=== PATIENT | male | born 1970 | race Caucasian/White ===

== ENCOUNTER 2023-04-19 09:57 | Inpatient (IN) ==
--- NOTE | 2023-04-19 10:06 | Emergency Department Note ---
Impression & Plan Septic shock, UTI (urinary tract infection), Acute respiratory failure with hypoxia and hypercapnia, Chronic indwelling Dial catheter, NSTEMI (non-ST elevated myocardial infarction), Aspiration pneumonia ED Provider Note NAME: YUNG CRESPO AGE: 52 SEX: M : 1970 ARRIVES VIA: Ambulance INFORMANT: Patient, ED PROVIDER(S): Devonte Do MD CHIEF COMPLAINT: Altered mental status MEDICAL DECISION MAKING: Patient presents with limited history last known well was at 3 AM. The patient was unresponsive with agonal breathing. Patient had been in a hallway and EMS did not make anybody aware of the severity of the patient's illness. I had gone to the room the patient was to go to but was found in the hallway w/ EMS. There is concern for possible overdose given pinpoint pupils and the patient does have a history of buprenorphine overdose but given the patient's significant respiratory distress the decision was made to emergently intubate the patient. This was after discussion with paramedics who stated that the patient is DNR but that they had spoken with the daughter who asked that they do everything initially. IV was established blood work was obtained patient did receive IV ketamine and rocuronium. The patient was intubated without any complication postintubation chest x-ray performed. Patient was ordered empiric antibiotics. I did obtain some additional history from the daughter who lives in [place]. They report that his DNR order is . They would like things done but states the patient is DNR. After further discussion the daughter Myranda states that she does not want any CPR if his heart were to stop but would currently like him to be maintained on a ventilator. I had stated that if the patient was extubated currently he would likely succumb to his current illness. Patient was started on low-dose Levophed given the patient's hypotension. Ppatient's blood work shows a white count of 30 follower. Vancomycin was ordered. Normal hemoglobin mild thrombocytopenia at 123. Patient did have a VBG completed patient has also received bicarb on his initial ABG showed hypercarbia and associated pH of 7. Creatinine 1.71. The patient did have CT angiography of the chest and CT abdomen pelvis. Initial lactate is not elevated. Troponin of 12,000. Pro-Harley 54. Urinalysis does show possibility of infection given positive nitrates leuks and whites. Bedside [id number] ultrasound performed. Insufficient cardiac views but IVC appear to be flat nature likely could tolerate fluids. No significant B-lines noted in the bilateral chest. Given the patient's elevated troponin and EKG changes I did speak with Dr. Tan was stated that given the patient's comorbidities would not acutely take the patient to the Bail [facility] at this time. Patient without evidence of obvious STEMI. I did update patient's family who are a couple of nieces at bedside. CT of the head shows old small left frontal infarct no acute hemorrhage. CT angiography of the chest shows no evidence for PE. There is concern for likely aspiration pneumonitis and lymphadenopathy. CT abdomen pelvis shows mucous plugging bronchial wall thickening bilateral lower lobes favors pneumonia or aspiration pneumonitis. No evidence of bowel obstruction. Patient may have a nonspecific colitis with an associated 1.5 cm polyp versus stool within the rectosigmoid junction. Patient was ordered heparin given there is no acute bleed noted. The patient's daughter was actively driving from [place] per the admitting service. I did speak with the admitting service Dr. Lamb and the patient was admitted to the intensive care unit. I also did discuss patient's care and case with Dr. Luong the cone runner. Of note the patient did receive residual 3 and half liters IV fluid. The patient's Levophed was trialed off briefly but given the persistent hypotension was continued. Critical Care: I have personally spent 125 minutes of critical care time in direct management of this patient. This includes bedside care, interpretation of diagnostic studies, and testing, discussion with consultants, patient, and family members, and other require inpatient management activities. This 125 minutes is in excess of all separately billable procedures. Procedures: Endotracheal Intubation performed by Dr. Do Indication unresponsiveness, respiratory distress, airway protection. The patient was on 100% oxygen via NRB prior to the procedure. Suction, airway equipment, RSI drugs, respiratory equipment, and appropriate personnel were prepared prior to the initiation of the procedure. A time out was taken. Induction was performed with 100 mg of ketamine and paralytic of 100 mg of rocuronium. After observing the clinical benefit of the medications, the airway was easily visualized utilizing a low pro S4 video laryngoscopy. A 7.5 size ETT tube was placed atraumatically to 25 cm using standard technique. The cuff inflated without signs of malfunction. There were bilateral breath sounds, positive colormetric change, no gastric sounds, a good capnography waveform, and post procedure pulse oximetry was 100%. Post intubation sedation fentanyl and Versed drips. There were no complications. Discussion w/ other healthcare providers: Dr. Lamb inpatient medicine service Dr. Millan cone runner Prior /Outside records reviewed: I reviewed the patient's medication list which does include soma and Suboxone Differential diagnosis: Dehydration, UTI, pneumonia, metabolic derangment, electrolyte abnormalities, hypovolemia, anemia, cellulitis among others were considered. Diagnostics, as interpreted by me: ECG: Sinus tachycardia, rate of 109, normal intervals, right axis deviation no ST elevations, ST depressions in the lateral and inferior leads. Cardiac monitoring: An order was placed for continuous cardiac monitoring. The monitor shows a rate of 125 with tachycardic and regular rhythm. Patient was placed on pulse oximetry Medical decision rules: None Imaging studies: I informally interpreted the patient's chest x-ray which does not show obvious pneumothorax with formal report to follow. I informally interpreted the patient's CT head which does not show obvious ICH with formal report to follow HPI: Patient presents with limited history other than the patient was found to be altered this morning with a saturation in the 60s per EMS. Patient did have a normal blood pressure initially but had dropped to become more soft. No reported preceding symptoms other than the patient does have a caregiver who noted him to be last known well at 3 AM. Per review of the patient's binder which she is accompanied with the patient is a paraplegic who does have an indwelling urinary catheter. From exam the patient has had prior tracheostomy and left shoulder surgeries. They do not appear to be recent. History is limited as the patient is unresponsive. Per review of the medical records the patient is on Suboxone and Soma. The patient is also on other chronic medications. PAST MEDICAL HISTORY: See Below PAST SURGICAL HISTORY: See Below SOCIAL HISTORY: See Below HOME MEDICATIONS: See Below ALLERGIES: See Below VITALS: See Below PHYSICAL EXAMINATION: GENERAL: Severe distress, unresponsive, nonrebreather in place EYE EXAM: Normal conjunctiva. Pinpoint pupils, unreactive, no anisocoria. OROPHARYNX: Dry mucus membranes, grossly normal dentition. NECK: Trachea midline, no stridor. Supple, no nuchal rigidity, no adenopathy, non-tender. No signs of meningismus. FROM of the neck with good chin to chest and neck extension. LUNGS: Coarse sounds most prominent in the left chest compared to right, normal chest wall mechanics. HEART: Tachycardic and regular, no MRG. ABDOMEN: Abdomen soft, non-tender, no masses, no rebound or guarding. BACK: No CVA TTP. SKIN: No rashes and no bruising. : Indwelling Dial catheter in place UPPER EXTREMITIES: Upper extremities are grossly normal. LOWER EXTREMITIES: Grossly normal, no erythema. NEURO EXAM: GCS of 3 to verbal and tactile stimuli. Past Med/Surg History Medical History Acute kidney failure History of stroke Chronic indwelling Dial catheter Chronic anticoagulation Pacemaker Chronic incomplete quadriplegia Paraplegia Family History Other Family history non-contributory Social History Smoking Status: Current every day smoker Tobacco Type: Cigarettes Hx Alcohol Use: No Hx Substance Use: Yes Last Used Substance: Unknown Preferred Language: [place]ese Communication Ability: Effective Communication Ability Comment: currently intubated Lab Technician Required: No Beliefs That Will Affect Care: None Current Living Situation: Alone Current Living Situation Comment: patient lives in trailer [facility] Other Information That Helps Us Care for You: No Feels Safe at Home: Yes Assistive Devices: Wheelchair Allergies Allergies Allergy/AdvReac Type Severity Reaction Status Date / Time No Known Allergies Allergy Unverified 12/08/18 22:03 Home Meds Home Medications Medication Instructions Recorded Confirmed buprenorphine 8 mg-naloxone 2 mg 1 film sublingual BID 12/08/18 12/08/18 sublingual film (Suboxone) carisoprodol 350 mg tablet (Soma) 350 mg PO TID 12/08/18 12/08/18 clonazepam 0.5 mg tablet 0.5 mg PO BID 12/08/18 12/08/18 docusate sodium 50 mg capsule 50 mg PO DAILY PRN Constipation 12/08/18 12/08/18 (Stool Softener) linaclotide 290 mcg capsule 290 mcg PO DAILY 12/08/18 12/08/18 (Linzess) methylphenidate HCl 10 mg tablet 10 mg PO BID 12/08/18 12/08/18 nitrofurantoin macrocrystal 50 mg 50 mg PO DAILY 12/08/18 12/08/18 capsule polyethylene glycol 3350 17 17 g PO DAILY PRN Constipation 12/08/18 12/08/18 gram/dose oral powder (Miralax) apixaban 5 mg tablet (Eliquis) 5 mg PO BID 04/19/23 04/19/23 baclofen 20 mg tablet 20 mg PO TID 04/19/23 04/19/23 gabapentin 800 mg tablet 800 mg PO TID 04/19/23 04/19/23 Results & Data (ED) Vital Signs Vital Signs - 24 hr 04/19/23 10:23 04/19/23 10:23 04/19/23 11:02 Pulse Rate 113 H 153 H Pulse Rate from SpO2 Sensor Respiratory Rate 21 24 Respiratory Depth Shallow Blood Pressure 88/44 L Blood Pressure Mean 58 Pulse Oximetry 93 93 100 Oxygen Delivery Method Aerosol Mask Aerosol Mask Oxygen Flow Rate 12 Fraction of Inspired Oxygen 75 Sepsis New/Unexplained Change in Mental Status Yes Sepsis Action Taken by Nursing Physician Notified End-Tidal CO2 40 04/19/23 11:10 04/19/23 11:10 04/19/23 11:15 Pulse Rate 142 H Pulse Rate from SpO2 Sensor 142 H Respiratory Rate Respiratory Depth Blood Pressure 110/53 L 117/61 Blood Pressure Mean 74 85 Pulse Oximetry 100 Oxygen Delivery Method Mechanical Vent Oxygen Flow Rate Fraction of Inspired Oxygen Sepsis New/Unexplained Change in Mental Status Sepsis Action Taken by Nursing End-Tidal CO2 04/19/23 11:15 04/19/23 11:20 04/19/23 11:21 Pulse Rate 138 H 130 H 131 H Pulse Rate from SpO2 Sensor 138 H 131 H 131 H Respiratory Rate Respiratory Depth Blood Pressure Blood Pressure Mean Pulse Oximetry 100 100 100 Oxygen Delivery Method Mechanical Vent Mechanical Vent Oxygen Flow Rate Fraction of Inspired Oxygen Sepsis New/Unexplained Change in Mental Status Sepsis Action Taken by Nursing End-Tidal CO2 04/19/23 11:21 04/19/23 11:21 04/19/23 11:23 Pulse Rate 132 H Pulse Rate from SpO2 Sensor 133 H Respiratory Rate Respiratory Depth Blood Pressure 76/32 L 76/32 L Blood Pressure Mean 41 41 Pulse Oximetry 100 Oxygen Delivery Method Mechanical Vent Oxygen Flow Rate Fraction of Inspired Oxygen Sepsis New/Unexplained Change in Mental Status Sepsis Action Taken by Nursing End-Tidal CO2 04/19/23 11:23 04/19/23 11:25 04/19/23 11:25 Pulse Rate 130 H Pulse Rate from SpO2 Sensor 130 H Respiratory Rate Respiratory Depth Blood Pressure 103/58 L 106/59 L Blood Pressure Mean 66 73 Pulse Oximetry 100 Oxygen Delivery Method Mechanical Vent Oxygen Flow Rate Fraction of Inspired Oxygen Sepsis New/Unexplained Change in Mental Status Sepsis Action Taken by Nursing End-Tidal CO2 04/19/23 11:30 04/19/23 11:30 04/19/23 11:35 Pulse Rate 128 H 132 H Pulse Rate from SpO2 Sensor 128 H 132 H Respiratory Rate Respiratory Depth Blood Pressure 125/64 Blood Pressure Mean 78 Pulse Oximetry 100 100 Oxygen Delivery Method Mechanical Vent Mechanical Vent Oxygen Flow Rate Fraction of Inspired Oxygen Sepsis New/Unexplained Change in Mental Status Sepsis Action Taken by Nursing End-Tidal CO2 04/19/23 11:35 04/19/23 11:59 04/19/23 12:00 Pulse Rate Pulse Rate from SpO2 Sensor 111 H Respiratory Rate 24 Respiratory Depth Blood Pressure 125/68 91/50 L Blood Pressure Mean 84 60 Pulse Oximetry 100 Oxygen Delivery Method Mechanical Vent Oxygen Flow Rate Fraction of Inspired Oxygen Sepsis New/Unexplained Change in Mental Status Sepsis Action Taken by Nursing End-Tidal CO2 49 04/19/23 12:00 04/19/23 12:05 04/19/23 12:05 Pulse Rate 108 H 108 H Pulse Rate from SpO2 Sensor 109 H 108 H Respiratory Rate 24 24 Respiratory Depth Blood Pressure 91/53 L Blood Pressure Mean 62 Pulse Oximetry 100 100 Oxygen Delivery Method Mechanical Vent Mechanical Vent Oxygen Flow Rate Fraction of Inspired Oxygen Sepsis New/Unexplained Change in Mental Status Sepsis Action Taken by Nursing End-Tidal CO2 38 43 04/19/23 12:07 04/19/23 12:10 04/19/23 12:10 Pulse Rate 105 H 105 H Pulse Rate from SpO2 Sensor 106 H Respiratory Rate 24 Respiratory Depth Blood Pressure 86/54 L Blood Pressure Mean 66 Pulse Oximetry 100 Oxygen Delivery Method Mechanical Vent Oxygen Flow Rate Fraction of Inspired Oxygen Sepsis New/Unexplained Change in Mental Status Sepsis Action Taken by Nursing End-Tidal CO2 41 04/19/23 12:15 04/19/23 12:15 04/19/23 12:20 Pulse Rate 103 H Pulse Rate from SpO2 Sensor 103 H Respiratory Rate 24 Respiratory Depth Blood Pressure 88/51 L 114/63 Blood Pressure Mean 61 72 Pulse Oximetry 100 Oxygen Delivery Method Mechanical Vent Oxygen Flow Rate Fraction of Inspired Oxygen Sepsis New/Unexplained Change in Mental Status Sepsis Action Taken by Nursing End-Tidal CO2 39 04/19/23 12:20 04/19/23 12:25 04/19/23 12:25 Pulse Rate 106 H 118 H Pulse Rate from SpO2 Sensor 106 H 117 H Respiratory Rate 24 24 Respiratory Depth Blood Pressure 126/73 Blood Pressure Mean 87 Pulse Oximetry 100 100 Oxygen Delivery Method Mechanical Vent Mechanical Vent Oxygen Flow Rate Fraction of Inspired Oxygen Sepsis New/Unexplained Change in Mental Status Sepsis Action Taken by Nursing End-Tidal CO2 44 42 04/19/23 12:30 04/19/23 12:30 04/19/23 12:35 Pulse Rate 116 H Pulse Rate from SpO2 Sensor 117 H Respiratory Rate 24 Respiratory Depth Blood Pressure 128/73 147/81 H Blood Pressure Mean 94 97 Pulse Oximetry 100 Oxygen Delivery Method Mechanical Vent Oxygen Flow Rate Fraction of Inspired Oxygen Sepsis New/Unexplained Change in Mental Status Sepsis Action Taken by Nursing End-Tidal CO2 43 04/19/23 12:35 04/19/23 12:40 04/19/23 12:40 Pulse Rate 116 H 114 H Pulse Rate from SpO2 Sensor 116 H 114 H Respiratory Rate 24 24 Respiratory Depth Blood Pressure 122/71 Blood Pressure Mean 88 Pulse Oximetry 100 100 Oxygen Delivery Method Mechanical Vent Mechanical Vent Oxygen Flow Rate Fraction of Inspired Oxygen Sepsis New/Unexplained Change in Mental Status Sepsis Action Taken by Nursing End-Tidal CO2 45 38 Home Medications Current Medication List: was personally reviewed by me Laboratory Data Attestation: I reviewed the patient's lab results. 04/19/23 10:43 04/19/23 10:43 Lab Results 04/19/23 04/19/23 04/19/23 Range/Units 10:43 10:44 10:57 WBC 34.39 H* (4.8-10.8) K/ul RBC 5.47 (4.70-6.10) M/uL Hgb 15.3 (14.0-18.0) g/dl POC Hgb 16.3 (14.0-18.0) g/dl Hct 48.8 (42.0-52.0) % POC Hct 48 (42-52) % MCV 89.2 (80.0-100.0) fL MCH 28.0 (25.0-34.0) pg MCHC 31.4 L (32.0-36.0) g/dL RDW Std Deviation 45.1 (36.4-46.3) fL RDW Coeff of Jason 13.9 (11.5-14.5) % Plt Count 123 L (130-400) K/uL MPV 9.6 (9.4-12.4) fL Absolute Nucleated RBC 0.05 (0.00-0.12) K/uL Nucleated RBC % (auto) 0.1 % PT 15.1 H (9.0-12.0) Seconds INR 1.4 H (0.9-1.1) APTT 33 H (21-31) Seconds PTT Ratio 1.2 POC pH 7.07 L* (7.35-7.45) POC pCO2 66 H (35-46) mmHg POC pO2 295 H (80-95) mmHg POC HCO3 19 (19-24) vickie/L POC Total CO2 21 L (24-31) mmol/L POC Base Excess -11.0 L (-9-1.8) vickie/L POC ABG O2 Sat 100.0 H (90-95) % VBG pH (7.36-7.41) VBG pCO2 (38-50) mmHg VBG pO2 mmHg VBG HCO3 mmol/L VBG O2 Saturation % VBG Base Excess mEq/L POC Sodium 141 (135-144) mmol/L Sodium 135 L (136-145) mmol/L POC Potassium 4.4 (3.3-5.0) mmol/L Potassium 4.6 (3.5-5.1) mmol/L Chloride 111 H (98-107) mmol/L Carbon Dioxide 15 L (21-32) mmol/L Anion Gap 9 (3-11) BUN 30 H (6-23) mg/dl Creatinine 1.71 H (0.6-1.4) mg/dl Est Cr Clr Drug Dosing 62.9 ml/min Est GFR ( Amer) 52.2 ml/min Est GFR (Non-Af Amer) 45.0 ml/min BUN/Creatinine Ratio 17.5 (10-20) Glucose 197 H (70-99(Fasting)) mg/dl Lactate 1.9 (0.4-2.0) mmol/L Calcium 7.8 L (8.6-10.3) mg/dl Magnesium 1.8 (1.7-2.4) mg/dl Total Bilirubin 0.3 (0.2-1.0) mg/dl Direct Bilirubin 0.1 (0-0.2) mg/dl AST 48 H (13-39) U/L ALT 35 (7-52) U/L Alkaline Phosphatase 77 (34-104) U/L Troponin I High Sens 26505.2 H* (0-20) pg/ml Total Protein 6.9 (6.0-8.3) gm/dl Albumin 3.5 (3.4-5.0) gm/dl Procalcitonin 54.04 H (0-0.5) ng/ml Urine Color Urine Appearance (Clear) Urine pH (4.5-7.5) Ur Specific Polk (1.000-1.030) Urine Protein (Negative) Urine Glucose (UA) (Negative) Urine Ketones (Negative) Urine Blood (Negative) Urine Nitrite (Negative) Urine Bilirubin (Negative) Urine Urobilinogen (Negative) Ur Leukocyte Esterase (Negative) Urine WBC (Auto) (0-5) /hpf Urine RBC (Auto) (0-4) /hpf U Hyaline Cast (Auto) (0-5) /lpf U Epithel Cells (Auto) (0-5) /lpf Urine Bacteria (Auto) (Negative) Nasal Screen MRSA (PCR) (Negative) Stl C. cayetanensis PCR (NotDetected) Stool Rotavirus A PCR (NotDetected) Stl Adenov F 40/41 PCR (NotDetected) Stool Astrovirus (PCR) (NotDetected) Stool Campylobacter PCR (NotDetected) Stl C. diff Tox B Gene (Neg) Stool Cryptosporidium PCR (NotDetected) Stl E.coli Shiga Tox PCR (NotDetected) Stl Enterotoxigenic E PCR (NotDetected) Stool EPEC (PCR) (NotDetected) Stool EAEC (PCR) (NotDetected) Stl E. histolytica PCR (NotDetected) Stool Giardia Lamblia PCR (NotDetected) Stool Salmonella PCR (NotDetected) Stool Sapovirus (PCR) (NotDetected) Stl P. shigelloides PCR (NotDetected) Stl Shigella/EIEC PCR (NotDetected) St Y.enterocolitica PCR (NotDetected) Stool Vibrio (PCR) (NotDetected) Stl Vibrio cholerae PCR (NotDetected) Stl Norovirus GI/GII PCR (NotDetected) Urine Opiates Screen (Neg) Ur Methadone, Qual (Neg) Urine Barbiturates (Neg) Ur Phencyclidine (PCP) (Neg) U Amphetamin/Meth Scrn (Neg) MDMA (Ecstasy) Screen (Neg) U Benzodiazepines Scrn (Neg) Ur Cocaine Metabolite (Neg) U Marijuana (THC) Screen (Neg) Adenovirus (PCR) Not Detected (NotDetected) B. pertussis DNA (PCR) Not Detected (NotDetected) B.parapertussis DNA PCR Not Detected (NotDetected) C. pneumoniae DNA (PCR) Not Detected (NotDetected) Coronavirus OC43 (PCR) Not Detected (NotDetected) Coronavirus HKU1 (PCR) Not Detected (NotDetected) Coronavirus 229E (PCR) Not Detected (NotDetected) SARS-CoV-2 (PCR) Not Detected (NotDetected) Coronavirus NL63 (PCR) Not Detected (NotDetected) Human Metapneumovir PCR Not Detected (NotDetected) Influenza Type A (PCR) Not Detected (NotDetected) Influenza Type B (PCR) Not Detected (NotDetected) M. pneumoniae (PCR) Not Detected (NotDetected) Parainfluenza 1 (PCR) Not Detected (NotDetected) Parainfluenza 2 (PCR) Not Detected (NotDetected) Parainfluenza 3 (PCR) Not Detected (NotDetected) Parainfluenza 4 (PCR) Not Detected (NotDetected) RSV (PCR) Not Detected (NotDetected) Entero/Rhino (PCR) Not Detected (NotDetected) 04/19/23 04/19/23 04/19/23 Range/Units 12:18 12:20 12:23 WBC (4.8-10.8) K/ul RBC (4.70-6.10) M/uL Hgb (14.0-18.0) g/dl POC Hgb (14.0-18.0) g/dl Hct (42.0-52.0) % POC Hct (42-52) % MCV (80.0-100.0) fL MCH (25.0-34.0) pg MCHC (32.0-36.0) g/dL RDW Std Deviation (36.4-46.3) fL RDW Coeff of Jason (11.5-14.5) % Plt Count (130-400) K/uL MPV (9.4-12.4) fL Absolute Nucleated RBC (0.00-0.12) K/uL Nucleated RBC % (auto) % PT (9.0-12.0) Seconds INR (0.9-1.1) APTT (21-31) Seconds PTT Ratio POC pH (7.35-7.45) POC pCO2 (35-46) mmHg POC pO2 (80-95) mmHg POC HCO3 (19-24) vickie/L POC Total CO2 (24-31) mmol/L POC Base Excess (-9-1.8) vickie/L POC ABG O2 Sat (90-95) % VBG pH 7.16 L (7.36-7.41) VBG pCO2 53 H (38-50) mmHg VBG pO2 164 mmHg VBG HCO3 19 mmol/L VBG O2 Saturation 99.2 % VBG Base Excess -10.1 mEq/L POC Sodium (135-144) mmol/L Sodium (136-145) mmol/L POC Potassium (3.3-5.0) mmol/L Potassium (3.5-5.1) mmol/L Chloride (98-107) mmol/L Carbon Dioxide (21-32) mmol/L Anion Gap (3-11) BUN (6-23) mg/dl Creatinine (0.6-1.4) mg/dl Est Cr Clr Drug Dosing ml/min Est GFR ( Amer) ml/min Est GFR (Non-Af Amer) ml/min BUN/Creatinine Ratio (10-20) Glucose (70-99(Fasting)) mg/dl Lactate (0.4-2.0) mmol/L Calcium (8.6-10.3) mg/dl Magnesium (1.7-2.4) mg/dl Total Bilirubin (0.2-1.0) mg/dl Direct Bilirubin (0-0.2) mg/dl AST (13-39) U/L ALT (7-52) U/L Alkaline Phosphatase (34-104) U/L Troponin I High Sens (0-20) pg/ml Total Protein (6.0-8.3) gm/dl Albumin (3.4-5.0) gm/dl Procalcitonin (0-0.5) ng/ml Urine Color Kemi Urine Appearance Cloudy A (Clear) Urine pH 5.5 (4.5-7.5) Ur Specific Polk 1.024 (1.000-1.030) Urine Protein 2+ H (Negative) Urine Glucose (UA) Negative (Negative) Urine Ketones Negative (Negative) Urine Blood 3+ H (Negative) Urine Nitrite Positive A (Negative) Urine Bilirubin Negative (Negative) Urine Urobilinogen Negative (Negative) Ur Leukocyte Esterase 1+ H (Negative) Urine WBC (Auto) >30 H (0-5) /hpf Urine RBC (Auto) >30 H (0-4) /hpf U Hyaline Cast (Auto) 1-5 (0-5) /lpf U Epithel Cells (Auto) 10-20 H (0-5) /lpf Urine Bacteria (Auto) Negative (Negative) Nasal Screen MRSA (PCR) Negative (Negative) Stl C. cayetanensis PCR (NotDetected) Stool Rotavirus A PCR (NotDetected) Stl Adenov F 40/41 PCR (NotDetected) Stool Astrovirus (PCR) (NotDetected) Stool Campylobacter PCR (NotDetected) Stl C. diff Tox B Gene (Neg) Stool Cryptosporidium PCR (NotDetected) Stl E.coli Shiga Tox PCR (NotDetected) Stl Enterotoxigenic E PCR (NotDetected) Stool EPEC (PCR) (NotDetected) Stool EAEC (PCR) (NotDetected) Stl E. histolytica PCR (NotDetected) Stool Giardia Lamblia PCR (NotDetected) Stool Salmonella PCR (NotDetected) Stool Sapovirus (PCR) (NotDetected) Stl P. shigelloides PCR (NotDetected) Stl Shigella/EIEC PCR (NotDetected) St Y.enterocolitica PCR (NotDetected) Stool Vibrio (PCR) (NotDetected) Stl Vibrio cholerae PCR (NotDetected) Stl Norovirus GI/GII PCR (NotDetected) Urine Opiates Screen Neg (Neg) Ur Methadone, Qual Neg (Neg) Urine Barbiturates Neg (Neg) Ur Phencyclidine (PCP) Neg (Neg) U Amphetamin/Meth Scrn Pos H (Neg) MDMA (Ecstasy) Screen Pos H (Neg) U Benzodiazepines Scrn Neg (Neg) Ur Cocaine Metabolite Neg (Neg) U Marijuana (THC) Screen Pos H (Neg) Adenovirus (PCR) (NotDetected) B. pertussis DNA (PCR) (NotDetected) B.parapertussis DNA PCR (NotDetected) C. pneumoniae DNA (PCR) (NotDetected) Coronavirus OC43 (PCR) (NotDetected) Coronavirus HKU1 (PCR) (NotDetected) Coronavirus 229E (PCR) (NotDetected) SARS-CoV-2 (PCR) (NotDetected) Coronavirus NL63 (PCR) (NotDetected) Human Metapneumovir PCR (NotDetected) Influenza Type A (PCR) (NotDetected) Influenza Type B (PCR) (NotDetected) M. pneumoniae (PCR) (NotDetected) Parainfluenza 1 (PCR) (NotDetected) Parainfluenza 2 (PCR) (NotDetected) Parainfluenza 3 (PCR) (NotDetected) Parainfluenza 4 (PCR) (NotDetected) RSV (PCR) (NotDetected) Entero/Rhino (PCR) (NotDetected) 04/19/23 Range/Units 12:38 WBC (4.8-10.8) K/ul RBC (4.70-6.10) M/uL Hgb (14.0-18.0) g/dl POC Hgb (14.0-18.0) g/dl Hct (42.0-52.0) % POC Hct (42-52) % MCV (80.0-100.0) fL MCH (25.0-34.0) pg MCHC (32.0-36.0) g/dL RDW Std Deviation (36.4-46.3) fL RDW Coeff of Jason (11.5-14.5) % Plt Count (130-400) K/uL MPV (9.4-12.4) fL Absolute Nucleated RBC (0.00-0.12) K/uL Nucleated RBC % (auto) % PT (9.0-12.0) Seconds INR (0.9-1.1) APTT (21-31) Seconds PTT Ratio POC pH (7.35-7.45) POC pCO2 (35-46) mmHg POC pO2 (80-95) mmHg POC HCO3 (19-24) vickie/L POC Total CO2 (24-31) mmol/L POC Base Excess (-9-1.8) vickie/L POC ABG O2 Sat (90-95) % VBG pH (7.36-7.41) VBG pCO2 (38-50) mmHg VBG pO2 mmHg VBG HCO3 mmol/L VBG O2 Saturation % VBG Base Excess mEq/L POC Sodium (135-144) mmol/L Sodium (136-145) mmol/L POC Potassium (3.3-5.0) mmol/L Potassium (3.5-5.1) mmol/L Chloride (98-107) mmol/L Carbon Dioxide (21-32) mmol/L Anion Gap (3-11) BUN (6-23) mg/dl Creatinine (0.6-1.4) mg/dl Est Cr Clr Drug Dosing ml/min Est GFR ( Amer) ml/min Est GFR (Non-Af Amer) ml/min BUN/Creatinine Ratio (10-20) Glucose (70-99(Fasting)) mg/dl Lactate (0.4-2.0) mmol/L Calcium (8.6-10.3) mg/dl Magnesium (1.7-2.4) mg/dl Total Bilirubin (0.2-1.0) mg/dl Direct Bilirubin (0-0.2) mg/dl AST (13-39) U/L ALT (7-52) U/L Alkaline Phosphatase (34-104) U/L Troponin I High Sens (0-20) pg/ml Total Protein (6.0-8.3) gm/dl Albumin (3.4-5.0) gm/dl Procalcitonin (0-0.5) ng/ml Urine Color Urine Appearance (Clear) Urine pH (4.5-7.5) Ur Specific Polk (1.000-1.030) Urine Protein (Negative) Urine Glucose (UA) (Negative) Urine Ketones (Negative) Urine Blood (Negative) Urine Nitrite (Negative) Urine Bilirubin (Negative) Urine Urobilinogen (Negative) Ur Leukocyte Esterase (Negative) Urine WBC (Auto) (0-5) /hpf Urine RBC (Auto) (0-4) /hpf U Hyaline Cast (Auto) (0-5) /lpf U Epithel Cells (Auto) (0-5) /lpf Urine Bacteria (Auto) (Negative) Nasal Screen MRSA (PCR) (Negative) Stl C. cayetanensis PCR Not Detected (NotDetected) Stool Rotavirus A PCR Not Detected (NotDetected) Stl Adenov F 40/41 PCR Not Detected (NotDetected) Stool Astrovirus (PCR) Not Detected (NotDetected) Stool Campylobacter PCR Not Detected (NotDetected) Stl C. diff Tox B Gene Negative Cdiff Gene (Neg) Stool Cryptosporidium PCR Not Detected (NotDetected) Stl E.coli Shiga Tox PCR Not Detected (NotDetected) Stl Enterotoxigenic E PCR Not Detected (NotDetected) Stool EPEC (PCR) Not Detected (NotDetected) Stool EAEC (PCR) Not Detected (NotDetected) Stl E. histolytica PCR Not Detected (NotDetected) Stool Giardia Lamblia PCR Not Detected (NotDetected) Stool Salmonella PCR Not Detected (NotDetected) Stool Sapovirus (PCR) Not Detected (NotDetected) Stl P. shigelloides PCR Not Detected (NotDetected) Stl Shigella/EIEC PCR Not Detected (NotDetected) St Y.enterocolitica PCR Not Detected (NotDetected) Stool Vibrio (PCR) Not Detected (NotDetected) Stl Vibrio cholerae PCR Not Detected (NotDetected) Stl Norovirus GI/GII PCR Not Detected (NotDetected) Urine Opiates Screen (Neg) Ur Methadone, Qual (Neg) Urine Barbiturates (Neg) Ur Phencyclidine (PCP) (Neg) U Amphetamin/Meth Scrn (Neg) MDMA (Ecstasy) Screen (Neg) U Benzodiazepines Scrn (Neg) Ur Cocaine Metabolite (Neg) U Marijuana (THC) Screen (Neg) Adenovirus (PCR) (NotDetected) B. pertussis DNA (PCR) (NotDetected) B.parapertussis DNA PCR (NotDetected) C. pneumoniae DNA (PCR) (NotDetected) Coronavirus OC43 (PCR) (NotDetected) Coronavirus HKU1 (PCR) (NotDetected) Coronavirus 229E (PCR) (NotDetected) SARS-CoV-2 (PCR) (NotDetected) Coronavirus NL63 (PCR) (NotDetected) Human Metapneumovir PCR (NotDetected) Influenza Type A (PCR) (NotDetected) Influenza Type B (PCR) (NotDetected) M. pneumoniae (PCR) (NotDetected) Parainfluenza 1 (PCR) (NotDetected) Parainfluenza 2 (PCR) (NotDetected) Parainfluenza 3 (PCR) (NotDetected) Parainfluenza 4 (PCR) (NotDetected) RSV (PCR) (NotDetected) Entero/Rhino (PCR) (NotDetected) Administered Medications Fentanyl Citrate (Fentanyl Bolus From Bag) 50 mcg IV Q60M PRN PRN Reason: Pain or Agitation Stop: 05/03/23 11:14 Last Admin: 04/19/23 13:36 Dose: 50 mcg Documented By: VICKIE Co-signed By: JOY Norepinephrine Bitartrate (Levophed/D5w) 4 mg in 250 mls @ 26.25 mls/hr IV .Q9H32M [facility]; Protocol Stop: 05/19/23 10:44 Last Titration: 04/19/23 14:42 Dose: 0.07 mcg/kg/min, 26.3 mls/hr Documented By: Admin: 04/19/23 10:41 Dose: 0.05 mcg/kg/min, 18.8 mls/hr Documented By: SARITHA Co-signed By: JARAD Fentanyl Citrate (Fentanyl Citrate) 2,500 mcg in 250 mls @ 5 mls/hr IV .Q50H [facility]; Protocol Stop: 05/03/23 11:14 Last Titration: 04/19/23 14:43 Dose: 50 mcg/hr, 5 mls/hr Documented By: MERNA Co-signed By: VARUN Titration: 04/19/23 13:38 Dose: 50 mcg/hr, 5 mls/hr Documented By: VICKIE Co-signed By: JOY Admin: 04/19/23 11:34 Dose: 25 mcg/hr, 2.5 mls/hr Documented By: VICKIE Co-signed By: HERIBERTO Heparin Sodium/Dextrose (Heparin Sodium/Dextrose) 25,000 units in 500 mls @ 0 mls/hr IV .Q0M [facility]; Protocol Stop: 05/19/23 13:14 Last Titration: 04/19/23 14:42 Dose: 0 units/hr, 0 mls/hr Documented By: MERNA Co-signed By: VARUN Admin: 04/19/23 13:22 Dose: 1,000 units/hr, 20 mls/hr Documented By: VICKIE Co-signed By: JOY Discontinued Medications Albuterol (Albuterol 0.083% Nebu Soln 3 Ml Vial) 10 mg NEB NOW STA; Protocol Stop: 04/19/23 10:46 Last Admin: 04/19/23 10:51 Dose: 10 mg Documented By: SARITHA Calcium Gluconate (Calcium Gluconate 1000 Mg/60 Ml Nss) Confirm Administered Dose 2,000 mg IV .STK-MED ONE Stop: 04/19/23 10:50 Last Admin: 04/19/23 11:00 Dose: 2,000 mg Documented By: VICKIE Dextrose (Dextrose 50% 50 Ml Syringe) 50 ml IV NOW ONE Stop: 04/19/23 10:46 Last Admin: 04/19/23 13:02 Dose: Not Given Documented By: VICKIE Heparin Sodium/Dextrose (Heparin Iv Adult Wt-Based Low-Dose *No* Initial Bolus Protocol) 1 each IV ONE STA; Protocol Stop: 04/19/23 12:47 Last Admin: 04/19/23 13:22 Dose: Not Given Documented By: VICKIE Piperacillin Sod/Tazobactam Sod (Zosyn) 4.5 gm in 100 mls @ 200 mls/hr IV NOW ONE Stop: 04/19/23 11:02 Last Infusion: 04/19/23 12:21 Dose: Infused Documented By: Admin: 04/19/23 10:50 Dose: 200 mls/hr Documented By: SARITHA Sodium Chloride (Nss) 1,000 mls @ 999 mls/hr IV .Q1H1M [facility] Stop: 04/19/23 12:45 Last Infusion: 04/19/23 12:57 Dose: Infused Documented By: Admin: 04/19/23 12:31 Dose: 999 mls/hr Documented By: Infusion: 04/19/23 12:31 Dose: Infused Documented By: Admin: 04/19/23 10:41 Dose: 999 mls/hr Documented By: SARITHA Sodium Chloride (Nss) 1,000 mls @ 999 mls/hr IV .Q1H1M ONE Stop: 04/19/23 11:45 Last Infusion: 04/19/23 12:21 Dose: Infused Documented By: Admin: 04/19/23 11:04 Dose: 999 mls/hr Documented By: SARITHA Vancomycin HCl 2,000 mg/ (Sodium Chloride) 540 mls @ 200 mls/hr IV NOW ONE Stop: 04/19/23 14:41 Last Infusion: 04/19/23 15:27 Dose: Infused Documented By: Admin: 04/19/23 12:32 Dose: 200 mls/hr Documented By: VICKIE Sodium Chloride (Nss) 500 mls @ 999 mls/hr IV .Q31M ONE Stop: 04/19/23 12:28 Last Infusion: 04/19/23 13:40 Dose: Infused Documented By: Admin: 04/19/23 12:33 Dose: 999 mls/hr Documented By: VICKIE Calcium Gluconate () 1,000 mg in 60 mls @ 240 mls/hr IV NOW STA Stop: 04/19/23 14:48 Last Admin: 04/19/23 14:45 Dose: Not Given Documented By: MERNA Calcium Gluconate () 1,000 mg in 60 mls @ 240 mls/hr IV NOW STA Stop: 04/19/23 14:48 Last Admin: 04/19/23 14:45 Dose: Not Given Documented By: MERNA Lactated Ringer's (Lr) 500 mls @ 999 mls/hr IV .Q31M ONE Stop: 04/19/23 15:16 Last Infusion: 04/19/23 15:26 Dose: Infused Documented By: Admin: 04/19/23 14:49 Dose: 999 mls/hr Documented By: MERNA Acetaminophen (Ofirmev) 1,000 mg in 100 mls @ 400 mls/hr IV NOW STA Stop: 04/19/23 15:00 Last Infusion: 04/19/23 15:10 Dose: Infused Documented By: Admin: 04/19/23 14:50 Dose: 400 mls/hr Documented By: MERNA Insulin Human Regular (Novolin-R Insulin Per Unit Charge) 10 units IV NOW STA Stop: 04/19/23 10:46 Last Admin: 04/19/23 13:02 Dose: Not Given Documented By: VICKIE Ioversol (Optiray 320 125ml) 112 ml IV ONCE ONE Stop: 04/19/23 11:50 Last Admin: 04/19/23 11:50 Dose: 112 ml Documented By: GABRIELA Dugananeous (Rapid Sequence Induction Bag) Confirm Administered Dose 1 each N/A .STK-MED ONE Stop: 04/19/23 10:17 Last Admin: 04/19/23 10:28 Dose: 1 each Documented By: SARITHA Louis (Stat Iv Infusion Titration Per Protocol) 1 each N/A NOW STA Stop: 04/19/23 10:40 Last Admin: 04/19/23 10:42 Dose: Not Given Documented By: SARITHA Louis (Stat Iv Infusion Titration Per Protocol) 1 each N/A NOW STA Stop: 04/19/23 11:16 Last Admin: 04/19/23 12:58 Dose: Not Given Documented By: VICKIE Norepinephrine Bitartrate (Norepinephrine/D5w 4 Mg/250 Ml) Confirm Administered Dose 4 mg IV .STK-MED ONE Stop: 04/19/23 10:29 Last Admin: 04/19/23 10:43 Dose: Not Given Documented By: SARITHA Sodium Bicarbonate (Sodium Bicarb 8.4% Inj 50 Meq/50 Ml Syr) Confirm Administered Dose 100 meq IV .STK-MED ONE Stop: 04/19/23 10:50 Last Admin: 04/19/23 12:59 Dose: Not Given Documented By: VICKIE Sodium Bicarbonate (Sodium Bicarb 8.4% Inj 50 Meq/50 Ml Syr) 100 meq IV NOW ONE Stop: 04/19/23 11:01 Last Admin: 04/19/23 10:51 Dose: 100 meq Documented By: VICKIE Sodium Bicarbonate (Sodium Bicarb 8.4% Inj 50 Meq/50 Ml Syr) 50 meq IV NOW STA Stop: 04/19/23 10:59 Last Admin: 04/19/23 12:59 Dose: Not Given Documented By: KJ Imaging Data Radiologist's Impression: Chest X-Ray 04/19/23 10:23 XR chest 1V portable HISTORY: 52 years-old Male Sepsis COMPARISON: None TECHNIQUE: AP view of the chest FINDINGS: Endotracheal tube overlies the midline, 3.5 cm superior to the singh. Left subclavian dual-lead pacer. Vascular graft of the descending thoracic aorta. No pneumothorax. Probable trace right pleural effusion with mild bibasilar densities. Pulmonary vascular congestion with interstitial coarsening. Cervical spinal and left humeral fusion hardware. IMPRESSION: 1. Cardiac mainly with pulmonary vascular congestion. 2. Satisfactory positioning of the endotracheal tube. 3. Trace right pleural effusion with mild bibasilar densities suggestive of atelectasis versus pneumonitis. ACT 112: Negative or not required by law. The above report was generated using voice recognition software. It may contain grammatical, syntax or spelling errors. Electronically signed by: Enzo Peoples M.D. 04/19/2023 11:[address] 04/19/23 10:[address] DOSE: 547.75 mGy.cm HISTORY: Altered mental status. TECHNIQUE: Multiaxial CT images of the head were performed without the use of intravenous contrast. Automated exposure control was utilized for this study. A dose lowering technique was utilized adhering to the principles of ALARA. Comparison: None. Findings: Mild mucosal thickening within the ethmoid air cells and a small fluid level within the right sphenoid sinus. The mastoid air cells are clear. The calvarium and skull base are intact. The ventricles and sulci are within normal limits. There is no mass, hematoma, midline shift, or acute infarct. Small focus of encephalomalacia within the left frontal lobe consistent with an old infarct. Impression: 1. No acute infarct or intracranial hemorrhage. 2. 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 3. Mild sinus disease as described above. ACT 112: Negative or not required by law. Electronically signed by: Martinez Diggs M.D. 04/19/2023 12:20 PM Abdomen/Pelvis CT 04/19/23 11:45 CT OF THE ABDOMEN AND PELVIS WITH CONTRAST CLINICAL HISTORY: Altered mental status. COMPARISON STUDY: None. TECHNIQUE: Following IV administration of 112 mL of Optiray, axial images of the abdomen and pelvis were obtained from the lung bases to the proximal femurs. Images were reviewed in the axial, sagittal, and coronal planes. IV contrast was administered without complication. Automated exposure control was utilized for the study. A dose lowering technique was utilized adhering to the principles of ALARA. FINDINGS: Please note that the chest CT will be reported separately. Bilateral lower lobe airspace opacities are greater within the right lower lobe. There is mucus plugging and bronchial wall thickening. No pneumatosis, free air or portal venous gas. Pacer leads are partially imaged. There is hepatic steatosis. No hepatic lesions. No biliary or pancreatic ductal dilatation. Spleen, adrenal glands and kidneys are unremarkable. There is no hydronephrosis. IVC filter is in place. Dial balloon is within the prostatic portion of the urethra. There is trace gas within the bladder. There is mild bladder wall thickening. There is no evidence for a bowel obstruction. The colon is mildly fluid-filled. Possible 1.5 cm polyp along the left lateral wall of the rectosigmoid junction on image 307 of 417 is present. This could also represent adherent stool. There is mild wall thickening of portions of the colon, likely due to underdistention. There is no lymphadenopathy. No ascites. Major vasculature is patent. Postoperative findings within the pelvis including symphyseal and bilateral SI joint fusions are present. There are no acute fractures. Layering hyperdense material within the gallbladder favor small gallstones. No evidence for acute cholecystitis. IMPRESSION: 1. Dial balloon within the prostatic urethra. A Dial catheter could be advanced. 2. No bowel obstruction. Fluid-filled colon. Wall thickening of portions of the colon likely due to underdistention. A mild nonspecific colitis could appear similar. 1.5 cm polyp versus adherent stool at the rectosigmoid junction. Nonemergent GI consultation for consideration for colonoscopy is recommended. 3. Bilateral lower lobe airspace opacities with mucus plugging and bronchial wall thickening. This favors pneumonia or aspiration pneumonitis. ACT 112: Negative or not required by law. Electronically signed by: Sin Ying M.D. 04/19/2023 12:16 PM Chest CTA 04/19/23 11:45 CHEST CTA for PULMONARY ARTERIES CT DOSE: 2554.42 mGy.cm HISTORY: Hypoxia. PE TECHNIQUE: Multiaxial CT images of the chest were performed following the intravenous administration of contrast to evaluate the pulmonary arteries. 3D/Maximal intensity projection images were also obtained. Sagittal and coronal reformations were also reviewed. A dose lowering technique was utilized adhering to the principles of ALARA. COMPARISON STUDY: None. FINDINGS: Normal caliber thoracic aorta with no evidence for a dissection. There is a stent within the distal aortic arch and descending thoracic aorta. The heart is top normal in size. No pleural or pericardial effusions. The left-sided pacemaker noted. The main pulmonary measures up to 3.2 cm in diameter consistent with mild pulmonary arterial hypertension. Respiratory motion artifact results in suboptimal evaluation of the segmental/subsegmental pulmonary arteries. However, there are no definite filling defects within the pulmonary arteries to suggest a pulmonary embolus. Mild coronary artery calcifications are noted. The thyroid gland enhances normally. This mildly enlarged subcarinal and right hilar lymph nodes. No significant left hilar lymphadenopathy. The abdominal structures will be reported on the same day abdomen and pelvis CT. There is mild circumferential thickening of the mid to distal esophagus. Spinal fusion hardware at the cervicothoracic junction is partially visualized. Old posttraumatic and postoperative changes within the left shoulder. There are multiple old mild compression deformities within the thoracic spine. Endotracheal tube terminates 3.6 cm from the singh. Small amount of mucoid material within the distal trachea. There is partial opacification of the bilateral lower lobe bronchi most pronounced on the right. Consolidation within the base of the bilateral lower lobes favors a pneumonia and is likely secondary to aspiration. This is most pronounced on the right. No pneumothorax. IMPRESSION: 1. No evidence for a pulmonary embolus. 2. Endotracheal tube terminates 3.6 cm from the isngh. 3. Partial mucoid opacification the bilateral lower lobe bronchi most pronounced on the right with bilateral lower lobe basilar consolidation. This favors an aspiration pneumonitis. Follow-up bronchoscopy should be considered for possible clearing of the mucoid opacification of the right lower lobe bronchi. 4. Mild subcarinal and right hilar lymphadenopathy. This may be reactive to the suspected pneumonitis. Follow-up recommended to ensure resolution. 5. Mild pulmonary arterial hypertension. 6. Additional findings as described above. ACT 112: Negative or not required by law. Electronically signed by: Martinez Diggs M.D. 04/19/2023 12:42 PM KUB X-Ray 04/19/23 12:23 KUB CLINICAL HISTORY: s/p OG placement COMPARISON STUDY: CT of the chest, abdomen and pelvis April 19, 2023. FINDINGS: Tip of orogastric tube is within the body of the stomach. Endovascular stent graft and left subclavian pacer are incidentally noted. Bibasilar opacities, right greater than left, are similar to prior CT IMPRESSION: Appropriately positioned orogastric tube. ACT 112: Negative or not required by law. Electronically signed by: Sin Ying M.D. 04/19/2023 12:59 PM Discharge Plan Visit Data Chief Complaint: Altered Mental Status Stated Complaint: altered mental status ED Provider: Devonte Do Discharge Problem: Septic shock, UTI (urinary tract infection), Acute respiratory failure with hypoxia and hypercapnia, Chronic indwelling Dial catheter, NSTEMI (non-ST elevated myocardial infarction), Aspiration pneumonia Patient Disposition: Admitted As Inpatient Discharge Instructions Interventions: ED Discharge Assessment Last Done: 04/19/23 13:57 Discharge Problem: UTI (urinary tract infection) Qualifiers: Urinary tract infection type: site unspecified Aspiration pneumonia Qualifiers: Aspiration pneumonia type: unspecified Laterality: bilateral Lung location: l ower lobe of lung Qualified Code(s): J69.0 - Pneumonitis due to inhalation of food and vomit
[2023-04-19] MEDS: RAPID SEQUENCE INDUCTION BAG ONE (10:28)
[2023-04-19] MEDS: NOREPINEPHRINE/D5W 4 MG/250 ML PLCT IV SCH (10:41)
[2023-04-19] MEDS: SODIUM CHLORIDE 0.9% 1,000 ML IV SCH (10:41)
[2023-04-19] MEDS: STAT IV Infusion **Titration per Protocol STA ×2 (10:42→12:58)
[2023-04-19] MEDS: NOREPINEPHRINE/D5W 4 MG/250 ML IV ONE (10:43)
[2023-04-19] MEDS: PIPERACILLIN/TAZOBACTAM 4.5 GM/100 ML BAG IV ONE (10:50)
[2023-04-19] MEDS: SODIUM BICARB 8.4% INJ 50 MEQ/50 ML SYR IV ONE ×2 (10:51→12:59)
[2023-04-19] MEDS: ALBUTEROL 0.083% NEBU SOLN 3 ML VIAL NEB STA (10:51)
[2023-04-19] MEDS: CALCIUM GLUCONATE 1000 MG/60 ML NSS IV ONE (11:00)
[2023-04-19] MEDS: SODIUM CHLORIDE 0.9% 1,000 ML IV ONE (11:04)
[2023-04-19] MEDS ORDERED: MIDAZOLAM HCL 1 MG/ML 2ML VIAL IV PRN (11:15)
[2023-04-19 11:22] LABS: Hematocrit (blood only) 48.8 % (42.0-52.0); Hemoglobin 15.3 g/dl (14.0-18.0); Mean Corpuscular Hgb Conc 31.4 g/dL (32.0-36.0); Mean Corpuscular Volume 89.2 fL (80.0-100.0); Mean Platelet Volume 9.6 fL (9.4-12.4); Nucleated RBC # (auto) 0.05 K/uL (0.00-0.12); Nucleated RBC % (auto) 0.1 %; Platelet Count 123 K/uL (130-400); RDW Coefficient of Variation 13.9 % (11.5-14.5); RDW Standard Deviation 45.1 fL (36.4-46.3); Red Blood Count 5.47 M/uL (4.70-6.10); White Blood Count 34.39 K/ul (4.8-10.8)
[2023-04-19 11:30] LABS: Albumin Level 3.5 gm/dl (3.4-5.0); Bilirubin,Total 0.3 mg/dl (0.2-1.0); Calcium 7.8 mg/dl (8.6-10.3); INR 1.4 (0.9-1.1); Magnesium 1.8 mg/dl (1.7-2.4); Partial Thromboplastin Ratio 1.2; Partial Thromboplastin Time 33 Seconds (21-31); Potassium 4.6 mmol/L (3.5-5.1); Prothrombin Time 15.1 Seconds (9.0-12.0)
[2023-04-19 11:31] LABS: Bilirubin Direct 0.1 mg/dl (0-0.2)
[2023-04-19 11:34] LABS: BUN Creatinine Ratio 17.5 (10-20); Creatinine Clr Calc Pharmacy 62.9 ml/min; Est GFR (African American) 52.2 ml/min; Total Protein 6.9 gm/dl (6.0-8.3)
[2023-04-19] MEDS: fentaNYL citrate 2,500 MCG/250 ML BAG IV SCH (11:34)
[2023-04-19 11:37] LABS: Troponin I High Sensitivity 12768.2 pg/ml (0-20)
--- NOTE | 2023-04-19 11:37 | Electrocardiogram Report ---
Test Reason : Blood Pressure : / mmHG Vent. Rate : 109 BPM Atrial Rate : 109 BPM P-R Int : 144 ms QRS Dur : 076 ms QT Int : 326 ms P-R-T Axes : 072 111 074 degrees QTc Int : 439 ms Sinus tachycardia Biatrial enlargement Right axis deviation Pulmonary disease pattern ST depression in Anterolateral leads , consider ischemia ST depression in Inferior leads , consider ischemia Abnormal ECG No previous ECGs available Confirmed by Gregorio Pearl ([id number]) on 04/19/2023 11:37:12 AM Referred By: Confirmed By:Gregorio Pearl
--- NOTE | 2023-04-19 11:38 | XRay Report ---
XR chest 1V portable HISTORY: 52 years-old Male Sepsis COMPARISON: None TECHNIQUE: AP view of the chest FINDINGS: Endotracheal tube overlies the midline, 3.5 cm superior to the singh. Left subclavian dual-lead pace r. Vascular graft of the descending thoracic aorta. No pneumothorax. Probable trace right pleural eff usion with mild bibasilar densities. Pulmonary vascular congestion with interstitial coarsening. Cerv ical spinal and left humeral fusion hardware. IMPRESSION: 1. Cardiac mainly with pulmonary vascular congestion. 2. Satisfactory positioning of the endotracheal tube. 3. Trace right pleural effusion with mild bibasilar densities suggestive of atelectasis versus pneumo nitis. ACT 112: Negative or not required by law. The above report was generated using voice recognition software. It may contain grammatical, syntax o r spelling errors. Electronically signed by: Enzo Peoples M.D. 04/19/2023 11:37 AM
[2023-04-19] MEDS: OPTIRAY 320 125ml IV ONE (11:50)
--- NOTE | 2023-04-19 12:18 | CT Scan Report ---
CT OF THE ABDOMEN AND PELVIS WITH CONTRAST CLINICAL HISTORY: Altered mental status. COMPARISON STUDY: None. TECHNIQUE: Following IV administration of 112 mL of Optiray, axial images of the abdomen and pelvis w ere obtained from the lung bases to the proximal femurs. Images were reviewed in the axial, sagittal, and coronal planes. IV contrast was administered without complication. Automated exposure control w as utilized for the study. A dose lowering technique was utilized adhering to the principles of MIGUEL A [place]. FINDINGS: Please note that the chest CT will be reported separately. Bilateral lower lobe airspace op acities are greater within the right lower lobe. There is mucus plugging and bronchial wall thickenin g. No pneumatosis, free air or portal venous gas. Pacer leads are partially imaged. There is hepatic steatosis. No hepatic lesions. No biliary or pancreatic ductal dilatation. Spleen, adrenal glands and kidneys are unremarkable. There is no hydronephrosis. IVC filter is in place. Dial balloon is withi n the prostatic portion of the urethra. There is trace gas within the bladder. There is mild bladder wall thickening. There is no evidence for a bowel obstruction. The colon is mildly fluid-filled. Poss ible 1.5 cm polyp along the left lateral wall of the rectosigmoid junction on image 307 of 417 is pre sent. This could also represent adherent stool. There is mild wall thickening of portions of the colo n, likely due to underdistention. There is no lymphadenopathy. No ascites. Major vasculature is paten t. Postoperative findings within the pelvis including symphyseal and bilateral SI joint fusions are p resent. There are no acute fractures. Layering hyperdense material within the gallbladder favor small gallstones. No evidence for acute cholecystitis. IMPRESSION: 1. Dial balloon within the prostatic urethra. A Dial catheter could be advanced. 2. No bowel obstruction. Fluid-filled colon. Wall thickening of portions of the colon likely due to u nderdistention. A mild nonspecific colitis could appear similar. 1.5 cm polyp versus adherent stool a t the rectosigmoid junction. Nonemergent GI consultation for consideration for colonoscopy is recomme nded. 3. Bilateral lower lobe airspace opacities with mucus plugging and bronchial wall thickening. This fa vors pneumonia or aspiration pneumonitis. ACT 112: Negative or not required by law. Electronically signed by: Sin Ying M.D. 04/19/2023 12:16 PM
--- NOTE | 2023-04-19 12:22 | CT Scan Report ---
HEAD CT NONCONTRAST CT DOSE: 547.75 mGy.cm HISTORY: Altered mental status. TECHNIQUE: Multiaxial CT images of the head were performed without the use of intravenous contrast. A utomated exposure control was utilized for this study. A dose lowering technique was utilized adheri ng to the principles of ALARA. Comparison: None. Findings: Mild mucosal thickening within the ethmoid air cells and a small fluid level within the rig ht sphenoid sinus. The mastoid air cells are clear. The calvarium and skull base are intact. The vent ricles and sulci are within normal limits. There is no mass, hematoma, midline shift, or acute infarc t. Small focus of encephalomalacia within the left frontal lobe consistent with an old infarct. Impression: 1. No acute infarct or intracranial hemorrhage. 2. 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 3. Mild sinus disease as described above. ACT 112: Negative or not required by law. Electronically signed by: Martinez Diggs M.D. 04/19/2023 12:20 PM
[2023-04-19 12:29] LABS: Base Excess VBG -10.1 mEq/L; HCO3 VBG 19 mmol/L; Oxygen Saturation VBG 99.2 %; PCO2 VBG 53 mmHg (38-50); PO2 VBG 164 mmHg; pH VBG 7.16 (7.36-7.41)
[2023-04-19] MEDS: VANCOMYCIN HCL 2,000 MG in SODIUM CHLORIDE 0.9% 500 ML IV ONE (12:32)
[2023-04-19] MEDS: SODIUM CHLORIDE 0.9% 500 ML IV ONE (12:33)
[2023-04-19 12:37] LABS: Adenovirus PCR Not Detected (NotDetected); Bordetella parapertussis PCR Not Detected (NotDetected); Bordetella pertussis PCR Not Detected (NotDetected); Chlamydia pneumoniae PCR Not Detected (NotDetected); Coronavirus 229E PCR Not Detected (NotDetected); Coronavirus CoV-2 (COVID19)PCR Not Detected (NotDetected); Coronavirus HKU1 PCR Not Detected (NotDetected); Coronavirus NL63 PCR Not Detected (NotDetected); Coronavirus OC43PCR Not Detected (NotDetected); Human Metapneumovirus PCR Not Detected (NotDetected); Influenza A PCR Not Detected (NotDetected); Influenza B PCR Not Detected (NotDetected); Mycoplasma pneumoniae PCR Not Detected (NotDetected); Parainfluenza Virus 1 PCR Not Detected (NotDetected); Parainfluenza Virus 2 PCR Not Detected (NotDetected); Parainfluenza Virus 3 PCR Not Detected (NotDetected); Parainfluenza Virus 4 PCR Not Detected (NotDetected); Respiratory Syncytial VirusPCR Not Detected (NotDetected); Rhinovirus/Enterovirus PCR Not Detected (NotDetected)
--- NOTE | 2023-04-19 12:43 | History & Physical Report ---
Date of Service April 19, 2023 Assessment & Plan (1) Septic shock: Plan: Multiple possible sources on admission but most likely UTI give chronic indwelling will catheter Other possibilities - aspiration pneumonia vs. colitis Empiric antibiotics with Zosyn and IV vancomycin. MRSA nasal swab sent but will continue IV vancomycin even if negative given most likely urinary source Stool sample already sent and will add c. diff coverage if positive Lactate 1.9 NSS 3.5L given in ER Levophed started in ER - defer ongoing vasopressor support to ICU team with radial line to be placed (2) Acute respiratory failure with hypoxia and hypercapnia: Plan: Secondary to presumed aspiration Currently intubated and sedated Ventilation management per ICU team Defer bronchoscopy to ICU team (3) NSTEMI (non-ST elevated myocardial infarction): Plan: Unclear if type 1 vs. type 2. Suspect the latter given septic shock present on admission TTE - currently being performed Treat empirically with aspirin, IV heparin Trend troponin Consult cardiology (4) UTI (urinary tract infection): Plan: Suspected potential source of sepsis (5) Aspiration pneumonia: Plan: IV Zosyn (6) Colitis: Plan: Stool and c. diff PCR pending - deferred treatment pending results of this (7) Acidosis, metabolic, with respiratory acidosis: Plan: Normal anion gap Sodium bicarb given in ER. Repeat ABG POC ordered (8) Chronic incomplete quadriplegia: (9) Acute kidney failure: Plan: Unknown baseline - no known CKD ?obstructive uropathy with will placement noted on CT in prostate continue to monitor urine output (10) Pacemaker: Plan: Unclear reason for this. Trying to get results from [place] [facility] +/- PCP (11) Chronic anticoagulation: Plan: On Eliquis for blood clots but unknown where (12) Chronic indwelling Will catheter: Plan: Noted in prostate on ER CT, replaced ?obstructive uropathy (13) History of stroke: Plan: Noted on CT and confirmed by family/caregivers at bedside (14) Chronic prescription opiate use: Plan: On Suboxone as outpatient. Continue Fentanyl. Plan VTE prophylaxis - IV heparin Diet - NPO Disposition - admit to ICU Admission and Anticipated Discharge Date Admission Date: Apr 19, 2023 History of Present Illness Primary Care Provider: NO PCP Keyon Cevallos is a 52-year-old male with incomplete quadriplegia who presents to the ER due to decreased responsiveness. Unable to get any history from the patient due to intubated and sedated at this time. History obtained from family (mother and nieces) and caregiver at bedside. He is usually able to make his own decisions and has no known dementia. He lives at home with 24/7 caregivers. At baseline he is able to move his arms and her neck. He does not have a great range of motion but is able to feed himself. On discussion with his integration project manager (Cristi Kim) he appeared his normal self up until he went to sleep last night around 3:30 AM. This morning he was found unresponsive with labored breathing and his eyes squinted. He had uncontrollable bowel movements after this. He last took his medications at 11 PM last night and was unable to take his morning medications this morning. EMS were called and he was taken to the emergency room. While in the ER he was noted to have very poor respiratory effort and was noted to be septic. He was intubated and sedated in the emergency room. He was given normal saline 3.5 L. He has an indwelling Will catheter that was replaced in the emergency room following the CT scan showing Will catheter within the prostatic urethra. Reportedly found by EMS with O2 sats 65% on room air. He usually goes to [facility] or [facility] but because of previous bad experiences he was brought here. Unfortunately he has no up to date medication list or problem list from family or caregivers at bedside. Discussed with his daughter Myranda ([phone]) and updated contact list. She reports he would not want CPR in the event of a cardiac arrest. He has a previous POLST form but his PCP retired and he has not updated this. She reports he would not have wanted all of this but now he is intubated she wishes to see how he responds rather than (suspected) terminal extubation at this time. Allergies Allergy/AdvReac Type Severity Reaction Status Date / Time No Known Allergies Allergy Unverified 12/08/18 22:03 Home Medications Medication Instructions Recorded Confirmed Type buprenorphine 8 mg-naloxone 2 mg 1 film sublingual BID 12/08/18 12/08/18 History sublingual film (Suboxone) carisoprodol 350 mg tablet (Soma) 350 mg PO TID 12/08/18 12/08/18 History clonazepam 0.5 mg tablet 0.5 mg PO BID 12/08/18 12/08/18 History docusate sodium 50 mg capsule 50 mg PO DAILY PRN Constipation 12/08/18 12/08/18 History (Stool Softener) linaclotide 290 mcg capsule 290 mcg PO DAILY 12/08/18 12/08/18 History (Linzess) methylphenidate HCl 10 mg tablet 10 mg PO BID 12/08/18 12/08/18 History nitrofurantoin macrocrystal 50 mg 50 mg PO DAILY 12/08/18 12/08/18 History capsule polyethylene glycol 3350 17 17 g PO DAILY PRN Constipation 12/08/18 12/08/18 History gram/dose oral powder (Miralax) apixaban 5 mg tablet (Eliquis) 5 mg PO BID 04/19/23 04/19/23 History baclofen 20 mg tablet 20 mg PO TID 04/19/23 04/19/23 History gabapentin 800 mg tablet 800 mg PO TID 04/19/23 04/19/23 History Past Med/Surg History Medical History Acute kidney failure History of stroke Chronic indwelling Will catheter Chronic anticoagulation Pacemaker Chronic incomplete quadriplegia Paraplegia Family History Other Family history non-contributory Social History Smoking Status: Current every day smoker Tobacco Type: Cigarettes Hx Alcohol Use: No Hx Substance Use: Yes Last Used Substance: Unknown Preferred Language: Barbadian Communication Ability: Effective Communication Ability Comment: currently intubated Collar Runner Required: No Beliefs That Will Affect Care: None Current Living Situation: Alone Current Living Situation Comment: [place] [facility] [place] Feels Safe at Home: Yes Assistive Devices: Wheelchair Review of Systems Review of Systems: Unobtainable due to endotracheal tube Physical Exam Constitutional: well developed; + not well nourished and no acute distress Eyes: PERRL Respiratory: normal respiratory effort; no respiratory distress Auscultation: + rhonchi (b/l bibasal); breath sounds present and no diminished lung sounds Cardiovascular: Rate/Rhythm: regular rhythm and + tachycardic Heart Sounds: no murmur Extremities: + pedal edema Gastrointestinal (Abdomen): Inspection/Auscultation: abdomen not distended Percussion/Palpation: abdomen soft; abdomen not rigid Skin: no rashes, warm and dry (no areas of cellulitis noted) Neurologic: + does not move all extremities and + no t awake Psychiatric: Orientation: + not alert (intubated and sedated) Results & Data Results & Data Vital Signs (Past 12 Hours) Vital Signs Pulse Resp BP Pulse Ox O2 Del Method O2 Flow Rate FiO2 04/19/23 12:07 105 H 04/19/23 11:02 153 H 24 100 75 04/19/23 10:23 93 Aerosol Mask 12 04/19/23 10:23 113 H 21 88/44 L 93 Aerosol Mask Laboratory Results Abnormal lab results 04/19/23 04/19/23 Range/Units 10:43 12:18 WBC 34.39 H* (4.8-10.8) K/ul MCHC 31.4 L (32.0-36.0) g/dL Plt Count 123 L (130-400) K/uL PT 15.1 H (9.0-12.0) Seconds INR 1.4 H (0.9-1.1) APTT 33 H (21-31) Seconds VBG pH 7.16 L (7.36-7.41) VBG pCO2 53 H (38-50) mmHg Sodium 135 L (136-145) mmol/L Chloride 111 H (98-107) mmol/L Carbon Dioxide 15 L (21-32) mmol/L BUN 30 H (6-23) mg/dl Creatinine 1.71 H (0.6-1.4) mg/dl Glucose 197 H (70-99(Fasting)) mg/dl Calcium 7.8 L (8.6-10.3) mg/dl AST 48 H (13-39) U/L Troponin I High Sens 32357.2 H* (0-20) pg/ml Procalcitonin 54.04 H (0-0.5) ng/ml Diagnostic Findings HEAD CT NONCONTRAST CT DOSE: 547.75 mGy.cm HISTORY: Altered mental status. TECHNIQUE: Multiaxial CT images of the head were performed without the use of intravenous contrast. Automated exposure control was utilized for this study. A dose lowering technique was utilized adhering to the principles of ALARA. Comparison: None. Findings: Mild mucosal thickening within the ethmoid air cells and a small fluid level within the right sphenoid sinus. The mastoid air cells are clear. The calvarium and skull base are intact. The ventricles and sulci are within normal limits. There is no mass, hematoma, midline shift, or acute infarct. Small focus of encephalomalacia within the left frontal lobe consistent with an old infarct. Impression: 1. No acute infarct or intracranial hemorrhage. 2. 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 3. Mild sinus disease as described above. XR chest 1V portable HISTORY: 52 years-old Male Sepsis COMPARISON: None TECHNIQUE: AP view of the chest FINDINGS: Endotracheal tube overlies the midline, 3.5 cm superior to the singh. Left subclavian dual-lead pacer. Vascular graft of the descending thoracic aorta. No pneumothorax. Probable trace right pleural effusion with mild bibasilar densities. Pulmonary vascular congestion with interstitial coarsening. Cervical spinal and left humeral fusion hardware. IMPRESSION: 1. Cardiac mainly with pulmonary vascular congestion. 2. Satisfactory positioning of the endotracheal tube. 3. Trace right pleural effusion with mild bibasilar densities suggestive of atelectasis versus pneumonitis. CHEST CTA for PULMONARY ARTERIES CT DOSE: 2554.42 mGy.cm HISTORY: Hypoxia. PE TECHNIQUE: Multiaxial CT images of the chest were performed following the intravenous administration of contrast to evaluate the pulmonary arteries. 3D/Maximal intensity projection images were also obtained. Sagittal and coronal reformations were also reviewed. A dose lowering technique was utilized adhering to the principles of ALARA. COMPARISON STUDY: None. FINDINGS: Normal caliber thoracic aorta with no evidence for a dissection. There is a stent within the distal aortic arch and descending thoracic aorta. The heart is top normal in size. No pleural or pericardial effusions. The left-sided pacemaker noted. The main pulmonary measures up to 3.2 cm in diameter consistent with mild pulmonary arterial hypertension. Respiratory motion artifact results in suboptimal evaluation of the segmental/subsegmental pulmonary arteries. However, there are no definite filling defects within the pulmonary arteries to suggest a pulmonary embolus. Mild coronary artery calcifications are noted. The thyroid gland enhances normally. This mildly enlarged subcarinal and right hilar lymph nodes. No significant left hilar lymphadenopathy. The abdominal structures will be reported on the same day abdomen and pelvis CT. There is mild circumferential thickening of the mid to distal esophagus. Spinal fusion hardware at the cervicothoracic junction is partially visualized. Old posttraumatic and postoperative changes within the left shoulder. There are multiple old mild compression deformities within the thoracic spine. Endotracheal tube terminates 3.6 cm from the singh. Small amount of mucoid material within the distal trachea. There is partial opacification of the bilateral lower lobe bronchi most pronounced on the right. Consolidation within the base of the bilateral lower lobes favors a pneumonia and is likely secondary to aspiration. This is most pronounced on the right. No pneumothorax. IMPRESSION: 1. No evidence for a pulmonary embolus. 2. Endotracheal tube terminates 3.6 cm from the singh. 3. Partial mucoid opacification the bilateral lower lobe bronchi most pronounced on the right with bilateral lower lobe basilar consolidation. This favors an aspiration pneumonitis. Follow-up bronchoscopy should be considered for possible clearing of the mucoid opacification of the right lower lobe bronchi. 4. Mild subcarinal and right hilar lymphadenopathy. This may be reactive to the suspected pneumonitis. Follow-up recommended to ensure resolution. 5. Mild pulmonary arterial hypertension. 6. Additional findings as described above. CT OF THE ABDOMEN AND PELVIS WITH CONTRAST CLINICAL HISTORY: Altered mental status. COMPARISON STUDY: None. TECHNIQUE: Following IV administration of 112 mL of Optiray, axial images of the abdomen and pelvis were obtained from the lung bases to the proximal femurs. Images were reviewed in the axial, sagittal, and coronal planes. IV contrast was administered without complication. Automated exposure control was utilized for the study. A dose lowering technique was utilized adhering to the principles of ALARA. FINDINGS: Please note that the chest CT will be reported separately. Bilateral lower lobe airspace opacities are greater within the right lower lobe. There is mucus plugging and bronchial wall thickening. No pneumatosis, free air or portal venous gas. Pacer leads are partially imaged. There is hepatic steatosis. No hepatic lesions. No biliary or pancreatic ductal dilatation. Spleen, adrenal glands and kidneys are unremarkable. There is no hydronephrosis. IVC filter is in place. Will balloon is within the prostatic portion of the urethra. There is trace gas within the bladder. There is mild bladder wall thickening. There is no evidence for a bowel obstruction. The colon is mildly fluid-filled. Possible 1.5 cm polyp along the left lateral wall of the rectosigmoid junction on image 307 of 417 is present. This could also represent adherent stool. There is mild wall thickening of portions of the colon, likely due to underdistention. There is no lymphadenopathy. No ascites. Major vasculature is patent. Postoperative findings within the pelvis including symphyseal and bilateral SI joint fusions are present. There are no acute fractures. Layering hyperdense material within the gallbladder favor small gallstones. No evidence for acute cholecystitis. IMPRESSION: 1. Will balloon within the prostatic urethra. A Will catheter could be advanced. 2. No bowel obstruction. Fluid-filled colon. Wall thickening of portions of the colon likely due to underdistention. A mild nonspecific colitis could appear similar. 1.5 cm polyp versus adherent stool at the rectosigmoid junction. Nonemergent GI consultation for consideration for colonoscopy is recommended. 3. Bilateral lower lobe airspace opacities with mucus plugging and bronchial wall thickening. This favors pneumonia or aspiration pneumonitis. Medications Administered ER Medications Given: Zosyn 4.5g IV NSS 2L bolus NSS 1L bolus Albuterol 10mg NEB Insulin 10 units IV, Dextrose 50% 50ml Sodium bicarb 100 meq IV Vancomycin 2000mg IV NSS 50ml bolus Calcium gluconate 2000mg IV ECG Rate (beats per minute): 109 Rhythm: sinus tachycardia Findings: + other (right axis deviation) and + ST depression (Anterolateral, inferior) Comparison ECG Date: no prior available Code Status & VTE Plan Code Status DNR, continue intubation VTE Prophylaxis Plan VTE Prophylaxis will be ordered: Yes Critical Care Time Critical Care Time: Yes Total Critical Care Time: 40 PG Care Time/CCT Total # of Minutes Spent Total Time Spent with Patient: Total time spent is greater than 50% in coordination of care (as documented) at patient's floor/unit and/or counseling patient: Critical Care Time: Yes Total Critical Care Time: 40 Coding Level of Care Code 68622 INT INP/OBS CARE 3/75MIN Diagnoses Septic shock A41.9; R65.21 Acute respiratory failure with hypoxia and hypercapnia J96.01; J96.02 NSTEMI (non-ST elevated myocardial infarction) I21.4 UTI (urinary tract infection) N39.0 Aspiration pneumonia J69.0 Colitis K52.9 Acidosis, metabolic, with respiratory acidosis E87.4 Chronic incomplete quadriplegia G82.50 Acute kidney failure N17.9 Pacemaker Z95.0 Chronic anticoagulation Z79.01 Chronic indwelling Will catheter Z97.8 History of stroke Z86.73 Chronic prescription opiate use Z79.891 Additional Codes Critical Care Time - Critical Care Time: Yes ([id number])
--- NOTE | 2023-04-19 12:44 | CT Scan Report ---
CHEST CTA for PULMONARY ARTERIES CT DOSE: 2554.42 mGy.cm HISTORY: Hypoxia. PE TECHNIQUE: Multiaxial CT images of the chest were performed following the intravenous administration of contrast to evaluate the pulmonary arteries. 3D/Maximal intensity projection images were also obta ined. Sagittal and coronal reformations were also reviewed. A dose lowering technique was utilized a dhering to the principles of ALARA. COMPARISON STUDY: None. FINDINGS: Normal caliber thoracic aorta with no evidence for a dissection. There is a stent within th e distal aortic arch and descending thoracic aorta. The heart is top normal in size. No pleural or pe ricardial effusions. The left-sided pacemaker noted. The main pulmonary measures up to 3.2 cm in diam eter consistent with mild pulmonary arterial hypertension. Respiratory motion artifact results in sub optimal evaluation of the segmental/subsegmental pulmonary arteries. However, there are no definite f illing defects within the pulmonary arteries to suggest a pulmonary embolus. Mild coronary artery rakel cifications are noted. The thyroid gland enhances normally. This mildly enlarged subcarinal and right hilar lymph nodes. No significant left hilar lymphadenopathy. The abdominal structures will be repor concetta on the same day abdomen and pelvis CT. There is mild circumferential thickening of the mid to dis ciara esophagus. Spinal fusion hardware at the cervicothoracic junction is partially visualized. Old po sttraumatic and postoperative changes within the left shoulder. There are multiple old mild compressi on deformities within the thoracic spine. Endotracheal tube terminates 3.6 cm from the singh. Small amount of mucoid material within the distal trachea. There is partial opacification of the bilateral lower lobe bronchi most pronounced on the right. Consolidation within the base of the bilateral lower lobes favors a pneumonia and is likely secondary to aspiration. This is most pronounced on the right . No pneumothorax. IMPRESSION: 1. No evidence for a pulmonary embolus. 2. Endotracheal tube terminates 3.6 cm from the singh. 3. Partial mucoid opacification the bilateral lower lobe bronchi most pronounced on the right with bi lateral lower lobe basilar consolidation. This favors an aspiration pneumonitis. Follow-up bronchosco py should be considered for possible clearing of the mucoid opacification of the right lower lobe bro nchi. 4. Mild subcarinal and right hilar lymphadenopathy. This may be reactive to the suspected pneumonitis . Follow-up recommended to ensure resolution. 5. Mild pulmonary arterial hypertension. 6. Additional findings as described above. ACT 112: Negative or not required by law. Electronically signed by: Martinez Diggs M.D. 04/19/2023 12:42 PM
[2023-04-19] MEDS: SODIUM BICARB 8.4% INJ 50 MEQ/50 ML SYR IV STA (12:59)
--- NOTE | 2023-04-19 13:01 | XRay Report ---
KUB CLINICAL HISTORY: s/p OG placement COMPARISON STUDY: CT of the chest, abdomen and pelvis April 19, 2023. FINDINGS: Tip of orogastric tube is within the body of the stomach. Endovascular stent graft and left subclavian pacer are incidentally noted. Bibasilar opacities, right greater than left, are similar t o prior CT IMPRESSION: Appropriately positioned orogastric tube. ACT 112: Negative or not required by law. Electronically signed by: Sin Ying M.D. 04/19/2023 12:59 PM
[2023-04-19] MEDS: DEXTROSE 50% 50 ML SYRINGE IV ONE (13:02)
[2023-04-19] MEDS: NovoLIN-R INSULIN PER UNIT CHARGE IV STA (13:02)
[2023-04-19 13:15] LABS: Appearance Urine Cloudy (Clear); Bacteria Urine Automated Negative (Negative); Bilirubin Urine Negative (Negative); Blood Urine 3+ (Negative); Glucose Urine UA Negative (Negative); Ketones Urine Negative (Negative); Leukocyte Esterase Urine 1+ (Negative); Nitrite Urine Positive (Negative); Protein Urine 2+ (Negative); RBC Urine Automated >30 /hpf (0-4); Specific Gravity Urine 1.024 (1.000-1.030); Urobilinogen Urine Negative (Negative); WBC Urine Automated >30 /hpf (0-5); pH Urine 5.5 (4.5-7.5)
[2023-04-19] MEDS: HEPARIN SODIUM/DEXTROSE 25,000 UNITS/500 ML BAG IV SCH (13:22)
[2023-04-19] MEDS: Heparin IV Adult Wt-Based Low-Dose *NO* INITIAL Bolus Protocol IV STA (13:22)
[2023-04-19 13:23] LABS: Color Urine Amber
[2023-04-19] MEDS: fentaNYL BOLUS from BAG IV PRN (13:36)
[2023-04-19 13:40] LABS: Amphetamines+Metham, Urine Pos (Neg); Barbiturates, Urine Neg (Neg); Benzodiazepine, Urine Neg (Neg); Cocaine, Urine Neg (Neg); MDMA (Ecstacy), Urine Pos (Neg); Marijuana, Urine Pos (Neg); Methadone, Urine Neg (Neg); Opiate, Urine Neg (Neg); Phencyclidine, Urine Neg (Neg)
[2023-04-19 14:35] LABS: Adenovirus F 40/41 PCR Not Detected (NotDetected); Astrovirus PCR Not Detected (NotDetected); Campylobacter PCR Not Detected (NotDetected); Cryptosporidium PCR Not Detected (NotDetected); Cyclospora cayetanensis PCR Not Detected (NotDetected); Entamoeba histolytica PCR Not Detected (NotDetected); Enteroaggregative E.coli(EAEC) Not Detected (NotDetected); Enteropathogenic E.coli (EPEC) Not Detected (NotDetected); Enterotoxigenic E.coli (ETEC) Not Detected (NotDetected); Giardia lamblia PCR Not Detected (NotDetected); Norovirus GI/GII PCR Not Detected (NotDetected); Plesiomonas shigelloides PCR Not Detected (NotDetected); Rotavirus A PCR Not Detected (NotDetected); Salmonella PCR Not Detected (NotDetected); Sapovirus PCR Not Detected (NotDetected); Shiga-like Toxin E.coli (STEC) Not Detected (NotDetected); Shigella/Enteroinvasive E.coli Not Detected (NotDetected); Vibrio cholerae PCR Not Detected (NotDetected); Vibrio species PCR Not Detected (NotDetected); Yersinia enterocolitica PCR Not Detected (NotDetected)
[2023-04-19] MEDS ORDERED: PIPERACILLIN/TAZOBACTAM 4.5 GM in DEXTROSE 5% MINI-B 100 ML IV SCH (14:39)
[2023-04-19] MEDS: CALCIUM GLUCONATE 1,000 MG/60 ML BAG IV STA ×2 (14:45)
[2023-04-19] MEDS: LACTATED RINGER'S 500 ML IV ONE (14:49)
[2023-04-19] MEDS: ACETAMINOPHEN 1,000 MG/100 ML VIAL IV STA (14:50)
--- NOTE | 2023-04-19 15:03 | Electrocardiogram Report ---
Test Reason : Blood Pressure : / mmHG Vent. Rate : 143 BPM Atrial Rate : 143 BPM P-R Int : 148 ms QRS Dur : 072 ms QT Int : 254 ms P-R-T Axes : 073 112 -73 degrees QTc Int : 392 ms Sinus tachycardia Right axis deviation ST depression in Anterior leads , consider ischemia ST depression in Inferior leads , consider ischemia Abnormal ECG When compared with ECG of 19-APR-2023 10:22, HR has increased by 34 bpm Confirmed by Gregorio Pearl ([id number]) on 04/19/2023 3:03:17 PM Referred By: REFERRED SELF Confirmed By:Gregorio Pearl
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
--- NOTE | 2023-04-19 15:22 | XCELERA ---
[id number] [id number]
[2023-04-19 15:24] LABS: iSTAT Arterial Blood Gas HCO3 19 meg/L (19-24); iSTAT Arterial Blood Gas pCO2 66 mmHg (35-46); iSTAT Arterial Blood Gas pH 7.07 (7.35-7.45); iSTAT Arterial Blood Gas pO2 295 mmHg (80-95); iSTAT Carbon Dioxide 21 mmol/L (24-31); iSTAT Hematocrit 48 % (42-52); iSTAT Hemoglobin 16.3 g/dl (14.0-18.0); iSTAT Potassium 4.4 mmol/L (3.3-5.0); iSTAT Sodium 141 mmol/L (135-144)
[2023-04-19] MEDS ORDERED: KETAMINE HCL INJ 50 MG/ML 10 ML VIAL IV ONE (15:49)
[2023-04-19] MEDS ORDERED: ROCURONIUM BROMIDE 10 MG/ML 5 ML VIAL IV ONE (15:49)
[2023-04-19] MEDS ORDERED: Nursing to Pharmacy Communication SCH (16:30)
[2023-04-19] MEDS ORDERED: ICU Protocol for HYPERglycemia SCH (16:30)
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
[2023-04-19 17:19] LABS: Base Excess VBG -10.5 mEq/L; HCO3 VBG 17 mmol/L; Oxygen Saturation VBG 99.7 %; PCO2 VBG 44 mmHg (38-50); PO2 VBG 387 mmHg
--- NOTE | 2023-04-19 17:20 | Procedure Note ---
Procedure Note Date of Service April 19, 2023 Note PREOPERATIVE DIAGNOSIS: Bilateral aspiration pneumonia POSTOPERATIVE DIAGNOSIS: Bilateral aspiration pneumonia PROCEDURE PERFORMED: Flexible fiberoptic bronchoscopy with bronchial washings of the right lung COMPLICATIONS: None. INDICATION: Aspiration pneumonia PROCEDURE: Informed consent was obtained from the patient's daughter as the patient is currently obtunded and intubated. Timeout performed prior to the procedure. Patient was ventilated with 100% oxygen prior to the procedure. Endotracheal tube adapter was placed. Bronchoscope was inserted via the endotracheal tube. Danna appeared sharp. There were very thick white secretions emanating from the bilateral mainstem bronchi. Washings were performed of the right lung with approximately 20 mL of saline. Approximately 50 mL of purulent material was aspirated back and sent for cultures. I then cleared out the secretions from the bilateral bronchial tree. No significant endobronchial lesions were seen. The airways appeared hyperemic. No bleeding was encountered. The scope was then withdrawn. The patient tolerated procedure well. Recommendations: Follow-up [facility] cultures. Patient with diffuse purulent secretions from the bilateral tracheobronchial tree. Coding CPT Codes Pulmonary/Thoracic - Pulmonary and Thoracic: 80652 Dx bronchoscopy/wash ([id number][place] [facility] [place] Codes (Charges) Pulmonary/Thoracic Procedure 1: Pulmonary and Thoracic: 05810 Dx bronchoscopy/wash
--- NOTE | 2023-04-19 17:25 | Procedure Note ---
Procedure Note Date of Service April 19, 2023 Note INTERNAL JUGULAR CENTRAL LINE PROCEDURE NOTE: Procedure: Internal Jugular Central Line Placement Indication: Central Drug Administration, Poor Venous Access, Multiple Lab Draws Necessary, etc. Anesthesia: Fentanyl was infusing at the time of the procedure. 5 mL 1% lidocaine instilled. Consent was signed and placed on the chart prior to procedure. Indication, risks, and benefits were explained at length. A time-out was completed verifying correct patient, procedure, site, positioning, and implants(s) or special equipment if applicable. Patients right neck was cleansed and draped in the typical sterile fashion using Chloraprep. The Internal Jugular Vein and Carotid Artery were identified using ultrasound. The superficial tissue was anesthetized using 5 mL of 1% lidocaine without epinephrine under direct visualization with the ultrasound. After adequate anesthetization was achieved, the Internal Jugular vein was cannulated under direct ultrasound guidance using an introducer needle on a syringe. Good venous blood return was maintained prior to removal of syringe from introducer needle. Using Seldinger Technique, a guide wire was advanced through the introducer needle without resistance. The introducer needle was removed and ultrasound images were obtained of the guide wire within the Internal Jugular Vein and saved to the patients medical record. A small incision was made in penetrating fashion at the guide wire insertion site utilizing an 11 blade scalpel. The dilator was advanced to the vessel without resistance. The dilator was exchanged for the triple lumen catheter which was advanced into the vessel without resistance. The guide wire was removed intact from the catheter without issue. Claves were placed on each catheter tip with confirmation of good blood flow from each lumen. Each port was easily flushed with sterile saline. The catheter was placed at 16 cm and sutured in place. BioPatch was applied to the catheter and a sterile Tegaderm dressing was applied over the catheter with careful attention to sterility. Patient tolerated procedure well. No immediate complications were met. Postprocedure chest x-ray is pending. Coding CPT Codes Tubes, Drains, and Vasc Access - Tubes, Drains, and Vasc Access: [id number] Place catheter in vein superior or inferior vena cava ([id number]) Tubes, Drains, and Vasc Access - Tubes, Drains, and Vasc Access: [id number] Ultrasonic Guide For Needle Placement ([id number]) [facility] [place] (Charges) Tubes, Drains, and Vasc Access Procedure 1: Tubes, Drains, and Vasc Access: [id number] Place catheter in vein superior or inferior vena cava Procedure 2: Tubes, Drains, and Vasc Access: [id number] Ultrasonic Guide For Needle Placement
[2023-04-19] MEDS: ASPIRIN 81 MG CHEW OG STA (17:27)
--- NOTE | 2023-04-19 17:31 | Procedure Note ---
Procedure Note Date of Service April 19, 2023 Note Right axillary arterial line Informed consent was obtained from the patient's daughter as the patient is currently obtunded and intubated. Timeout performed directly prior to the procedure. The right axillary area was prepped with sterile technique utilizing ChloraPrep. The area was draped in usual fashion. Sterile gloves were donned and ultrasound probe cover was placed over the ultrasound. Vascular ultrasound was utilized to locate the right axillary artery. An 18-gauge needle was used to penetrate to the right axillary artery. Adequate blood flow was obtained. A wire was placed through the needle using Seldinger technique. The needle was then withdrawn. A small gauge arterial catheter was placed over the wire utilizing Seldinger technique and the wire was removed and found to be intact. The catheter was attached to a transducer and an adequate arterial waveform was identified. The catheter was sutured in place. Biopatch was placed over the catheter insertion site. Tegaderm dressing was placed over the catheter. Coding CPT Codes Tubes, Drains, and Vasc Access - Tubes, Drains, and Vasc Access: [id number] Ultrasound Guidance For Vascular ([id number]) Tubes, Drains, and Vasc Access - Tubes, Drains, and Vasc Access: [id number] Arterial Cath/Cannulation Sampling/Monitoring/Transfusion ([id number]) [facility] [place] Codes (Charges) Tubes, Drains, and Vasc Access Procedure 1: Tubes, Drains, and Vasc Access: [id number] Ultrasound Guidance For Vascular Procedure 2: Tubes, Drains, and Vasc Access: [id number] Arterial Cath/Cannulation Sampling/Monitoring/Transfusion
[2023-04-19] MEDS ORDERED: STAT IV/IM STA (17:32)
[2023-04-19] MEDS: ICU Protocol for HYPERglycemia SCH (17:35)
[2023-04-19 17:45] LABS: Albumin Globulin Ratio 1.1 (0.9-2); Albumin Level 3.3 gm/dl (3.4-5.0); BUN Creatinine Ratio 25.4 (10-20); Bilirubin,Total 0.8 mg/dl (0.2-1.0); Calcium 7.6 mg/dl (8.6-10.3); Creatinine Clr Calc Pharmacy 85.3 ml/min; Est GFR (African American) 75.5 ml/min; Est GFR (Non-African American) 65.1 ml/min; Total Protein 6.3 gm/dl (6.0-8.3)
--- NOTE | 2023-04-19 17:49 | XRay Report ---
XR chest 1V portable HISTORY: 52 years-old Male right IJ CVL status post placement of a right IJ central venous catheter COMPARISON: CTA chest of same day TECHNIQUE: AP view of the chest FINDINGS: Endotracheal tube overlies the midline, 3.5 cm superior to the singh. Left subclavian dual-lead pace r. Vascular graft of the descending thoracic aorta. Status post placement of a right IJ central venou s catheter distal tip in expected location of the mid SVC. An enteric tube has been placed with dista l tip projected over the expected location of the gastric body. No pneumothorax. Pulmonary vascular congestion with interstitial coarsening. Mild bibasilar consolida tion again noted, right greater than left. Cervical spinal and left humeral fusion hardware. IMPRESSION: 1. Lines and tubes as above. 2. No pneumothorax. 3. Bibasilar pneumonia versus aspiration. ACT 112: Negative or not required by law. The above report was generated using voice recognition software. It may contain grammatical, syntax o r spelling errors. Electronically signed by: Enzo Peoples M.D. 04/19/2023 5:47 PM
[2023-04-19 17:58] LABS: Thyroid Stimulating Hormone 3.365 uIu/ml (0.300-4.500)
[2023-04-19] MEDS: PIPERACILLIN/TAZOBACTAM 4.5 GM in DEXTROSE 5% MINI-B 100 ML IV SCH (18:06)
[2023-04-19] MEDS: SODIUM BICARBONATE 8.4% 150 MEQ in DEXTROSE 5% 1,000 ML IV SCH (18:06)
[2023-04-19] MEDS: POTASSIUM CHLORIDE 20 MEQ/15 ML UDC PO STA (18:33)
[2023-04-19] MEDS: POTASSIUM CHLORIDE / WTR 20 MEQ/100 ML PLCT IV SCH (18:33)
[2023-04-19] MEDS ORDERED: STAT IV Infusion **Titration per Protocol STA (20:22)
[2023-04-19 20:40] LABS: iSTAT Art Bld Gas pCO2 Correct 50 mmHg (35-46); iSTAT Arterial Blood Gas HCO3 17 meg/L (19-24); iSTAT Arterial Blood Gas pCO2 44 mmHg (35-46); iSTAT Arterial Blood Gas pH 7.18 (7.35-7.45); iSTAT Arterial Blood Gas pO2 360 mmHg (80-95); iSTAT Arterial Blood Gas pO2 C 377; iSTAT Carbon Dioxide 18 mmol/L (24-31); iSTAT FiO2 75 %; iSTAT Hematocrit 48 % (42-52); iSTAT Hemoglobin 16.3 g/dl (14.0-18.0); iSTAT Potassium 2.9 mmol/L (3.3-5.0); iSTAT Site Art Line; iSTAT Sodium 141 mmol/L (135-144)
[2023-04-19 20:40] LABS: iSTAT Art Bld Gas pCO2 Correct 39 mmHg (35-46); iSTAT Art Bld Gas pH Corrected 7.208 (7.35-7.45); iSTAT Arterial Blood Gas HCO3 15 meg/L (19-24); iSTAT Arterial Blood Gas pCO2 34 mmHg (35-46); iSTAT Arterial Blood Gas pH 7.25 (7.35-7.45); iSTAT Arterial Blood Gas pO2 159 mmHg (80-95); iSTAT Arterial Blood Gas pO2 C 177; iSTAT Carbon Dioxide 16 mmol/L (24-31); iSTAT FiO2 50 %; iSTAT Hematocrit 49 % (42-52); iSTAT Hemoglobin 16.7 g/dl (14.0-18.0); iSTAT Potassium 4.1 mmol/L (3.3-5.0); iSTAT Site Art Line; iSTAT Sodium 141 mmol/L (135-144)
[2023-04-19] MEDS: dexMEDEtomidine 200 MCG/50 ML BAG IV SCH (20:41)
[2023-04-20] MEDS: ACETAMINOPHEN 1,000 MG/100 ML VIAL IV PRN (01:03)
[2023-04-20 04:59] LABS: iSTAT Art Bld Gas pCO2 Correct 34 mmHg (35-46); iSTAT Art Bld Gas pH Corrected 7.338 (7.35-7.45); iSTAT Arterial Blood Gas HCO3 18 meg/L (19-24); iSTAT Arterial Blood Gas pCO2 32 mmHg (35-46); iSTAT Arterial Blood Gas pH 7.35 (7.35-7.45); iSTAT Arterial Blood Gas pO2 142 mmHg (80-95); iSTAT Arterial Blood Gas pO2 C 147; iSTAT Carbon Dioxide 19 mmol/L (24-31); iSTAT FiO2 40 %; iSTAT Hematocrit 46 % (42-52); iSTAT Hemoglobin 15.6 g/dl (14.0-18.0); iSTAT Potassium 3.1 mmol/L (3.3-5.0); iSTAT Site Art Line; iSTAT Sodium 140 mmol/L (135-144)
[2023-04-20 05:43] LABS: Albumin Level 3.1 gm/dl (3.4-5.0); BUN Creatinine Ratio 24.5 (10-20); Bilirubin,Total 0.8 mg/dl (0.2-1.0); Calcium 7.5 mg/dl (8.6-10.3); Creatinine Clr Calc Pharmacy 105.4 ml/min; Est GFR (African American) 97.5 ml/min; Est GFR (Non-African American) 84.1 ml/min; Magnesium 1.4 mg/dl (1.7-2.4); Phosphorus 1.5 mg/dl (2.5-4.9); Potassium 3.2 mmol/L (3.5-5.1); Total Protein 6.1 gm/dl (6.0-8.3); Troponin I High Sensitivity 16646.4 pg/ml (0-20)
[2023-04-20] MEDS ORDERED: POTASSIUM PHOS 3 MMOL/1 ML INFUSION IV STA ×2 (05:44→16:07)
[2023-04-20 05:47] LABS: INR 1.9 (0.9-1.1); Prothrombin Time 19.7 Seconds (9.0-12.0)
[2023-04-20] MEDS: POTASSIUM PHOSPHATE 15 MMOL in SODIUM CHLORIDE 0.9% 250 ML IV ONE (06:21)
[2023-04-20 06:47] LABS: Basophils # (auto) 0.06 K/uL (0.00-0.20); Basophils % (auto) 0.4 %; Echinocytes 1+; Eosinophils # (auto) 0.22 K/uL (0.00-0.50); Eosinophils % (auto) 1.3 %; Hematocrit (blood only) 48.2 % (42.0-52.0); Hemoglobin 15.6 g/dl (14.0-18.0); Immature Granulocytes # (auto) 0.24 K/uL (0.01-0.20); Immature Granulocytes % (auto) 1.4 %; Lymphocytes # (auto) 1.35 K/uL (1.20-3.40); Lymphocytes % (auto) 7.9 %; Mean Corpuscular Hgb Conc 32.4 g/dL (32.0-36.0); Mean Corpuscular Volume 83.5 fL (80.0-100.0); Monocytes # (auto) 2.27 K/uL (0.11-0.59); Monocytes % (auto) 13.2 %; Neutrophils % (auto) 75.8 %; Nucleated RBC # (auto) 0.24 K/uL (0.00-0.12); Nucleated RBC % (auto) 1.4 %; Platelet Estimate Signific. Decreased (Normal); Polychromasia 1+; RDW Coefficient of Variation 14.7 % (11.5-14.5); RDW Standard Deviation 44.9 fL (36.4-46.3); Red Blood Count 5.77 M/uL (4.70-6.10); White Blood Count 17.14 K/ul (4.8-10.8)
[2023-04-20 06:48] LABS: Mean Platelet Volume 12.6 fL (9.4-12.4); Platelet Count 21 K/uL (130-400)
[2023-04-20] MEDS ORDERED: GLUCAGON FOR INJ 1 MG VIAL SQ PRN (06:53)
[2023-04-20] MEDS ORDERED: GLUCOSE 10 TAB/TUBE PO PRN (06:53)
[2023-04-20] MEDS ORDERED: DEXTROSE 50% 50 ML SYRINGE IV PRN (06:53)
[2023-04-20] MEDS ORDERED: CARBOHYDRATES FOR HYPOGLYCEMIA PO PRN (06:53)
[2023-04-20 07:02] LABS: A calco-baum cmplx NotReported Not Detected (NotDetected); Bact fragilis Not Reported Not Detected (NotDetected); Blood Culture Id Panel See PCR Comment (NotDetected); C auris Not Reported Not Detected (NotDetected); Calbicans Not Reported Not Detected (NotDetected); Candida glabrata Not Reported Not Detected (NotDetected); Candida krusei Not Reported Not Detected (NotDetected); Cneoformans/gatti Not Reported Not Detected (NotDetected); Cparapsilosis Not Reported Not Detected (NotDetected); E cloacae compx Not Reported Not Detected (NotDetected); Efaecalis Not Reported Not Detected (NotDetected); Efaecium Not Reported Not Detected (NotDetected); Enterobacterales Not Reported Not Detected (NotDetected); Escherichia coli Not Reported Not Detected (NotDetected); H influenzae Not Reported Not Detected (NotDetected); K aerogenes Not Reported Not Detected (NotDetected); Koxytoca Not Reported Not Detected (NotDetected); Kpneumoniae grp Not Reported Not Detected (NotDetected); Lmonocyt Not Reported Not Detected (NotDetected); N meningitidis Not Reported Not Detected (NotDetected); P aeruginosa Not Reported Not Detected (NotDetected); Proteus spp Not Reported Not Detected (NotDetected); Salmonella spp Not Reported Not Detected (NotDetected); Smarcescens Not Reported Not Detected (NotDetected); Staph lugdunensis Not Reported DETECTED (NotDetected); Staph spp. Not Reported DETECTED (NotDetected); Staphaureus Not Reported Not Detected (NotDetected); Staphepi Not Reported DETECTED (NotDetected); Stenmaltophilia Not Reported Not Detected (NotDetected); Strep agal(GrpB) Not Reported Not Detected (NotDetected); Strep pneum Not Reported Not Detected (NotDetected); Strep pyog (GrpA) Not Reported Not Detected (NotDetected); Strep spp Not Reported Not Detected (NotDetected); mecAC Resistant Gene Not Detected (NotDetected)
[2023-04-20] MEDS: INSULIN ASPART PER UNIT CHARGE SC SCH ×2 (07:05→16:51)
[2023-04-20] MEDS ORDERED: GLUCOSE 40% GEL 15 GM TUBE PO PRN (07:15)
[2023-04-20 07:29] LABS: Staphylococcus spp. DETECTED (NotDetected)
[2023-04-20 07:30] LABS: Staphylococcus epidermidis DETECTED (NotDetected); Staphylococcus lugdunensis DETECTED (NotDetected)
[2023-04-20] MEDS: MAGNESIUM SULFATE / D5W 1 GM/100 ML BAG IV SCH (07:39)
--- NOTE | 2023-04-20 08:40 | XRay Report ---
SINGLE VIEW CHEST CLINICAL HISTORY: Respiratory failure. FINDINGS: 2 AP, portable, semierect chest radiographs are compared to study chest x-ray and chest CT dated 04/19/2023. The examination is degraded by portable technique and patient rotation. An endotrache al tube, an enteric tube, and a right internal jugular central venous catheter are unchanged in posit ion. A 2-lead cardiac pacemaker is unchanged in position and partially obscures left upper chest. A s tent is noted in the thoracic aorta. The heart is enlarged. The pulmonary vasculature is noncongested . Bibasilar airspace opacities are unchanged. No large pleural effusion or pneumothorax is seen. The skeletal structures are osteopenic. Fusion hardware is seen at the cervicothoracic junction. There is chronic deformity and postsurgical change in the left proximal humerus. IMPRESSION: 1. Stable lines and tubes. 2. Cardiomegaly and cardiac pacemaker without radiographic evidence of congestive failure. 3. Bibasilar airspace opacities persist. ACT 112: Negative or not required by law. Electronically signed by: Thanh Patel M.D. 04/20/2023 8:39 AM
--- NOTE | 2023-04-20 10:17 | Critical Care Progress Note ---
Date of Service April 20, 2023 Assessment & Plan (1) Septic shock: (2) Acute respiratory failure with hypoxia and hypercapnia: (3) Aspiration pneumonia: (4) Chronic incomplete quadriplegia: (5) Acute kidney failure: (6) Thrombocytopenia: Plan 52-year-old male with a history of quadriplegia of the lower extremities, prior tracheostomy and pacemaker presenting to the ICU due to septic shock from aspiration pneumonia. Neurologic: CT head negative. Encephalopathy likely due to hypercapnia and septic shock. Patient on numerous sedating agents including benzodiazepines, baclofen, gabapentin, Soma and Suboxone chronically. Will restart benzodiazepine and baclofen to help minimize withdrawal symptoms. He remains encephalopathic today. Pulmonary: Patient with bibasilar infiltrates, right greater than left. Bronchoscopy 04/19/2023 with severe bilateral mucopurulent secretions aspirated. Cultures pending. Continue lung protective ventilation strategy. Cardiovascular: Patient with evidence of septic shock. Maintain maps above 65 mmHg. Wean norepinephrine as able. Echo without evidence of cardiomyopathy. Hyperdynamic EF. Troponin elevated likely due to NSTEMI. Heparin on hold due to thrombocytopenia. Gastrointestinal: Mild transaminitis noted with elevated INR. Possible colitis noted on CT abdomen. C. difficile testing was negative. Continue OG tube to low intermittent wall suction. Renal: Patient with ALEXYS which appears to be resolving. Possible obstructive uropathy versus prerenal etiology given sepsis. Replacing electrolytes as appropriate. Bicarbonate drip discontinued. Infectious disease: Blood cultures growing GPC. MRSA negative. Continue Zosyn. Bronchoscopic cultures pending. Urine cultures pending as well. Hematologic: Patient with severe thrombocytopenia. Will transfuse platelets. Fibrinogen level normal at this time. INR elevated to 1.9. Will give FFP 4 units. 5 mg IV vitamin K will be given. High suspicion for DIC. Endocrine: Patient hyperglycemic today likely due to bicarb drip. Bicarb discontinued. TSH normal. Lines and tubes: ET tube placed 04/19/2023. Dial placed 04/19/2023. Bilateral antecubital fossa 18-gauge IVs. VTE prophylaxis: Heparin for CODE STATUS: Okay with intubation, but DNR in the event of a cardiac arrest. Patient's daughter indicated that the patient's wishes are to remain a DNR in the event of cardiopulmonary arrest. Family at bedside: Daughter updated extensively over the phone. Disposition: ICU. Patient discussed on multidisciplinary rounds I have personally spent 63 minutes of critical care time in the direct management of this patient. This is a life/limb threatening event. This includes time spent evaluating patient, direct bedside care, chart review, placing orders, interpretation of diagnostic studies, discussion with consultants, patient, and family members, as well as other required patient management activities. This time is exclusive of all separately billable procedures, and teaching time and separate from and in addition to any other critical care service time. Thank you for allowing us to participate in the care of this patient. Admission and Anticipated Discharge Date Admission Date: April 19, 2023 Subjective Patient seen and examined. Apparently became agitated overnight and required a Precedex and fentanyl infusion. These are currently on hold. The patient is not responsive to commands. He does seem to be somewhat awake. He has had oozing from his arterial axillary line. He has remained febrile. He remains on low-dose of Levophed. Review of Systems Review of Systems: Unobtainable due to endotracheal tube Physical Exam Physical Exam: Constitutional: Patient appears to be of their stated age. Patient is currently intubated and sedated. Eyes: Pupils are equal round and reactive to light. Bilateral subconjunctival hemorrhages noted. Ears nose, mouth and throat: Mallampati class 2. Normal posterior oropharynx. Uvula is midline. Neck: Trachea is midline. Visual inspection is normal. Respiratory: Rhonchi in the lower lobes bilaterally. Coarse breath sounds otherwise. Cardiovascular: Regular rate and rhythm. No murmurs. No edema. Gastrointestinal: Normal bowel sounds, soft, nontender and nondistended. No hepatosplenomegaly noted. Musculoskeletal: No cyanosis. Patient is able to move all extremities. Streng th is 5 out of 5 in the upper and lower extremities. Skin: No rashes, warm dry and intact. Right internal jugular line in place. Right axillary arterial line with some dried blood noted around the site. Neurologic: Difficult to assess as the patient is currently intubated and sedated. Psychiatric: Unable to assess. Results & Data Results & Data Vital Signs (Past 12 Hours) Vital Signs Temp Pulse Resp BP Pulse Ox O2 Del Method FiO2 04/20/23 08:00 37.9 C H 83 24 95 04/20/23 08:00 115/86 04/20/23 08:00 Mechanical Vent 30 04/20/23 08:00 30 04/20/23 07:40 83 25 H 96 30 04/20/23 07:30 98/77 L 04/20/23 07:30 37.9 C H 85 24 96 04/20/23 07:00 37.9 C H 81 24 95 04/20/23 06:00 109/82 04/20/23 06:00 37.8 C H 80 24 04/20/23 05:45 37.7 C H 84 24 95 04/20/23 05:30 133/95 04/20/23 05:30 37.6 C H 90 24 94 04/20/23 05:28 37.6 C H 92 H 24 97 04/20/23 05:28 105/88 04/20/23 05:15 37.6 C H 89 24 95 04/20/23 05:00 37.7 C H 99 H 25 H 96 04/20/23 04:49 24 30 04/20/23 04:45 37.8 C H 102 H 29 H 97 04/20/23 04:36 37.8 C H 104 H 30 H 97 04/20/23 04:36 165/114 H 04/20/23 04:30 37.8 C H 28 H 97 04/20/23 04:15 37.8 C H 30 H 04/20/23 04:00 38.0 C H 77 28 H 04/20/23 04:00 151/108 H 04/20/23 04:00 30 04/20/23 03:45 38.1 C H 74 28 H 96 04/20/23 03:30 38.0 C H 76 28 H 04/20/23 03:15 38.1 C H 78 28 H 97 04/20/23 03:00 148/109 H 04/20/23 03:00 38.2 C H 79 28 H 96 04/20/23 02:45 38.2 C H 78 28 H 96 04/20/23 02:39 79 28 H 96 40 04/20/23 02:30 38.1 C H 80 27 H 96 04/20/23 02:30 143/108 H 04/20/23 02:15 38.3 C H 79 28 H 96 04/20/23 02:00 135/103 H 04/20/23 02:00 38.3 C H 81 28 H 04/20/23 01:45 38.4 C H 81 28 H 96 04/20/23 01:30 38.5 C H 81 28 H 04/20/23 01:30 125/94 04/20/23 01:15 38.6 C H 75 28 H 95 04/20/23 01:01 148/105 H 04/20/23 01:01 38.6 C H 100 H 24 94 04/20/23 01:00 38.5 C H 102 H 29 H 93 04/20/23 00:45 38.7 C H 91 H 28 H 95 04/20/23 00:30 38.7 C H 92 H 28 H 95 04/20/23 00:15 38.8 C H 91 H 28 H 95 04/20/23 00:00 93 H 04/20/23 00:00 30 04/20/23 00:00 38.9 C H 91 H 28 H 04/19/23 23:45 39.0 C H 90 28 H 95 04/19/23 23:30 38.9 C H 93 H 28 H 04/19/23 23:15 39.0 C H 95 H 28 H 95 04/19/23 23:00 123/87 04/19/23 23:00 39.0 C H 96 H 28 H 04/19/23 22:45 39.2 C H 107 H 29 H 94 04/19/23 22:30 122/80 04/19/23 22:30 39.2 C H 98 H 28 H 04/19/23 22:30 98 H 29 H 94 40 Coding Level of Care Code 51369 CRITICAL CARE 1ST 30-74M Diagnoses Septic shock A41.9; R65.21 Acute respiratory failure with hypoxia and hypercapnia J96.01; J96.02 Aspiration pneumonia J69.0 Chronic incomplete quadriplegia G82.50 Acute kidney failure N17.9 Thrombocytopenia D69.6
[2023-04-20 10:19] LABS: Hematocrit (blood only) 45.2 % (42.0-52.0); Hemoglobin 14.8 g/dl (14.0-18.0); Mean Corpuscular Hemoglobin 27.2 pg (25.0-34.0); Mean Corpuscular Hgb Conc 32.7 g/dL (32.0-36.0); Mean Corpuscular Volume 83.1 fL (80.0-100.0); Mean Platelet Volume 12.4 fL (9.4-12.4); Nucleated RBC # (auto) 0.22 K/uL (0.00-0.12); Nucleated RBC % (auto) 1.4 %; Platelet Count 17 K/uL (130-400); RDW Coefficient of Variation 14.6 % (11.5-14.5); RDW Standard Deviation 43.7 fL (36.4-46.3); Red Blood Count 5.44 M/uL (4.70-6.10); White Blood Count 15.42 K/ul (4.8-10.8)
[2023-04-20] MEDS: clonazePAM 0.5 MG TAB PO ONE (10:21)
[2023-04-20] MEDS: POTASSIUM CHLORIDE 20 MEQ/15 ML UDC PO STA (10:21)
[2023-04-20 10:24] LABS: Fibrinogen 327 mg/dl (184-400)
[2023-04-20] MEDS: PANTOprazole 40 MG in SYRINGE 0 ML IV ONE (10:27)
[2023-04-20] MEDS: PHYTONADIONE 5 MG in DEXTROSE 5% 50 ML IV ONE (10:27)
[2023-04-20] MEDS ORDERED: SODIUM CHLORIDE 0.9% 250 ML IV PRN (10:28)
[2023-04-20 10:36] LABS: Basophils # (auto) 0.04 K/uL (0.00-0.20); Basophils % (auto) 0.3 %; Immature Granulocytes # (auto) 0.12 K/uL (0.01-0.20); Immature Granulocytes % (auto) 0.8 %; Lymphocytes # (auto) 1.49 K/uL (1.20-3.40); Lymphocytes % (auto) 9.7 %; Monocytes # (auto) 1.89 K/uL (0.11-0.59); Monocytes % (auto) 12.3 %; Neutrophils # (auto) 11.88 K/uL (1.40-6.50); Neutrophils % (auto) 76.9 %
[2023-04-20 10:39] LABS: iSTAT Creatinine 1.9 mg/dl (0.6-1.3); iSTAT Hemoglobin 18.7 g/dl (14.0-18.0); iSTAT Ionized Calcium 1.2 mmol/l (1.12-1.32); iSTAT Potassium 6.1 mmol/L (3.3-5.0)
--- NOTE | 2023-04-20 12:52 | Oncology Consultation ---
Date of Consultation April 20, 2023 Assessment & Plan (1) Thrombocytopenia: At this time will recommend checking a DIC panel regularly. The patient may have underlying DIC because of sepsis which is consumed the platelets. I do not have a D-dimer level to confidently say that. The peripheral smear was absent for any schistocytes so it is unlikely that the patient has TTP. The patient has not been exposed to heparin like products, unlikely we are dealing with heparin-induced thrombocytopenia. Transfuse for a platelet count less than 10,000/mcL. Plan Thank you for this interesting hematological consult. A total of 60 minutes was spent in counseling, coordination of care and review of prior records. History of Present Illness Attending Physician: Umair Lamb MD History of Present Illness The patient is a very pleasant 52-year-old male with history of quadriplegia who came to the [facility] ER with unresponsiveness. He is currently dealing with septic shock is intubated and sedated in the ICU. He was noted to have progressive thrombocytopenia during his admission. the last 24 hours his platelet count has declined from 123,000/mcL to 19,000/mcL. He is still intubated. Hematology has been consulted to assist in management of this patient with thrombocytopenia. His PT and INR are also elevated. INR is 1.9, PT is 19.7. Fibrinogen level was 327. At this time we do not have a D-dimer level. The patient is currently intubated and sedated. Peripheral smear was done, revealed no evidence of rouleaux formation. No circulating immature myeloid precursors or blasts. Monocytes were all morphologically mature. Platelets were decreased. Allergies Allergy/AdvReac Type Severity Reaction Status Date / Time No Known Allergies Allergy Unverified 12/08/18 22:03 Home Medications Medication Instructions Recorded Confirmed Type buprenorphine 8 mg-naloxone 2 mg 1 film sublingual BID 12/08/18 12/08/18 History sublingual film (Suboxone) carisoprodol 350 mg tablet (Soma) 350 mg PO TID 12/08/18 12/08/18 History clonazepam 0.5 mg tablet 0.5 mg PO BID 12/08/18 12/08/18 History docusate sodium 50 mg capsule 50 mg PO DAILY PRN Constipation 12/08/18 12/08/18 History (Stool Softener) linaclotide 290 mcg capsule 290 mcg PO DAILY 12/08/18 12/08/18 History (Linzess) methylphenidate HCl 10 mg tablet 10 mg PO BID 12/08/18 12/08/18 History nitrofurantoin macrocrystal 50 mg 50 mg PO DAILY 12/08/18 12/08/18 History capsule polyethylene glycol 3350 17 17 g PO DAILY PRN Constipation 12/08/18 12/08/18 History gram/dose oral powder (Miralax) apixaban 5 mg tablet (Eliquis) 5 mg PO BID 04/19/23 04/19/23 History baclofen 20 mg tablet 20 mg PO TID 04/19/23 04/19/23 History gabapentin 800 mg tablet 800 mg PO TID 04/19/23 04/19/23 History Patient History Medical History (Updated 04/20/23 @ 10:19 by Brijesh Millan MD) Thrombocytopenia Acute kidney failure History of stroke Chronic indwelling Dial catheter Chronic anticoagulation Pacemaker Chronic incomplete quadriplegia Paraplegia Family History Other Family history non-contributory Social History Smoking Status: Current every day smoker Tobacco Type: Cigarettes Hx Alcohol Use: No Hx Substance Use: Yes Last Used Substance: Unknown Preferred Language: Somali Communication Ability: Impaired Communication Ability Comment: currently intubated Primary Care Provider Required: No Beliefs That Will Affect Care: None Current Living Situation: Alone Current Living Situation Comment: patient lives in [facility] Feels Safe at Home: Yes Assistive Devices: Mechanical Lift and Wheelchair Results & Data Vital Signs (Past 12 Hours) Vital Signs Temp Pulse Resp BP Pulse Ox O2 Del Method FiO2 04/20/23 12:44 37.4 C 80 24 145/104 H 97 04/20/23 12:42 37.5 C 75 24 97 04/20/23 12:42 37.5 C 75 24 145/104 H 95 04/20/23 12:41 37.4 C 75 24 97 04/20/23 12:41 145/103 H 04/20/23 12:34 37.4 C 70 24 95 04/20/23 12:34 72/48 L 04/20/23 12:31 37.3 C 63 24 87 L 04/20/23 12:18 123/87 04/20/23 12:18 37.3 C 78 24 95 04/20/23 12:00 37.3 C 77 24 96 04/20/23 12:00 121/84 04/20/23 12:00 30 04/20/23 11:21 87 24 95 30 04/20/23 11:05 37.6 C H 85 24 95 04/20/23 11:05 119/89 04/20/23 11:00 37.6 C H 87 24 95 04/20/23 10:30 116/76 04/20/23 10:30 37.7 C H 87 24 93 04/20/23 10:00 37.7 C H 91 H 24 93 04/20/23 09:30 114/84 04/20/23 09:30 37.9 C H 89 24 91 04/20/23 09:00 126/83 04/20/23 09:00 37.9 C H 86 24 94 04/20/23 08:30 111/84 04/20/23 08:30 37.9 C H 82 24 94 04/20/23 08:00 37.9 C H 83 24 95 04/20/23 08:00 115/86 04/20/23 08:00 Mechanical Vent 30 04/20/23 08:00 30 04/20/23 07:40 83 25 H 96 30 04/20/23 07:30 98/77 L 04/20/23 07:30 37.9 C H 85 24 96 04/20/23 07:00 37.9 C H 81 24 95 04/20/23 06:00 109/82 04/20/23 06:00 37.8 C H 80 24 04/20/23 05:45 37.7 C H 84 24 95 04/20/23 05:30 133/95 04/20/23 05:30 37.6 C H 90 24 94 04/20/23 05:28 37.6 C H 92 H 24 97 04/20/23 05:28 105/88 04/20/23 05:15 37.6 C H 89 24 95 04/20/23 05:00 37.7 C H 99 H 25 H 96 04/20/23 04:49 24 30 04/20/23 04:45 37.8 C H 102 H 29 H 97 04/20/23 04:36 37.8 C H 104 H 30 H 97 04/20/23 04:36 165/114 H 04/20/23 04:30 37.8 C H 28 H 97 04/20/23 04:15 37.8 C H 30 H 04/20/23 04:00 38.0 C H 77 28 H 04/20/23 04:00 151/108 H 04/20/23 04:00 30 04/20/23 03:45 38.1 C H 74 28 H 96 04/20/23 03:30 38.0 C H 76 28 H 04/20/23 03:15 38.1 C H 78 28 H 97 04/20/23 03:00 148/109 H 04/20/23 03:00 38.2 C H 79 28 H 96 04/20/23 02:45 38.2 C H 78 28 H 96 04/20/23 02:39 79 28 H 96 40 04/20/23 02:30 38.1 C H 80 27 H 96 04/20/23 02:30 143/108 H 04/20/23 02:15 38.3 C H 79 28 H 96 04/20/23 02:00 135/103 H 04/20/23 02:00 38.3 C H 81 28 H 04/20/23 01:45 38.4 C H 81 28 H 96 04/20/23 01:30 38.5 C H 81 28 H 04/20/23 01:30 125/94 04/20/23 01:15 38.6 C H 75 28 H 95 04/20/23 01:01 148/105 H 04/20/23 01:01 38.6 C H 100 H 24 94 04/20/23 01:00 38.5 C H 102 H 29 H 93
--- NOTE | 2023-04-20 13:14 | Cardiology Progress Note ---
Date of Service April 20, 2023 Assessment & Plan (1) Demand ischemia: (2) Acute respiratory failure with hypoxia and hypercapnia: (3) Septic shock: (4) Pacemaker: Plan As noted, troponin elevation appears secondary to demand ischemia rather than acute coronary syndrome. Hemodynamics markedly improved. Rhythm has been sinus, has not demonstrated any need for cardiac pacemaker function at this point. Hopefully, we'll obtain records as to type of pacemaker and at some point could interrogate to ensure pacemaker is functional in anticipation of any future needs. Echocardiogram showed hyperdynamic LV function with no wall motion abnormalities, suggesting troponin elevation reflects only limited/microvascular damage. Will check creatinine kinase to further quantify myocardial involvement No ongoing cardiac issues, will follow along and when able check pacemaker function. Admission and Anticipated Discharge Date Admission Date: April 19, 2023 Subjective Weaned off pressors. BP normotensive. Remains intubated/sedated. Troponin trending downward. Telemetry shows resolution of sinus tachycardia, current rhythm sinus at 80 bpm. Physical Exam Physical Exam: Intubated/sedated. Afebrile currently. BP mildly hypertensive. Pulse 80 bpm and regular. Skin: no ecchymoses or generalized lesions. HEENT: unremarkable. Neck: JVP difficult to assess but not obviously elevated. No carotid bruits. Lungs: Coarse rhonchi and inspiratory wheezing throughout both lung briceno, fair airflow. No accessory muscle use. Cardiac: Heart sounds obscured by lung sounds, no obvious murmur. Abdomen: benign. Extremities: no edema, extremities cool without readily palpable peripheral pulses. Neurologic: Sedated. Results & Data Laboratory Results Troponin peak 25,000, currently 16,000. Normal sodium, potassium 3.2, BUN 25, creatinine 1.02. PG Care Time/CCT Total # of Minutes Spent Total Time Spent with Patient: Total time spent is greater than 50% in coordination of care (as documented) at patient's floor/unit and/or counseling patient: Coding Level of Care Code 00042 SUB INP/OBS CARE 2/35MIN Diagnoses Demand ischemia I24.89 Acute respiratory failure with hypoxia and hypercapnia J96.01; J96.02 Septic shock A41.9; R65.21 Pacemaker Z95.0
[2023-04-20] MEDS: BACLOFEN 10 MG TAB PO SCH (14:26)
[2023-04-20 15:59] LABS: BUN Creatinine Ratio 24.1 (10-20); Calcium 7.9 mg/dl (8.6-10.3); Creatinine Clr Calc Pharmacy 129.5 ml/min; Est GFR (African American) 117.3 ml/min; Est GFR (Non-African American) 101.2 ml/min; Magnesium 2.2 mg/dl (1.7-2.4); Phosphorus 2.1 mg/dl (2.5-4.9); Potassium 3.2 mmol/L (3.5-5.1)
[2023-04-20] MEDS: POTASSIUM PHOSPHATE 30 MMOL in SODIUM CHLORIDE 0.9% 500 ML IV ONE (16:57)
[2023-04-20 18:29] LABS: Basophils # (auto) 0.03 K/uL (0.00-0.20); Basophils % (auto) 0.2 %; Hematocrit (blood only) 38.9 % (42.0-52.0); Hemoglobin 12.9 g/dl (14.0-18.0); Immature Granulocytes # (auto) 0.11 K/uL (0.01-0.20); Immature Granulocytes % (auto) 0.7 %; Lymphocytes # (auto) 1.43 K/uL (1.20-3.40); Lymphocytes % (auto) 9.6 %; Mean Corpuscular Hemoglobin 27.4 pg (25.0-34.0); Mean Corpuscular Hgb Conc 33.2 g/dL (32.0-36.0); Mean Corpuscular Volume 82.6 fL (80.0-100.0); Mean Platelet Volume 11.8 fL (9.4-12.4); Monocytes # (auto) 1.64 K/uL (0.11-0.59); Monocytes % (auto) 11.1 %; Neutrophils # (auto) 11.61 K/uL (1.40-6.50); Neutrophils % (auto) 78.4 %; Nucleated RBC # (auto) 0.09 K/uL (0.00-0.12); Nucleated RBC % (auto) 0.6 %; Platelet Count 25 K/uL (130-400); RDW Coefficient of Variation 14.3 % (11.5-14.5); RDW Standard Deviation 43.1 fL (36.4-46.3); Red Blood Count 4.71 M/uL (4.70-6.10); White Blood Count 14.82 K/ul (4.8-10.8)
[2023-04-20 19:40] LABS: Fibrinogen 303 mg/dl (184-400); INR 1.5 (0.9-1.1)
[2023-04-20 19:57] LABS: D Dimer 3100 ug/L FEU (0-500)
[2023-04-20] MEDS: clonazePAM 0.5 MG TAB PO SCH (20:26)
--- NOTE | 2023-04-20 21:54 | Hospitalist Progress Note ---
Date of Service April 20, 2023 Assessment & Plan (1) Septic shock: Plan: Multiple possible sources on admission but most likely UTI give chronic indwelling will catheter Other possibilities - aspiration pneumonia vs. colitis Empiric antibiotics with Zosyn and IV vancomycin. MRSA nasal swab sent but will continue IV vancomycin even if negative given most likely urinary source Stool sample already sent and will add c. diff coverage if positive Lactate 1.9 NSS 3.5L given in ER Levophed Patient remains intubated. (2) Acute respiratory failure with hypoxia and hypercapnia: Plan: Secondary to presumed aspiration Currently intubated and sedated Ventilation management per ICU team Defer bronchoscopy to ICU team (3) NSTEMI (non-ST elevated myocardial infarction): Plan: Unclear if type 1 vs. type 2. Suspect the latter given septic shock present on admission TTE - currently being performed Treat empirically with aspirin, IV heparin Trending troponin Consult cardiology heparin now on hold (4) UTI (urinary tract infection): Plan: Suspected potential source of sepsis (5) Aspiration pneumonia: Plan: IV Zosyn (6) Colitis: Plan: Stool and c. diff PCR pending - deferred treatment pending results of this (7) Acidosis, metabolic, with respiratory acidosis: Plan: Normal anion gap Sodium bicarb given in ER. Repeat ABG POC ordered (8) Chronic incomplete quadriplegia: (9) Acute kidney failure: Plan: Unknown baseline - no known CKD ?obstructive uropathy with will placement noted on CT in prostate continue to monitor urine output (10) Pacemaker: Plan: Unclear reason for this. Trying to get results from [facility] ER +/- PCP (11) Chronic anticoagulation: Plan: On Eliquis for blood clots but unknown where (12) Chronic indwelling Will catheter: Plan: Noted in prostate on ER CT, replaced ?obstructive uropathy (13) History of stroke: Plan: Noted on CT and confirmed by family/caregivers at bedside (14) Chronic prescription opiate use: Plan: On Suboxone as outpatient. Continue Fentanyl. Plan VTE prophylaxis - IV heparin Diet - NPO Disposition - admit to ICU Admission and Anticipated Discharge Date Admission Date: April 19, 2023 Subjective 52 yo male is intubated and sedated. Review of Systems Review of Systems: All systems reviewed & are unremarkable except as noted in HPI & below Physical Exam Physical Exam: Patient is intubated and sedated. Results & Data Results & Data Vital Signs (Past 12 Hours) Vital Signs Temp Pulse Resp BP Pulse Ox O2 Del Method FiO2 04/20/23 20:07 78 24 94 30 04/20/23 20:00 Mechanical Vent 30 04/20/23 20:00 30 04/20/23 18:04 36.4 C L 74 24 96 04/20/23 18:04 121/92 04/20/23 18:00 36.4 C L 71 24 93 04/20/23 18:00 67/51 L 04/20/23 17:29 36.1 C L 75 24 95 04/20/23 17:29 186/107 H 04/20/23 17:00 71/52 L 04/20/23 17:00 36.3 C L 69 24 88 L 04/20/23 16:30 166/111 H 04/20/23 16:30 36.2 C L 74 24 97 04/20/23 16:05 78 24 97 30 04/20/23 16:00 167/104 H 04/20/23 16:00 36.2 C L 78 24 96 04/20/23 16:00 30 04/20/23 15:45 155/107 H 04/20/23 15:45 36.2 C L 78 24 96 04/20/23 15:30 153/112 H 04/20/23 15:30 36.3 C L 79 24 95 04/20/23 15:15 36.3 C L 79 24 96 04/20/23 15:15 148/102 H 04/20/23 15:00 137/97 04/20/23 15:00 36.4 C L 84 24 94 04/20/23 14:45 131/91 04/20/23 14:45 36.5 C 69 24 97 04/20/23 14:31 36.5 C 70 24 131/91 97 04/20/23 14:30 36.6 C 72 24 97 04/20/23 14:30 129/89 04/20/23 14:30 36.6 C 74 24 129/86 96 04/20/23 14:22 36.8 C 72 24 138/99 97 04/20/23 14:21 36.8 C 70 24 138/99 97 04/20/23 14:21 37.1 C 79 24 153/101 H 94 04/20/23 14:15 138/99 04/20/23 14:15 36.7 C 80 24 94 04/20/23 14:00 36.8 C 79 24 96 04/20/23 14:00 145/101 H 04/20/23 13:58 37.1 C 79 24 153/101 H 94 04/20/23 13:45 37.1 C 79 24 94 04/20/23 13:45 153/101 H 04/20/23 13:40 37.1 C 78 24 97 04/20/23 13:35 37.2 C 78 24 97 04/20/23 13:30 37.3 C 77 24 96 04/20/23 13:30 137/102 H 04/20/23 13:28 37.3 C 78 24 132/94 92 04/20/23 13:25 37.4 C 78 24 97 04/20/23 13:20 37.4 C 78 24 97 04/20/23 13:16 37.3 C 79 24 97 04/20/23 13:16 132/94 04/20/23 13:15 37.3 C 79 24 95 04/20/23 13:13 37.3 C 78 24 132/94 92 04/20/23 13:10 37.3 C 75 24 96 04/20/23 13:07 77/44 L 04/20/23 13:07 37.3 C 72 24 99 04/20/23 13:05 37.2 C 63 24 97 04/20/23 13:00 37.1 C 78 24 103/77 97 04/20/23 13:00 37.1 C 71 24 89 L 04/20/23 12:58 37.1 C 69 24 103/77 97 04/20/23 12:55 37.3 C 70 24 93 04/20/23 12:50 37.3 C 71 24 95 04/20/23 12:45 103/77 04/20/23 12:45 37.4 C 77 24 04/20/23 12:44 37.4 C 80 24 145/104 H 97 04/20/23 12:42 37.5 C 75 24 97 04/20/23 12:42 37.5 C 75 24 145/104 H 95 04/20/23 12:41 37.4 C 75 24 97 04/20/23 12:41 145/103 H 04/20/23 12:34 37.4 C 70 24 95 04/20/23 12:34 72/48 L 04/20/23 12:31 37.3 C 63 24 87 L 04/20/23 12:18 123/87 04/20/23 12:18 37.3 C 78 24 95 04/20/23 12:00 37.3 C 77 24 96 04/20/23 12:00 121/84 04/20/23 12:00 30 04/20/23 11:21 87 24 95 30 04/20/23 11:05 37.6 C H 85 24 95 04/20/23 11:05 119/89 04/20/23 11:00 37.6 C H 87 24 95 04/20/23 10:30 116/76 04/20/23 10:30 37.7 C H 87 24 93 04/20/23 10:00 37.7 C H 91 H 24 93 PG Care Time/CCT Total # of Minutes Spent Total Time Spent with Patient: Total time spent is greater than 50% in coordination of care (as documented) at patient's floor/unit and/or counseling patient: Coding Level of Care Code 57220 SUB INP/OBS CARE 2/35MIN Diagnoses Septic shock A41.9; R65.21 Acute respiratory failure with hypoxia and hypercapnia J96.01; J96.02 NSTEMI (non-ST elevated myocardial infarction) I21.4 UTI (urinary tract infection) N39.0 Aspiration pneumonia J69.0 Colitis K52.9 Acidosis, metabolic, with respiratory acidosis E87.4 Chronic incomplete quadriplegia G82.50 Acute kidney failure N17.9 Pacemaker Z95.0 Chronic anticoagulation Z79.01 Chronic indwelling Will catheter Z97.8 History of stroke Z86.73 Chronic prescription opiate use Z79.891
[2023-04-21 05:10] LABS: iSTAT Allen Test Pass; iSTAT Art Bld Gas pCO2 Correct 36 mmHg (35-46); iSTAT Art Bld Gas pH Corrected 7.417 (7.35-7.45); iSTAT Arterial Blood Gas HCO3 23 meg/L (19-24); iSTAT Arterial Blood Gas pCO2 35 mmHg (35-46); iSTAT Arterial Blood Gas pH 7.43 (7.35-7.45); iSTAT Arterial Blood Gas pO2 80 mmHg (80-95); iSTAT Arterial Blood Gas pO2 C 84; iSTAT Carbon Dioxide 24 mmol/L (24-31); iSTAT FiO2 30 %; iSTAT Hematocrit 38 % (42-52); iSTAT Hemoglobin 12.9 g/dl (14.0-18.0); iSTAT Potassium 3.4 mmol/L (3.3-5.0); iSTAT Site R Radial; iSTAT Sodium 140 mmol/L (135-144)
[2023-04-21 05:14] LABS: Basophils # (auto) 0.06 K/uL (0.00-0.20); Basophils % (auto) 0.3 %; Hematocrit (blood only) 40.2 % (42.0-52.0); Hemoglobin 13.5 g/dl (14.0-18.0); Immature Granulocytes # (auto) 0.15 K/uL (0.01-0.20); Immature Granulocytes % (auto) 0.8 %; Lymphocytes # (auto) 1.56 K/uL (1.20-3.40); Lymphocytes % (auto) 8.3 %; Mean Corpuscular Hemoglobin 27.6 pg (25.0-34.0); Mean Corpuscular Hgb Conc 33.6 g/dL (32.0-36.0); Mean Corpuscular Volume 82.2 fL (80.0-100.0); Mean Platelet Volume 12.3 fL (9.4-12.4); Monocytes # (auto) 1.86 K/uL (0.11-0.59); Monocytes % (auto) 9.9 %; Neutrophils # (auto) 15.22 K/uL (1.40-6.50); Neutrophils % (auto) 80.7 %; Nucleated RBC # (auto) 0.06 K/uL (0.00-0.12); Nucleated RBC % (auto) 0.3 %; Platelet Count 30 K/uL (130-400); RDW Coefficient of Variation 14.4 % (11.5-14.5); RDW Standard Deviation 42.8 fL (36.4-46.3); Red Blood Count 4.89 M/uL (4.70-6.10); White Blood Count 18.85 K/ul (4.8-10.8)
[2023-04-21 05:16] LABS: INR 1.4 (0.9-1.1); Partial Thromboplastin Ratio 1.1; Partial Thromboplastin Time 30 Seconds (21-31); Prothrombin Time 14.7 Seconds (9.0-12.0)
[2023-04-21 05:29] LABS: BUN Creatinine Ratio 22.1 (10-20); Calcium 7.9 mg/dl (8.6-10.3); Creatinine Clr Calc Pharmacy 139.6 ml/min; Est GFR (African American) 120.9 ml/min; Est GFR (Non-African American) 104.3 ml/min; Phosphorus 2.7 mg/dl (2.5-4.9); Potassium 3.3 mmol/L (3.5-5.1)
--- NOTE | 2023-04-21 08:37 | XRay Report ---
XR chest 1V portable CLINICAL HISTORY: while intubated- eval lines/tubes/lung briceno COMPARISON STUDY: Chest CT from 05/18/2023. Chest radiograph April 20, 2023 FINDINGS: Tip of endotracheal tube is 8 cm above the singh. Right internal jugular central line andrew ins in place. Tip of nasogastric tube is within the body of the stomach. A dual-lead left pacer, post operative findings within the cervical spine and left humerus and a endovascular thoracic aortic sten t graft are present. Cardiomediastinal silhouette is stable. Right basilar opacity persists. There is minimal left basilar opacity. There is pulmonary vascular congestion without overt pulmonary edema. IMPRESSION: 1. Tip of endotracheal tube 8 cm above the singh. 2. Persistent bibasilar opacities. 3. Stable cardiomegaly. Pulmonary vascular congestion without overt pulmonary edema. ACT 112: Negative or not required by law. Electronically signed by: Sin Ying M.D. 04/21/2023 8:36 AM
[2023-04-21 09:21] LABS: Fibrinogen 378 mg/dl (184-400)
[2023-04-21 09:42] LABS: D Dimer 2070 ug/L FEU (0-500)
--- NOTE | 2023-04-21 09:47 | Billing Data ---
Date of Service April 21, 2023 Coding Level of Care Code 92292 CRITICAL CARE 1ST 30-74M Time Spent (min) 36
[2023-04-21] MEDS: POTASSIUM CHLORIDE / WTR 20 MEQ/100 ML PLCT IV ONE (10:27)
[2023-04-21] MEDS: POTASSIUM CHLORIDE 20 MEQ/15 ML UDC PO STA (10:31)
[2023-04-21] MEDS: PANTOprazole 40 MG in SYRINGE DAILY IV SCH (10:31)
--- NOTE | 2023-04-21 10:54 | Critical Care Progress Note ---
Date of Service April 21, 2023 Assessment & Plan (1) Septic shock: (2) Acute respiratory failure with hypoxia and hypercapnia: (3) Aspiration pneumonia: (4) Chronic incomplete quadriplegia: (5) Acute kidney failure: (6) Thrombocytopenia: Plan Reason for ICU admission: Mr. Cevallos is a 52 y/o male with PMHx of quadriplegia, prior tracheostomy, and pacemaker who was admitted to ICU due to septic shock secondary to aspiration pneumonia. Last 24 hours: Patient VS have been improving with no repeat fever and blood pressures that have been well with low-dose levophed. MAPs have remained above 65 mmHg. NEURO: - persistent AMS possibly related to encephalopathy from septic shock - Sedated state can also be due to chronic use of sedating medications such as BZD, Baclofen, Suboxone, and Gabapentin. * BZD and Baclofen was restarted at home dose to prevent withdrawal - Will continue to monitor neurologic status progression CARDIOVASCULAR: - BPs have been stable on low-dose levophed. * Wean as able with the goal to maintain MAPs > 65 mmHg. - Telemetry has remained in NSR and patient hemodynamically stable. - Cardiology evaluated: * troponin elevation likely related to demand ischemia rather than ACS * pacemaker functional * TTE showing hyperdynamic LV function with no wall motion abnormalities, suggesting troponin elevation reflects limited microvascular damage. - Continue monitoring PULMONARY: - Patient with mechanical ventilation - Bronchial washings growing normal mayte - Continue lung protective strategies. Wean off ventilator as able. GI: - Transaminitis noted in yesterday's labs. INR improving today. - OG tube in place and functional. Continue. - GI ppx: Protonix 40mg HEMATOLOGY: - HH stable - Persistent but improving thrombocytopenia (25K --> 30K) s/p platelet transfusion and vitamin K transfusion - Fibrinogen normal - VTE ppx: SCDs ID: - CXR findings suggestive of aspiration pneumonia, which may have been the precipitating cause for his septic shock. - Blood cultures pending - Urine cultures growing 3 types of skin mayte - abx: Zosyn RENAL/ELECTROLYTES: - Renal markers improving (Cr today 0.77). Urine output adequate at 0.50 m L/kg/hr - electrolytes significant for hypokalemia, (3.3), hypocalcemia (7.9). Phosphorus and magnesium adequate at 2.7 and 2.0, respectively. * Will replace potassium ENDO: - ICU hyperglycemia protocol - Last TSH normal (3.365 on 04/16/23) LINES/DRAINS/ACCESS: PIV, Will, ETT CODE STATUS: CONDITIONAL CODE (Okay with intubation, but DNR in the event of a cardiac arrest. Patient's daughter indicated that the patient's wishes are to remain a DNR in the event of cardiopulmonary arrest) Admission and Anticipated Discharge Date Admission Date: April 19, 2023 Supervising Physician Co-Signing Physician Notes Patient seen and examined with resident physician. Agree with the assessment and plan aside for any additions/exceptions noted: Patient remains persistently encephalopathic and febrile. He is requiring low- dose Levophed support. He is off sedation. We have restarted gabapentin in addition to baclofen and Klonopin to help prevent withdrawal. Encephalopathy is likely multifactorial related to metabolic derangements, possibly protracted hypoxemia prior to hospitalization and febrile illness. MRI is not able to be performed due to the patient's pacemaker. CT head was negative on admission or acute findings. Will obtain EEG. Continue Zosyn for aspiration pneumonia. Blood culture from 04/19/2023 growing gram-positive cocci in clusters. (Possible contaminant given staph epi and staph lugdunensis species) bronchial washings and repeat blood cultures negative to date. Patient remains intubated and on mechanical ventilation support for airway protection at this time. Platelet count is improving. Fibrinogen levels are improving as well along with D-dimer. Suspect DIC is improving with resolving sepsis. CRITICAL CARE TIME - I have personally spent 36 minutes of critical care time in the direct management of this patient. This is a life/limb threatening event. This includes time spent evaluating patient, direct bedside care, chart review, placing orders, interpretation of diagnostic studies, discussion with consultants, patient, and family members, as well as other required patient management activities. This time is exclusive of all separately billable procedures, and teaching time and separate from and in addition to any other critical care service time. Subjective Patient seen at bedside and found to be still slightly sedated but seemed to be possibly more awake as he lifted his arm when his name was called. ROS was limited due to ETT and sedated state. Review of Systems Review of Systems: All systems reviewed & are unremarkable except as noted in HPI & below Physical Exam Physical Exam: GENERAL: patient sedated and mechanically ventilated. No acute distress HEAD: AT, NC EYES: slightly open with eyes looking upwards, bilateral conjunctiva appear injected THROAT: normal to visual exam CARDIO: RRR, no r/m/g RESPIRATORY: Course crackles in lower lobes, no respiratory distress GI: non-distended, non-tender : positive will draining dark urine EXTREMITIES: minimal swelling in bilteral LE SKIN: no rashes Results & Data Results & Data Vital Signs (Past 12 Hours) Vital Signs Temp Pulse Resp BP Pulse Ox O2 Del Method FiO2 04/21/23 10:00 86 24 94 04/21/23 10:00 104/64 04/21/23 09:00 86 24 94 04/21/23 09:00 93/59 L 04/21/23 08:46 37.8 C H 04/21/23 08:28 92 H 24 94 04/21/23 08:00 30 04/21/23 08:00 118/74 04/21/23 08:00 88 24 94 04/21/23 07:48 104 H 24 94 30 04/21/23 07:00 125/75 04/21/23 07:00 86 24 94 Mechanical Vent 30 04/21/23 04:00 30 04/21/23 04:00 37.6 C H 87 24 95 30 04/21/23 04:00 130/84 04/21/23 03:16 92 H 24 95 30 04/21/23 03:00 37.4 C 83 24 95 30 04/21/23 03:00 128/87 04/21/23 02:00 134/92 04/21/23 02:00 37.2 C 90 24 94 30 04/21/23 01:01 37.0 C 91 H 24 94 04/21/23 01:01 134/80 04/21/23 01:00 37.1 C 91 H 24 93 30 04/21/23 00:16 36.8 C 88 24 96 04/21/23 00:16 156/107 H 04/21/23 00:00 36.8 C 85 24 94 30 04/21/23 00:00 30 04/21/23 00:00 86 04/20/23 23:00 36.6 C 70 24 95 30 04/20/23 23:00 130/87
[2023-04-21] MEDS: PEPTAMEN INTENSE VHP 1.0 CAL 1,000 ML BAG OG SCH (12:32)
[2023-04-21] MEDS: TUBE FEEDING WATER FLUSH OG SCH (12:32)
[2023-04-21] MEDS ORDERED: GABAPENTIN 800 MG TAB PO SCH (14:00)
[2023-04-21] MEDS: GABAPENTIN 250 MG/5 ML 470 ML BTL PO SCH (14:12)
[2023-04-21] MEDS: BACLOFEN 10 MG TAB PO SCH (15:19)
--- NOTE | 2023-04-21 16:51 | Electroencephalogram ---
EEG Procedure Note Date of Service April 21, 2023 Start / End Times Start Time: 2:28 PM End Time: 2:48 PM Referring Physician Joshua History Encephalopathy Home Medication List Medication Instructions Recorded Confirmed Type buprenorphine 8 mg-naloxone 2 mg 1 film sublingual BID 12/08/18 12/08/18 History sublingual film (Suboxone) carisoprodol 350 mg tablet (Soma) 350 mg PO TID 12/08/18 12/08/18 History clonazepam 0.5 mg tablet 0.5 mg PO BID 12/08/18 12/08/18 History docusate sodium 50 mg capsule 50 mg PO DAILY PRN Constipation 12/08/18 12/08/18 History (Stool Softener) linaclotide 290 mcg capsule 290 mcg PO DAILY 12/08/18 12/08/18 History (Linzess) methylphenidate HCl 10 mg tablet 10 mg PO BID 12/08/18 12/08/18 History nitrofurantoin macrocrystal 50 mg 50 mg PO DAILY 12/08/18 12/08/18 History capsule polyethylene glycol 3350 17 17 g PO DAILY PRN Constipation 12/08/18 12/08/18 History gram/dose oral powder (Miralax) apixaban 5 mg tablet (Eliquis) 5 mg PO BID 04/19/23 04/19/23 History baclofen 20 mg tablet 20 mg PO TID 04/19/23 04/19/23 History gabapentin 800 mg tablet 800 mg PO TID 04/19/23 04/19/23 History Inpatient Medication List Baclofen (Baclofen 10 Mg Tab) 20 mg PO Q8 [facility] Stop: 05/20/23 13:59 Last Admin: 04/21/23 15:19 Dose: 20 mg Documented By: DAYANNA Clonazepam (Clonazepam 0.5 Mg Tab) 0.5 mg PO BID [facility] Stop: 05/20/23 20:59 Last Admin: 04/21/23 08:33 Dose: 0.5 mg Documented By: Admin: 04/20/23 20:26 Dose: 0.5 mg Documented By: LUIS ANGEL Fentanyl Citrate (Fentanyl Bolus From Bag) 50 mcg IV Q60M PRN PRN Reason: Pain or Agitation Stop: 05/03/23 11:14 Last Admin: 04/20/23 01:03 Dose: 50 mcg Documented By: SHARON Co-signed By: TERESA Admin: 04/19/23 20:25 Dose: 50 mcg Documented By: CF Co-signed By: CP Admin: 04/19/23 13:36 Dose: 50 mcg Documented By: DAYANNA(2) Co-signed By: JOY Gabapentin (Gabapentin 250 Mg/5 Ml 470 Ml Btl) 800 mg PO TID [facility] Stop: 05/21/23 13:59 Last Admin: 04/21/23 14:12 Dose: 800 mg Documented By: DAYANNA Norepinephrine Bitartrate (Levophed/D5w) 4 mg in 250 mls @ 11.25 mls/hr IV .[id number] [facility]; Protocol Stop: 05/19/23 10:44 Last Titration: 04/21/23 08:16 Dose: 0.03 mcg/kg/min, 11.3 mls/hr Documented By: Admin: 04/21/23 01:02 Dose: 0.05 mcg/kg/min, 18.8 mls/hr Documented By: CLC Co-signed By: TP Titration: 04/21/23 00:39 Dose: Infused Documented By: CLC Co-signed By: TP Titration: 04/20/23 17:01 Dose: 0.05 mcg/kg/min, 18.8 mls/hr Documented By: Titration: 04/20/23 16:33 Dose: 0 mcg/kg/min, 0 mls/hr Documented By: Admin: 04/20/23 14:24 Dose: Not Given Documented By: Admin: 04/20/23 14:24 Dose: Not Given Documented By: Titration: 04/20/23 14:23 Dose: 0.05 mcg/kg/min, 18.8 mls/hr Documented By: Titration: 04/20/23 12:19 Dose: 0 mcg/kg/min, 0 mls/hr Documented By: Admin: 04/20/23 08:49 Dose: 0.05 mcg/kg/min, 18.8 mls/hr Documented By: MERNA Co-signed By: GUY Admin: 04/20/23 07:40 Dose: Not Given Documented By: Titration: 04/20/23 07:02 Dose: Infused Documented By: MERNA Co-signed By: CF Titration: 04/20/23 05:29 Dose: 0.05 mcg/kg/min, 18.8 mls/hr Documented By: Admin: 04/19/23 21:25 Dose: 0.08 mcg/kg/min, 30 mls/hr Documented By: CF Co-signed By: TMG Titration: 04/19/23 21:04 Dose: Infused Documented By: CF Co-signed By: TMG Titration: 04/19/23 19:09 Dose: 0.08 mcg/kg/min, 30 mls/hr Documented By: MERNA Co-signed By: CF Titration: 04/19/23 14:42 Dose: 0.07 mcg/kg/min, 26.3 mls/hr Documented By: Admin: 04/19/23 10:41 Dose: 0.05 mcg/kg/min, 18.8 mls/hr Documented By: AM Co-signed By: JARAD Fentanyl Citrate (Fentanyl Citrate) 2,500 mcg in 250 mls @ 0 mls/hr IV .Q0M [facility]; Protocol Stop: 05/03/23 11:14 Last Titration: 04/20/23 09:25 Dose: 0 mcg/hr, 0 mls/hr Documented By: MERNA Co-signed By: AMB Titration: 04/20/23 07:02 Dose: 150 mcg/hr, 15 mls/hr Documented By: MERNA Co-signed By: CF Admin: 04/20/23 05:28 Dose: 150 mcg/hr, 15 mls/hr Documented By: CF Co-signed By: CP Titration: 04/20/23 05:28 Dose: Infused Documented By: CF Co-signed By: CP Titration: 04/20/23 01:03 Dose: 150 mcg/hr, 15 mls/hr Documented By: CF Co-signed By: CP Titration: 04/19/23 20:25 Dose: 125 mcg/hr, 12.5 mls/hr Documented By: CF Co-signed By: CP Titration: 04/19/23 19:09 Dose: 100 mcg/hr, 10 mls/hr Documented By: MERNA Co-signed By: CF Titration: 04/19/23 14:43 Dose: 50 mcg/hr, 5 mls/hr Documented By: MERNA Co-signed By: JB Titration: 04/19/23 13:38 Dose: 50 mcg/hr, 5 mls/hr Documented By: DAYANNA(2) Co-signed By: JOY Admin: 04/19/23 11:34 Dose: 25 mcg/hr, 2.5 mls/hr Documented By: DAYANNA(2) Co-signed By: HERIBERTO Piperacillin Sod/Tazobactam (Sod 4.5 gm/ Dextrose) 100 mls @ 25 mls/hr IV Q8H [facility]; Protocol Stop: 04/26/23 16:59 Last Admin: 04/21/23 16:20 Dose: 25 mls/hr Documented By: Infusion: 04/21/23 12:32 Dose: Infused Documented By: Admin: 04/21/23 08:32 Dose: 25 mls/hr Documented By: Infusion: 04/21/23 04:42 Dose: Infused Documented By: Admin: 04/21/23 00:16 Dose: 25 mls/hr Documented By: Infusion: 04/20/23 20:39 Dose: Infused Documented By: Admin: 04/20/23 16:30 Dose: 25 mls/hr Documented By: Infusion: 04/20/23 11:32 Dose: Infused Documented By: Admin: 04/20/23 07:39 Dose: 25 mls/hr Documented By: Infusion: 04/20/23 05:02 Dose: Infused Documented By: Admin: 04/20/23 01:02 Dose: 25 mls/hr Documented By: Infusion: 04/19/23 22:39 Dose: Infused Documented By: Admin: 04/19/23 18:06 Dose: 25 mls/hr Documented By: MERNA Acetaminophen (Ofirmev) 1,000 mg in 100 mls @ 400 mls/hr IV Q8H PRN PRN Reason: Fever Stop: 04/22/23 15:15 Last Infusion: 04/21/23 12:47 Dose: Infused Documented By: Admin: 04/21/23 12:32 Dose: 400 mls/hr Documented By: Infusion: 04/21/23 06:31 Dose: Infused Documented By: Admin: 04/21/23 05:29 Dose: 400 mls/hr Documented By: Infusion: 04/20/23 01:18 Dose: Infused Documented By: Admin: 04/20/23 01:03 Dose: 400 mls/hr Documented By: SHARON Dexmedetomidine/Sodium Chloride (Precedex) 200 mcg in 50 mls @ 0 mls/hr IV .Q0M [facility]; Protocol Stop: 04/23/23 20:29 Last Admin: 04/20/23 14:24 Dose: Not Given Documented By: Admin: 04/20/23 14:24 Dose: Not Given Documented By: Titration: 04/20/23 09:24 Dose: 0 mcg/kg/hr, 0 mls/hr Documented By: Titration: 04/20/23 07:02 Dose: 0.7 mcg/kg/hr, 17.5 mls/hr Documented By: MERNA Co-signed By: SHARON Admin: 04/20/23 06:52 Dose: 0.7 mcg/kg/hr, 17.5 mls/hr Documented By: SHARON Co-signed By: MERNA Titration: 04/20/23 06:52 Dose: Infused Documented By: CF Co-signed By: MERNA Admin: 04/20/23 04:45 Dose: 0.7 mcg/kg/hr, 17.5 mls/hr Documented By: CF Co-signed By: ADRIANA Titration: 04/20/23 04:45 Dose: Infused Documented By: CF Co-signed By: AMW Admin: 04/20/23 02:37 Dose: 0.7 mcg/kg/hr, 17.5 mls/hr Documented By: SHARON Co-signed By: MARÍA Titration: 04/20/23 01:51 Dose: Infused Documented By: CF Co-signed By: GG Titration: 04/20/23 01:03 Dose: 0.7 mcg/kg/hr, 17.5 mls/hr Documented By: Admin: 04/19/23 22:39 Dose: 0.6 mcg/kg/hr, 15 mls/hr Documented By: CF Co-signed By: CP Titration: 04/19/23 22:39 Dose: Infused Documented By: CF Co-signed By: CP Titration: 04/19/23 21:25 Dose: 0.5 mcg/kg/hr, 12.5 mls/hr Documented By: Admin: 04/19/23 20:41 Dose: 0.4 mcg/kg/hr, 10 mls/hr Documented By: CF Co-signed By: AEV Pantoprazole Sodium 40 mg/ (Syringe) 10 mls @ 5 mls/min IV DAILY@1100 [facility] Stop: 05/21/23 10:59 Last Admin: 04/21/23 10:31 Dose: 5 mls/min Documented By: DAYANNA Insulin Aspart (Insulin Aspart Per Unit Charge) 0 units SC Q4 [facility] Stop: 05/20/23 15:59 Last Admin: 04/21/23 16:31 Dose: Not Given Documented By: Admin: 04/21/23 12:05 Dose: Not Given Documented By: Admin: 04/21/23 08:12 Dose: Not Given Documented By: Admin: 04/21/23 04:00 Dose: 1 units Documented By: CLC Co-signed By: TP Admin: 04/20/23 23:52 Dose: 3 units Documented By: CLC Co-signed By: TP Admin: 04/20/23 20:26 Dose: 5 units Documented By: CLC Co-signed By: TP Admin: 04/20/23 16:51 Dose: 5 units Documented By: MERNA Co-signed By: OTILIA Nutritional Formula (Peptamen Intense Vhp 1.0 Harley 1,000 Ml Bag) 1,000 ml OG .See Protocol [facility]; Protocol Stop: 05/21/23 12:29 Last Admin: 04/21/23 12:32 Dose: 1,000 ml Documented By: DAYANNA Sterile Water (Tube Feeding Water Flush) 175 ml OG Q4H [facility] Stop: 05/21/23 12:29 Last Admin: 04/21/23 16:30 Dose: 175 ml Documented By: Admin: 04/21/23 12:32 Dose: 175 ml Documented By: DAYANNA Discontinued Medications Albuterol (Albuterol 0.083% Nebu Soln 3 Ml Vial) 10 mg NEB NOW STA; Protocol Stop: 04/19/23 10:46 Last Admin: 04/19/23 10:51 Dose: 10 mg Documented By: AM Aspirin (Aspirin 81 Mg Chew) 324 mg OG NOW STA Stop: 04/19/23 13:41 Last Admin: 04/19/23 17:27 Dose: Not Given Documented By: MERNA Baclofen (Baclofen 10 Mg Tab) 10 mg PO Q8 [facility] Stop: 05/20/23 13:59 Last Admin: 04/21/23 05:08 Dose: 10 mg Documented By: LUIS ANGEL Admin: 04/20/23 21:54 Dose: 10 mg Documented By: LUIS ANGEL Admin: 04/20/23 14:26 Dose: 10 mg Documented By: MERNA Calcium Gluconate (Calcium Gluconate 1000 Mg/60 Ml Nss) Confirm Administered Dose 2,000 mg IV .STK-MED ONE Stop: 04/19/23 10:50 Last Admin: 04/19/23 11:00 Dose: 2,000 mg Documented By: DAYANNA(2) Clonazepam (Clonazepam 0.5 Mg Tab) 0.5 mg PO .EXTRA DOSE ONE Stop: 04/20/23 10:01 Last Admin: 04/20/23 10:21 Dose: 0.5 mg Documented By: MERNA Dextrose (Dextrose 50% 50 Ml Syringe) 50 ml IV NOW ONE Stop: 04/19/23 10:46 Last Admin: 04/19/23 13:02 Dose: Not Given Documented By: DAYANNA(2) Heparin Sodium/Dextrose (Heparin Iv Adult Wt-Based Low-Dose *No* Initial Bolus Protocol) 1 each IV ONE STA; Protocol Stop: 04/19/23 12:47 Last Admin: 04/19/23 13:22 Dose: Not Given Documented By: DAYANNA(2) Piperacillin Sod/Tazobactam Sod (Zosyn) 4.5 gm in 100 mls @ 200 mls/hr IV NOW ONE Stop: 04/19/23 11:02 Last Infusion: 04/19/23 12:21 Dose: Infused Documented By: DAYANNA(2) Admin: 04/19/23 10:50 Dose: 200 mls/hr Documented By: AM Sodium Chloride (Nss) 1,000 mls @ 999 mls/hr IV .Q1H1M [facility] Stop: 04/19/23 12:45 Last Infusion: 04/19/23 12:57 Dose: Infused Documented By: DAYANNA(2) Admin: 04/19/23 12:31 Dose: 999 mls/hr Documented By: DAYANNA(2) Infusion: 04/19/23 12:31 Dose: Infused Documented By: DAYANNA(2) Admin: 04/19/23 10:41 Dose: 999 mls/hr Documented By: AM Sodium Chloride (Nss) 1,000 mls @ 999 mls/hr IV .Q1H1M ONE Stop: 04/19/23 11:45 Last Infusion: 04/19/23 12:21 Dose: Infused Documented By: DAYANNA(2) Admin: 04/19/23 11:04 Dose: 999 mls/hr Documented By: SARITHA Vancomycin HCl 2,000 mg/ (Sodium Chloride) 540 mls @ 200 mls/hr IV NOW ONE Stop: 04/19/23 14:41 Last Infusion: 04/19/23 15:27 Dose: Infused Documented By: Admin: 04/19/23 12:32 Dose: 200 mls/hr Documented By: DAYANNA(2) Sodium Chloride (Nss) 500 mls @ 999 mls/hr IV .Q31M ONE Stop: 04/19/23 12:28 Last Infusion: 04/19/23 13:40 Dose: Infused Documented By: DAYANNA(2) Admin: 04/19/23 12:33 Dose: 999 mls/hr Documented By: DAYANNA(2) Heparin Sodium/Dextrose (Heparin Sodium/Dextrose) 25,000 units in 500 mls @ 0 mls/hr IV .Q0M [facility]; Protocol Stop: 05/19/23 13:14 Last Titration: 04/20/23 10:14 Dose: Infused Documented By: MERNA Co-signed By: JAZZ Titration: 04/19/23 19:09 Dose: 0 units/hr, 0 mls/hr Documented By: MERNA Co-signed By: CF Titration: 04/19/23 14:42 Dose: 0 units/hr, 0 mls/hr Documented By: MERNA Co-signed By: MARTA Admin: 04/19/23 13:22 Dose: 1,000 units/hr, 20 mls/hr Documented By: DAYANNA(2) Co-signed By: JOY Calcium Gluconate () 1,000 mg in 60 mls @ 240 mls/hr IV NOW STA Stop: 04/19/23 14:48 Last Admin: 04/19/23 14:45 Dose: Not Given Documented By: MERNA Calcium Gluconate () 1,000 mg in 60 mls @ 240 mls/hr IV NOW STA Stop: 04/19/23 14:48 Last Admin: 04/19/23 14:45 Dose: Not Given Documented By: MERNA Lactated Ringer's (Lr) 500 mls @ 999 mls/hr IV .Q31M ONE Stop: 04/19/23 15:16 Last Infusion: 04/19/23 15:26 Dose: Infused Documented By: Admin: 04/19/23 14:49 Dose: 999 mls/hr Documented By: MERNA Acetaminophen (irmev) 1,000 mg in 100 mls @ 400 mls/hr IV NOW STA Stop: 04/19/23 15:00 Last Infusion: 04/19/23 15:10 Dose: Infused Documented By: Admin: 04/19/23 14:50 Dose: 400 mls/hr Documented By: MERNA Sodium Bicarbonate 150 meq/ (Dextrose) 1,150 mls @ 125 mls/hr IV .Q9H12M [facility] Stop: 05/19/23 17:44 Last Infusion: 04/20/23 10:14 Dose: Infused Documented By: Admin: 04/20/23 04:43 Dose: 125 mls/hr Documented By: Infusion: 04/20/23 03:18 Dose: Infused Documented By: Admin: 04/19/23 18:06 Dose: 125 mls/hr Documented By: MERNA Potassium Chloride (K James / Wtr) 20 meq in 100 mls @ 50 mls/hr IV Q2H [facility] Stop: 04/19/23 22:14 Last Infusion: 04/19/23 22:25 Dose: Infused Documented By: Admin: 04/19/23 20:24 Dose: 50 mls/hr Documented By: Infusion: 04/19/23 20:24 Dose: Infused Documented By: Admin: 04/19/23 18:33 Dose: 50 mls/hr Documented By: MERNA Potassium Phosphate 15 mmol/ (Sodium Chloride) 255 mls @ 88 mls/hr IV ONE ONE Stop: 04/20/23 08:53 Last Infusion: 04/20/23 09:26 Dose: Infused Documented By: Admin: 04/20/23 06:21 Dose: 88 mls/hr Documented By: SHARON Magnesium Sulfate/Dextrose (Magnesium Sulfate / D5w) 1 gm in 100 mls @ 50 mls/hr IV Q2H [facility] Stop: 04/20/23 13:29 Last Infusion: 04/20/23 13:38 Dose: Infused Documented By: Admin: 04/20/23 11:12 Dose: 50 mls/hr Documented By: Infusion: 04/20/23 11:12 Dose: Infused Documented By: Admin: 04/20/23 09:24 Dose: 50 mls/hr Documented By: Infusion: 04/20/23 09:24 Dose: Infused Documented By: Admin: 04/20/23 07:39 Dose: 50 mls/hr Documented By: MERNA Phytonadione 5 mg/ Dextrose 50.5 mls @ 101 mls/hr IV ONE ONE Stop: 04/20/23 10:14 Last Infusion: 04/20/23 11:32 Dose: Infused Documented By: Admin: 04/20/23 10:27 Dose: 101 mls/hr Documented By: MERNA Pantoprazole Sodium 40 mg/ (Syringe) 10 mls @ 5 mls/min IV NOW ONE Stop: 04/20/23 09:34 Last Admin: 04/20/23 10:27 Dose: 5 mls/min Documented By: MERNA Potassium Phosphate 30 mmol/ (Sodium Chloride) 510 mls @ 88 mls/hr IV ONE ONE Stop: 04/20/23 22:02 Last Infusion: 04/20/23 23:09 Dose: Infused Documented By: LUIS ANGEL Admin: 04/20/23 16:57 Dose: 88 mls/hr Documented By: MERNA Potassium Chloride (K James / Wtr) 20 meq in 100 mls @ 50 mls/hr IV ONE ONE Stop: 04/21/23 11:59 Last Infusion: 04/21/23 12:27 Dose: Infused Documented By: Admin: 04/21/23 10:27 Dose: 50 mls/hr Documented By: DAYANNA Insulin Aspart (Insulin Aspart Per Unit Charge) 0 units SC Q6 [facility] Stop: 05/20/23 07:04 Last Admin: 04/20/23 12:23 Dose: 7 units Documented By: MERNA Co-signed By: JAZZ Admin: 04/20/23 07:05 Dose: 7 units Documented By: SHARON Co-signed By: MERNA Insulin Human Regular (Novolin-R Insulin Per Unit Charge) 10 units IV NOW STA Stop: 04/19/23 10:46 Last Admin: 04/19/23 13:02 Dose: Not Given Documented By: DAYANNA(2) Ioversol (Optiray 320 125ml) 112 ml IV ONCE ONE Stop: 04/19/23 11:50 Last Admin: 04/19/23 11:50 Dose: 112 ml Documented By: GABRIELA Louis (Rapid Sequence Induction Bag) Confirm Administered Dose 1 each N/A .STK-MED ONE Stop: 04/19/23 10:17 Last Admin: 04/19/23 10:28 Dose: 1 each Documented By: SARITHA Louis (Stat Iv Infusion Titration Per Protocol) 1 each N/A NOW STA Stop: 04/19/23 10:40 Last Admin: 04/19/23 10:42 Dose: Not Given Documented By: SARITHA Louis (Stat Iv Infusion Titration Per Protocol) 1 each N/A NOW STA Stop: 04/19/23 11:16 Last Admin: 04/19/23 12:58 Dose: Not Given Documented By: DAYANNA(2) Heriberto (Icu Protocol For Hyperglycemia) 1 each N/A Q6 [facility] Stop: 04/21/23 16:29 Last Admin: 04/20/23 06:49 Dose: Not Given Documented By: Admin: 04/20/23 01:01 Dose: Not Given Documented By: Admin: 04/19/23 17:35 Dose: 1 each Documented By: MERNA Norepinephrine Bitartrate (Norepinephrine/D5w 4 Mg/250 Ml) Confirm Administered Dose 4 mg IV .STK-MED ONE Stop: 04/19/23 10:29 Last Admin: 04/19/23 10:43 Dose: Not Given Documented By: SARITHA Potassium Chloride (Potassium Chloride 20 Meq/15 Ml Udc) 60 meq PO NOW STA Stop: 04/19/23 18:04 Last Admin: 04/19/23 18:33 Dose: 60 meq Documented By: MERNA Potassium Chloride (Potassium Chloride 20 Meq/15 Ml Udc) 40 meq PO NOW STA Stop: 04/20/23 09:38 Last Admin: 04/20/23 10:21 Dose: 40 meq Documented By: MERNA Potassium Chloride (Potassium Chloride 20 Meq/15 Ml Udc) 40 meq PO NOW STA Stop: 04/21/23 09:43 Last Admin: 04/21/23 10:31 Dose: 40 meq Documented By: DAYANNA Sodium Bicarbonate (Sodium Bicarb 8.4% Inj 50 Meq/50 Ml Syr) Confirm Administered Dose 100 meq IV .STK-MED ONE Stop: 04/19/23 10:50 Last Admin: 04/19/23 12:59 Dose: Not Given Documented By: DAYANNA(2) Sodium Bicarbonate (Sodium Bicarb 8.4% Inj 50 Meq/50 Ml Syr) 100 meq IV NOW ONE Stop: 04/19/23 11:01 Last Admin: 04/19/23 10:51 Dose: 100 meq Documented By: DAYANNA(2) Sodium Bicarbonate (Sodium Bicarb 8.4% Inj 50 Meq/50 Ml Syr) 50 meq IV NOW STA Stop: 04/19/23 10:59 Last Admin: 04/19/23 12:59 Dose: Not Given Documented By: DAYANNA(2) Description This is a 21 electrode EEG with a single channel dedicated to limited EKG. The electrodes were placed in accordance with the International 10-20 system. This EEG was obtained with the patient in an unresponsive state, on the mechanical ventilator in the ICU. The predominant rhythm consists of low to moderate amplitude 6 Hz slowing as well as a moderate degree of admixed intermittent frontal delta activity. Photic stimulation is unremarkable. There is intermittent suppression of the background rhythm. There are no abnormal bursts or other paroxysmal events. Photic stimulation is unremarkable. Interpretation Abnormal awake/drowsy EEG revealing evidence of a moderate to severe nonspecific encephalopathy. No epileptiform discharges observed. [facility] EEG Procedure Codes Indication for Procedure (1) Encephalopathy: Neurology Neurology: 72395 EEG include record awake & drowsy
[2023-04-21 18:15] LABS: Basophils # (auto) 0.03 K/uL (0.00-0.20); Basophils % (auto) 0.2 %; Eosinophils # (auto) 0.01 K/uL (0.00-0.50); Eosinophils % (auto) 0.1 %; Hematocrit (blood only) 35.6 % (42.0-52.0); Hemoglobin 12.2 g/dl (14.0-18.0); Immature Granulocytes # (auto) 0.11 K/uL (0.01-0.20); Immature Granulocytes % (auto) 0.6 %; Lymphocytes # (auto) 1.74 K/uL (1.20-3.40); Lymphocytes % (auto) 9.2 %; Mean Corpuscular Hemoglobin 27.8 pg (25.0-34.0); Mean Corpuscular Hgb Conc 34.3 g/dL (32.0-36.0); Mean Corpuscular Volume 81.1 fL (80.0-100.0); Mean Platelet Volume 12.7 fL (9.4-12.4); Monocytes # (auto) 1.59 K/uL (0.11-0.59); Monocytes % (auto) 8.4 %; Neutrophils # (auto) 15.38 K/uL (1.40-6.50); Neutrophils % (auto) 81.5 %; Nucleated RBC # (auto) 0.04 K/uL (0.00-0.12); Nucleated RBC % (auto) 0.2 %; Platelet Count 36 K/uL (130-400); RDW Coefficient of Variation 14.5 % (11.5-14.5); RDW Standard Deviation 42.7 fL (36.4-46.3); Red Blood Count 4.39 M/uL (4.70-6.10); White Blood Count 18.86 K/ul (4.8-10.8)
[2023-04-21 18:40] LABS: BUN Creatinine Ratio 18.3 (10-20); Calcium 7.9 mg/dl (8.6-10.3); Creatinine Clr Calc Pharmacy 132.1 ml/min; Est GFR (African American) 117.8 ml/min; Est GFR (Non-African American) 101.7 ml/min; Potassium 4.1 mmol/L (3.5-5.1)
--- NOTE | 2023-04-21 20:07 | Hematology/Oncology Prog Note ---
Date of Service April 21, 2023 Assessment & Plan (1) Thrombocytopenia: Plan: D-dimer elevated, thrombocytopenia, PT PTT INR elevated. Fibrinogen level normal. Most likely sepsis induced DIC. Transfuse if patient actively bleeding or platelet count less than 10,000. Unlikely to be TTP/HUS or HIT. Supportive care. Platelet count improving Plan Hematology will continue to follow and make recommendations Admission and Anticipated Discharge Date Admission Date: April 19, 2023 Subjective Still intubated and sedated. Still encephalopathic, febrile. Needing low-dose Levophed. Results & Data Vital Signs (Past 12 Hours) Vital Signs Temp Pulse Resp BP Pulse Ox FiO2 04/21/23 18:00 123/80 04/21/23 18:00 75 24 95 04/21/23 17:00 37.1 C 04/21/23 17:00 77 24 96 04/21/23 17:00 129/78 04/21/23 16:09 112/71 04/21/23 16:09 81 24 94 04/21/23 16:00 87 24 90 04/21/23 16:00 73/43 L 04/21/23 16:00 30 04/21/23 16:00 75 04/21/23 15:26 94 H 24 96 30 04/21/23 15:00 37.8 C H 04/21/23 15:00 82 24 96 04/21/23 15:00 126/76 04/21/23 14:00 95/63 L 04/21/23 14:00 98 H 24 94 04/21/23 13:00 84 24 95 04/21/23 13:00 122/77 04/21/23 12:46 124/75 04/21/23 12:46 84 24 93 04/21/23 12:45 39.0 C H 04/21/23 12:00 92 H 24 93 04/21/23 12:00 80/49 L 04/21/23 12:00 30 04/21/23 11:00 87 24 95 04/21/23 11:00 102/64 04/21/23 10:53 96 H 24 93 30 04/21/23 10:00 86 24 94 04/21/23 10:00 104/64 04/21/23 09:00 86 24 94 04/21/23 09:00 93/59 L 04/21/23 08:46 37.8 C H 02/09/24 08:28 92 H 24 94
--- NOTE | 2023-04-21 20:57 | Hospitalist Progress Note ---
Date of Service April 21, 2023 Assessment & Plan (1) Septic shock: Plan: Multiple possible sources on admission but most likely UTI give chronic indwelling will catheter Other possibilities - aspiration pneumonia vs. colitis Empiric antibiotics with Zosyn and IV vancomycin. MRSA nasal swab sent but will continue IV vancomycin even if negative given most likely urinary source Stool sample already sent and will add c. diff coverage if positive Lactate 1.9 NSS 3.5L given in ER Levophed is being tapered off. Patient remains intubated. (2) Acute respiratory failure with hypoxia and hypercapnia: Plan: Secondary to presumed aspiration Currently intubated and sedated Ventilation management per ICU team Defer bronchoscopy to ICU team (3) NSTEMI (non-ST elevated myocardial infarction): Plan: Unclear if type 1 vs. type 2. Suspect the latter given septic shock present on admission TTE - currently being performed Treat empirically with aspirin, IV heparin Trending troponin Consult cardiology heparin now on hold (4) UTI (urinary tract infection): Plan: Suspected potential source of sepsis (5) Aspiration pneumonia: Plan: IV Zosyn (6) Colitis: Plan: Stool and c. diff PCR pending - deferred treatment pending results of this (7) Acidosis, metabolic, with respiratory acidosis: Plan: Normal anion gap Sodium bicarb given in ER. Repeat ABG POC ordered (8) Chronic incomplete quadriplegia: (9) Acute kidney failure: Plan: Unknown baseline - no known CKD ?obstructive uropathy with will placement noted on CT in prostate continue to monitor urine output (10) Pacemaker: Plan: Unclear reason for this. Trying to get results from [facility] +/- PCP (11) Chronic anticoagulation: Plan: On Eliquis for blood clots but unknown where (12) Chronic indwelling Will catheter: Plan: Noted in prostate on ER CT, replaced ?obstructive uropathy (13) History of stroke: Plan: Noted on CT and confirmed by family/caregivers at bedside (14) Chronic prescription opiate use: Plan: On Suboxone as outpatient. Continue Fentanyl. Plan VTE prophylaxis - IV heparin Diet - NPO Disposition - admit to ICU Admission and Anticipated Discharge Date Admission Date: April 19, 2023 Subjective Patient off sedation. He is not following commands. Review of Systems Review of Systems: All systems reviewed & are unremarkable except as noted in HPI & below Physical Exam Physical Exam: Patient is intubated and sedated. Results & Data Results & Data Vital Signs (Past 12 Hours) Vital Signs Temp Pulse Resp BP Pulse Ox FiO2 04/21/23 20:46 38.2 C H 04/21/23 20:32 72 24 95 30 04/21/23 20:09 38.1 C H 04/21/23 20:00 72 24 95 30 04/21/23 20:00 131/84 04/21/23 20:00 30 04/21/23 19:00 128/79 04/21/23 19:00 75 24 94 30 04/21/23 18:00 123/80 04/21/23 18:00 75 24 95 04/21/23 17:00 37.1 C 04/21/23 17:00 77 24 96 04/21/23 17:00 129/78 04/21/23 16:09 112/71 04/21/23 16:09 81 24 94 04/21/23 16:00 87 24 90 04/21/23 16:00 73/43 L 04/21/23 16:00 30 04/21/23 16:00 75 04/21/23 15:26 94 H 24 96 30 04/21/23 15:00 37.8 C H 04/21/23 15:00 82 24 96 04/21/23 15:00 126/76 04/21/23 14:00 95/63 L 04/21/23 14:00 98 H 24 94 04/21/23 13:00 84 24 95 04/21/23 13:00 122/77 04/21/23 12:46 124/75 04/21/23 12:46 84 24 93 04/21/23 12:45 39.0 C H 04/21/23 12:00 92 H 24 93 04/21/23 12:00 80/49 L 04/21/23 12:00 30 04/21/23 11:00 87 24 95 04/21/23 11:00 102/64 04/21/23 10:53 96 H 24 93 30 04/21/23 10:00 86 24 94 04/21/23 10:00 104/64 04/21/23 09:00 86 24 94 04/21/23 09:00 93/59 L PG Care Time/CCT Total # of Minutes Spent Total Time Spent with Patient: Total time spent is greater than 50% in coordination of care (as documented) at patient's floor/unit and/or counseling patient: Coding Level of Care Code 99301 SUB INP/OBS CARE 2/35MIN Diagnoses Septic shock A41.9; R65.21 Acute respiratory failure with hypoxia and hypercapnia J96.01; J96.02 NSTEMI (non-ST elevated myocardial infarction) I21.4 UTI (urinary tract infection) N39.0 Aspiration pneumonia J69.0 Colitis K52.9 Acidosis, metabolic, with respiratory acidosis E87.4 Chronic incomplete quadriplegia G82.50 Acute kidney failure N17.9 Pacemaker Z95.0 Chronic anticoagulation Z79.01 Chronic indwelling Will catheter Z97.8 History of stroke Z86.73 Chronic prescription opiate use Z79.891
[2023-04-22 04:25] LABS: Hematocrit (blood only) 35.9 % (42.0-52.0); Hemoglobin 12.1 g/dl (14.0-18.0); Mean Corpuscular Hemoglobin 27.8 pg (25.0-34.0); Mean Corpuscular Hgb Conc 33.7 g/dL (32.0-36.0); Mean Corpuscular Volume 82.3 fL (80.0-100.0); Mean Platelet Volume 12.8 fL (9.4-12.4); Nucleated RBC # (auto) 0.02 K/uL (0.00-0.12); Nucleated RBC % (auto) 0.1 %; Platelet Count 48 K/uL (130-400); RDW Coefficient of Variation 14.4 % (11.5-14.5); RDW Standard Deviation 43.3 fL (36.4-46.3); Red Blood Count 4.36 M/uL (4.70-6.10)
[2023-04-22 04:32] LABS: BUN Creatinine Ratio 22.4 (10-20); Calcium 8.2 mg/dl (8.6-10.3); Creatinine Clr Calc Pharmacy 161.7 ml/min; Est GFR (Non-African American) 110.5 ml/min; Magnesium 1.9 mg/dl (1.7-2.4); Potassium 3.9 mmol/L (3.5-5.1)
[2023-04-22 04:41] LABS: INR 1.2 (0.9-1.1); Partial Thromboplastin Time 28 Seconds (21-31); Prothrombin Time 13.2 Seconds (9.0-12.0)
[2023-04-22 05:43] LABS: Basophils # (auto) 0.05 K/uL (0.00-0.20); Basophils % (auto) 0.2 %; Eosinophils # (auto) 0.01 K/uL (0.00-0.50); Immature Granulocytes # (auto) 0.16 K/uL (0.01-0.20); Immature Granulocytes % (auto) 0.7 %; Lymphocytes # (auto) 1.58 K/uL (1.20-3.40); Lymphocytes % (auto) 6.6 %; Monocytes % (auto) 5.9 %; Neutrophils % (auto) 86.6 %
[2023-04-22 05:48] LABS: iSTAT Allen Test Pass; iSTAT Art Bld Gas pCO2 Correct 30 mmHg (35-46); iSTAT Art Bld Gas pH Corrected 7.452 (7.35-7.45); iSTAT Arterial Blood Gas HCO3 21 meg/L (19-24); iSTAT Arterial Blood Gas pCO2 30 mmHg (35-46); iSTAT Arterial Blood Gas pH 7.46 (7.35-7.45); iSTAT Arterial Blood Gas pO2 79 mmHg (80-95); iSTAT Arterial Blood Gas pO2 C 81; iSTAT Carbon Dioxide 22 mmol/L (24-31); iSTAT FiO2 30 %; iSTAT Hematocrit 34 % (42-52); iSTAT Hemoglobin 11.6 g/dl (14.0-18.0); iSTAT Site R Radial; iSTAT Sodium 140 mmol/L (135-144)
[2023-04-22] MEDS ORDERED: POTASSIUM PHOS 3 MMOL/1 ML INFUSION IV STA (06:24)
[2023-04-22] MEDS: MAGNESIUM SULFATE / D5W 1 GM/100 ML BAG IV ONE (06:34)
--- NOTE | 2023-04-22 07:34 | XRay Report ---
SINGLE VIEW CHEST CLINICAL HISTORY: Respiratory failure. FINDINGS: 2 AP, portable, upright chest radiographs are compared to study dictated 04/21/2023 and corre lated with chest CT dated 04/19/2023. The examination is degraded by portable technique and apical lord otic positioning. An endotracheal tube, an enteric tube, and a right internal jugular central venous catheter are unchanged in position. A 2-lead cardiac pacemaker is again noted. A stent is again seen in the thoracic aorta. The heart is enlarged. The pulmonary vasculature is noncongested. Minimal biba silar airspace opacities persistent. No large pleural effusion or pneumothorax is seen. The skeletal structures are osteopenic. Fusion hardware is seen at the cervicothoracic junction. Postoperative erika nges partially visualized in the left proximal humerus. IMPRESSION: 1. Stable lines and tubes. 2. Cardiomegaly and cardiac pacemaker without radiographic evidence of congestive failure. 3. Minimal bibasilar airspace opacities persist. ACT 112: Negative or not required by law. Electronically signed by: Thanh Patel M.D. 04/22/2023 7:33 AM
[2023-04-22] MEDS: POTASSIUM PHOSPHATE 9 MMOL in SODIUM CHLORIDE 0.9% 250 ML IV ONE (08:17)
[2023-04-22] MEDS: MULTI VIT W/MINERALS LIQUID 15 ML UDC NG SCH (08:20)
[2023-04-22] MEDS: BUPRENORPHINE/NALOXONE 8/2 MG TAB SL SCH (10:32)
--- NOTE | 2023-04-22 10:43 | Critical Care Progress Note ---
Date of Service April 22, 2023 Assessment & Plan (1) Septic shock: (2) Acute respiratory failure with hypoxia and hypercapnia: (3) Aspiration pneumonia: (4) Chronic incomplete quadriplegia: (5) Acute kidney failure: (6) Thrombocytopenia: Plan Reason for ICU admission: Mr. Cevallos is a 52 y/o male with PMHx of quadriplegia, prior tracheostomy, and pacemaker who was admitted to ICU due to septic shock secondary to aspiration pneumonia. NEURO: - persistent AMS possibly related to encephalopathy from septic shock -Continue baclofen, gabapentin and Klonopin. Suboxone also added back to help prevent withdrawals. MRI brain unable to be obtained given pacemaker currently. CARDIOVASCULAR: - BPs have been stable on low-dose levophed. * Wean as able with the goal to maintain MAPs > 65 mmHg. - Telemetry has remained in NSR and patient hemodynamically stable. - Cardiology evaluated: * troponin elevation likely related to demand ischemia rather than ACS * pacemaker functional * TTE showing hyperdynamic LV function with no wall motion abnormalities, suggesting troponin elevation reflects limited microvascular damage. - Continue monitoring PULMONARY: - Patient with mechanical ventilation - Bronchial washings growing normal mayte - Continue lung protective strategies. Wean off ventilator as able. GI: - Transaminitis noted in yesterday's labs. INR improving today. Trend LFTs. - OG tube in place and functional. Start tube feeds - GI ppx: Protonix 40mg HEMATOLOGY: - HH stable - Persistent but improving thrombocytopenia - Fibrinogen normal - VTE ppx: SCDs ID: - CXR findings suggestive of aspiration pneumonia, which may have been the precipitating cause for his septic shock. -Blood cultures from 04/19 growing coag negative staph likely contaminant. Repeat blood cultures negative to date. - Urine cultures growing 3 types of skin mayte - abx: Zosyn -Pro-Harley continues to trend down to 13.5 despite elevated white blood cell count. RENAL/ELECTROLYTES: -Renal function is stable. -Replace electrolytes per protocol ENDO: - ICU hyperglycemia protocol - Last TSH normal (3.365 on 04/16/23) LINES/DRAINS/ACCESS: PIV, Dial, ETT CODE STATUS: CONDITIONAL CODE (Okay with intubation, but DNR in the event of a cardiac arrest. Patient's daughter indicated that the patient's wishes are to remain a DNR in the event of cardiopulmonary arrest) CRITICAL CARE TIME - I have personally spent 41 minutes of critical care time in the direct management of this patient. This is a life/limb threatening event. This includes time spent evaluating patient, direct bedside care, chart review, placing orders, interpretation of diagnostic studies, discussion with consultants, patient, and family members, as well as other required patient management activities. This time is exclusive of all separately billable procedures, and teaching time and separate from and in addition to any other critical care service time. Admission and Anticipated Discharge Date Admission Date: April 19, 2023 Subjective Patient remains off sedation. He is not following commands. He does open his eyes spontaneously and move his upper extremities spontaneously. He remains on low-dose Levophed. Review of Systems Review of Systems: Unobtainable due to cognitive status and Unobtainable due to endotracheal tube Physical Exam Physical Exam: Constitutional: Patient appears to be of their stated age. Patient is currently intubated and sedated. Eyes: Pupils are equal round and reactive to light. Bilateral subconjunctival hemorrhages noted. Ears nose, mouth and throat: Mallampati class 2. Normal posterior oropharynx. Uvula is midline. Neck: Trachea is midline. Visual inspection is normal. Respiratory: Rhonchi in the lower lobes bilaterally. Coarse breath sounds otherwise. Cardiovascular: Regular rate and rhythm. No murmurs. No edema. Gastrointestinal: Normal bowel sounds, soft, nontender and nondistended. No hepatosplenomegaly noted. Musculoskeletal: No cyanosis. Patient is able to move all extremities. Strength is 5 out of 5 in the upper and lower extremities. Skin: No rashes, warm dry and intact. Right internal jugular line in place. Right axillary arterial line with some dried blood noted around the site. Neurologic: Difficult to assess as the patient is currently intubated and sedated. Psychiatric: Unable to assess. Results & Data Results & Data Vital Signs (Past 12 Hours) Vital Signs Temp Pulse Resp BP Pulse Ox O2 Del Method FiO2 04/22/23 08:00 30 04/22/23 08:00 Mechanical Vent 04/22/23 08:00 30 04/22/23 08:00 74 04/22/23 07:35 74 23 94 30 04/22/23 07:00 30 04/22/23 06:09 37.4 C 85 26 H 92 04/22/23 06:09 103/71 04/22/23 06:00 37.4 C 101 H 32 H 89 L 30 04/22/23 05:00 37.5 C 76 24 95 30 04/22/23 05:00 123/86 04/22/23 04:00 37.3 C 74 24 95 30 04/22/23 04:00 118/78 04/22/23 04:00 30 04/22/23 03:00 37.6 C H 76 24 93 30 04/22/23 03:00 102/72 04/22/23 02:48 76 24 96 30 04/22/23 02:00 116/79 04/22/23 02:00 37.6 C H 75 24 94 30 04/22/23 01:00 37.7 C H 75 24 95 30 04/22/23 01:00 121/82 04/22/23 00:53 90/64 L 04/22/23 00:53 37.8 C H 75 24 95 04/22/23 00:00 37.9 C H 75 22 92 30 04/22/23 00:00 113/77 04/21/23 23:51 30 04/21/23 23:51 79 04/21/23 23:00 38.0 C H 78 21 92 30 04/21/23 23:00 107/73 Coding Level of Care Code 73550 CRITICAL CARE 1ST 30-74M Diagnoses Septic shock A41.9; R65.21 Acute respiratory failure with hypoxia and hypercapnia J96.01; J96.02 Aspiration pneumonia J69.0 Chronic incomplete quadriplegia G82.50 Acute kidney failure N17.9 Thrombocytopenia D69.6
[2023-04-22 11:22] LABS: Albumin Level 3.3 gm/dl (3.4-5.0); Bilirubin Direct 0.6 mg/dl (0-0.2); Total Protein 6.1 gm/dl (6.0-8.3)
--- NOTE | 2023-04-22 20:46 | Hospitalist Progress Note ---
Date of Service April 22, 2023 Assessment & Plan (1) Septic shock: Plan: Multiple possible sources on admission but most likely UTI give chronic indwelling will catheter Other possibilities - aspiration pneumonia vs. colitis Patient remains encephalopathic Empiric antibiotics with Zosyn and IV vancomycin. MRSA nasal swab sent but will continue IV vancomycin even if negative given most likely urinary source Stool sample already sent and will add c. diff coverage if positive Lactate 1.9 Levophed reamindson board an being tapered off. Patient remains intubated. (2) Acute respiratory failure with hypoxia and hypercapnia: Plan: Secondary to presumed aspiration Currently intubated and sedated Ventilation management per ICU team Defer bronchoscopy to ICU team (3) NSTEMI (non-ST elevated myocardial infarction): Plan: Unclear if type 1 vs. type 2. Suspect the latter given septic shock present on admission TTE - currently being performed Treat empirically with aspirin, IV heparin Trending troponin Consult cardiology heparin now on hold (4) UTI (urinary tract infection): Plan: Suspected potential source of sepsis (5) Aspiration pneumonia: Plan: IV Zosyn (6) Colitis: Plan: Stool and c. diff PCR pending - deferred treatment pending results of this (7) Acidosis, metabolic, with respiratory acidosis: Plan: Normal anion gap Sodium bicarb given in ER. Repeat ABG POC ordered (8) Chronic incomplete quadriplegia: (9) Acute kidney failure: Plan: Unknown baseline - no known CKD ?obstructive uropathy with will placement noted on CT in prostate continue to monitor urine output (10) Pacemaker: Plan: Unclear reason for this. Trying to get results from [facility] +/- PCP (11) Chronic anticoagulation: Plan: On Eliquis for blood clots but unknown where (12) Chronic indwelling Will catheter: Plan: Noted in prostate on ER CT, replaced ?obstructive uropathy (13) History of stroke: Plan: Noted on CT and confirmed by family/caregivers at bedside (14) Chronic prescription opiate use: Plan: On Suboxone as outpatient. Continue Fentanyl. Plan VTE prophylaxis - IV heparin Diet - NPO Disposition - admit to ICU Admission and Anticipated Discharge Date Admission Date: April 19, 2023 Subjective Patient remains intubated. Review of Systems Review of Systems: All systems reviewed & are unremarkable except as noted in HPI & below Physical Exam Physical Exam: Patient is intubated and sedated. Results & Data Results & Data Vital Signs (Past 12 Hours) Vital Signs Temp Pulse Resp BP Pulse Ox FiO2 04/22/23 18:00 37.7 C H 75 20 94 04/22/23 18:00 129/86 04/22/23 17:30 37.6 C H 73 21 94 04/22/23 17:30 116/85 04/22/23 17:00 100/64 04/22/23 17:00 37.5 C 72 26 H 94 04/22/23 16:30 109/71 04/22/23 16:30 37.4 C 77 29 H 94 04/22/23 16:00 105/74 04/22/23 16:00 37.3 C 77 20 93 04/22/23 16:00 30 04/22/23 16:00 74 04/22/23 15:43 74 21 93 30 04/22/23 15:30 112/71 04/22/23 15:30 37.1 C 74 20 93 04/22/23 15:00 37.1 C 77 19 94 04/22/23 15:00 117/80 04/22/23 14:30 37.0 C 78 19 95 04/22/23 14:30 123/80 04/22/23 14:00 117/75 04/22/23 14:00 36.9 C 72 18 95 04/22/23 13:30 36.4 C L 72 20 94 04/22/23 13:30 114/76 04/22/23 13:00 114/79 04/22/23 13:00 35.5 C L 72 20 94 04/22/23 12:30 113/73 04/22/23 12:30 36.6 C 72 21 94 04/22/23 12:05 70 21 93 30 04/22/23 12:00 111/75 04/22/23 12:00 36.6 C 72 22 93 04/22/23 12:00 30 04/22/23 11:30 105/74 04/22/23 11:30 36.8 C 80 22 93 04/22/23 11:01 108/71 04/22/23 11:01 36.9 C 75 23 92 04/22/23 11:00 36.9 C 75 24 93 04/22/23 10:45 107/70 04/22/23 10:45 37.0 C 75 23 93 04/22/23 10:30 99/83 L 04/22/23 10:30 37.0 C 75 24 93 04/22/23 10:15 110/70 04/22/23 10:15 36.9 C 78 25 H 94 04/22/23 10:00 108/70 04/22/23 10:00 36.9 C 75 27 H 94 04/22/23 09:45 94/71 L 04/22/23 09:45 36.9 C 75 26 H 93 04/22/23 09:30 107/81 04/22/23 09:30 36.7 C 76 24 94 04/22/23 09:15 106/77 04/22/23 09:15 36.9 C 78 25 H 94 04/22/23 09:01 115/67 04/22/23 09:01 37.0 C 79 27 H 90 04/22/23 09:00 37.1 C 74 26 H 96 04/22/23 08:47 107/86 04/22/23 08:47 37.1 C 80 30 H PG Care Time/CCT Total # of Minutes Spent Total Time Spent with Patient: Total time spent is greater than 50% in coordination of care (as documented) at patient's floor/unit and/or counseling patient: Coding Level of Care Code 05957 SUB INP/OBS CARE 2/35MIN Diagnoses Septic shock A41.9; R65.21 Acute respiratory failure with hypoxia and hypercapnia J96.01; J96.02 NSTEMI (non-ST elevated myocardial infarction) I21.4 UTI (urinary tract infection) N39.0 Aspiration pneumonia J69.0 Colitis K52.9 Acidosis, metabolic, with respiratory acidosis E87.4 Chronic incomplete quadriplegia G82.50 Acute kidney failure N17.9 Pacemaker Z95.0 Chronic anticoagulation Z79.01 Chronic indwelling Will catheter Z97.8 History of stroke Z86.73 Chronic prescription opiate use Z79.891
[2023-04-23] MEDS ORDERED: ACETAMINOPHEN SUSP 500 MG/15.6 ML UDP PO PRN (03:26)
[2023-04-23] MEDS: ACETAMINOPHEN SUSP 325 MG/10.15 ML UDC PO PRN (03:50)
[2023-04-23 05:43] LABS: iSTAT Allen Test Pass; iSTAT Art Bld Gas pCO2 Correct 33 mmHg (35-46); iSTAT Arterial Blood Gas HCO3 21 meg/L (19-24); iSTAT Arterial Blood Gas pCO2 31 mmHg (35-46); iSTAT Arterial Blood Gas pH 7.44 (7.35-7.45); iSTAT Arterial Blood Gas pO2 65 mmHg (80-95); iSTAT Arterial Blood Gas pO2 C 70; iSTAT Carbon Dioxide 22 mmol/L (24-31); iSTAT FiO2 30 %; iSTAT Hematocrit 32 % (42-52); iSTAT Hemoglobin 10.9 g/dl (14.0-18.0); iSTAT Site R Radial; iSTAT Sodium 139 mmol/L (135-144)
[2023-04-23 06:08] LABS: Basophils # (auto) 0.06 K/uL (0.00-0.20); Basophils % (auto) 0.4 %; Eosinophils # (auto) 0.12 K/uL (0.00-0.50); Eosinophils % (auto) 0.7 %; Hematocrit (blood only) 34.1 % (42.0-52.0); Hemoglobin 11.2 g/dl (14.0-18.0); Immature Granulocytes % (auto) 1.2 %; Lymphocytes # (auto) 1.33 K/uL (1.20-3.40); Lymphocytes % (auto) 8.1 %; Mean Corpuscular Hemoglobin 27.5 pg (25.0-34.0); Mean Corpuscular Hgb Conc 32.8 g/dL (32.0-36.0); Mean Corpuscular Volume 83.6 fL (80.0-100.0); Mean Platelet Volume 11.7 fL (9.4-12.4); Monocytes # (auto) 1.24 K/uL (0.11-0.59); Monocytes % (auto) 7.6 %; Neutrophils # (auto) 13.45 K/uL (1.40-6.50); Platelet Count 84 K/uL (130-400); RDW Coefficient of Variation 14.6 % (11.5-14.5); RDW Standard Deviation 43.8 fL (36.4-46.3); Red Blood Count 4.08 M/uL (4.70-6.10)
[2023-04-23 06:26] LABS: Calcium 8.6 mg/dl (8.6-10.3); Creatinine Clr Calc Pharmacy 197.4 ml/min; Est GFR (African American) 138.9 ml/min; Est GFR (Non-African American) 119.8 ml/min; Magnesium 1.9 mg/dl (1.7-2.4); Phosphorus 2.3 mg/dl (2.5-4.9); Potassium 4.1 mmol/L (3.5-5.1)
[2023-04-23 06:35] LABS: INR 1.1 (0.9-1.1); Partial Thromboplastin Ratio 0.9; Partial Thromboplastin Time 26 Seconds (21-31); Prothrombin Time 12.4 Seconds (9.0-12.0)
[2023-04-23] MEDS: MAGNESIUM SULFATE / D5W 1 GM/100 ML BAG IV ONE (08:20)
--- NOTE | 2023-04-23 08:35 | XRay Report ---
XR chest 1V portable CLINICAL HISTORY: Respiratory failure. COMPARISON STUDY: Chest CT April 19, 2023. Chest radiograph April 22, 2023. FINDINGS: The tip of the endotracheal tube is 5 cm above the singh. Tip of nasogastric tube is withi n the stomach. Left subclavian pacer is in place. Right internal jugular central line is unchanged in position. There are postoperative findings within the spine and the left shoulder. Enlargement of th e cardiac silhouette is again noted. There is no radiographic evidence for pulmonary edema. Bibasilar opacities persist. IMPRESSION: 1. Satisfactory positioning of lines and tubes. 2. Persistent bibasilar opacities which could reflect pneumonia or aspiration pneumonitis. 3. Cardiomegaly without overt pulmonary edema. ACT 112: Negative or not required by law. Electronically signed by: Sin Ying M.D. 04/23/2023 8:34 AM
[2023-04-23] MEDS ORDERED: VANCOMYCIN CONSULT ACTIVE PRN (10:04)
--- NOTE | 2023-04-23 10:20 | Critical Care Progress Note ---
Date of Service April 23, 2023 Assessment & Plan (1) Septic shock: (2) Acute respiratory failure with hypoxia and hypercapnia: (3) Aspiration pneumonia: (4) Chronic incomplete quadriplegia: (5) Acute kidney failure: (6) Thrombocytopenia: (7) Febrile: (8) Encephalopathy: Plan Reason for ICU admission: Mr. Cevallos is a 52 y/o male with PMHx of quadriplegia, prior tracheostomy, and pacemaker who was admitted to ICU due to septic shock secondary to aspiration pneumonia. NEURO: - persistent AMS possibly related to encephalopathy from septic shock. Possibly meningitis or encephalitis. Meningitis doses of vancomycin, and Rocephin, ampicillin and acyclovir started. Patient will need LP once platelets improved. Check ammonia level given transaminitis. -Continue baclofen, gabapentin and Klonopin. Suboxone also added back to help prevent withdrawals. MRI brain unable to be obtained given pacemaker currently. EEG from 04/21/2023 with diffuse slowing. CARDIOVASCULAR: - BPs have been stable on low-dose levophed. * Wean as able with the goal to maintain MAPs > 65 mmHg. - Telemetry has remained in NSR and patient hemodynamically stable. - Cardiology evaluated: * troponin elevation likely related to demand ischemia rather than ACS * pacemaker functional * TTE showing hyperdynamic LV function with no wall motion abnormalities, suggesting troponin elevation reflects limited microvascular damage. - Continue monitoring PULMONARY: - Patient with mechanical ventilation - Bronchial washings growing normal mayte -Patient tolerating SBT but mental status precludes extubation at this point. GI: -Patient with transaminitis of unclear origin. Possibly secondary to ischemic hepatitis. Will repeat LFTs and ammonia level. Will obtain hepatitis panel. CT abdomen and pelvis on admission with evidence of nonspecific colitis and a 1.5 cm polyp versus adherent stool to the rectal joint sigmoid colon. No ascites was seen. Hepatic steatosis was noted. -Continue tube feeds. - GI ppx: Protonix 40mg HEMATOLOGY: - HH stable - Persistent but improving thrombocytopenia. PF4 antibody negative. - Fibrinogen normal - VTE ppx: SCDs ID: - CXR findings suggestive of aspiration pneumonia, which may have been the precipitating cause for his septic shock. -Blood cultures from 04/19 growing coag negative staph likely contaminant. Repeat blood cultures negative to date. - Urine cultures growing 3 types of skin amyte - abx: Meningitis doses of vancomycin, ampicillin, ceftriaxone and acyclovir started 04/23/2023 due to persistent fevers and concern for meningitis/encephalitis. -Pro-Harley continues to trend down to 13.5 despite elevated white blood cell count. RENAL/ELECTROLYTES: -Renal function is stable. -Replace electrolytes per protocol ENDO: - ICU hyperglycemia protocol - Last TSH normal (3.365 on 04/16/23) LINES/DRAINS/ACCESS: PIV, Dial, ETT CODE STATUS: CONDITIONAL CODE (Okay with intubation, but DNR in the event of a cardiac arrest. Patient's daughter indicated that the patient's wishes are to remain a DNR in the event of cardiopulmonary arrest). Palliative care consult placed. CRITICAL CARE TIME - I have personally spent 47 minutes of critical care time in the direct management of this patient. This is a life/limb threatening event. This includes time spent evaluating patient, direct bedside care, chart review, placing orders, interpretation of diagnostic studies, discussion with consultants, patient, and family members, as well as other required patient management activities. This time is exclusive of all separately billable procedures, and teaching time and separate from and in addition to any other critical care service time. Admission and Anticipated Discharge Date Admission Date: April 19, 2023 Subjective Patient remains persistently febrile. Not following commands. Off all sedation. Opens eyes spontaneously and moves hands spontaneously. Tolerating SBT well. Review of Systems Review of Systems: All systems reviewed & are unremarkable except as noted in HPI & below Physical Exam Physical Exam: Constitutional: Patient appears to be of their stated age. Patient is currently intubated and sedated. Eyes: Pupils are equal round and reactive to light. Bilateral subconjunctival hemorrhages noted. Ears nose, mouth and throat: Mallampati class 2. Normal posterior oropharynx. Uvula is midline. Neck: Trachea is midline. Visual inspection is normal. Respiratory: Rhonchi in the lower lobes bilaterally. Coarse breath sounds otherwise. Cardiovascular: Regular rate and rhythm. No murmurs. No edema. Gastrointestinal: Normal bowel sounds, soft, nontender and nondistended. No hepatosplenomegaly noted. Musculoskeletal: No cyanosis. Patient is able to move all extremities. Strength is 5 out of 5 in the upper and lower extremities. Skin: No rashes, warm dry and intact. Right internal jugular line in place. Right axillary arterial line with some dried blood noted around the site. Neurologic: Difficult to assess as the patient is currently intubated. Not fol lowing commands. Psychiatric: Unable to assess. Results & Data Results & Data Vital Signs (Past 12 Hours) Vital Signs Temp Pulse Resp BP Pulse Ox FiO2 04/23/23 07:24 71 22 93 30 04/23/23 05:57 72 24 92 30 04/23/23 04:00 106/66 04/23/23 04:00 38.2 C H 72 20 94 30 04/23/23 04:00 30 04/23/23 03:30 38.2 C H 71 21 94 04/23/23 03:30 105/68 04/23/23 03:00 38.1 C H 72 21 94 30 04/23/23 03:00 108/72 04/23/23 02:30 102/67 04/23/23 02:30 38.1 C H 71 20 93 04/23/23 02:00 106/68 04/23/23 02:00 38.0 C H 72 21 94 30 04/23/23 01:30 105/64 04/23/23 01:30 38.1 C H 72 20 93 04/23/23 01:00 107/66 04/23/23 01:00 38.1 C H 73 20 93 30 04/23/23 00:30 107/67 04/23/23 00:30 38.1 C H 71 20 94 04/23/23 00:00 107/66 04/23/23 00:00 38.0 C H 71 20 94 30 04/23/23 00:00 30 04/23/23 00:00 72 04/22/23 23:40 68 20 99 30 04/22/23 23:30 107/70 04/22/23 23:30 38.0 C H 71 20 95 04/22/23 23:00 109/71 04/22/23 23:00 38.0 C H 72 20 94 30 04/22/23 22:30 37.9 C H 74 23 94 04/22/23 22:30 103/63 Coding Level of Care Code 41700 CRITICAL CARE 1ST 30-74M Diagnoses Septic shock A41.9; R65.21 Acute respiratory failure with hypoxia and hypercapnia J96.01; J96.02 Aspiration pneumonia J69.0 Chronic incomplete quadriplegia G82.50 Acute kidney failure N17.9 Thrombocytopenia D69.6 Febrile R50.9 Encephalopathy G93.40
[2023-04-23] MEDS: AMPICILLIN 2,000 MG in SODIUM CHLOR 0.9% MINI-B 100 ML IV SCH (10:30)
[2023-04-23] MEDS: DOCUSATE SODIUM/SENNA 50/8.6MG TAB PO SCH (10:30)
[2023-04-23] MEDS: VANCOMYCIN HCL 2,000 MG in SODIUM CHLORIDE 0.9% 500 ML IV ONE (10:34)
[2023-04-23] MEDS: ACYCLOVIR SOD 900 MG in DEXTROSE 5% 250 ML IV SCH (11:09)
[2023-04-23 11:30] LABS: Albumin Level 3.3 gm/dl (3.4-5.0); Bilirubin Direct 0.4 mg/dl (0-0.2); Bilirubin,Total 1.3 mg/dl (0.2-1.0); Total Protein 6.4 gm/dl (6.0-8.3)
--- NOTE | 2023-04-23 11:45 | Pharmacy Report ---
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 / BCx (+) Staph epidermidis and Staph lugdunensis, urine and bronch cultures (-). Repeat blood cultures NGTD. Hx quadriplegia (SCr likely not a true indicator of renal function). UOP decreased today. Day #1 of antimicrobial therapy. Plan Vancomycin * Loading dose: 2000 mg IV x 1 * Maintenance dose: 1750 mg IV every 12 hours * Regimen is predicted to achieve target AUC/BECCA of 400-600 mg/L.hr * Early random level tomorrow AM to assess clearance in setting of decreased UOP/unreliable SCr. Pharmacy will continue to follow and will adjust dose/frequency as necessary. Thank you. Pharmacy has transitioned to AUC monitoring for vancomycin. AUC/BECCA is the preferred PK/PD target and is associated with decreased risk of nephrotoxicity compared to traditional trough targets.
[2023-04-23] MEDS: cefTRIAXone SODIUM 2,000 MG in DEXTROSE 5 % MINI-B 50 ML IV SCH (15:51)
[2023-04-23] MEDS: VANCOMYCIN HCL 1,750 MG in SODIUM CHLORIDE 0.9% 500 ML IV SCH (17:41)
--- NOTE | 2023-04-23 22:38 | Hospitalist Progress Note ---
Date of Service April 23, 2023 Assessment & Plan (1) Septic shock: Plan: Multiple possible sources on admission but most likely UTI give chronic indwelling will catheter Other possibilities - aspiration pneumonia vs. colitis Patient remains encephalopathic Empiric antibiotics with Zosyn and IV vancomycin. MRSA nasal swab sent but will continue IV vancomycin even if negative given most likely urinary source Stool sample already sent and will add c. diff coverage if positive Lactate 1.9 Levophed reamindson board an being tapered off. Patient remains intubated. (2) Acute respiratory failure with hypoxia and hypercapnia: Plan: Secondary to presumed aspiration Currently intubated and sedated Ventilation management per ICU team Defer bronchoscopy to ICU team (3) NSTEMI (non-ST elevated myocardial infarction): Plan: Unclear if type 1 vs. type 2. Suspect the latter given septic shock present on admission TTE - currently being performed Treat empirically with aspirin, IV heparin Trending troponin Consult cardiology heparin now on hold (4) UTI (urinary tract infection): Plan: Suspected potential source of sepsis (5) Aspiration pneumonia: Plan: IV Zosyn (6) Colitis: Plan: Stool and c. diff PCR pending - deferred treatment pending results of this (7) Acidosis, metabolic, with respiratory acidosis: Plan: Normal anion gap Sodium bicarb given in ER. Repeat ABG POC ordered (8) Chronic incomplete quadriplegia: (9) Acute kidney failure: Plan: Unknown baseline - no known CKD ?obstructive uropathy with will placement noted on CT in prostate continue to monitor urine output (10) Pacemaker: Plan: Unclear reason for this. Trying to get results from [facility] +/- PCP (11) Chronic anticoagulation: Plan: On Eliquis for blood clots but unknown where (12) Chronic indwelling Will catheter: Plan: Noted in prostate on ER CT, replaced ?obstructive uropathy (13) History of stroke: Plan: Noted on CT and confirmed by family/caregivers at bedside (14) Chronic prescription opiate use: Plan: On Suboxone as outpatient. Continue Fentanyl. Plan VTE prophylaxis - IV heparin Diet - NPO Disposition - admit to ICU Admission and Anticipated Discharge Date Admission Date: April 19, 2023 Subjective Not following commands Review of Systems Review of Systems: All systems reviewed & are unremarkable except as noted in HPI & below Physical Exam Physical Exam: Patient is intubated and sedated. Results & Data Results & Data Vital Signs (Past 12 Hours) Vital Signs Temp Pulse Resp BP Pulse Ox FiO2 04/23/23 22:05 74 24 93 30 04/23/23 20:00 30 04/23/23 19:32 76 23 91 30 04/23/23 18:00 102/58 L 04/23/23 18:00 37.9 C H 72 20 93 04/23/23 17:45 37.8 C H 71 21 94 04/23/23 17:30 96/58 L 04/23/23 17:30 37.7 C H 71 21 93 04/23/23 17:15 37.6 C H 71 20 94 04/23/23 17:00 37.5 C 71 21 93 04/23/23 17:00 104/58 L 04/23/23 16:45 37.4 C 73 21 93 04/23/23 16:30 100/65 04/23/23 16:30 37.4 C 73 21 93 04/23/23 16:15 37.3 C 73 19 94 04/23/23 16:00 102/61 04/23/23 16:00 37.3 C 72 21 93 04/23/23 16:00 30 04/23/23 16:00 72 04/23/23 15:45 37.3 C 72 22 94 04/23/23 15:30 94/57 L 04/23/23 15:30 37.4 C 74 25 H 93 04/23/23 15:15 37.3 C 72 23 94 04/23/23 15:00 37.3 C 72 24 93 04/23/23 15:00 93/55 L 04/23/23 14:45 37.3 C 72 23 94 04/23/23 14:30 95/54 L 04/23/23 14:30 37.3 C 72 21 93 04/23/23 14:15 37.3 C 73 24 94 04/23/23 14:00 98/56 L 04/23/23 14:00 37.3 C 72 23 92 04/23/23 13:45 37.3 C 72 23 94 04/23/23 13:30 37.3 C 73 24 93 04/23/23 13:30 99/59 L 04/23/23 13:15 37.3 C 72 22 93 04/23/23 13:00 37.4 C 73 22 92 04/23/23 13:00 101/58 L 04/23/23 12:45 37.4 C 74 24 92 04/23/23 12:30 94/56 L 04/23/23 12:30 37.5 C 74 24 91 04/23/23 12:15 37.5 C 73 22 91 04/23/23 12:00 95/55 L 04/23/23 12:00 37.6 C H 76 24 91 04/23/23 11:45 37.6 C H 76 23 92 04/23/23 11:30 99/59 L 04/23/23 11:30 37.7 C H 77 22 92 04/23/23 11:15 37.8 C H 78 25 H 94 04/23/23 11:04 78 27 H 93 30 04/23/23 11:00 30 04/23/23 11:00 96/56 L 04/23/23 11:00 37.9 C H 78 26 H 92 04/23/23 10:45 37.9 C H 79 25 H 94 PG Care Time/CCT Total # of Minutes Spent Total Time Spent with Patient: Total time spent is greater than 50% in coordination of care (as documented) at patient's floor/unit and/or counseling patient: Coding Level of Care Code 91646 SUB INP/OBS CARE 2/35MIN Diagnoses Septic shock A41.9; R65.21 Acute respiratory failure with hypoxia and hypercapnia J96.01; J96.02 NSTEMI (non-ST elevated myocardial infarction) I21.4 UTI (urinary tract infection) N39.0 Aspiration pneumonia J69.0 Colitis K52.9 Acidosis, metabolic, with respiratory acidosis E87.4 Chronic incomplete quadriplegia G82.50 Acute kidney failure N17.9 Pacemaker Z95.0 Chronic anticoagulation Z79.01 Chronic indwelling Will catheter Z97.8 History of stroke Z86.73 Chronic prescription opiate use Z79.891
[2023-04-24 04:38] LABS: iSTAT Allen Test Pass; iSTAT Art Bld Gas pCO2 Correct 36 mmHg (35-46); iSTAT Art Bld Gas pH Corrected 7.406 (7.35-7.45); iSTAT Arterial Blood Gas HCO3 22 meg/L (19-24); iSTAT Arterial Blood Gas pCO2 34 mmHg (35-46); iSTAT Arterial Blood Gas pH 7.42 (7.35-7.45); iSTAT Arterial Blood Gas pO2 57 mmHg (80-95); iSTAT Arterial Blood Gas pO2 C 61; iSTAT Carbon Dioxide 23 mmol/L (24-31); iSTAT FiO2 30 %; iSTAT Hematocrit 29 % (42-52); iSTAT Hemoglobin 9.9 g/dl (14.0-18.0); iSTAT Potassium 4.3 mmol/L (3.3-5.0); iSTAT Site R Radial; iSTAT Sodium 140 mmol/L (135-144)
[2023-04-24 04:54] LABS: Basophils # (auto) 0.11 K/uL (0.00-0.20); Basophils % (auto) 0.7 %; Eosinophils # (auto) 0.31 K/uL (0.00-0.50); Eosinophils % (auto) 2.1 %; Hematocrit (blood only) 32.4 % (42.0-52.0); Hemoglobin 10.3 g/dl (14.0-18.0); Immature Granulocytes # (auto) 0.32 K/uL (0.01-0.20); Immature Granulocytes % (auto) 2.2 %; Lymphocytes # (auto) 1.03 K/uL (1.20-3.40); Lymphocytes % (auto) 6.9 %; Mean Corpuscular Hemoglobin 27.4 pg (25.0-34.0); Mean Corpuscular Hgb Conc 31.8 g/dL (32.0-36.0); Mean Corpuscular Volume 86.2 fL (80.0-100.0); Mean Platelet Volume 11.7 fL (9.4-12.4); Monocytes # (auto) 1.08 K/uL (0.11-0.59); Monocytes % (auto) 7.3 %; Neutrophils # (auto) 12.02 K/uL (1.40-6.50); Neutrophils % (auto) 80.8 %; Platelet Count 137 K/uL (130-400); RDW Coefficient of Variation 14.6 % (11.5-14.5); RDW Standard Deviation 46.5 fL (36.4-46.3); Red Blood Count 3.76 M/uL (4.70-6.10); White Blood Count 14.87 K/ul (4.8-10.8)
[2023-04-24 05:06] LABS: Anion Gap 5 (3-11); BUN Creatinine Ratio 27.5 (10-20); Blood Urea Nitrogen 11 mg/dl (6-23); Calcium 8.5 mg/dl (8.6-10.3); Carbon Dioxide 24 mmol/L (21-32); Chloride 108 mmol/L (98-107); Creatinine Clr Calc Pharmacy 271.4 ml/min; Est GFR (African American) > 150.0 ml/min; Est GFR (Non-African American) 136.6 ml/min; Glucose 137 mg/dl (70-99(Fasting)); Magnesium 1.8 mg/dl (1.7-2.4); Phosphorus 2.9 mg/dl (2.5-4.9); Potassium 4.2 mmol/L (3.5-5.1); Sodium 137 mmol/L (136-145)
[2023-04-24] MEDS: VANCOMYCIN LEVEL ONE (05:46)
[2023-04-24] MEDS: MAGNESIUM SULFATE / D5W 1 GM/100 ML BAG IV SCH (06:42)
--- NOTE | 2023-04-24 07:04 | XRay Report ---
XR chest 1V portable HISTORY: Resp failure COMPARISON: Chest 04/23/2023. FINDINGS: No pneumothorax. No pleural effusions. The heart is mildly enlarged. Lines and tubes are es sentially unchanged in position with the nasogastric tube terminates in the proximal stomach. The fen estrated line of the nasogastric tube is at the gastroesophageal junction. There is a left-sided pace maker. Postoperative changes within the left shoulder. There are cervical spinal fusion hardware. Mil d central pulmonary vascular congestion without overt edema. Patchy bibasilar densities persist. This remains unchanged. Redemonstration of the aortic stent. IMPRESSION: 1. Lines and tubes remain unchanged in position. Consider advancement of the nasogastric tube by appr oximately 5 cm. 2. Patchy bibasilar densities persist. This may represent atelectasis or pneumonia. ACT 112: Negative or not required by law. Electronically signed by: Martinez Diggs M.D. 04/24/2023 7:02 AM
--- NOTE | 2023-04-24 07:48 | Pharmacy Report ---
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 04/19 BCx (+) Staph epidermidis and Staph lugdunensis, urine and bronch cultures (-). Repeat blood cultures NGTD. Hx quadriplegia (SCr likely not a true indicator of renal function). UOP 1.67 ml/kg/hr yesterday. Day #2 of antimicrobial therapy. Plan Vancomycin * Current regimen: 1750 mg IV every 12 hours * Random level obtained 04/24/23 resulted as 13.4 mcg/mL. This is predicted to achieve target AUC/BECCA of 400-600 mg/L.hr * Predicted AUC at steady state: 525 mg/L.hr * Continue 1750 mg IV every 12 hours * Repeat random level ordered for: 04/26/23 with Am labs Pharmacy will continue to follow and will adjust dose/frequency as necessary. Thank you. Pharmacy has transitioned to AUC monitoring for vancomycin. AUC/BECCA is the preferred PK/PD target and is associated with decreased risk of nephrotoxicity compared to traditional trough targets.
--- NOTE | 2023-04-24 08:27 | Critical Care Progress Note ---
Date of Service April 24, 2023 Assessment & Plan (1) Septic shock: (2) Acute respiratory failure with hypoxia and hypercapnia: (3) Aspiration pneumonia: (4) Chronic incomplete quadriplegia: (5) Acute kidney failure: (6) Thrombocytopenia: (7) Febrile: (8) Encephalopathy: Plan Reason for ICU admission: Mr. Cevallos is a 52 y/o male with PMHx of quadriplegia, prior tracheostomy, and pacemaker who was admitted to ICU due to septic shock secondary to aspiration pneumonia. NEURO: --Metabolic encephalopathy Sepsis possibly, questionable meningitis/encephalitis On broad-spectrum antibiotics MRI brain unable to be obtained given pacemaker currently. EEG from 04/21/2023 with diffuse slowing. -Continue baclofen, gabapentin and Klonopin. Suboxone also added back to help prevent withdrawals. CARDIOVASCULAR: --Septic shock On Levophed * Wean as able with the goal to maintain MAPs > 65 mmHg. - Cardiology evaluated: * troponin elevation likely related to demand ischemia rather than ACS * pacemaker functional * TTE showing hyperdynamic LV function with no wall motion abnormalities, suggesting troponin elevation reflects limited microvascular damage. - Continue monitoring PULMONARY: -- VDRF Likely secondary to metabolic encephalopathy with ventilatory failure Continue with ventilatory support Keep RASS -1 Daily sedation holidays and SBT's GI: --Transaminitis --> Trending down Ammonia within normal limits 04/23/2023 Etiology could be ischemic Hepatitis panel pending CT abdomen and pelvis on admission with evidence of nonspecific colitis and a 1.5 cm polyp versus adherent stool to the rectal joint sigmoid colon. Hepatic steatosis was noted. HEMATOLOGY: --Monitor H&H --S/p thrombocytopenia Likely from sepsis -Improving. PF4 antibody negative. - Fibrinogen normal ID: --Aspiration pneumonia of the right lower lobe Continue with antibiotics -Blood cultures from 04/19 growing coag negative staph likely contaminant. Repeat blood cultures negative to date. - Abx: Meningitis doses of vancomycin, ampicillin, ceftriaxone and acyclovir started 04/23/2023 due to persistent fevers and concern for meningitis/encephalitis. Procalcitonin 54--> 13.5, trending down RENAL/ELECTROLYTES: -- Monitor BUNs/creatinine Avoid nephrotoxic medication ENDO: --ICU hyperglycemia protocol - Last TSH normal (3.365 on 04/16/23) CODE STATUS: CONDITIONAL CODE (Patient's daughter indicated that the patient's wishes are to remain a DNR in the event of cardiopulmonary arrest) --Prophylaxis VTE: IPC GI: Pantoprazole Lines: Peripheral Diet: N.p.o. Plan: In/out: +2.2 L, urine output 4340, +9.3 L since coming to the hospital AB.42/34/57 on PEEP of 5, 30% FiO2 Magnesium being replaced Currently on broad-spectrum antibiotics for possible meningitis. Will change Rocephin to every 12 Given that the platelets are 137,000 today. Will give a trial of LP Palliative care has also been consulted Myranda Cevallos [phone] was called and voicemail was left I have personally spent 45 minutes of critical care time in the direct management of this patient. This is a life/limb threatening event. This includes time spent evaluating patient, direct bedside care, chart review, placing orders, interpretation of diagnostic studies, discussion with consultants, patient, and family members, as well as other required patient management activities. This time is exclusive of all separately billable procedures, and teaching time and separate from and in addition to any other critical care service time. Admission and Anticipated Discharge Date Admission Date: April 19, 2023 Subjective Patient seen and examined at bedside. No acute distress, no adverse events overnight He was not on any sedation He was blinking his eyes to yes and no. Complains of abdominal discomfort. Still spiking low-grade fever Was on 0.015 of Levophed at the time of examination Review of Systems 2 Review of Systems: All systems reviewed & are unremarkable except as noted in Subjective Physical Exam 2 Physical Exam: Constitutional: No acute distress HEENT: EOMI, PERRLA Respiratory system: Good air entry bilaterally, no wheeze, no rhonchi, mild crackles bilateral lower lobes CVS: S1-S2 positive, no murmurs or gallops Abdomen: Soft, nontender, nondistended, positive bowel sounds x4 Extremities: +1 pulses bilaterally radialis/ dorsalis pedis, no cyanosis, minimal pitting edema bilateral lower extremity, spastic fingers of the upper extremities bilaterally R>L Neuro: Awake, alert, communicating with eyes Psych: Unable to assess G/U: Positive Dial Skin: no rashes, warm and dry Lymphatic: no cervical or axillary lymphadenopathy Results & Data Results & Data Vital Signs (Past 12 Hours) Vital Signs Temp Pulse Resp BP Pulse Ox FiO2 04/24/23 08:00 40 04/24/23 07:50 37.7 C H 74 24 94 04/24/23 07:47 37.8 C H 75 24 94 04/24/23 07:47 111/57 L 04/24/23 07:45 37.7 C H 78 24 95 04/24/23 07:43 78/54 L 04/24/23 07:43 37.7 C H 75 24 93 04/24/23 07:40 37.7 C H 92 H 24 96 04/24/23 07:35 37.7 C H 91 H 23 94 04/24/23 07:34 89 28 H 95 40 04/24/23 07:30 135/80 04/24/23 07:30 37.7 C H 105 H 22 92 04/24/23 07:25 37.7 C H 96 H 24 95 04/24/23 07:20 37.7 C H 79 24 93 04/24/23 07:15 37.6 C H 78 21 94 04/24/23 07:10 37.6 C H 76 22 94 04/24/23 07:05 37.7 C H 80 24 94 04/24/23 07:00 37.7 C H 74 25 H 92 04/24/23 06:55 37.7 C H 79 25 H 94 04/24/23 06:50 37.7 C H 82 27 H 94 04/24/23 06:45 37.8 C H 84 24 94 04/24/23 06:40 37.7 C H 89 24 93 04/24/23 06:35 37.8 C H 83 22 93 04/24/23 06:31 37.8 C H 77 25 H 92 04/24/23 06:31 91/46 L 04/24/23 06:30 37.8 C H 78 30 H 04/24/23 06:25 37.8 C H 86 25 H 93 04/24/23 06:20 37.9 C H 103 H 33 H 94 04/24/23 06:15 38.1 C H 26 H 93 04/24/23 06:10 38.0 C H 33 H 93 04/24/23 06:05 38.1 C H 96 H 24 93 04/24/23 06:00 38.1 C H 83 24 93 30 04/24/23 06:00 99/46 L 04/24/23 05:00 38.0 C H 76 20 91 30 04/24/23 05:00 102/76 04/24/23 04:28 20 40 04/24/23 04:00 38.1 C H 78 23 91 30 04/24/23 04:00 89/65 L 04/24/23 04:00 30 04/24/23 03:00 38.1 C H 74 23 93 30 04/24/23 02:48 71 20 93 30 04/24/23 02:00 38.1 C H 75 22 30 04/24/23 02:00 100/71 04/24/23 01:00 37.9 C H 73 20 92 30 04/24/23 00:00 37.8 C H 73 20 92 30 04/24/23 00:00 101/69 04/24/23 00:00 30 04/24/23 00:00 72 04/23/23 23:00 93 04/23/23 23:00 101/58 L 04/23/23 23:00 37.8 C H 72 20 30 04/23/23 22:05 74 24 93 30 04/23/23 22:00 93 04/23/23 22:00 101/59 L 04/23/23 22:00 37.8 C H 76 20 30 04/23/23 21:30 97/57 L 04/23/23 21:30 37.7 C H 72 20 04/23/23 21:00 110/64 04/23/23 21:00 37.6 C H 77 20 30 04/23/23 21:00 92 04/23/23 20:30 101/59 L 04/23/23 20:30 37.6 C H 71 20 93 Laboratory Results 04/24/23 04:21 04/24/23 04:21 Coding Level of Care Code 55060 CRITICAL CARE 1ST 30-74M Diagnoses Septic shock A41.9; R65.21 Acute respiratory failure with hypoxia and hypercapnia J96.01; J96.02 Aspiration pneumonia J69.0 Chronic incomplete quadriplegia G82.50 Acute kidney failure N17.9 Thrombocytopenia D69.6 Febrile R50.9 Encephalopathy G93.40
[2023-04-24] MEDS: cefTRIAXone SODIUM 2,000 MG in DEXTROSE 5 % MINI-B 50 ML IV SCH (12:09)
[2023-04-24 14:23] LABS: Amphetamine Urine, Confirm 2570 ng/mL (<250); MDA negative; MDEA negative; MDMA (Ecstasy) Urine, Confirm negative; Marijuana Quant, GCMS Urine 126 ng/mL (<5); Methamphetamine, Ur Confirm 10300 ng/mL (<250)
--- NOTE | 2023-04-24 16:26 | Palliative Care Consultation ---
Date of Consultation April 24, 2023 Assessment & Plan (1) Weakness generalized: (2) Dyspnea and respiratory abnormalities: (3) Palliative care by specialist: (4) Discussion about advance care planning held with family member: (5) Septic shock: (6) Aspiration pneumonia: (7) NSTEMI (non-ST elevated myocardial infarction): (8) Acute respiratory failure with hypoxia and hypercapnia: (9) Chronic prescription opiate use: Plan * Patient is unable to participate in any discussions with regards to the goals of care advance care planning due to his intubation and sedation. In discussion with care management and chart review, it is noted that his daughter Keely is the primary decision maker and next of kin. Will attempt to reach her for further discussion. Thank you for allowing us to participate in the ongoing care of this patient. Please don't hesitate to call or page with any additional concerns. Dr. Bonnie Guerra [facility] Director, Palliative Care History of Present Illness Reason for Consultation: [facility] [place] Attending Physician: Osmani Nunez History of Present Illness Mr. Cevallos is a 52-year-old male admitted to the hospital to 724 with septic shock suspected to be multiple possible sources but most likely a UTI given his chronic indwelling Dial catheter. Additional etiologies include aspiration pneumonia versus a colitis. He is being empirically treated with Zosyn and IV vancomycin. His lactate was elevated at 1.9. He is thrombocytopenic. Fibrinogen normal, PF4 antibody negative. Chest x-ray demonstrates an aspiration pneumonia of the right lower lobe. There is concern for possible meningitis. He is receiving meningitis dosing for vancomycin, ampicillin, ceftr iaxone and acyclovir which were all initiated to 1124 due to persistent fevers and the concern for meningitis/encephalitis. His procalcitonin was elevated at 54 and is now trended down to 13.5. He was given 3.5 L of normal saline in the emergency department and Levophed was started. Due to his presumed aspiration and respiratory failure with hypoxia and hypercapnia, he was intubated, and remains sedated. He was found to have an NSTEMI. Echocardiogram showed a hyperdynamic LV, no wall motion abnormalities, and troponin elevation is felt to be reflective of the limited microvascular damage, troponin elevation likely related to a demand ischemia rather than ACS. His pacemaker is noted to be functional. He has metabolic encephalopathy. An EEG done 04/21/2023 shows diffuse slowing. An MRI of the brain cannot be done given his pacemaker. He remains on Suboxone to prevent withdrawal. Additionally he remains on baclofen, gabapentin and Klonopin for his spasticity Chronic medical issues include a chronic incomplete quadriplegia, acute kidney failure with an unknown prior baseline, questionable obstructive uropathy, pacemaker (reasons unknown, attempting to obtain records from [facility] emergency department and his PCP), prior tracheostomy, chronically anticoagulated on Eliquis for blood clots, chronic indwelling Dial catheter, history of stroke, c hronic prescription opioid use on Suboxone as an outpatient. Patient's daughter is his next of kin and power of managing manager decision maker, Keely who resides in [place]. At the time of my evaluation, patient remains intubated, sedated and unable to participate in this evaluation. There is no family present at the time of my visit. Allergies Allergy/AdvReac Type Severity Reaction Status Date / Time No Known Allergies Allergy Unverified 12/08/18 22:03 Home Medications Medication Instructions Recorded Confirmed Type buprenorphine 8 mg-naloxone 2 mg 1 film sublingual BID 12/08/18 12/08/18 History sublingual film (Suboxone) carisoprodol 350 mg tablet (Soma) 350 mg PO TID 12/08/18 12/08/18 History clonazepam 0.5 mg tablet 0.5 mg PO BID 12/08/18 12/08/18 History docusate sodium 50 mg capsule 50 mg PO DAILY PRN Constipation 12/08/18 12/08/18 History (Stool Softener) linaclotide 290 mcg capsule 290 mcg PO DAILY 12/08/18 12/08/18 History (Linzess) methylphenidate HCl 10 mg tablet 10 mg PO BID 12/08/18 12/08/18 History nitrofurantoin macrocrystal 50 mg 50 mg PO DAILY 12/08/18 12/08/18 History capsule polyethylene glycol 3350 17 17 g PO DAILY PRN Constipation 12/08/18 12/08/18 History gram/dose oral powder (Miralax) apixaban 5 mg tablet (Eliquis) 5 mg PO BID 04/19/23 04/19/23 History baclofen 20 mg tablet 20 mg PO TID 04/19/23 04/19/23 History gabapentin 800 mg tablet 800 mg PO TID 04/19/23 04/19/23 History Patient History Medical History (Updated 04/24/23 @ 16:24 by Bonnie Guerra DNP) Discussion about advance care planning held with family member Palliative care by specialist Dyspnea and respiratory abnormalities Weakness generalized Febrile Thrombocytopenia Acute kidney failure History of stroke Chronic indwelling Dial catheter Chronic anticoagulation Pacemaker Chronic incomplete quadriplegia Paraplegia Family History Other Family history non-contributory Social History Smoking Status: Current every day smoker Tobacco Type: Cigarettes Hx Alcohol Use: No Hx Substance Use: Yes Last Used Substance: Unknown Preferred Language: Urdu Communication Ability: Impaired Communication Ability Comment: currently intubated Chiropractic Assistant Required: No Beliefs That Will Affect Care: None Current Living Situation: Alone Current Living Situation Comment: patient lives in [facility] Feels Safe at Home: Yes Assistive Devices: Mechanical Lift and Wheelchair Review of Systems Review of Systems: Unobtainable due to endotracheal tube and Unobtainable due to reduced consciousness Physical Exam Physical Exam: Chronically critically ill-appearing male, intubated and sedated. Quadriplegic. Bilateral wrist restraints. Eyes weakly open to vocal but he is unable to focus or follow commands. Bitemporal wasting is noted. Pupils are sluggishly responsive. Anterior lung sounds with coarse rhonchi. He is tachycardic. Abdomen is soft, nontender, bowel sounds are present. + Quadriplegic. Skin pale, cool to touch, mild duskiness in the nailbeds noted. Venous insufficiency changes to the lower extremities. Results & Data Vital Signs (Past 12 Hours) Vital Signs Temp Pulse Resp BP Pulse Ox O2 Del Method O2 Flow Rate 04/24/23 14:29 73 23 95 04/24/23 12:00 04/24/23 11:25 38.0 C H 69 22 96 04/24/23 11:20 38.0 C H 70 21 95 04/24/23 11:16 87/49 L 04/24/23 11:16 38.0 C H 69 22 95 04/24/23 11:15 38.0 C H 69 22 04/24/23 11:10 38.1 C H 69 21 95 24 11:05 38.0 C H 71 22 04/24/23 11:00 38.1 C H 77 24 04/24/23 10:55 38.0 C H 79 20 04/24/23 10:50 37.9 C H 79 21 04/24/23 10:45 93/55 L 04/24/23 10:45 38.0 C H 75 20 04/24/23 10:40 38.0 C H 76 21 04/24/23 10:36 78 23 04/24/23 10:35 37.9 C H 77 21 04/24/23 10:30 38.1 C H 76 21 04/24/23 10:25 38.0 C H 78 21 04/24/23 10:20 37.9 C H 78 21 04/24/23 10:15 37.9 C H 78 21 04/24/23 10:10 37.9 C H 78 22 04/24/23 10:05 37.9 C H 78 21 04/24/23 10:00 38.0 C H 79 22 04/24/23 09:55 37.8 C H 79 22 04/24/23 09:50 37.8 C H 78 20 04/24/23 09:45 37.8 C H 80 22 04/24/23 09:45 91/56 L 04/24/23 09:40 37.8 C H 79 22 04/24/23 09:35 37.9 C H 80 21 04/24/23 09:30 37.8 C H 79 22 04/24/23 09:25 37.9 C H 78 23 04/24/23 09:20 37.9 C H 77 20 04/24/23 09:15 37.9 C H 76 22 04/24/23 09:15 90/57 L 04/24/23 09:10 37.9 C H 76 24 04/24/23 09:05 37.8 C H 77 22 04/24/23 09:00 37.8 C H 76 20 04/24/23 08:55 37.8 C H 76 20 04/24/23 08:50 37.9 C H 76 21 04/24/23 08:45 37.8 C H 76 21 04/24/23 08:40 37.8 C H 76 22 95 04/24/23 08:35 37.8 C H 75 22 95 04/24/23 08:30 92/61 L 04/24/23 08:30 37.8 C H 76 22 93 04/24/23 08:25 37.8 C H 78 21 95 04/24/23 08:20 37.8 C H 78 22 94 04/24/23 08:18 76 04/24/23 08:15 37.8 C H 74 22 04/24/23 08:10 37.8 C H 74 23 94 04/24/23 08:05 37.8 C H 74 21 95 04/24/23 08:00 108/66 04/24/23 08:00 37.8 C H 75 21 04/24/23 08:00 04/24/23 07:55 37.7 C H 74 22 95 04/24/23 07:50 Mechanical Vent 40 04/24/23 07:50 37.7 C H 74 24 94 04/24/23 07:47 37.8 C H 75 24 94 04/24/23 07:47 111/57 L 04/24/23 07:45 37.7 C H 78 24 95 04/24/23 07:43 78/54 L 04/24/23 07:43 37.7 C H 75 24 93 04/24/23 07:40 37.7 C H 92 H 24 96 04/24/23 07:35 37.7 C H 91 H 23 94 04/24/23 07:34 89 28 H 95 04/24/23 07:30 135/80 04/24/23 07:30 37.7 C H 105 H 22 92 04/24/23 07:25 37.7 C H 96 H 24 95 04/24/23 07:20 37.7 C H 79 24 93 04/24/23 07:15 37.6 C H 78 21 94 04/24/23 07:10 37.6 C H 76 22 94 04/24/23 07:05 37.7 C H 80 24 94 04/24/23 07:00 37.7 C H 74 25 H 92 04/24/23 06:55 37.7 C H 79 25 H 94 04/24/23 06:50 37.7 C H 82 27 H 94 04/24/23 06:45 37.8 C H 84 24 94 04/24/23 06:40 37.7 C H 89 24 93 04/24/23 06:35 37.8 C H 83 22 93 04/24/23 06:31 37.8 C H 77 25 H 92 04/24/23 06:31 91/46 L 04/24/23 06:30 37.8 C H 78 30 H 04/24/23 06:25 37.8 C H 86 25 H 93 04/24/23 06:20 37.9 C H 103 H 33 H 94 04/24/23 06:15 38.1 C H 26 H 93 04/24/23 06:10 38.0 C H 33 H 93 04/24/23 06:05 38.1 C H 96 H 24 93 04/24/23 06:00 38.1 C H 83 24 93 04/24/23 06:00 99/46 L 04/24/23 05:00 38.0 C H 76 20 91 04/24/23 05:00 102/76 04/24/23 04:28 20 FiO2 04/24/23 14:29 40 04/24/23 12:00 40 04/24/23 11:25 04/24/23 11:20 04/24/23 11:16 04/24/23 11:16 04/24/23 11:15 04/24/23 11:10 04/24/23 11:05 04/24/23 11:00 04/24/23 10:55 04/24/23 10:50 04/24/23 10:45 04/24/23 10:45 04/24/23 10:40 04/24/23 10:36 40 04/24/23 10:35 04/24/23 10:30 04/24/23 10:25 04/24/23 10:20 04/24/23 10:15 04/24/23 10:10 04/24/23 10:05 04/24/23 10:00 04/24/23 09:55 04/24/23 09:50 04/24/23 09:45 04/24/23 09:45 04/24/23 09:40 04/24/23 09:35 04/24/23 09:30 04/24/23 09:25 04/24/23 09:20 04/24/23 09:15 04/24/23 09:15 04/24/23 09:10 04/24/23 09:05 04/24/23 09:00 04/24/23 08:55 04/24/23 08:50 04/24/23 08:45 04/24/23 08:40 04/24/23 08:35 04/24/23 08:30 04/24/23 08:30 04/24/23 08:25 04/24/23 08:20 04/24/23 08:18 04/24/23 08:15 04/24/23 08:10 04/24/23 08:05 04/24/23 08:00 04/24/23 08:00 04/24/23 08:00 40 04/24/23 07:55 04/24/23 07:50 04/24/23 07:50 04/24/23 07:47 04/24/23 07:47 04/24/23 07:45 04/24/23 07:43 04/24/23 07:43 04/24/23 07:40 04/24/23 07:35 04/24/23 07:34 40 04/24/23 07:30 04/24/23 07:30 04/24/23 07:25 04/24/23 07:20 04/24/23 07:15 04/24/23 07:10 04/24/23 07:05 04/24/23 07:00 04/24/23 06:55 04/24/23 06:50 04/24/23 06:45 04/24/23 06:40 04/24/23 06:35 04/24/23 06:31 04/24/23 06:31 04/24/23 06:30 04/24/23 06:25 04/24/23 06:20 04/24/23 06:15 04/24/23 06:10 04/24/23 06:05 04/24/23 06:00 30 04/24/23 06:00 04/24/23 05:00 30 04/24/23 05:00 04/24/23 04:28 40 Laboratory Results Data and imaging reviewed see HPI PG Care Time/CCT Total # of Minutes Spent Total Time Spent with Patient: Total time spent is greater than 50% in coordination of care (as documented) at patient's floor/unit and/or counseling patient: I spent 75 minutes overall addressing this case: 20 min in medical data review/discussion with referring provider(s) and/or preparation for the visit 25 min in direct interaction with the patient/exam 00 min in Advance Care Planning/Goals of Care discussions as detailed above in note (must be >16min) 15 min in subsequent review and synthesis of assessment and plan 15 min communicating with other providers regarding the pasha nt's case: [place] [address] IN/OBS CONSULT LVL 4,60M Patient Type New History Comprehensive Exam Comprehensive Medical Decision Making High Complexity Diagnoses Weakness generalized R53.1 Dyspnea and respiratory abnormalities R06.00; R06.89 Palliative care by specialist Z51.5 Discussion about advance care planning held with family member Z71.0 Septic shock A41.9; R65.21 Aspiration pneumonia J69.0 NSTEMI (non-ST elevated myocardial infarction) I21.4 Acute respiratory failure with hypoxia and hypercapnia J96.01; J96.02 Chronic prescription opiate use Z79.891
--- NOTE | 2023-04-24 16:31 | Procedure Note ---
Procedure Note Date of Service April 24, 2023 Note INDICATION: Metabolic encephalopathy PERFORMING PHYSICIAN: Fabrizio Wright MD CONSENT: Consent was obtained from patient's daughter prior to the procedure. Indications, risks, and benefits were explained at length. PROCEDURE SUMMARY: A time-out was performed. My hands were washed immediately prior to the procedure. Aseptic precautions were taken including mask with protective eyewear, sterile gown and sterile gloves throughout the procedure. The patient was placed in the [] position with help from the nursing staff. The area was cleansed and draped in usual sterile fashion using betadine scrub. Anesthesia was achieved with 1% lidocaine. A 20-gauge 3.5-inch spinal needle was placed in the T4 lumbar interspace. Total 4 attempts were made but unfortunately no success. A sterile band-aid was placed over the puncture site. The patient had no immediate complications and tolerated the procedure well. Complication: None Estimated blood loss: Less than 1 cc Coding CPT Codes Lumbar Puncture - Lumbar Puncture, Diagnostic: 03818 Lumbar Puncture, Diagnostic ([id number]) [facility] [place] Procedure Codes (Charges) Lumbar Puncture Lumbar Puncture, Diagnostic: 40748 Lumbar Puncture, Diagnostic
--- NOTE | 2023-04-24 22:20 | Hospitalist Progress Note ---
Date of Service April 24, 2023 Assessment & Plan (1) Septic shock: Plan: Multiple possible sources on admission but most likely UTI give chronic indwelling will catheter Other possibilities - aspiration pneumonia vs. colitis Patient remains encephalopathic Empiric antibiotics with Zosyn and IV vancomycin. MRSA nasal swab sent but will continue IV vancomycin even if negative given most likely urinary source Stool sample already sent and will add c. diff coverage if positive Lactate 1.9 Levophed reamindson board an being tapered off. Patient remains intubated with a fever. (2) Acute respiratory failure with hypoxia and hypercapnia: Plan: Secondary to presumed aspiration Currently intubated and sedated Ventilation management per ICU team (3) NSTEMI (non-ST elevated myocardial infarction): Plan: Unclear if type 1 vs. type 2. Suspect the latter given septic shock present on admission TTE - currently being performed Treat empirically with aspirin, IV heparin Trending troponin Consult cardiology (4) UTI (urinary tract infection): Plan: Suspected potential source of sepsis (5) Aspiration pneumonia: Plan: IV Zosyn (6) Colitis: Plan: Stool and c. diff PCR pending - deferred treatment pending results of this (7) Acidosis, metabolic, with respiratory acidosis: Plan: Normal anion gap Sodium bicarb given in ER. Repeat ABG POC ordered (8) Chronic incomplete quadriplegia: (9) Acute kidney failure: Plan: Unknown baseline - no known CKD ?obstructive uropathy with will placement noted on CT in prostate continue to monitor urine output (10) Pacemaker: Plan: Unclear reason for this. Trying to get results from [facility] +/- PCP (11) Chronic anticoagulation: Plan: On Eliquis for blood clots but unknown where (12) Chronic indwelling Will catheter: Plan: Noted in prostate on ER CT, replaced ?obstructive uropathy (13) History of stroke: Plan: Noted on CT and confirmed by family/caregivers at bedside (14) Chronic prescription opiate use: Plan: On Suboxone as outpatient. Continue Fentanyl. Plan VTE prophylaxis - IV heparin Diet - NPO Disposition - admit to ICU Admission and Anticipated Discharge Date Admission Date: April 19, 2023 Subjective Patient remains intubated Review of Systems Review of Systems: Unobtainable due to endotracheal tube Physical Exam Physical Exam: Patient is intubated and sedated. Results & Data Results & Data Vital Signs (Past 12 Hours) Vital Signs Temp Pulse Resp BP Pulse Ox O2 Del Method FiO2 04/24/23 20:15 73 21 97 40 04/24/23 20:00 40 04/24/23 18:15 38.2 C H 72 20 97 04/24/23 18:00 38.2 C H 71 20 96 04/24/23 18:00 101/54 L 04/24/23 17:45 104/56 L 04/24/23 17:45 38.1 C H 73 20 96 04/24/23 17:30 105/56 L 04/24/23 17:30 38.2 C H 77 21 95 04/24/23 17:15 38.1 C H 79 25 H 95 04/24/23 17:15 109/62 04/24/23 17:00 38.2 C H 76 21 94 04/24/23 17:00 101/55 L 04/24/23 16:45 102/57 L 04/24/23 16:45 38.3 C H 71 20 95 Mechanical Vent 0.4 04/24/23 16:30 38.3 C H 72 21 94 04/24/23 16:30 101/64 04/24/23 16:15 38.3 C H 74 21 94 04/24/23 16:15 101/56 L 04/24/23 16:00 38.2 C H 75 23 04/24/23 16:00 91/47 L 04/24/23 16:00 40 04/24/23 15:45 38.1 C H 93 H 20 94 04/24/23 15:45 113/68 04/24/23 15:30 38.2 C H 81 22 96 04/24/23 15:15 38.0 C H 79 23 93 04/24/23 15:15 102/55 L 04/24/23 15:00 38.1 C H 79 22 93 04/24/23 15:00 100/56 L 04/24/23 14:45 38.1 C H 80 23 93 04/24/23 14:45 103/57 L 04/24/23 14:30 38.0 C H 77 24 93 04/24/23 14:30 99/68 L 04/24/23 14:29 73 23 95 40 04/24/23 14:15 38.0 C H 74 23 93 04/24/23 14:15 97/52 L 04/24/23 14:00 38.0 C H 76 24 92 04/24/23 14:00 94/51 L 04/24/23 13:45 96/53 L 04/24/23 13:45 37.9 C H 78 23 91 04/24/23 13:30 38.1 C H 79 47 H 91 04/24/23 13:15 38.1 C H 79 46 H 91 04/24/23 13:15 97/51 L 04/24/23 13:00 37.9 C H 78 23 04/24/23 13:00 96/47 L 04/24/23 12:45 38.0 C H 76 41 H 04/24/23 12:30 38.2 C H 74 22 94 04/24/23 12:30 145/80 H 04/24/23 12:15 87/46 L 04/24/23 12:15 38.2 C H 72 23 04/24/23 12:07 87/48 L 04/24/23 12:07 38.3 C H 70 21 95 04/24/23 12:00 38.1 C H 69 21 04/24/23 12:00 40 04/24/23 11:45 87/48 L 04/24/23 11:45 38.0 C H 69 20 94 04/24/23 11:32 38.0 C H 70 20 96 04/24/23 11:32 88/51 L 04/24/23 11:25 38.0 C H 69 22 96 04/24/23 11:20 38.0 C H 70 21 95 04/24/23 11:16 87/49 L 04/24/23 11:16 38.0 C H 69 22 95 04/24/23 11:15 38.0 C H 69 22 04/24/23 11:10 38.1 C H 69 21 95 04/24/23 11:05 38.0 C H 71 22 95 04/24/23 11:00 38.1 C H 77 24 93 04/24/23 10:55 38.0 C H 79 20 95 04/24/23 10:50 37.9 C H 79 21 95 04/24/23 10:45 93/55 L 04/24/23 10:45 38.0 C H 75 20 93 04/24/23 10:40 38.0 C H 76 21 95 04/24/23 10:36 78 23 95 40 04/24/23 10:35 37.9 C H 77 21 95 04/24/23 10:30 38.1 C H 76 21 93 04/24/23 10:25 38.0 C H 78 21 95 04/24/23 10:20 37.9 C H 78 21 95 PG Care Time/CCT Total # of Minutes Spent Total Time Spent with Patient: Total time spent is greater than 50% in coordination of care (as documented) at patient's floor/unit and/or counseling patient: Coding Level of Care Code 69095 SUB INP/OBS CARE 235MIN Diagnoses Septic shock A41.9; R65.21 Acute respiratory failure with hypoxia and hypercapnia J96.01; J96.02 NSTEMI (non-ST elevated myocardial infarction) I21.4 UTI (urinary tract infection) N39.0 Aspiration pneumonia J69.0 Colitis K52.9 Acidosis, metabolic, with respiratory acidosis E87.4 Chronic incomplete quadriplegia G82.50 Acute kidney failure N17.9 Pacemaker Z95.0 Chronic anticoagulation Z79.01 Chronic indwelling Will catheter Z97.8 History of stroke Z86.73 Chronic prescription opiate use Z79.891
[2023-04-25 03:45] LABS: Basophils # (auto) 0.08 K/uL (0.00-0.20); Basophils % (auto) 0.5 %; Eosinophils # (auto) 0.29 K/uL (0.00-0.50); Eosinophils % (auto) 1.9 %; Hematocrit (blood only) 31.8 % (42.0-52.0); Hemoglobin 10.4 g/dl (14.0-18.0); Immature Granulocytes # (auto) 0.39 K/uL (0.01-0.20); Immature Granulocytes % (auto) 2.6 %; Lymphocytes # (auto) 0.94 K/uL (1.20-3.40); Lymphocytes % (auto) 6.2 %; Mean Corpuscular Hemoglobin 28.1 pg (25.0-34.0); Mean Corpuscular Hgb Conc 32.7 g/dL (32.0-36.0); Mean Corpuscular Volume 85.9 fL (80.0-100.0); Monocytes # (auto) 1.22 K/uL (0.11-0.59); Neutrophils # (auto) 12.32 K/uL (1.40-6.50); Neutrophils % (auto) 80.8 %; Platelet Count 214 K/uL (130-400); RDW Coefficient of Variation 14.9 % (11.5-14.5); RDW Standard Deviation 46.1 fL (36.4-46.3); White Blood Count 15.24 K/ul (4.8-10.8)
[2023-04-25 04:08] LABS: Phosphorus 3.9 mg/dl (2.5-4.9)
[2023-04-25 04:28] LABS: iSTAT Allen Test Pass; iSTAT Art Bld Gas pCO2 Correct 40 mmHg (35-46); iSTAT Arterial Blood Gas HCO3 24 meg/L (19-24); iSTAT Arterial Blood Gas pCO2 38 mmHg (35-46); iSTAT Arterial Blood Gas pH 7.41 (7.35-7.45); iSTAT Arterial Blood Gas pO2 101 mmHg (80-95); iSTAT Arterial Blood Gas pO2 C 108; iSTAT Carbon Dioxide 25 mmol/L (24-31); iSTAT FiO2 40 %; iSTAT Hematocrit 30 % (42-52); iSTAT Hemoglobin 10.2 g/dl (14.0-18.0); iSTAT Potassium 4.6 mmol/L (3.3-5.0); iSTAT Site R Radial; iSTAT Sodium 139 mmol/L (135-144)
[2023-04-25 05:17] LABS: Anion Gap 6 (3-11); BUN Creatinine Ratio 31.7 (10-20); Blood Urea Nitrogen 13 mg/dl (6-23); Calcium 8.7 mg/dl (8.6-10.3); Carbon Dioxide 24 mmol/L (21-32); Chloride 107 mmol/L (98-107); Creatinine Clr Calc Pharmacy 266.3 ml/min; Est GFR (African American) > 150.0 ml/min; Est GFR (Non-African American) 135.2 ml/min; Glucose 125 mg/dl (70-99(Fasting)); Potassium 4.5 mmol/L (3.5-5.1); Sodium 137 mmol/L (136-145)
--- NOTE | 2023-04-25 07:08 | XRay Report ---
XR chest 1V portable HISTORY: Respiratory failure. COMPARISON: Chest 04/24/2023. FINDINGS: The lines and tubes remain unchanged in position with the endotracheal tube terminating 5.6 cm from the singh. No pneumothorax. No pleural effusions. The heart remains mildly enlarged. Aortic stent is again noted. Cervical spinal fusion hardware and postoperative changes within the left shou lder again noted. There is left-sided pacemaker. A nasogastric tube terminates in the stomach. Small patchy bibasilar densities persist. IMPRESSION: 1. Satisfactory support line placement. 2. Small patchy bibasilar densities persist. ACT 112: Negative or not required by law. Electronically signed by: Martinez Diggs M.D. 04/25/2023 7:07 AM
--- NOTE | 2023-04-25 07:37 | Critical Care Progress Note ---
Date of Service April 25, 2023 Assessment & Plan (1) Septic shock: (2) Acute respiratory failure with hypoxia and hypercapnia: (3) Aspiration pneumonia: (4) Chronic incomplete quadriplegia: (5) Acute kidney failure: (6) Thrombocytopenia: (7) Febrile: (8) Encephalopathy: Plan Reason for ICU admission: Mr. Cevallos is a 52 y/o male with PMHx of quadriplegia, prior tracheostomy, and pacemaker who was admitted to ICU due to septic shock secondary to aspiration pneumonia. NEURO: --Metabolic encephalopathy Sepsis possibly, questionable meningitis/encephalitis On broad-spectrum antibiotics MRI brain unable to be obtained given pacemaker currently. EEG from 04/21/2023 with diffuse slowing. Lumbar puncture trial 04/24/2023 was unsuccessful -Continue baclofen, gabapentin and Klonopin. Suboxone also added back to help prevent withdrawals. CARDIOVASCULAR: --Septic shock On Levophed * Wean as able with the goal to maintain MAPs > 65 mmHg. - Cardiology evaluated: * troponin elevation likely related to demand ischemia rather than ACS * pacemaker functional * TTE showing hyperdynamic LV function with no wall motion abnormalities, suggesting troponin elevation reflects limited microvascular damage. - Continue monitoring PULMONARY: -- VDRF Likely secondary to metabolic encephalopathy with ventilatory failure Continue with ventilatory support Keep RASS -1 Daily sedation holidays and SBT's GI: --Transaminitis --> Trending down Ammonia within normal limits 04/23/2023 Etiology could be ischemic Hepatitis panel pending CT abdomen and pelvis on admission with evidence of nonspecific colitis and a 1.5 cm polyp versus adherent stool to the rectal joint sigmoid colon. Hepatic steatosis was noted. HEMATOLOGY: --Monitor H&H --S/p thrombocytopenia Likely from sepsis -Improving. PF4 antibody negative. - Fibrinogen normal ID: --Aspiration pneumonia of the right lower lobe Continue with antibiotics -Blood cultures from 04/19 growing coag negative staph likely contaminant. Repeat blood cultures negative to date. - Abx: Meningitis doses of vancomycin, ampicillin, ceftriaxone and acyclovir started 04/23/2023 due to persistent fevers and concern for meningitis/encephalitis. Procalcitonin 54--> 13.5, trending down RENAL/ELECTROLYTES: -- Monitor BUNs/creatinine Avoid nephrotoxic medication ENDO: --ICU hyperglycemia protocol - Last TSH normal (3.365 on 04/16/23) CODE STATUS: CONDITIONAL CODE (Patient's daughter indicated that the patient's wishes are to remain a DNR in the event of cardiopulmonary arrest) --Prophylaxis VTE: IPC GI: Pantoprazole Lines: Peripheral Diet: N.p.o. Plan: In/out: + 346, urine output 3755, +9.3 L since coming to the hospital AB.41/38/101 on PEEP of 5, 40% FiO2 Trial of extubation. No reintubation in future as per patient's daughter which will be in concordance with patient's wishes. Continue with broad-spectrum antibiotics for the time being. I will get infectious disease involved to figure out duration of antibiotics. I will order random cortisol and if it is low I will add hydrocortisone, if it is normal then I will add midodrine to the regimen Palliative care has also been consulted Myranda Cevallos [phone] I have personally spent 38 minutes of critical care time in the direct management of this patient. This is a life/limb threatening event. This includes time spent evaluating patient, direct bedside care, chart review, placing orders, interpretation of diagnostic studies, discussion with consultants, patient, and family members, as well as other required patient management activities. This time is exclusive of all separately billable procedures, and teaching time and separate from and in addition to any other critical care service time. Admission and Anticipated Discharge Date Admission Date: April 19, 2023 Subjective Patient seen and examined at bedside. No acute distress, notable symptoms overnight. He was able to blink his eyes and answer few questions through this. Denied any headache, no chest pain. He was breathing over the vent. On Levophed 0.02 at the time of examination Still spiking low-grade fever Review of Systems 2 Review of Systems: All systems reviewed & are unremarkable except as noted in Subjective Physical Exam 2 Physical Exam: Constitutional: No acute distress HEENT: EOMI, PERRLA Respiratory system: Good air entry bilaterally, no wheeze, no rhonchi, mild crackles bilateral lower lobes CVS: S1-S2 positive, no murmurs or gallops Abdomen: Soft, nontender, nondistended, positive bowel sounds x4 Extremities: +1 pulses bilaterally radialis/ dorsalis pedis, no cyanosis, minimal pitting edema bilateral lower extremity, spastic fingers of the upper extremities bilaterally R>L Neuro: Awake, alert, communicating with eyes Psych: Unable to assess G/U: Positive Dial Skin: no rashes, warm and dry Lymphatic: no cervical or axillary lymphadenopathy Results & Data Results & Data Vital Signs (Past 12 Hours) Vital Signs Temp Pulse Resp BP Pulse Ox O2 Del Method FiO2 04/25/23 05:00 90/61 L 04/25/23 05:00 37.9 C H 79 23 90 30 04/25/23 04:30 37.9 C H 75 20 91 04/25/23 04:30 102/56 L 04/25/23 04:00 38.1 C H 75 21 92 30 04/25/23 04:00 90/60 L 04/25/23 04:00 30 04/25/23 03:49 73 20 98 30 04/25/23 03:30 38.2 C H 73 20 96 04/25/23 03:30 105/61 04/25/23 03:00 101/54 L 04/25/23 03:00 38.1 C H 73 20 95 30 04/25/23 02:30 105/55 L 04/25/23 02:30 38.1 C H 74 20 95 04/25/23 02:00 104/58 L 04/25/23 02:00 38.0 C H 72 20 95 30 04/25/23 01:30 38.1 C H 72 21 95 04/25/23 01:30 107/56 L 04/25/23 01:00 38.0 C H 72 21 95 30 04/25/23 01:00 106/57 L 04/25/23 00:30 104/55 L 04/25/23 00:30 37.9 C H 71 21 94 04/25/23 00:00 37.9 C H 75 19 94 30 04/25/23 00:00 131/65 04/25/23 00:00 40 04/25/23 00:00 75 04/24/23 23:30 106/59 L 04/24/23 23:30 38.1 C H 74 25 H 96 04/24/23 23:20 75 21 94 40 04/24/23 23:00 38.0 C H 76 20 96 30 04/24/23 23:00 112/56 L 04/24/23 22:30 37.8 C H 73 20 94 04/24/23 22:30 104/55 L 04/24/23 22:00 37.8 C H 76 21 93 40 04/24/23 22:00 100/55 L 04/24/23 21:30 100/52 L 04/24/23 21:30 37.9 C H 75 21 93 04/24/23 21:00 37.9 C H 74 21 94 40 04/24/23 21:00 97/55 L 04/24/23 20:30 37.9 C H 73 22 95 04/24/23 20:30 95/50 L 04/24/23 20:15 73 21 97 40 04/24/23 20:00 102/53 L 04/24/23 20:00 38.0 C H 73 20 96 40 04/24/23 20:00 Mechanical Vent 40 04/24/23 20:00 40 Laboratory Results 04/25/23 03:23 04/25/23 03:23 Coding Level of Care Code 10625 CRITICAL CARE 1ST 30-74M Diagnoses Septic shock A41.9; R65.21 Acute respiratory failure with hypoxia and hypercapnia J96.01; J96.02 Aspiration pneumonia J69.0 Chronic incomplete quadriplegia G82.50 Acute kidney failure N17.9 Thrombocytopenia D69.6 Febrile R50.9 Encephalopathy G93.40
[2023-04-25 09:12] LABS: HBSAG NON-REACTIVE (NON-REACTIVE); Hepatitis A Antibody IgM NON-REACTIVE (NON-REACTIVE); Hepatitis B Core Antibody IgM NON-REACTIVE (NON-REACTIVE)
[2023-04-25] MEDS: DOXYCYCLINE HYCLATE 100 MG CAP PO STA (14:55)
--- NOTE | 2023-04-25 15:19 | Infectious Disease Consult ---
Date of Consultation April 25, 2023 Assessment & Plan (1) Acute respiratory failure with hypoxia and hypercapnia: (2) Aspiration pneumonia: (3) Thrombocytopenia: (4) Encephalopathy: (5) Febrile: (6) Coagulase negative Staphylococcus bacteremia: (7) Chronic incomplete quadriplegia: (8) Chronic indwelling Dial catheter: (9) Pacemaker: Plan Keyon Cevallos is a 52-year-old man with incomplete quadriplegia, prior tracheostomy, PPM in place, chronic Dial catheter, who presents to the [facility] ED on 04/19/23 with altered mental status, and has been intubated in the ICU. Hospitalization c/b thrombocytopenia (plt aziza at 17) and persistent fevers and AMS, thus far unable to obtain LP and treating empirically for possible meningitis/encephalitis. ID is consulted to evaluate for AMS/encephalopathy and possible meningitis/encephalitis. Overall unclear etiology for pts presentation/AMS. Persistent AMS c/f meningitis/encephalitis, vs. sepsis of other etiology (UTI, pna, bacteremia). Imaging with mild colitis and Dial in place (with pyuria but UCx 3 types of low-count mayte). Initial CT 04/19 with c/f aspiration pna, and bronch on 04/19 yielding bilateral purulent material, with bronch cx growing only moderate mayte. Already treated with a course pip-tazo and remains on broad-spectrum abx. Could consider repeat CT scan if remains febrile. With ongoing fevers and AMS c/f meningitis/encephalitis. Thus far unable to perform LP (initially due to thrombocytopenia, attempted again on 04/24 without success. If stable, per anthropology department chair likely to send for IR LP. please see below for requested infectious studies. If LP unable to be obtained but pt improving, may be reasonable to finish an empiric course of therapy. Also send Strep pneumo UrAg. Also with lab abnormalities including significant thrombocytopenia (aziza of 17, now recovered) which is c/f tickborne and viral infection. Also with mildly elevated bili and transaminitis, negative acute hep panel. Conjunctival injection on exam may be c/f viral infection such as adenovirus though is not specific, also considered leptospirosis (bilateral conjunctival suffusion). Unclear whether pt has epidemiologic risk factors (travel, outdoor exposure) with his partial quadriplegia though occasionally such illnesses can be transmitted through fleas, rodents in the home, etc. Will send for tickborne disease, lepto, HIV, HSV PCR. Pt also with 04/19 CoNS bacteremia including CoNS non-lugdunensis and Staph lugdunensis. While the multiple CoNS morphologies may be indicative of contamination, Staph lugdunensis can cause invasive endovascular infection including IE/PPM infection. Reassuringly with BCx that have cleared quickly (repeat on 04/20 BCx NGTD, and repeat on 04/23 BCx3 NGTD). TTE was very poor quality but without vegetations. Low threshold to reevaluate pts PPM and consider KARUNA. However, unclear that the Staph lugdunensis explains the pts clinical presentation. Continue broad-spectrum antimicrobials for possible meningitis: IV vancomycin (dosing per Rx), ceftriaxone, ampicillin, and acyclovir. Out of abundance of caution, will start doxycycline for possible tickborne disease, and/or leptospirosis. ID Problem List: 1.Altered mental status / encephalopathy, concern for meningitis 2.Possible aspiration pna 3.Staph lugdunensis and CoNS (non-lugdunensis) bacteremia on 04/19 4.Thrombocytopenia, elevated bilirubin 5.Bilateral L > R conjunctivitis 6.Acute hypoxemic respiratory failure 7.Quadriplegia 8.PPM in place Recommendations: - Continue broad-spectrum antimicrobials for possible meningitis: IV vancomycin (dosing per Rx), ceftriaxone, ampicillin, and acyclovir - Start doxycycline 100 mg PO BID - Per anthropology department chair, will repeat LP with IR if remains stable. Would obtain opening pressure, cell count, protein, glucose, biofire CSF panel (including HSV/VZV), bacterial/fungal/AFB Cx - MRI cannot be obtained due to non-compatible PPM - Send Rickettsial panel, Lyme, RMSF, Anaplasma PCR, Ehrlichia PCR, leptospirosis PCR/Ab, Strep pneumo UrAg, HIV - Consider repeat CT if remains febrile ID will continue to follow. Jana Lorenzo MD, [facility] Infectious Diseases [facility] Connect direct line: [phone] Consultation Information Consultation was provided via telemedicine using two-way real-time interactive telecommunication between the patient and the telemedicine provider. For the duration of the visit, the provider was performing the assessment from a different facility than the patient. This includesuse of bluetooth stethoscope forauscultationperformed by the telepresenter that the telemedicine provider can hear if described in the physical exam. Chip Machine Operator contact information: Please call [facility] Call Center . (Phone Number For Physician Use Only) After establishing a telemedicine visit, patient was: Gave permission to continue telehealth session Time Spent with Patient: Initial => 75 min History of Present Illness Reason for Consultation: AMS/encephalopathy and possible meningitis/encephalitis. Attending Physician: Osmani Nunez History of Present Illness Keyon Cevallos is a 52-year-old man with incomplete quadriplegia, prior tracheostomy, PPM in place, chronic Dial catheter, who presents to the [facility] ED on 04/19/23 with altered mental status, and has been intubated in the ICU. Hospitalization c/b thrombocytopenia (plt aziza at 17) and persistent fevers and AMS, thus far unable to obtain LP and treating empirically for possible meningitis/encephalitis. ID is consulted to evaluate for AMS/encephalopathy and possible meningitis/encephalitis. Per H&P on 04/19, pt initially appeared his normal self until and last seen when he went to sleep around 3:30 am. However, he awoke with labored breathing, diarrhea, and slowed mentation. EMS was called and reportedly pt was satting 65% on room air. He was taken to [facility] ED where he was noted to have poor respiratory effort. WBC 35. Initial plts 123 (later dropped to 17 on 04/20).CT showed c/f aspiration pneumonia of the RLL. Also showing pts chronic Dial was in the prostatic urethra and thus his Dial was replaced. He was intubated on 04/19 and he underwent bronch on the same day yielding bilateral tracheobronchial purulent secretions. He was placed on vanc and pip- tazo and continued on pip-tazo. BCx from 04/19 growing CoNS felt likely contaminant. Repeat BCx NGTD. 04/19 UA with >30 WBCs, >30 RBCs, 10-20 epithelial. Pt with continued AMS and fevers, and on 04/23 was started on vancomycin, ampicillin, ceftriaxone and acyclovir started 04/23/2023 for possible meningitis/encephalitis. He was also noted to have conjunctival injection on exam. Per anthropology department chair, pt having some apparent clinical improvement on this regimen. LP was initially deferred due to thrombocytopenia and reattempted without success on 04/24 without success. MRI unable to be done b/c PPM incompatible. Remains persistently febrile. With thrombocytopenia this admission down to aziza of 17, heme following. Also with EEG on 04/21 showing diffuse slowing. At time of evaluation, pt had just been extubated to BiPAP. No reported diarrhea. Pt without family/caregivers at bedside. Allergies Allergy/AdvReac Type Severity Reaction Status Date / Time No Known Allergies Allergy Unverified 12/08/18 22:03 Home Medications Medication Instructions Recorded Confirmed Type buprenorphine 8 mg-naloxone 2 mg 1 film sublingual BID 12/08/18 12/08/18 History sublingual film (Suboxone) carisoprodol 350 mg tablet (Soma) 350 mg PO TID 12/08/18 12/08/18 History clonazepam 0.5 mg tablet 0.5 mg PO BID 12/08/18 12/08/18 History docusate sodium 50 mg capsule 50 mg PO DAILY PRN Constipation 12/08/18 12/08/18 History (Stool Softener) linaclotide 290 mcg capsule 290 mcg PO DAILY 12/08/18 12/08/18 History (Linzess) methylphenidate HCl 10 mg tablet 10 mg PO BID 12/08/18 12/08/18 History nitrofurantoin macrocrystal 50 mg 50 mg PO DAILY 12/08/18 12/08/18 History capsule polyethylene glycol 3350 17 17 g PO DAILY PRN Constipation 12/08/18 12/08/18 History gram/dose oral powder (Miralax) apixaban 5 mg tablet (Eliquis) 5 mg PO BID 04/19/23 04/19/23 History baclofen 20 mg tablet 20 mg PO TID 04/19/23 04/19/23 History gabapentin 800 mg tablet 800 mg PO TID 04/19/23 04/19/23 History Patient History Medical History (Updated 04/25/23 @ 15:16 by Jaan Lorenzo MD) Discussion about advance care planning held with family member Palliative care by specialist Dyspnea and respiratory abnormalities Weakness generalized Febrile Thrombocytopenia Acute kidney failure History of stroke Chronic indwelling Dial catheter Chronic anticoagulation Pacemaker Chronic incomplete quadriplegia Paraplegia Family History Other Family history non-contributory Social History Smoking Status: Current every day smoker Tobacco Type: Cigarettes Hx Alcohol Use: No Hx Substance Use: Yes Last Used Substance: Unknown Preferred Language: [place] Citizen Communication Ability: Impaired Communication Ability Comment: currently intubated Airplane Engineer Required: No Beliefs That Will Affect Care: None Current Living Situation: Alone Current Living Situation Comment: patient lives in [facility] Feels Safe at Home: Yes Assistive Devices: Mechanical Lift and Wheelchair Physical Exam Physical Exam: Exam obtained with aid of in-person telepresenter. General: No acute distress. Just extubated recently, wearing BiPAP. HEENT: Conjunctivae injected bilaterally L > R, sclerae anicteric, MMM, OP clear. Neck: + L-sided cervical LAD. RIJ in place, c/d/i. CV: RRR, normal S1/S2; no murmurs, rubs, or gallops. Resp: CTAB; no wheezes, rales, or rhonchi. Respirations nonlabored. Abd: Soft, nondistended. : Dial in place draining dark orange urine. Ext: Warm and well-perfused, no edema. Healed surgical scar on L shoulder. Skin: Scattered hypopigmentation patches over abdomen and hands. Neuro: Asleep, minimally reactive. Grossly non-focal. Psych: Pleasant, appropriate. Results & Data Vital Signs (Past 12 Hours) Vital Signs Temp Pulse Resp BP Pulse Ox O2 Del Method FiO2 04/25/23 15:13 71 20 98 80 04/25/23 14:00 104/56 L 04/25/23 14:00 38.4 C H 73 20 98 04/25/23 13:30 100/56 L 04/25/23 13:30 38.3 C H 78 25 H 98 04/25/23 13:00 94/57 L 04/25/23 13:00 38.2 C H 81 30 H 97 04/25/23 12:56 85 27 H 93 85 04/25/23 12:30 38.2 C H 85 28 H 92 04/25/23 12:30 95/49 L 04/25/23 12:00 106/53 L 04/25/23 12:00 38.3 C H 85 35 H 93 04/25/23 11:30 38.4 C H 80 32 H 93 04/25/23 11:30 96/66 L 04/25/23 11:16 38.4 C H 76 26 H 93 04/25/23 11:16 101/51 L 04/25/23 11:01 38.4 C H 75 25 H 94 04/25/23 11:01 66/56 L 04/25/23 11:00 38.4 C H 76 26 H 92 04/25/23 10:31 38.3 C H 80 36 H 85 L 04/25/23 10:31 106/57 L 04/25/23 10:31 80 25 H 93 30 04/25/23 10:30 38.3 C H 79 29 H 92 04/25/23 10:00 104/59 L 04/25/23 10:00 38.3 C H 76 26 H 92 04/25/23 09:30 107/57 L 04/25/23 09:30 38.1 C H 77 27 H 91 04/25/23 09:00 38.0 C H 77 25 H 91 04/25/23 08:35 76 26 H 92 30 04/25/23 08:30 108/58 L 04/25/23 08:30 37.9 C H 77 26 H 90 04/25/23 08:00 30 04/25/23 08:00 37.9 C H 74 22 90 04/25/23 08:00 89/50 L 04/25/23 07:55 76 21 93 30 04/25/23 07:30 107/59 L 04/25/23 07:30 37.7 C H 73 24 91 Mechanical Vent 0.3 04/25/23 07:00 37.7 C H 78 20 90 04/25/23 07:00 116/69 04/25/23 05:00 90/61 L 04/25/23 05:00 37.9 C H 79 23 90 30 04/25/23 04:30 37.9 C H 75 20 91 04/25/23 04:30 102/56 L 04/25/23 04:00 38.1 C H 75 21 92 30 04/25/23 04:00 90/60 L 04/25/23 04:00 30 04/25/23 03:49 73 20 98 30 04/25/23 03:30 38.2 C H 73 20 96 04/25/23 03:30 105/61 Diagnostic Findings Diagnostics: 04/19 CTA chest 1. No evidence for a pulmonary embolus. 2. Endotracheal tube terminates 3.6 cm from the singh. 3. Partial mucoid opacification the bilateral lower lobe bronchi most pronounced on the right with bilateral lower lobe basilar consolidation. This favors an aspiration pneumonitis. Follow-up bronchoscopy should be considered for possible clearing of the mucoid opacification of the right lower lobe bronchi. 4. Mild subcarinal and right hilar lymphadenopathy. This may be reactive to the suspected pneumonitis. Follow-up recommended to ensure resolution. 5. Mild pulmonary arterial hypertension. 6. Additional findings as described above. 04/19 CT A/P 1. Dial balloon within the prostatic urethra. A Dial catheter could be advanced. 2. No bowel obstruction. Fluid-filled colon. Wall thickening of portions of the colon likely due to underdistention. A mild nonspecific colitis could appear similar. 1.5 cm polyp versus adherent stool at the rectosigmoid junction. Nonemergent GI consultation for consideration for colonoscopy is recommended. 3. Bilateral lower lobe airspace opacities with mucus plugging and bronchial wall thickening. This favors pneumonia or aspiration pneumonitis. 04/19 TTE: technically limited hyperdynamic LV, mild concentric LVH, RV normal. No significant valvular disease but very technically limited. 04/19 bronch path: Lung, right lower lobe (cytologic evaluation of the bronchial wash specimen): - Severe acute inflammation is seen. - No tumor seen. - Viral cytopathic effects are not seen - The ThinPrep reveals many PMNs leukocytes, histiocytes, scattered degenerate bronchial lining epithelial cells, and a few lymphocytes. Malignant cells are not seen. Viral cytopathic effects are not seen. The cellblock reveals she ets of PMNs leukocytes Micro Summary: 04/23 BCx x2: NGTD 04/23: acute hep panel neg 04/20 BCx x2: NGTD 04/19 bronch wash RLL: moderate mayte; stainmod polys, many GNRs, rare GPCs 04/19 BCx x2: CoNS, Staph lugdunensis (S-oxacillin, vancomycin) 04/19 UCx: 3 types of organisms, low counts 04/19 MRSA nares: neg 04/19 respiratory RVP: neg 04/19 stool panel neg 04/19 UTox with +methamphetamines/amphetamines and THC Antibiotic Summary: vancomycin (04/19, 04/23 present) ceftriaxone (04/23 present) ampicillin (04/23 present) acyclovir (04/23 present) prior pip-tazo (04/19-04/23)
[2023-04-25] MEDS: HYDROCORTISONE SOD 50 MG in SYRINGE 0 ML IV SCH (16:45)
[2023-04-25] MEDS ORDERED: DOXYCYCLINE HYCLATE 100 MG CAP PO SCH (21:00)
[2023-04-25] MEDS: DOXYCYCLINE HYCLATE 100 MG in DEXTROSE 5% MINI-B 100 ML IV SCH (21:39)
--- NOTE | 2023-04-25 22:17 | Hospitalist Progress Note ---
Date of Service April 25, 2023 Assessment & Plan (1) Septic shock: Plan: Multiple possible sources on admission but most likely UTI give chronic indwelling will catheter Other possibilities - aspiration pneumonia vs. colitis Patient remains encephalopathic Empiric antibiotics with Zosyn and IV vancomycin. MRSA nasal swab sent but will continue IV vancomycin even if negative given most likely urinary source Stool sample already sent and will add c. diff coverage if positive Lactate 1.9 Levophed reamindson board an being tapered off. Patient remains intubated. Patient working on extubating. (2) Acute respiratory failure with hypoxia and hypercapnia: Plan: Secondary to presumed aspiration Currently intubated and sedated Ventilation management per ICU team (3) NSTEMI (non-ST elevated myocardial infarction): Plan: Unclear if type 1 vs. type 2. Suspect the latter given septic shock present on admission TTE - currently being performed Treat empirically with aspirin, IV heparin Trending troponin Consult cardiology (4) UTI (urinary tract infection): Plan: Suspected potential source of sepsis (5) Aspiration pneumonia: Plan: IV Zosyn (6) Colitis: Plan: Stool and c. diff PCR pending - deferred treatment pending results of this (7) Acidosis, metabolic, with respiratory acidosis: Plan: Normal anion gap Sodium bicarb given in ER. Repeat ABG POC ordered (8) Chronic incomplete quadriplegia: (9) Acute kidney failure: Plan: Unknown baseline - no known CKD ?obstructive uropathy with will placement noted on CT in prostate continue to monitor urine output (10) Pacemaker: Plan: Unclear reason for this. Trying to get results from [facility] +/- PCP (11) Chronic anticoagulation: Plan: On Eliquis for blood clots but unknown where (12) Chronic indwelling Will catheter: Plan: Noted in prostate on ER CT, replaced ?obstructive uropathy (13) History of stroke: Plan: Noted on CT and confirmed by family/caregivers at bedside (14) Chronic prescription opiate use: Plan: On Suboxone as outpatient. Continue Fentanyl. Plan VTE prophylaxis - IV heparin Diet - NPO Disposition - admit to ICU Admission and Anticipated Discharge Date Admission Date: April 19, 2023 Subjective 52 yo male intuabted Review of Systems Review of Systems: All systems reviewed & are unremarkable except as noted in HPI & below Physical Exam Physical Exam: Patient is intubated Results & Data Results & Data Vital Signs (Past 12 Hours) Vital Signs Temp Pulse Resp BP Pulse Ox O2 Del Method FiO2 04/25/23 17:15 38.3 C H 75 20 97 CPAP 0.45 04/25/23 17:00 104/56 L 04/25/23 17:00 38.3 C H 74 20 96 04/25/23 16:45 38.4 C H 74 20 96 04/25/23 16:30 101/53 L 04/25/23 16:30 38.3 C H 74 18 96 04/25/23 16:21 102/56 L 04/25/23 16:21 38.3 C H 73 19 96 04/25/23 16:15 38.3 C H 73 19 96 04/25/23 16:00 104/53 L CPAP 0.45 04/25/23 16:00 38.3 C H 72 17 96 04/25/23 16:00 45 04/25/23 15:47 45 04/25/23 15:45 38.4 C H 72 19 98 04/25/23 15:30 102/52 L 04/25/23 15:30 38.4 C H 73 19 97 04/25/23 15:15 38.4 C H 72 20 98 04/25/23 15:13 71 20 98 80 04/25/23 15:00 102/62 04/25/23 15:00 38.3 C H 75 20 98 04/25/23 14:45 38.4 C H 77 21 98 04/25/23 14:30 94/59 L 04/25/23 14:30 38.4 C H 72 21 98 04/25/23 14:15 38.4 C H 74 23 97 04/25/23 14:00 104/56 L 04/25/23 14:00 38.4 C H 73 20 98 04/25/23 13:30 100/56 L 04/25/23 13:30 38.3 C H 78 25 H 98 04/25/23 13:00 94/57 L 04/25/23 13:00 38.2 C H 81 30 H 97 04/25/23 12:56 85 27 H 93 85 04/25/23 12:30 38.2 C H 85 28 H 92 04/25/23 12:30 95/49 L 04/25/23 12:00 30 02/24 12:00 106/53 L 04/25/23 12:00 38.3 C H 85 35 H 93 04/25/23 11:30 38.4 C H 80 32 H 93 04/25/23 11:30 96/66 L 04/25/23 11:16 38.4 C H 76 26 H 93 04/25/23 11:16 101/51 L 04/25/23 11:01 38.4 C H 75 25 H 94 04/25/23 11:01 66/56 L 04/25/23 11:00 38.4 C H 76 26 H 92 04/25/23 10:31 38.3 C H 80 36 H 85 L 04/25/23 10:31 106/57 L 04/25/23 10:31 80 25 H 93 30 04/25/23 10:30 38.3 C H 79 29 H 92 PG Care Time/CCT Total # of Minutes Spent Total Time Spent with Patient: Total time spent is greater than 50% in coordination of care (as documented) at patient's floor/unit and/or counseling patient: Coding Level of Care Code 34893 SUB INP/OBS CARE 2MIN Diagnoses Septic shock A41.9; R65.21 Acute respiratory failure with hypoxia and hypercapnia J96.01; J96.02 NSTEMI (non-ST elevated myocardial infarction) I21.4 UTI (urinary tract infection) N39.0 Aspiration pneumonia J69.0 Colitis K52.9 Acidosis, metabolic, with respiratory acidosis E87.4 Chronic incomplete quadriplegia G82.50 Acute kidney failure N17.9 Pacemaker Z95.0 Chronic anticoagulation Z79.01 Chronic indwelling Will catheter Z97.8 History of stroke Z86.73 Chronic prescription opiate use Z79.891
[2023-04-26 05:02] LABS: Basophils # (auto) 0.05 K/uL (0.00-0.20); Basophils % (auto) 0.4 %; Eosinophils # (auto) 0.01 K/uL (0.00-0.50); Eosinophils % (auto) 0.1 %; Hematocrit (blood only) 32.6 % (42.0-52.0); Hemoglobin 10.1 g/dl (14.0-18.0); Immature Granulocytes # (auto) 0.29 K/uL (0.01-0.20); Immature Granulocytes % (auto) 2.1 %; Lymphocytes # (auto) 0.66 K/uL (1.20-3.40); Lymphocytes % (auto) 4.9 %; Mean Corpuscular Hemoglobin 27.2 pg (25.0-34.0); Mean Corpuscular Volume 87.6 fL (80.0-100.0); Mean Platelet Volume 10.2 fL (9.4-12.4); Monocytes # (auto) 1.04 K/uL (0.11-0.59); Monocytes % (auto) 7.7 %; Neutrophils # (auto) 11.52 K/uL (1.40-6.50); Neutrophils % (auto) 84.8 %; Platelet Count 340 K/uL (130-400); RDW Coefficient of Variation 14.9 % (11.5-14.5); RDW Standard Deviation 46.5 fL (36.4-46.3); Red Blood Count 3.72 M/uL (4.70-6.10); White Blood Count 13.57 K/ul (4.8-10.8)
[2023-04-26 05:12] LABS: Anion Gap 6 (3-11); BUN Creatinine Ratio 35.3 (10-20); Blood Urea Nitrogen 12 mg/dl (6-23); Calcium 8.5 mg/dl (8.6-10.3); Carbon Dioxide 25 mmol/L (21-32); Chloride 106 mmol/L (98-107); Creatinine Clr Calc Pharmacy 317.6 ml/min; Est GFR (African American) > 150.0 ml/min; Glucose 153 mg/dl (70-99(Fasting)); Magnesium 1.9 mg/dl (1.7-2.4); Phosphorus 3.2 mg/dl (2.5-4.9); Potassium 4.1 mmol/L (3.5-5.1); Sodium 137 mmol/L (136-145)
[2023-04-26] MEDS: MAGNESIUM SULFATE / D5W 1 GM/100 ML BAG IV ONE (05:48)
[2023-04-26] MEDS: VANCOMYCIN LEVEL ONE (05:49)
--- NOTE | 2023-04-26 08:23 | XRay Report ---
XR chest 1V portable HISTORY: Respiratory failure. COMPARISON: Chest 04/25/2023. FINDINGS: The endotracheal tube and nasogastric tube have been removed in the interval. Cervical spin al fusion hardware, postoperative changes within the left humerus, and an aortic stent are again note d. The heart remains mildly enlarged. Is left-sided dual-chamber pacemaker. No pneumothorax. No pleur al effusions. Patchy bibasilar densities have improved. No evidence for pulmonary edema. Right jugula r central venous catheter terminates at the SVC. IMPRESSION: 1. Patchy bibasilar densities have slightly improved. 2. Stable mild cardiomegaly. ACT 112: Negative or not required by law. Electronically signed by: Martinez Diggs M.D. 04/26/2023 8:21 AM
--- NOTE | 2023-04-26 08:34 | Critical Care Progress Note ---
Date of Service April 26, 2023 Assessment & Plan (1) Septic shock: (2) Acute respiratory failure with hypoxia and hypercapnia: (3) Aspiration pneumonia: (4) Chronic incomplete quadriplegia: (5) Acute kidney failure: (6) Thrombocytopenia: (7) Febrile: (8) Encephalopathy: Plan Reason for ICU admission: Mr. Cevallos is a 52 y/o male with PMHx of quadriplegia, prior tracheostomy, and pacemaker who was admitted to ICU due to septic shock secondary to aspiration pneumonia. NEURO: --Metabolic encephalopathy Sepsis possibly, questionable meningitis/encephalitis On broad-spectrum antibiotics MRI brain unable to be obtained given pacemaker currently. EEG from 04/21/2023 with diffuse slowing. Lumbar puncture trial 04/24/2023 was unsuccessful -Continue baclofen, gabapentin and Klonopin. Suboxone also added back to help prevent withdrawals. CARDIOVASCULAR: --Septic shock On Levophed * Wean as able with the goal to maintain MAPs > 65 mmHg. Random cortisol less than 5, started on hydrocortisone on 04/25/2023 - Cardiology evaluated: * troponin elevation likely related to demand ischemia rather than ACS * pacemaker functional * TTE showing hyperdynamic LV function with no wall motion abnormalities, suggesting troponin elevation reflects limited microvascular damage. - Continue monitoring PULMONARY: -- S/p VDRF Likely secondary to metabolic encephalopathy with ventilatory failure Extubated to 1324 GI: --Transaminitis --> Trending down Ammonia within normal limits 04/23/2023 Etiology could be ischemic Hepatitis panel pending CT abdomen and pelvis on admission with evidence of nonspecific colitis and a 1.5 cm polyp versus adherent stool to the rectal joint sigmoid colon. Hepatic steatosis was noted. HEMATOLOGY: --Monitor H&H --S/p thrombocytopenia Likely from sepsis -Improving. PF4 antibody negative. - Fibrinogen normal ID: --Aspiration pneumonia of the right lower lobe Continue with antibiotics -Blood cultures from 04/19 growing coag negative staph likely contaminant. Repeat blood cultures negative to date. - Abx: Meningitis doses of vancomycin, ampicillin, ceftriaxone and acyclovir started 04/23/2023 due to persistent fevers and concern for meningitis/encephalitis. Procalcitonin 54--> 13.5, trending down RENAL/ELECTROLYTES: -- Monitor BUNs/creatinine Avoid nephrotoxic medication ENDO: --ICU hyperglycemia protocol - Last TSH normal (3.365 on 04/16/23) CODE STATUS: DNR/DNI --Prophylaxis VTE: IPC GI: Pantoprazole Lines: Peripheral Diet: N.p.o. Plan: In/out: -400, urine output 3680, +9.2 L since coming to the hospital Continue with hydrocortisone given low random cortisol level. He still requiring low-dose levo fed. Hopefully will be able to titrate him off. If you are not able to then addition of midodrine could be sought. I think it is still too early to give a trial of swallow eval. Hopefully tomorrow will be able to do that. I will try to send the patient for lumbar puncture by IR. Infectious disease has been consulted and they are managing the antibiotics. I personally did discuss the case with ID Magnesium being replaced Myranda Cevallos [phone] was called today and discussed regarding the current condition of the patient. She did reiterate that no reintubation if time comes in future. She is agreeable to a PEG tube if need be in future I have personally spent 37 minutes of critical care time in the direct management of this patient. This is a life/limb threatening event. This includes time spent evaluating patient, direct bedside care, chart review, placing orders, interpretation of diagnostic studies, discussion with consultants, patient, and family members, as well as other required patient management activities. This time is exclusive of all separately billable procedures, and teaching time and separate from and in addition to any other critical care service time. Admission and Anticipated Discharge Date Admission Date: April 19, 2023 Subjective Patient seen and examined at bedside. No acute distress, no events overnight He was on 0.01 of Levophed at the time of examination with MAP 66. He was on 4 L OxyMask saturating 93-94%. Did not seem to be any respiratory distress Answering simple questions by nodding his head. Also replying with soft voice yes and no Complains of mild headache, no chest pain, no abdominal pain. Review of Systems 2 Review of Systems: All systems reviewed & are unremarkable except as noted in Subjective Physical Exam 2 Physical Exam: Constitutional: No acute distress HEENT: EOMI, PERRLA, conjunctival injection Respiratory system: Good air entry bilaterally, no wheeze, positive rhonchi, more on the right side, mild crackles bilateral lower lobes CVS: S1-S2 positive, no murmurs or gallops Abdomen: Soft, nontender, nondistended, positive bowel sounds x4 Extremities: +1 pulses bilaterally radialis/ dorsalis pedis, no cyanosis, minimal pitting edema bilateral lower extremity, spastic fingers of the upper extremities bilaterally R>L Neuro: Awake, alert, answering questions with nodding his head as well as soft yes and no Psych: Normal mood and affect G/U: Positive Dial Skin: no rashes, warm and dry Lymphatic: no cervical or axillary lymphadenopathy Results & Data Results & Data Vital Signs (Past 12 Hours) Vital Signs Temp Pulse Resp BP Pulse Ox O2 Del Method O2 Flow Rate 04/26/23 08:04 37 C 04/26/23 08:00 107/70 04/26/23 08:00 74 26 H 93 Oxymask 15 04/26/23 07:58 108/86 04/26/23 07:58 76 21 97 04/26/23 07:45 72 25 H 98 04/26/23 07:30 135/98 04/26/23 07:30 70 24 98 04/26/23 07:15 70 23 98 04/26/23 07:00 71 26 H 97 04/26/23 07:00 138/84 04/26/23 06:30 74 29 H 96 BiPAP 04/26/23 06:30 104/64 04/26/23 06:01 120/48 L 04/26/23 06:01 81 32 H 93 04/26/23 06:00 80 36 H 95 04/26/23 05:30 129/75 04/26/23 05:30 88 25 H 96 04/26/23 05:00 37.5 C 76 21 94 04/26/23 05:00 110/59 L 04/26/23 04:30 113/66 04/26/23 04:30 37.6 C H 78 24 95 04/26/23 04:00 135/74 04/26/23 04:00 37.7 C H 76 21 97 04/26/23 03:30 134/69 04/26/23 03:30 37.8 C H 77 26 H 97 04/26/23 03:00 127/69 04/26/23 03:00 37.9 C H 72 18 97 04/26/23 02:30 37.9 C H 73 17 97 04/26/23 02:30 126/70 04/26/23 02:00 125/68 04/26/23 02:00 38.0 C H 72 17 97 04/26/23 01:30 121/65 04/26/23 01:30 38.0 C H 72 19 97 04/26/23 01:00 121/72 04/26/23 01:00 37.9 C H 73 19 97 04/26/23 00:30 124/73 04/26/23 00:30 37.9 C H 80 21 97 04/26/23 00:00 113/89 04/26/23 00:00 37.9 C H 75 21 97 04/26/23 00:00 76 04/25/23 23:50 75 24 97 04/25/23 23:30 111/76 04/25/23 23:30 37.9 C H 79 25 H 98 04/25/23 23:00 123/68 04/25/23 23:00 37.9 C H 76 20 97 04/25/23 22:31 37.9 C H 79 23 94 04/25/23 22:31 106/58 L 04/25/23 22:00 104/64 04/25/23 22:00 38.1 C H 79 24 96 04/25/23 21:30 109/58 L 04/25/23 21:30 38.2 C H 80 20 95 04/25/23 21:00 105/53 L 04/25/23 21:00 38.4 C H 82 19 95 04/25/23 20:45 81 20 96 FiO2 04/26/23 08:04 04/26/23 08:00 04/26/23 08:00 04/26/23 07:58 04/26/23 07:58 04/26/23 07:45 04/26/23 07:30 04/26/23 07:30 04/26/23 07:15 04/26/23 07:00 04/26/23 07:00 04/26/23 06:30 04/26/23 06:30 04/26/23 06:01 04/26/23 06:01 04/26/23 06:00 45 04/26/23 05:30 04/26/23 05:30 04/26/23 05:00 45 04/26/23 05:00 04/26/23 04:30 04/26/23 04:30 04/26/23 04:00 04/26/23 04:00 45 04/26/23 03:30 04/26/23 03:30 04/26/23 03:00 04/26/23 03:00 45 04/26/23 02:30 04/26/23 02:30 04/26/23 02:00 04/26/23 02:00 45 04/26/23 01:30 04/26/23 01:30 04/26/23 01:00 04/26/23 01:00 45 04/26/23 00:30 04/26/23 00:30 04/26/23 00:00 04/26/23 00:00 45 04/26/23 00:00 04/25/23 23:50 45 04/25/23 23:30 04/25/23 23:30 04/25/23 23:00 04/25/23 23:00 45 04/25/23 22:31 04/25/23 22:31 04/25/23 22:00 04/25/23 22:00 45 04/25/23 21:30 04/25/23 21:30 45 04/25/23 21:00 04/25/23 21:00 45 04/25/23 20:45 45 Laboratory Results 04/26/23 04:37 04/26/23 04:37 Coding Level of Care Code 76687 CRITICAL CARE 1ST 30-74M Diagnoses Septic shock A41.9; R65.21 Acute respiratory failure with hypoxia and hypercapnia J96.01; J96.02 Aspiration pneumonia J69.0 Chronic incomplete quadriplegia G82.50 Acute kidney failure N17.9 Thrombocytopenia D69.6 Febrile R50.9 Encephalopathy G93.40
[2023-04-26] MEDS: SODIUM CHLOR 7% 4 ML NEB NEB ONE (10:09)
[2023-04-26] MEDS: ALBUT/IPRATROP 3MG/0.5MG NEB 3 ML VIAL NEB SCH (10:09)
[2023-04-26 10:31] LABS: Albumin Level 3.2 gm/dl (3.4-5.0); Bilirubin Direct 0.1 mg/dl (0-0.2); Bilirubin,Total 0.5 mg/dl (0.2-1.0)
[2023-04-26 10:37] LABS: Total Protein 6.6 gm/dl (6.0-8.3)
--- NOTE | 2023-04-26 11:18 | Pharmacy Report ---
Pharmacy PK ABX Note - Date of Service April 26, 2023 - Assessment and Plan Assessment 52 year old M receiving vancomycin, ceftriaxone, ampicillin, acyclovir, and doxycycline empirically for [employer] infection in setting of AMS and ongoing fevers. 04/19 BCx (+) Staph epidermidis and Staph lugdunensis, urine and bronch cultures (-). Repeat blood cultures NGTD. Hx quadriplegia (SCr likely not a true indicator of renal function). ID consulted Plan Vancomycin * Current regimen: 1750 mg IV every 12 hours * Random level obtained 04/26/23 resulted as 12.8 mcg/mL. This is predicted to achieve target AUC/BECCA of 400-600 mg/L.hr * Predicted AUC at steady state: 525 mg/L.hr * Continue 1750 mg IV every 12 hours * Repeat random level ordered for: 04/28/23 Pharmacy will continue to follow and will adjust dose/frequency as necessary. Thank you. Pharmacy has transitioned to AUC monitoring for vancomycin. AUC/BECCA is the preferred PK/PD target and is associated with decreased risk of nephrotoxicity compared to traditional trough targets.
--- NOTE | 2023-04-26 13:36 | Infectious Disease Progress Nt ---
Date of Service April 26, 2023 Assessment & Plan (1) Acute respiratory failure with hypoxia and hypercapnia: (2) Aspiration pneumonia: (3) Thrombocytopenia: (4) Encephalopathy: (5) Febrile: (6) Coagulase negative Staphylococcus bacteremia: (7) Chronic incomplete quadriplegia: (8) Chronic indwelling Dial catheter: (9) Pacemaker: Plan Keyon Cevallos is a 52-year-old man with incomplete quadriplegia, prior tracheostomy, PPM in place, chronic Dial catheter, who presents to the [facility] ED on 04/19/23 with altered mental status, and has been intubated in the ICU. Hospitalization c/b thrombocytopenia (plt aziza at 17) and persistent fevers and AMS, thus far unable to obtain LP and treating empirically for possible meningitis/encephalitis. Labs also with elevated AST/ALT, mildly elevated bili (resolved). Now extubated 04/25, with fevers improving on 04/26. Overall unclear etiology for pts AMS and fevers. C/f meningitis/encephalitis, vs. infection of other etiology (UTI, pna, bacteremia). 04/19 CT imaging with mild colitis and Dial in place (with pyuria but UCx 3 types of low-count mayte). Initial CT 04/19 with c/f aspiration pna, and bronch on 04/19 yielding bilateral purulent material, with bronch cx growing only moderate mayte. Already treated with a course pip-tazo and remains on broad-spectrum abx. Low threshold for repeat CT C/A/P if fevers recur. Ongoing fevers and AMS were c/f meningitis/encephalitis. Thus far unable to perform LP (initially due to thrombocytopenia, attempted again on 04/24 without success. If stable, per vp scientific likely to send for IR LP. please see below for requested infectious studies. If LP unable to be obtained but pt improving, may be reasonable to finish an empiric course of therapy. Also sending Strep pneumo UrAg. Also with lab abnormalities including significant thrombocytopenia (aziza of 17, now recovered) which is c/f tickborne and viral infection. Also with mildly elevated bili (resolved) and transaminitis (ongoing), negative acute hep panel. Conjunctival injection on exam may be c/f viral infection such as adenovirus though is not specific, also considered leptospirosis (bilateral conjunctival suffusion). Unclear whether pt has epidemiologic risk factors (travel, outdoor exposure) with his partial quadriplegia though occasionally such illnesses can be transmitted through fleas, rodents in the home, etc. Sending for tickborne disease, lepto, HIV, HSV PCR. Pt also with / CoNS bacteremia, both CoNS non-lugdunensis and Staph lugdunensis. While the multiple CoNS morphologies may be indicative of contamination, Staph lugdunensis can cause invasive endovascular infection including IE/PPM infection. Has been treated given that pts Staph lug is S- oxacillin and has been on pip-tazo. Reassuringly with BCx that have cleared quickly (repeat on 04/20 BCx NGTD, and repeat on 04/23 BCx3 NGTD). TTE was very poor quality but without vegetations. Low threshold to reevaluate pts PPM and consider KARUNA. May want to consider a 14-day course of treatment (may be encompassed by other broad-spectrum abx) and surveillance cx after stopping abx. Regardless, it appears unlikely that the Staph lugdunensis explains the pts clinical presentation. Continue broad-spectrum antimicrobials for possible meningitis: IV vancomycin (dosing per Rx), ceftriaxone, ampicillin, and acyclovir. Out of abundance of caution, can also continue doxycycline for possible tickborne disease, and/or leptospirosis. ID Problem List: 1.Altered mental status / encephalopathy, concern for meningitis 2.Possible aspiration pna 3.Staph lugdunensis and CoNS (non-lugdunensis) bacteremia on 04/19 4.Thrombocytopenia, elevated bilirubin 5.Bilateral L > R conjunctivitis 6.Acute hypoxemic respiratory failure 7.Quadriplegia 8.PPM in place Recommendations: - For now, continue broad-spectrum antimicrobials for possible meningitis/encephalitis: IV vancomycin (dosing per Rx), ceftriaxone, ampicillin, and acyclovir - Continue doxycycline 100 mg PO BID - Per vp scientific, will repeat LP with IR if remains stable. Would obtain opening pressure, cell count, protein, glucose, biofire CSF panel (including HSV/VZV), bacterial/fungal/AFB Cx - F/u: Rickettsial panel, Lyme, RMSF, Anaplasma PCR, Ehrlichia PCR, leptospirosis PCR/Ab, Strep pneumo UrAg, HIV - Low threshold for repeat CT C/A/P if fevers recur - MRI cannot be obtained due to non-compatible PPM ID will continue to follow. Jana Lorenzo MD, MHS Infectious Diseases [facility] Connect ID Connect direct line: [phone] Admission and Anticipated Discharge Date Admission Date: April 19, 2023 Subjective Subsequent visit was provided via telemedicine using two-way real-time interactive telecommunication between the patient and the telemedicine provider. For the duration of the visit, the provider was performing the assessment from a different facility than the patient. This includesuse of bluetooth stethoscope forauscultationperformed by the telepresenter that the telemedicine provider can hear if described in the physical exam. Pad Tufter contact information: Please call [facility] Connect Call Center . (Phone Number For Physician Use Only) After establishing a telemedicine visit, patient was: Patient was verified with two unique identifiers Time Spent with Patient: Subsequent => 35 min - Afebrile today, WBC 13.6 - On oxymask 15L - More alert today, able to partially converse by nodding/shaking head - Shakes head no when asked if having any pain Physical Exam Physical Exam: Exam obtained with aid of in-person telepresenter. General: No acute distress. Wearing face mask. HEENT: Conjunctivae injected bilaterally L > R, sclerae anicteric, MMM, OP clear. Neck: in place, c/d/i. Resp: Respirations nonlabored. Abd: Soft, nondistended. : Dial in place draining dark urine. Ext: Warm and well-perfused, no edema. Healed surgical scar on L shoulder. Skin: Scattered hypopigmentation patches over abdomen and hands. Neuro: Awake. Paraplegia. Able to partially converse by nodding/shaking head Psych: Unable to assess Results & Data Vital Signs (Past 12 Hours) Vital Signs Temp Pulse Pulse Resp BP Pulse Ox O2 Del Method 04/26/23 12:30 143/48 H 04/26/23 12:30 82 24 94 Oxymask 04/26/23 12:00 124/67 04/26/23 12:00 81 25 H 92 04/26/23 12:00 37 C 04/26/23 11:30 101/50 L 04/26/23 11:30 80 29 H 91 04/26/23 11:00 114/59 L 04/26/23 11:00 77 27 H 93 Oxymask 04/26/23 10:45 104/64 04/26/23 10:45 77 25 H 95 04/26/23 10:30 77 23 92 04/26/23 10:30 114/65 04/26/23 10:15 72 22 94 Oxymask 04/26/23 10:00 109/76 04/26/23 10:00 71 26 H 95 04/26/23 09:45 113/77 04/26/23 09:45 72 27 H 96 04/26/23 09:30 122/80 04/26/23 09:30 72 25 H 95 04/26/23 09:15 72 23 95 04/26/23 09:15 117/76 04/26/23 09:00 73 24 94 04/26/23 09:00 114/58 L 04/26/23 08:46 106/64 04/26/23 08:46 72 26 H 04/26/23 08:40 BiPAP 04/26/23 08:31 91/65 L 04/26/23 08:31 72 28 H 91 04/26/23 08:18 113/50 L 04/26/23 08:18 71 25 H 95 04/26/23 08:15 97/50 L 04/26/23 08:15 73 26 H 95 04/26/23 08:04 37 C 04/26/23 08:00 72 04/26/23 08:00 107/70 04/26/23 08:00 74 26 H 93 Oxymask 04/26/23 07:58 108/86 04/26/23 07:58 76 21 97 04/26/23 07:45 72 25 H 98 04/26/23 07:30 135/98 04/26/23 07:30 70 24 98 04/26/23 07:15 70 23 98 04/26/23 07:00 71 26 H 97 04/26/23 07:00 138/84 04/26/23 06:30 74 29 H 96 BiPAP 04/26/23 06:30 104/64 04/26/23 06:01 120/48 L 04/26/23 06:01 81 32 H 93 04/26/23 06:00 80 36 H 95 04/26/23 05:30 129/75 04/26/23 05:30 88 25 H 96 04/26/23 05:00 37.5 C 76 21 94 04/26/23 05:00 110/59 L 04/26/23 04:30 113/66 04/26/23 04:30 37.6 C H 78 24 95 04/26/23 04:00 135/74 04/26/23 04:00 37.7 C H 76 21 97 04/26/23 03:30 134/69 04/26/23 03:30 37.8 C H 77 26 H 97 04/26/23 03:00 127/69 04/26/23 03:00 37.9 C H 72 18 97 04/26/23 02:30 37.9 C H 73 17 97 04/26/23 02:30 126/70 04/26/23 02:00 125/68 04/26/23 02:00 38.0 C H 72 17 97 04/26/23 01:30 121/65 04/26/23 01:30 38.0 C H 72 19 97 O2 Flow Rate FiO2 04/26/23 12:30 04/26/23 12:30 2 04/26/23 12:00 04/26/23 12:00 04/26/23 12:00 04/26/23 11:30 04/26/23 11:30 04/26/23 11:00 04/26/23 11:00 2 04/26/23 10:45 04/26/23 10:45 04/26/23 10:30 04/26/23 10:30 04/26/23 10:15 2 04/26/23 10:00 04/26/23 10:00 04/26/23 09:45 04/26/23 09:45 04/26/23 09:30 04/26/23 09:30 04/26/23 09:15 04/26/23 09:15 04/26/23 09:00 04/26/23 09:00 04/26/23 08:46 04/26/23 08:46 04/26/23 08:40 04/26/23 08:31 04/26/23 08:31 04/26/23 08:18 04/26/23 08:18 04/26/23 08:15 04/26/23 08:15 04/26/23 08:04 04/26/23 08:00 04/26/23 08:00 04/26/23 08:00 15 04/26/23 07:58 04/26/23 07:58 04/26/23 07:45 04/26/23 07:30 04/26/23 07:30 04/26/23 07:15 04/26/23 07:00 04/26/23 07:00 04/26/23 06:30 04/26/23 06:30 04/26/23 06:01 04/26/23 06:01 04/26/23 06:00 45 04/26/23 05:30 04/26/23 05:30 04/26/23 05:00 45 04/26/23 05:00 04/26/23 04:30 04/26/23 04:30 04/26/23 04:00 04/26/23 04:00 45 04/26/23 03:30 04/26/23 03:30 04/26/23 03:00 04/26/23 03:00 45 04/26/23 02:30 04/26/23 02:30 04/26/23 02:00 04/26/23 02:00 45 04/26/23 01:30 04/26/23 01:30 Diagnostic Findings Diagnostics: 04/19 CTA chest 1. No evidence for a pulmonary embolus. 2. Endotracheal tube terminates 3.6 cm from the singh. 3. Partial mucoid opacification the bilateral lower lobe bronchi most pronounced on the right with bilateral lower lobe basilar consolidation. This favors an aspiration pneumonitis. Follow-up bronchoscopy should be considered for possible clearing of the mucoid opacification of the right lower lobe bronchi. 4. Mild subcarinal and right hilar lymphadenopathy. This may be reactive to the suspected pneumonitis. Follow-up recommended to ensure resolution. 5. Mild pulmonary arterial hypertension. 6. Additional findings as described above. 04/19 CT A/P 1. Dial balloon within the prostatic urethra. A Dial catheter could be advanced. 2. No bowel obstruction. Fluid-filled colon. Wall thickening of portions of the colon likely due to underdistention. A mild nonspecific colitis could appear similar. 1.5 cm polyp versus adherent stool at the rectosigmoid junction. Nonemergent GI consultation for consideration for colonoscopy is recommended. 3. Bilateral lower lobe airspace opacities with mucus plugging and bronchial wall thickening. This favors pneumonia or aspiration pneumonitis. 04/19 TTE: technically limited hyperdynamic LV, mild concentric LVH, RV normal. No significant valvular disease but very technically limited. 04/19 bronch path: Lung, right lower lobe (cytologic evaluation of the bronchial wash specimen): - Severe acute inflammation is seen. - No tumor seen. - Viral cytopathic effects are not seen - The ThinPrep reveals many PMNs leukocytes, histiocytes, scattered degenerate bronchial lining epithelial cells, and a few lymphocytes. Malignant cells are not seen. Viral cytopathic effects are not seen. The cellblock reveals sheets of PMNs leukocytes Micro Summary: 04/23 BCx x2: NGTD 04/23: acute hep panel neg 04/20 BCx x2: NGTD 04/19 bronch wash RLL: moderate mayte; stainmod polys, many GNRs, rare GPCs 04/19 BCx x2: CoNS, Staph lugdunensis (S-oxacillin, vancomycin) 04/19 UCx: 3 types of organisms, low counts 04/19 MRSA nares: neg 04/19 respiratory RVP: neg 04/19 stool panel neg 04/19 UTox with +methamphetamines/amphetamines and THC Antibiotic Summary: vancomycin (04/19, 04/23 present) ceftriaxone (04/23 present) ampicillin (04/23 present) acyclovir (04/23 present) doxycycline (04/25 present) prior pip-tazo (04/19-04/23)
--- NOTE | 2023-04-26 13:39 | CT Scan Report ---
CT head/brain wo con CLINICAL HISTORY: AMS Technique: Contiguous axial CT images of the head were acquired from the base of the skull to the megan satinder without intravenous contrast administration. Images were viewed in brain, subdural and bone [facility]. Automated dose lowering techniques and/or adjustment according to patient size were utilized for this exam. Comparison: Comparison is made to CT head 04/19/2023 Findings: Encephalomalacia in the left frontal lobe is unchanged from prior exam. No acute hemorrhage or CT sigrid dence of infarct. Mild age-related volume loss is seen. Imaged portions of the paranasal sinuses and mastoid air cells are clear. The orbits appear normal. There are no acute fractures of the calvaria or scalp swelling. Impression: No acute intracranial hemorrhage, no evidence of acute territorial infarction or other acute intracra nial disease process. ACT 112: Negative or not required by law. Electronically signed by: Robb Westfall M.D. 04/26/2023 1:37 PM
[2023-04-26 14:20] LABS: Appearance CSF Clear; CSF Count Tube # 3; CSF Xanthrochromic No xanthochromia; Color CSF Colorless
[2023-04-26 14:21] LABS: Red Blood Cell CSF Manual 0 (0-); White Blood Cell CSF Manual 0 (0-5)
[2023-04-26 14:23] LABS: Total Protein CSF 47.1 mg/dl (15-45)
--- NOTE | 2023-04-26 14:37 | Fluoroscopy Report ---
Fluoroscopic guided lumbar puncture INDICATION: Altered mental status; failed attempt on the floor PROCEDURE: Procedure and risks were explained. Informed consent was obtained. A final timeout was com pleted. The patient was placed prone on the fluoroscopic exam table. The lower lumbar region was prep ped and draped in sterile fashion. 1% lidocaine was utilized for skin anesthesia. Utilizing fluoroscopic guidance, a 20-gauge spinal needle was advanced into the L3-4 disc space level . Spot images were obtained. Opening pressure was measured at 40 cm H2O. The ordering physician was n otified of the opening pressure. Approximately 10 mL of clear CSF fluid was removed and sent to the l ab for analysis. The needle was removed and Band-Aid applied. The patient tolerated the procedure wel l. Total fluoroscopy time 1 minute. DAP is 25.6 mcGy/m2. IMPRESSION: Lumbar puncture as above. Performed, dictated, and signed by Clint Bowers PA-C; to be co-signed by Dr. Martinez Diggs. Electronically signed by: Martinez Diggs M.D. 04/26/2023 3:01 PM
[2023-04-26 15:22] LABS: Cryptococcus neoformans/ga PCR Not Detected (NotDetected); Cytomegalovirus PCR Not Detected (NotDetected); Enterovirus PCR Not Detected (NotDetected); Escherichia coli K1 PCR Not Detected (NotDetected); Haemophilius influenzae PCR Not Detected (NotDetected); Herpes Simplex Virus 1 PCR Not Detected (NotDetected); Herpes Simplex Virus 2 PCR Not Detected (NotDetected); Human Herpes Virus 6 PCR Not Detected (NotDetected); Human Parechovirus PCR Not Detected (NotDetected); Listeria monocytogenes PCR Not Detected (NotDetected); Neisseria meningitidis PCR Not Detected (NotDetected); Streptococcus agalactiae PCR Not Detected (NotDetected); Streptococcus pneumoniae PCR Not Detected (NotDetected); Varicella Zoster Virus PCR Not Detected (NotDetected)
[2023-04-26] MEDS: acetaZOLAMIDE 250 MG in SYRINGE 0 ML IV STA (19:37)
[2023-04-26] MEDS: SODIUM CHLOR 7% 4 ML NEB NEB SCH (20:37)
--- NOTE | 2023-04-26 23:22 | Hospitalist Progress Note ---
Date of Service April 26, 2023 Assessment & Plan (1) Septic shock: Plan: Multiple possible sources on admission but most likely UTI give chronic indwelling will catheter Other possibilities - aspiration pneumonia vs. colitis Patient remains encephalopathic Empiric antibiotics with Zosyn and IV vancomycin. MRSA nasal swab sent but will continue IV vancomycin even if negative given most likely urinary source Stool sample already sent and will add c. diff coverage if positive Lactate 1.9 Levophed remains board an being tapered off. Patient now extubated comfortbal.e Mentation appears to be improving. Nodding to questions (2) Acute respiratory failure with hypoxia and hypercapnia: Plan: Secondary to presumed aspiration now extubated (occured on 04/25) (3) NSTEMI (non-ST elevated myocardial infarction): Plan: cardio evaulatd appearsmore demand ischemia. (4) UTI (urinary tract infection): Plan: catheter associated UTI was a Suspected potential source of sepsis however, working up for meningitis, LP performed (5) Aspiration pneumonia: Plan: IV Zosyn (6) Colitis: Plan: Stool and c. diff PCR pending - deferred treatment pending results of this (7) Acidosis, metabolic, with respiratory acidosis: Plan: Normal anion gap Sodium bicarb given in ER. Repeat ABG POC ordered (8) Chronic incomplete quadriplegia: (9) Acute kidney failure: Plan: Unknown baseline - no known CKD ?obstructive uropathy with will placement noted on CT in prostate continue to monitor urine output (10) Pacemaker: Plan: Unclear reason for this. Trying to get results from [facility] +/- PCP (11) Chronic anticoagulation: Plan: On Eliquis for blood clots but unknown where (12) Chronic indwelling Will catheter: Plan: Noted in prostate on ER CT, replaced ?obstructive uropathy (13) History of stroke: Plan: Noted on CT and confirmed by family/caregivers at bedside (14) Chronic prescription opiate use: Plan: On Suboxone as outpatient. Continue Fentanyl. Plan VTE prophylaxis - IV heparin Diet - NPO Disposition - admit to ICU Admission and Anticipated Discharge Date Admission Date: April 19, 2023 Subjective Nonverbal Review of Systems Review of Systems: Unobtainable due to cognitive status Physical Exam Physical Exam: Constitutional: No acute distress, nonverbal. HEENT: EOMI, PERRLA, conjunctival injection Respiratory :mild rales at bases CVS: S1-S2 positive, no murmurs or gallops Abdomen: Soft, nontender, nondistended, positive bowel sounds x4 Neuro: AA, eyes open, nurse at bedside states that he has been nodding yes and no to questions Skin: no rashes, warm and dry Lymphatic: no cervical or axillary lymphadenopathy Results & Data Results & Data Vital Signs (Past 12 Hours) Vital Signs Temp Pulse Pulse Resp BP Pulse Ox O2 Del Method 04/26/23 20:37 63 24 96 Oxymask 04/26/23 19:34 36.6 C 04/26/23 19:30 68 18 96 04/26/23 19:25 Oxymask 04/26/23 19:17 71 18 103/60 96 04/26/23 19:00 71 24 89/52 L 96 04/26/23 17:15 68 24 97 04/26/23 17:10 68 20 98 04/26/23 17:05 69 21 93 Oxymask 04/26/23 17:01 90/54 L 04/26/23 17:01 67 23 90 04/26/23 17:00 68 28 H 94 04/26/23 16:30 70 22 91 04/26/23 16:16 69 24 96 04/26/23 16:16 125/54 L 04/26/23 16:01 69 26 H 95 04/26/23 16:01 111/60 04/26/23 16:00 67 24 94 04/26/23 15:46 69 04/26/23 15:45 105/67 04/26/23 15:45 69 26 H 91 Oxymask 04/26/23 15:31 74 30 H 04/26/23 15:31 105/58 L 04/26/23 15:30 74 18 98 04/26/23 15:16 119/85 04/26/23 15:16 74 28 H 94 04/26/23 15:15 75 28 H 96 04/26/23 15:00 139/80 04/26/23 15:00 73 23 96 04/26/23 14:45 72 21 95 04/26/23 14:45 124/77 04/26/23 14:30 102/66 04/26/23 14:30 73 27 H 97 04/26/23 14:15 118/62 04/26/23 14:15 73 27 H 94 BiPAP 04/26/23 14:14 120/67 04/26/23 14:14 73 21 93 04/26/23 14:10 75 23 96 04/26/23 14:05 73 19 98 04/26/23 14:03 73 22 98 BiPAP 04/26/23 14:03 146/102 H 04/26/23 14:00 151/104 H 04/26/23 14:00 76 24 98 04/26/23 13:45 75 12 94 04/26/23 12:35 80 30 H 96 04/26/23 12:30 143/48 H 04/26/23 12:30 82 24 94 Oxymask 04/26/23 12:00 124/67 04/26/23 12:00 81 25 H 92 04/26/23 12:00 37 C 04/26/23 11:30 101/50 L 04/26/23 11:30 80 29 H 91 O2 Flow Rate FiO2 04/26/23 20:37 3 04/26/23 19:34 04/26/23 19:30 04/26/23 19:25 2 04/26/23 19:17 04/26/23 19:00 04/26/23 17:15 04/26/23 17:10 04/26/23 17:05 2 04/26/23 17:01 04/26/23 17:01 04/26/23 17:00 04/26/23 16:30 04/26/23 16:16 04/26/23 16:16 04/26/23 16:01 04/26/23 16:01 04/26/23 16:00 04/26/23 15:46 04/26/23 15:45 04/26/23 15:45 2 04/26/23 15:31 04/26/23 15:31 04/26/23 15:30 04/26/23 15:16 04/26/23 15:16 04/26/23 15:15 04/26/23 15:00 04/26/23 15:00 04/26/23 14:45 04/26/23 14:45 04/26/23 14:30 04/26/23 14:30 04/26/23 14:15 04/26/23 14:15 04/26/23 14:14 04/26/23 14:14 04/26/23 14:10 04/26/23 14:05 04/26/23 14:03 04/26/23 14:03 04/26/23 14:00 04/26/23 14:00 04/26/23 13:45 04/26/23 12:35 40 04/26/23 12:30 04/26/23 12:30 2 04/26/23 12:00 04/26/23 12:00 04/26/23 12:00 04/26/23 11:30 04/26/23 11:30 PG Care Time/CCT Total # of Minutes Spent Total Time Spent with Patient: Total time spent is greater than 50% in coordination of care (as documented) at patient's floor/unit and/or counseling patient: Coding Level of Care Code 45692 SUB INP/OBS CARE 3/50MIN Diagnoses Septic shock A41.9; R65.21 Acute respiratory failure with hypoxia and hypercapnia J96.01; J96.02 NSTEMI (non-ST elevated myocardial infarction) I21.4 UTI (urinary tract infection) N39.0 Aspiration pneumonia J69.0 Colitis K52.9 Acidosis, metabolic, with respiratory acidosis E87.4 Chronic incomplete quadriplegia G82.50 Acute kidney failure N17.9 Pacemaker Z95.0 Chronic anticoagulation Z79.01 Chronic indwelling Will catheter Z97.8 History of stroke Z86.73 Chronic prescription opiate use Z79.891
[2023-04-27 04:34] LABS: Basophils # (auto) 0.03 K/uL (0.00-0.20); Basophils % (auto) 0.2 %; Hematocrit (blood only) 30.7 % (42.0-52.0); Hemoglobin 9.7 g/dl (14.0-18.0); Immature Granulocytes # (auto) 0.19 K/uL (0.01-0.20); Immature Granulocytes % (auto) 1.6 %; Lymphocytes # (auto) 0.63 K/uL (1.20-3.40); Lymphocytes % (auto) 5.2 %; Mean Corpuscular Hemoglobin 27.8 pg (25.0-34.0); Mean Corpuscular Hgb Conc 31.6 g/dL (32.0-36.0); Mean Platelet Volume 10.1 fL (9.4-12.4); Monocytes # (auto) 0.92 K/uL (0.11-0.59); Monocytes % (auto) 7.6 %; Neutrophils # (auto) 10.31 K/uL (1.40-6.50); Neutrophils % (auto) 85.4 %; Platelet Count 395 K/uL (130-400); RDW Coefficient of Variation 14.6 % (11.5-14.5); RDW Standard Deviation 45.3 fL (36.4-46.3); Red Blood Count 3.49 M/uL (4.70-6.10); White Blood Count 12.08 K/ul (4.8-10.8)
[2023-04-27 04:40] LABS: Anion Gap 5 (3-11); BUN Creatinine Ratio 53.3 (10-20); Blood Urea Nitrogen 16 mg/dl (6-23); Calcium 8.5 mg/dl (8.6-10.3); Carbon Dioxide 24 mmol/L (21-32); Chloride 105 mmol/L (98-107); Creatinine Clr Calc Pharmacy 360.6 ml/min; Est GFR (African American) > 150.0 ml/min; Est GFR (Non-African American) > 150.0 ml/min; Glucose 150 mg/dl (70-99(Fasting)); Magnesium 1.8 mg/dl (1.7-2.4); Phosphorus 2.9 mg/dl (2.5-4.9); Potassium 3.7 mmol/L (3.5-5.1); Sodium 134 mmol/L (136-145)
[2023-04-27] MEDS: MAGNESIUM SULFATE / D5W 1 GM/100 ML BAG IV SCH (06:36)
[2023-04-27] MEDS: POTASSIUM CHLORIDE / WTR 10 MEQ/100 ML PLCT IV SCH (06:36)
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
--- NOTE | 2023-04-27 07:56 | Critical Care Progress Note ---
Date of Service April 27, 2023 Assessment & Plan (1) Septic shock: (2) Acute respiratory failure with hypoxia and hypercapnia: (3) Aspiration pneumonia: (4) Chronic incomplete quadriplegia: (5) Acute kidney failure: (6) Thrombocytopenia: (7) Febrile: (8) Encephalopathy: Plan Reason for ICU admission: Mr. Cevallos is a 52 y/o male with PMHx of quadriplegia, prior tracheostomy, and pacemaker who was admitted to ICU due to septic shock secondary to aspiration pneumonia. NEURO: --Metabolic encephalopathy Sepsis possibly, questionable meningitis/encephalitis On broad-spectrum antibiotics MRI brain unable to be obtained given pacemaker currently. EEG from 04/21/2023 with diffuse slowing. Lumbar puncture trial 04/24/2023 was unsuccessful --> repeat lumbar puncture 04/26/2023, negative bio fire negative. Mildly elevated protein with mildly elevated glucose. Opening pressure was 40 -Continue baclofen, gabapentin and Klonopin. Suboxone also added back to help prevent withdrawals. CARDIOVASCULAR: --Septic shock versus autonomic from paraplegia On Levophed * Wean as able with the goal to maintain MAPs > 65 mmHg. Random cortisol less than 5, started on hydrocortisone on 04/25/2023 - Cardiology evaluated: * troponin elevation likely related to demand ischemia rather than ACS * pacemaker functional * TTE showing hyperdynamic LV function with no wall motion abnormalities, suggesting troponin elevation reflects limited microvascular damage. - Continue monitoring PULMONARY: -- S/p VDRF Likely secondary to metabolic encephalopathy with ventilatory failure Extubated to 1324 GI: --Transaminitis --> Trending down Ammonia within normal limits 04/23/2023 Etiology could be ischemic Hepatitis panel pending CT abdomen and pelvis on admission with evidence of nonspecific colitis and a 1.5 cm polyp versus adherent stool to the rectal joint sigmoid colon. Hepatic steatosis was noted. HEMATOLOGY: --Monitor H&H --S/p thrombocytopenia Likely from sepsis -Improving. PF4 antibody negative. - Fibrinogen normal ID: --Aspiration pneumonia of the right lower lobe Continue with antibiotics -Blood cultures from 04/19 growing coag negative staph likely contaminant. Repeat blood cultures negative to date. - Abx: Meningitis doses of vancomycin, ampicillin, ceftriaxone and acyclovir started 04/23/2023 due to persistent fevers and concern for meningitis/encephalitis. Procalcitonin 54--> 13.5, trending down RENAL/ELECTROLYTES: -- Monitor BUNs/creatinine Avoid nephrotoxic medication ENDO: --ICU hyperglycemia protocol - Last TSH normal (3.365 on 04/16/23) CODE STATUS: DNR/DNI --Prophylaxis VTE: Lovenox GI: Pantoprazole Lines: Peripheral Diet: N.p.o. Plan: In/out: +773, urine output 2245 Continue with hydrocortisone given the low cortisol. I will get swallow eval on the patient if is not able to swallow then put NG tube in and started him on midodrine. Potassium and magnesium being replaced Given that the platelets at the 95 we will start the patient on Lovenox. Antibiotics as per DEMETRIO Cevallos [phone] Please note the above document was generated using voice recognition software. It may contain grammatical, syntax or spelling errors.Any formal questions or concerns about the content, text or information contained within the body of this dictation should be directly addressed to the provider for clarification. Admission and Anticipated Discharge Date Admission Date: April 19, 2023 Subjective Patient seen and examined at bedside. No acute distress, no adverse events overnight He has been off of Levophed as of 4 AM. He did need little bit of Levophed overnight to keep his MAP greater than 65 He was saturating 95 to 96% on 2 L oxime mask. Still having difficulty clearing the phlegm. Denied any headache, no chest pain, no abdominal pain. Answers questions by nodding his head and saying yes or no Review of Systems 2 Review of Systems: All systems reviewed & are unremarkable except as noted in Subjective Physical Exam 2 Physical Exam: Constitutional: No acute distress HEENT: EOMI, PERRLA Respiratory system: Decreased air entry bilaterally, no wheeze, positive rhonchi, more on the right side, mild crackles bilateral lower lobes CVS: S1-S2 positive, no murmurs or gallops Abdomen: Soft, nontender, nondistended, positive bowel sounds x4 Extremities: +1 pulses bilaterally radialis/ dorsalis pedis, no cyanosis, minimal pitting edema bilateral lower extremity, spastic fingers of the upper extremities bilaterally R>L Neuro: Awake, alert, answering questions with nodding his head as well as soft yes and no Psych: Normal mood and affect G/U: Positive Dial Skin: no rashes, warm and dry Lymphatic: no cervical or axillary lymphadenopathy Results & Data Results & Data Vital Signs (Past 12 Hours) Vital Signs Temp Pulse Pulse Resp BP Pulse Ox O2 Del Method 04/27/23 06:00 65 21 95 04/27/23 05:25 67 16 110/57 L 95 04/27/23 05:00 67 17 93 04/27/23 04:52 35.8 C L 04/27/23 04:00 64 19 96/64 L 94 04/27/23 03:48 65 15 98 04/27/23 03:04 67 16 106/70 97 04/27/23 03:01 65 19 75/49 L 93 04/27/23 03:00 64 16 76/57 L 97 04/27/23 02:00 65 16 86/56 L 93 04/27/23 01:00 65 16 101/77 96 04/27/23 00:30 36.1 C L 04/27/23 00:30 62 16 96 04/27/23 00:01 61 15 102/52 L 92 04/27/23 00:00 67 04/27/23 00:00 61 16 95 04/26/23 23:30 62 16 94 04/26/23 23:00 65 16 125/75 97 04/26/23 22:30 66 14 97 04/26/23 22:01 62 16 123/75 95 04/26/23 22:00 62 19 94 04/26/23 21:50 60 15 80/44 L 93 04/26/23 21:49 62 16 77/49 L 93 04/26/23 21:39 64 18 94 04/26/23 21:30 64 22 97 04/26/23 21:15 66 18 95 04/26/23 21:15 88/44 L 04/26/23 21:00 65 23 90/55 L 96 04/26/23 20:37 63 24 96 Oxymask 04/26/23 20:30 64 19 95 04/26/23 20:00 73 22 97/52 L 96 O2 Flow Rate FiO2 04/27/23 06:00 04/27/23 05:25 04/27/23 05:00 04/27/23 04:52 04/27/23 04:00 04/27/23 03:48 40 04/27/23 03:04 04/27/23 03:01 04/27/23 03:00 04/27/23 02:00 04/27/23 01:00 04/27/23 00:30 04/27/23 00:30 04/27/23 00:01 04/27/23 00:00 04/27/23 00:00 04/26/23 23:30 04/26/23 23:00 04/26/23 22:30 04/26/23 22:01 04/26/23 22:00 04/26/23 21:50 04/26/23 21:49 04/26/23 21:39 40 04/26/23 21:30 04/26/23 21:15 04/26/23 21:15 04/26/23 21:00 04/26/23 20:37 3 04/26/23 20:30 04/26/23 20:00 Laboratory Results 04/27/23 03:56 04/27/23 03:56 Coding Level of Care Code 56445 SUB INP/OBS CARE 350MIN Diagnoses Septic shock A41.9; R65.21 Acute respiratory failure with hypoxia and hypercapnia J96.01; J96.02 Aspiration pneumonia J69.0 Chronic incomplete quadriplegia G82.50 Acute kidney failure N17.9 Thrombocytopenia D69.6 Febrile R50.9 Encephalopathy G93.40
[2023-04-27] MEDS: acetaZOLAMIDE 250 MG in SYRINGE 0 ML IV ONE (09:33)
[2023-04-27] MEDS: POTASSIUM CHLORIDE / WTR 20 MEQ/100 ML PLCT IV ONE (10:06)
[2023-04-27] MEDS: ENOXAPARIN INJ 40 MG/0.4 ML SYR SQ SCH (11:05)
[2023-04-27] MEDS ORDERED: STAT IV Infusion **Titration per Protocol STA (12:03)
--- NOTE | 2023-04-27 12:11 | Infectious Disease Progress Nt ---
Date of Service April 27, 2023 Assessment & Plan (1) Acute respiratory failure with hypoxia and hypercapnia: (2) Aspiration pneumonia: (3) Thrombocytopenia: (4) Encephalopathy: (5) Febrile: (6) Coagulase negative Staphylococcus bacteremia: (7) Chronic incomplete quadriplegia: (8) Chronic indwelling Dial catheter: (9) Pacemaker: Plan Keyon Cevallos is a 52-year-old man with incomplete quadriplegia, prior tracheostomy, PPM in place, chronic Dial catheter, who presents to the [facility] ED on 04/19/23 with altered mental status, requiring intubation and ICU. Hospitalization c/b thrombocytopenia (plt aziza at 17) and persistent fevers and AMS which led to being started on broad abx for meningitis/encephalitis on 04/23; on 04/26 LP was able to be performed which showed elevated OP of 40, 0 WBCs, 0 RBCs, slightly high glu, high-normal protein, and negative CSF biofire. Labs also with elevated AST/ALT, mildly elevated bili (resolved). Now extubated 04/25, with fevers improving on 04/26. Overall unclear etiology for pts AMS and fevers. C/f meningitis/encephalitis, vs. infection of other etiology (UTI, pna, bacteremia). 04/26 LP was delayed (had been on abx since 04/19, and had been on broad meningitis coverage (vanc, ceftriaxone, amp, acyclovir) since 04/23. 04/26 LP showed: elevated OP of 40, 0 WBCs, 0 RBCs, slightly high glu, high-normal protein, and negative CSF biofire. Although this was after antimicrobial therapy, the CSF profile is very reassuring against LUMBER MARKER infection, with 0 WBCs. Unclear why OP was elevated (40), uncertain if this may be impacted by spinal cord injury. In evaluating other possible sources: 04/19 CT imaging with mild colitis and Dial in place (with pyuria but UCx 3 types of low-count mayte). Initial CT 04/19 with c/f aspiration pna, and bronch on 04/19 yielding bilateral purulent material, with bronch cx growing only moderate mayte. Initial CT also with colonic thickening and negative stool PCR panel. Already treated with a course pip-tazo. Low threshold for repeat CT C/A/P if fevers recur. Also with lab abnormalities including significant thrombocytopenia (aziza of 17, now recovered) which is c/f tickborne and viral infection. Also with mildly elevated bili (resolved) and transaminitis (ongoing), negative acute hep panel. Conjunctival injection on exam may be c/f viral infection such as adenovirus though is not specific, also considered leptospirosis (bilateral conjunctival suffusion). Unclear whether pt has epidemiologic risk factors (travel, outdoor exposure) with his partial quadriplegia though occasionally such illnesses can be transmitted through fleas, rodents in the home, etc. Sending for tickborne disease, lepto, HIV, HSV PCR. Pt also with 04/19 CoNS bacteremia, both CoNS non-lugdunensis and Staph lugdunensis. While the multiple CoNS morphologies may be indicative of contamination, Staph lugdunensis can cause invasive endovascular infection including IE/PPM infection. Has been treated given that pts Staph lug is S- oxacillin and has been on pip-tazo. Reassuringly with BCx that have cleared quickly (repeat on 04/20 BCx NGTD, and repeat on 04/23 BCx3 NGTD). TTE was very poor quality but without vegetations. Could consider repeat TTE. Low threshold to reevaluate pts PPM and consider KARUNA. May want to consider a 14-day course of treatment (may be encompassed by other broad-spectrum abx he has already received) and surveillance cx after stopping abx. Overall, it seems unlikely that the Staph lugdunensis explains the pts clinical presentation (persistent AMS). Continue broad-spectrum antimicrobials for possible meningitis: IV vancomycin (dosing per Rx), ceftriaxone, ampicillin, and acyclovir. Out of abundance of caution and given low risk profile, can also continue doxycycline for possible tickborne disease and/or leptospirosis, especially given the uncertain etiology of pts presentation and apparent improvement after the doxycycline was initiated. ID Problem List: 1.Altered mental status / encephalopathy, concern for meningitis 2.Possible aspiration pna 3.Staph lugdunensis and CoNS (non-lugdunensis) bacteremia on 04/19 4.Thrombocytopenia, elevated bilirubin 5.Bilateral L > R conjunctivitis 6.Acute hypoxemic respiratory failure 7.Quadriplegia 8.PPM in place Recommendations: - Stop vancomycin, ceftriaxone, ampicillin, and acyclovir given reassuring LP - Start cefazolin to continue treatment course for Staph lugdenensis (04/19 04/14 ) --- Out of abundance of caution, would repeat BCx x2 sets ~2 weeks after stopping abx (approx 05/16/23) given pts PPM - If clinical worsening and fever after stopping broad-spectrum abx, repeat BCx, can re-broaden to vancomycin and cefepime. - Continue doxycycline 100 mg PO BID - F/u 04/26 LP studies - F/u: Rickettsial panel, Lyme, RMSF, Anaplasma PCR, Ehrlichia PCR, leptospirosis PCR/Ab, Strep pneumo UrAg, HIV - Low threshold for repeat CT C/A/P if fevers recur - Consider repeat TTE - MRI brain cannot be obtained due to non-compatible PPM ID will continue to follow. Jana Lorenzo MD, [facility] Infectious Diseases [facility] ID Connect direct line: [phone] Admission and Anticipated Discharge Date Admission Date: April 19, 2023 Subjective Subsequent visit was provided via telemedicine using two-way real-time interactive telecommunication between the patient and the telemedicine provider. For the duration of the visit, the provider was performing the assessment from a different facility than the patient. This includesuse of bluetooth stethoscope forauscultationperformed by the telepresenter that the telemedicine provider can hear if described in the physical exam. Medication Tech contact information: Please call [facility] Connect Call Center . (Phone Number For Physician Use Only) After establishing a telemedicine visit, patient was: Patient was verified with two unique identifiers, Patient/authorized rep acknowledged consent and understanding and Gave permission to continue telehealth session Time Spent with Patient: Subsequent => 55 min - Afebrile - Oxymask weaned to 3L this am - Off levophed - 04/26 LP showed high OP of 40, but 0 WBCs, 0 RBCs, glu 97, tprot 47.1, neg biofire - Able to nod/shake head in response to simple questions Physical Exam Physical Exam: Exam obtained with aid of in-person telepresenter. General: No acute distress. Wearing face mask. HEENT: Conjunctivae injected bilaterally L > R that is improving significantly compared with prior, sclerae anicteric, MMM, OP clear. Resp: Respirations nonlabored. Chest: PPM site without any swelling or redness, no apparent tenderness to palpation. Abd: Soft, nondistended. : Dial in place draining dark orange urine. Ext: Warm and well-perfused, no edema. No obvious joint effusions. Skin: Scattered hypopigmentation patches over abdomen and hands. L knee with shallow abrasion. Neuro: Awake. Paraplegia. Able to understand questions and partially converse by nodding/shaking head Psych: Unable to assess Results & Data Vital Signs (Past 12 Hours) Vital Signs Temp Pulse Pulse Resp BP Pulse Ox O2 Del Method 04/27/23 10:00 122/57 L 04/27/23 10:00 76 20 92 Mechanical Vent 04/27/23 09:01 113/80 04/27/23 09:01 77 22 93 04/27/23 09:00 77 22 96 04/27/23 08:00 80 24 97 04/27/23 08:00 133/85 04/27/23 07:34 3 L 20 91 Room Air 04/27/23 07:00 105/59 L 04/27/23 07:00 63 19 96 04/27/23 06:00 108/66 04/27/23 06:00 65 21 95 04/27/23 05:25 67 16 110/57 L 95 04/27/23 05:00 67 17 93 04/27/23 04:52 35.8 C L 04/27/23 04:00 64 19 96/64 L 94 04/27/23 03:48 65 15 98 04/27/23 03:04 67 16 106/70 97 04/27/23 03:01 65 19 75/49 L 93 04/27/23 03:00 64 16 76/57 L 97 04/27/23 02:00 65 16 86/56 L 93 04/27/23 01:00 65 16 101/77 96 04/27/23 00:30 36.1 C L 04/27/23 00:30 62 16 96 FiO2 04/27/23 10:00 04/27/23 10:00 60 04/27/23 09:01 04/27/23 09:01 04/27/23 09:00 04/27/23 08:00 04/27/23 08:00 04/27/23 07:34 04/27/23 07:00 04/27/23 07:00 04/27/23 06:00 04/27/23 06:00 04/27/23 05:25 04/27/23 05:00 04/27/23 04:52 04/27/23 04:00 04/27/23 03:48 40 04/27/23 03:04 04/27/23 03:01 04/27/23 03:00 04/27/23 02:00 04/27/23 01:00 04/27/23 00:30 04/27/23 00:30 Diagnostic Findings Diagnostics: 04/26 CT head No acute intracranial hemorrhage, no evidence of acute territorial infarction or other acute intracranial disease process. 04/19 CTA chest 1. No evidence for a pulmonary embolus. 2. Endotracheal tube terminates 3.6 cm from the singh. 3. Partial mucoid opacification the bilateral lower lobe bronchi most pronounced on the right with bilateral lower lobe basilar consolidation. This favors an aspiration pneumonitis. Follow-up bronchoscopy should be considered for possible clearing of the mucoid opacification of the right lower lobe bronchi. 4. Mild subcarinal and right hilar lymphadenopathy. This may be reactive to the suspected pneumonitis. Follow-up recommended to ensure resolution. 5. Mild pulmonary arterial hypertension. 6. Additional findings as described above. 04/19 CT A/P 1. Dial balloon within the prostatic urethra. A Dial catheter could be advanced. 2. No bowel obstruction. Fluid-filled colon. Wall thickening of portions of the colon likely due to underdistention. A mild nonspecific colitis could appear similar. 1.5 cm polyp versus adherent stool at the rectosigmoid junction. Nonemergent GI consultation for consideration for colonoscopy is recommended. 3. Bilateral lower lobe airspace opacities with mucus plugging and bronchial wall thickening. This favors pneumonia or aspiration pneumonitis. 04/19 TTE: technically limited hyperdynamic LV, mild concentric LVH, RV normal. No significant valvular disease but very technically limited. 2 bronch path: Lung, right lower lobe (cytologic evaluation of the bronchial wash specimen): - Severe acute inflammation is seen. - No tumor seen. - Viral cytopathic effects are not seen - The ThinPrep reveals many PMNs leukocytes, histiocytes, scattered degenerate bronchial lining epithelial cells, and a few lymphocytes. Malignant cells are not seen. Viral cytopathic effects are not seen. The cellblock reveals sheets of PMNs leukocytes Micro Summary: 04/26 LP: opening pressure 40 (H) 0 WBC, 0 RBC. glu 97 (H), tprotein 47.1 (H). CSF biofire negative - CSF gram stain: no WBCs, no orgs; cx NGTD - CSF fungal cx: pending - CSF: AFB cx pending 04/25 Ehrlichia DNA pending, Q fever Ab pending, Rickettsia Ab pending, Typhus Ab pending, leptospirosis Ab/PCR pending, Babesia pending, Anaplasma pending, Babesia/Anaplasma smears neg. Lyme screen neg. EBNA pending. 04/25 HSV PCR pending 04/25 HIV pending 04/23 BCx x2: NGTD 04/23: acute hep panel neg 04/20 BCx x2: NGTD 04/19 bronch wash RLL: moderate mayte; stainmod polys, many GNRs, rare GPCs 04/19 BCx x2: CoNS, Staph lugdunensis (S-oxacillin, vancomycin) 04/19 UCx: 3 types of organisms, low counts 04/19 MRSA nares: neg 04/19 respiratory RVP: neg 04/19 stool panel neg 04/19 UTox with +methamphetamines/amphetamines and THC Antibiotic Summary: vancomycin (04/19, 04/23 present) ceftriaxone (04/23 present) ampicillin (04/23 present) acyclovir (04/23 present) doxycycline (04/25 present) prior pip-tazo (04/19-04/23)
[2023-04-27] MEDS: NOREPINEPHRINE/D5W 4 MG/250 ML PLCT IV SCH (12:13)
[2023-04-27] MEDS: FUROSEMIDE 40 MG/4 ML VIAL IV SCH (15:21)
[2023-04-27] MEDS: ceFAZolin 2000MG 2,000 MG/15 ML SYR IV SCH (15:21)
[2023-04-27 15:22] LABS: Anion Gap 4 (3-11); BUN Creatinine Ratio 51.5 (10-20); Blood Urea Nitrogen 17 mg/dl (6-23); Calcium 8.5 mg/dl (8.6-10.3); Carbon Dioxide 22 mmol/L (21-32); Chloride 107 mmol/L (98-107); Creatinine Clr Calc Pharmacy 327.6 ml/min; Est GFR (African American) > 150.0 ml/min; Est GFR (Non-African American) 147.8 ml/min; Glucose 107 mg/dl (70-99(Fasting)); Potassium 3.9 mmol/L (3.5-5.1); Sodium 133 mmol/L (136-145)
--- NOTE | 2023-04-27 16:48 | XRay Report ---
KUB CLINICAL HISTORY: NG placement COMPARISON STUDY: CT of the abdomen and pelvis and KUB April 19, 2023. FINDINGS: This exam is compromised by motion artifact. Tip of nasogastric tube is within the body of the stomach. Left subclavian pacer and a stent within the thoracic aorta are partially imaged. There is an IVC filter. Prominent gas-filled loops of bowel within the upper abdomen are partially imaged. This likely reflects gas within the colon. IMPRESSION: Tip of nasogastric tube within the body of the stomach. ACT 112: Negative or not required by law. Electronically signed by: Sin Ying M.D. 04/27/2023 4:47 PM
[2023-04-27] MEDS: MIDODRINE HCL 2.5 MG TAB PO SCH (17:21)
[2023-04-27] MEDS: ARTIFICIAL TEARS OP OINT 3.5 GM TUBE OP PRN (23:57)
[2023-04-28 04:47] LABS: Basophils # (auto) 0.02 K/uL (0.00-0.20); Basophils % (auto) 0.2 %; Hematocrit (blood only) 34.4 % (42.0-52.0); Hemoglobin 10.7 g/dl (14.0-18.0); Immature Granulocytes # (auto) 0.14 K/uL (0.01-0.20); Immature Granulocytes % (auto) 1.2 %; Lymphocytes % (auto) 5.4 %; Mean Corpuscular Hemoglobin 27.2 pg (25.0-34.0); Mean Corpuscular Hgb Conc 31.1 g/dL (32.0-36.0); Mean Corpuscular Volume 87.3 fL (80.0-100.0); Mean Platelet Volume 9.8 fL (9.4-12.4); Monocytes # (auto) 0.93 K/uL (0.11-0.59); Monocytes % (auto) 8.3 %; Neutrophils # (auto) 9.52 K/uL (1.40-6.50); Neutrophils % (auto) 84.9 %; Platelet Count 504 K/uL (130-400); Red Blood Count 3.94 M/uL (4.70-6.10); White Blood Count 11.21 K/ul (4.8-10.8)
[2023-04-28] MEDS ORDERED: VANCOMYCIN LEVEL ONE (05:00)
[2023-04-28 05:02] LABS: Anion Gap 7 (3-11); BUN Creatinine Ratio 41.5 (10-20); Blood Urea Nitrogen 17 mg/dl (6-23); Carbon Dioxide 23 mmol/L (21-32); Chloride 107 mmol/L (98-107); Creatinine Clr Calc Pharmacy 263.7 ml/min; Est GFR (African American) > 150.0 ml/min; Est GFR (Non-African American) 135.2 ml/min; Glucose 110 mg/dl (70-99(Fasting)); Phosphorus 3.7 mg/dl (2.5-4.9); Potassium 3.8 mmol/L (3.5-5.1); Sodium 137 mmol/L (136-145)
--- NOTE | 2023-04-28 07:21 | Critical Care Progress Note ---
Date of Service April 28, 2023 Assessment & Plan (1) Septic shock: (2) Acute respiratory failure with hypoxia and hypercapnia: (3) Aspiration pneumonia: (4) Chronic incomplete quadriplegia: (5) Acute kidney failure: (6) Thrombocytopenia: (7) Febrile: (8) Encephalopathy: Plan Reason for ICU admission: Mr. Cevallos is a 52 y/o male with PMHx of quadriplegia, prior tracheostomy, and pacemaker who was admitted to ICU due to septic shock secondary to aspiration pneumonia. NEURO: --Metabolic encephalopathy Sepsis possibly, questionable meningitis/encephalitis On broad-spectrum antibiotics MRI brain unable to be obtained given pacemaker currently. EEG from 04/21/2023 with diffuse slowing. Lumbar puncture trial 04/24/2023 was unsuccessful --> repeat lumbar puncture 04/26/2023, negative bio fire negative. Mildly elevated protein with mildly elevated glucose. Opening pressure was 40 -Continue baclofen, gabapentin and Klonopin. Suboxone also added back to help prevent withdrawals. CARDIOVASCULAR: --Septic shock versus autonomic from paraplegia On Levophed * Wean as able with the goal to maintain MAPs > 65 mmHg. Random cortisol less than 5, started on hydrocortisone on 04/25/2023 - Cardiology evaluated: * troponin elevation likely related to demand ischemia rather than ACS * pacemaker functional * TTE showing hyperdynamic LV function with no wall motion abnormalities - Continue monitoring PULMONARY: -- S/p VDRF Likely secondary to metabolic encephalopathy with ventilatory failure Extubated to 1324 GI: --Transaminitis --> Trending down Ammonia within normal limits 04/23/2023 Etiology could be ischemic Hepatitis panel pending CT abdomen and pelvis on admission with evidence of nonspecific colitis and a 1.5 cm polyp versus adherent stool to the rectal joint sigmoid colon. Hepatic steatosis was noted. HEMATOLOGY: --Monitor H&H --S/p thrombocytopenia Likely from sepsis -Improving. PF4 antibody negative. - Fibrinogen normal ID: --Aspiration pneumonia of the right lower lobe Continue with antibiotics -Blood cultures from 04/19 growing coag negative staph likely contaminant. Repeat blood cultures 04/23/2023 negative to date. - Abx: Meningitis doses of vancomycin, ampicillin, ceftriaxone and acyclovir started 04/23/2023 due to persistent fevers and concern for meningitis/encephalitis. Procalcitonin 54--> 13.5, trending down RENAL/ELECTROLYTES: -- Monitor BUNs/creatinine Avoid nephrotoxic medication ENDO: --ICU hyperglycemia protocol - Last TSH normal (3.365 on 04/16/23) CODE STATUS: DNR/DNI --Prophylaxis VTE: Lovenox GI: Pantoprazole Lines: Peripheral Diet: Tube feeds Plan: In/out: -2.9 L, urine output 3925 Decrease hydrocortisone to 50 mg every 12 Increase midodrine to 10 mg Q8 Potassium being replaced I will start the patient on tube feeds Antibiotics as per ID Patient condition seems to be deteriorating compared to yesterday. I will repeat blood culture as well as sputum culture Follow-up chest x-ray from today Myranda Mart [phone] I have personally spent 35 minutes of critical care time in the direct management of this patient. This is a life/limb threatening event. This includes time spent evaluating patient, direct bedside care, chart review, placing orders, interpretation of diagnostic studies, discussion with consultants, patient, and family members, as well as other required patient management activities. This time is exclusive of all separately billable procedures, and teaching time and separate from and in addition to any other critical care service time. Please note the above document was generated using voice recognition software. It may contain grammatical, syntax or spelling errors. Admission and Anticipated Discharge Date Admission Date: April 19, 2023 Subjective Patient seen and examined at bedside. No acute distress. Patient was on oxy mask. He still having difficulty talking. As per the nurse he had an episode today where he was not taking breaths for a while. He was put back on BiPAP This no fever since extubation Still requiring low-dose of Levophed Review of Systems 2 Review of Systems: All systems reviewed & are unremarkable except as noted in Subjective Physical Exam 2 Physical Exam: Constitutional: No acute distress HEENT: EOMI, PERRLA Respiratory system: Decreased air entry bilaterally, no wheeze, positive rhonchi, more on the right side, mild crackles bilateral lower lobes CVS: S1-S2 positive, no murmurs or gallops Abdomen: Soft, nontender, nondistended, positive bowel sounds x4 Extremities: +1 pulses bilaterally radialis/ dorsalis pedis, no cyanosis, minimal pitting edema bilateral lower extremity, spastic fingers of the upper extremities bilaterally R>L Neuro: Awake, answering questions with nodding his head as well as soft yes and no Psych: Flat mood and affect G/U: Positive Dial Skin: no rashes, warm and dry Lymphatic: no cervical or axillary lymphadenopathy Results & Data Results & Data Vital Signs (Past 12 Hours) Vital Signs Temp Pulse Pulse Resp BP Pulse Ox O2 Del Method 04/28/23 06:30 68 18 94 04/28/23 06:30 106/57 L 04/28/23 06:15 66 20 94 04/28/23 06:15 103/55 L 04/28/23 06:00 66 17 94 04/28/23 06:00 100/55 L 04/28/23 05:45 67 19 93 04/28/23 05:45 97/51 L 04/28/23 05:30 100/56 L 04/28/23 05:30 70 19 93 04/28/23 05:15 69 23 93 04/28/23 05:15 100/50 L 04/28/23 05:00 100/51 L 04/28/23 05:00 70 19 93 04/28/23 04:45 68 16 94 04/28/23 04:45 102/52 L 04/28/23 04:38 70 13 94 04/28/23 04:30 71 19 95 04/28/23 04:30 101/56 L 04/28/23 04:18 79/43 L 04/28/23 04:18 68 27 H 88 L 04/28/23 04:16 68 28 H 94 04/28/23 04:16 86/42 L 04/28/23 04:15 69 17 90 04/28/23 04:13 37.1 C 04/28/23 04:00 69 18 94 04/28/23 04:00 101/54 L 04/28/23 03:45 101/51 L 04/28/23 03:45 67 14 93 04/28/23 03:30 69 20 93 04/28/23 03:30 101/51 L 04/28/23 03:15 70 13 93 04/28/23 03:15 103/56 L 04/28/23 03:00 72 17 92 04/28/23 03:00 103/57 L 04/28/23 02:45 73 28 H 92 04/28/23 02:45 102/53 L 04/28/23 02:35 04/28/23 02:30 71 19 92 04/28/23 02:30 100/55 L 04/28/23 02:15 99/53 L 04/28/23 02:15 69 17 91 04/28/23 02:00 70 15 92 04/28/23 02:00 100/54 L 04/28/23 01:45 99/59 L 04/28/23 01:45 71 16 92 04/28/23 01:30 74 19 91 04/28/23 01:30 99/59 L 04/28/23 01:15 75 25 H 91 04/28/23 01:15 105/55 L 04/28/23 01:00 70 22 91 04/28/23 01:00 98/52 L 04/28/23 00:45 70 20 91 04/28/23 00:45 99/53 L 04/28/23 00:30 70 17 91 04/28/23 00:30 100/52 L 04/28/23 00:15 72 18 90 04/28/23 00:15 101/52 L 04/28/23 00:02 70 04/28/23 00:01 36.8 C 04/28/23 00:00 76 21 89 L 04/28/23 00:00 106/56 L 04/27/23 23:59 76 16 92 04/27/23 23:45 100/50 L 04/27/23 23:45 70 25 H 89 L 04/27/23 23:30 72 24 88 L 04/27/23 23:30 102/52 L 04/27/23 23:15 71 23 89 L 04/27/23 23:15 102/50 L 04/27/23 23:00 101/51 L 04/27/23 23:00 70 18 89 L 04/27/23 22:45 74 16 89 L 04/27/23 22:45 98/52 L 04/27/23 22:39 77 19 92 04/27/23 22:30 78 20 91 04/27/23 22:30 98/51 L 04/27/23 22:15 108/49 L 04/27/23 22:15 78 19 92 04/27/23 22:00 83 18 92 04/27/23 22:00 109/58 L 04/27/23 21:45 79 23 91 04/27/23 21:45 100/54 L 04/27/23 21:45 100/54 L 04/27/23 21:30 78 21 89/41 L 94 04/27/23 21:28 78 22 98/45 L 93 04/27/23 21:21 77 22 99/48 L 92 04/27/23 21:15 74 21 94/47 L 92 04/27/23 21:00 70 22 95 04/27/23 20:53 67 18 94 Oxymask 04/27/23 20:45 69 19 108/56 L 95 04/27/23 20:30 71 18 115/59 L 96 04/27/23 20:24 36.4 C L 04/27/23 20:15 73 23 114/60 96 04/27/23 20:00 74 17 113/61 95 04/27/23 19:55 Oxymask 04/27/23 19:45 68 19 105/56 L 96 04/27/23 19:30 67 18 107/61 96 O2 Flow Rate FiO2 04/28/23 06:30 04/28/23 06:30 04/28/23 06:15 04/28/23 06:15 04/28/23 06:00 04/28/23 06:00 04/28/23 05:45 04/28/23 05:45 04/28/23 05:30 04/28/23 05:30 04/28/23 05:15 04/28/23 05:15 04/28/23 05:00 04/28/23 05:00 04/28/23 04:45 04/28/23 04:45 04/28/23 04:38 40 04/28/23 04:30 04/28/23 04:30 04/28/23 04:18 04/28/23 04:18 04/28/23 04:16 04/28/23 04:16 04/28/23 04:15 04/28/23 04:13 04/28/23 04:00 04/28/23 04:00 04/28/23 03:45 04/28/23 03:45 04/28/23 03:30 04/28/23 03:30 04/28/23 03:15 04/28/23 03:15 04/28/23 03:00 04/28/23 03:00 04/28/23 02:45 04/28/23 02:45 04/28/23 02:35 40 04/28/23 02:30 04/28/23 02:30 04/28/23 02:15 04/28/23 02:15 04/28/23 02:00 04/28/23 02:00 04/28/23 01:45 04/28/23 01:45 04/28/23 01:30 04/28/23 01:30 04/28/23 01:15 04/28/23 01:15 04/28/23 01:00 04/28/23 01:00 04/28/23 00:45 04/28/23 00:45 04/28/23 00:30 04/28/23 00:30 04/28/23 00:15 04/28/23 00:15 04/28/23 00:02 04/28/23 00:01 04/28/23 00:00 04/28/23 00:00 04/27/23 23:59 04/27/23 23:45 04/27/23 23:45 04/27/23 23:30 04/27/23 23:30 04/27/23 23:15 04/27/23 23:15 04/27/23 23:00 04/27/23 23:00 04/27/23 22:45 04/27/23 22:45 04/27/23 22:39 30 04/27/23 22:30 04/27/23 22:30 04/27/23 22:15 04/27/23 22:15 04/27/23 22:00 04/27/23 22:00 04/27/23 21:45 04/27/23 21:45 04/27/23 21:45 04/27/23 21:30 04/27/23 21:28 04/27/23 21:21 04/27/23 21:15 04/27/23 21:00 04/27/23 20:53 04/27/23 20:45 04/27/23 20:30 04/27/23 20:24 04/27/23 20:15 04/27/23 20:00 04/27/23 19:55 3 04/27/23 19:45 04/27/23 19:30 Laboratory Results 04/28/23 04:04 04/28/23 04:04 Coding Level of Care Code 01835 CRITICAL CARE 1ST 30-74M Diagnoses Septic shock A41.9; R65.21 Acute respiratory failure with hypoxia and hypercapnia J96.01; J96.02 Aspiration pneumonia J69.0 Chronic incomplete quadriplegia G82.50 Acute kidney failure N17.9 Thrombocytopenia D69.6 Febrile R50.9 Encephalopathy G93.40
[2023-04-28 09:32] LABS: HSV Type 1 DNA Not Detected (Not Detected); HSV Type 1&2 DNA Source Whole Blood; HSV Type 2 DNA Not Detected (Not Detected)
[2023-04-28] MEDS: POTASSIUM CHLORIDE / WTR 20 MEQ/100 ML PLCT IV SCH (09:34)
[2023-04-28] MEDS ORDERED: NUTREN LIQD 2.0 1,000 ML BAG NG SCH (11:15)
[2023-04-28] MEDS: TUBE FEEDING WATER FLUSH NG SCH (11:45)
[2023-04-28] MEDS: MIDODRINE HCL 2.5 MG TAB PO STA (12:56)
--- NOTE | 2023-04-28 15:16 | XRay Report ---
XR chest 1V portable HISTORY: Respiratory failure. COMPARISON: Chest 04/26/2023. FINDINGS: Patchy bibasilar densities again noted. There is a small right pleural effusion. Progressiv e interstitial/vascular thickening suggestive of mild congestive change. Nasogastric tube terminates in the stomach. Left-sided pacemaker and cervical spinal fusion hardware again noted. A thoracic aort ic stent, unchanged. Right jugular central venous catheter terminates at the distal SVC. Postoperativ e changes again noted within the left humerus. IMPRESSION: 1. Satisfactory support line placement. 2. Mild congestive change and a small right pleural effusion. This has progressed in the interval. 3. Patchy bibasilar densities again noted. ACT 112: Negative or not required by law. Electronically signed by: Martinez Diggs M.D. 04/28/2023 3:15 PM
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
--- NOTE | 2023-04-28 15:33 | Hospitalist Progress Note ---
Date of Service April 28, 2023 Assessment & Plan (1) Septic shock: Plan: Multiple possible sources on admission but initial concern for UTI give chronic indwelling will catheter, however cultures never confirmed Other possibilities - aspiration pneumonia. colitis, tich born illness, meningitis, encephalitis Patient remains encephalopathic-metabolic encephalopathy, at times with apena, requiring bipap with backup rate LP performed with final results pending, ID following Empiric antibiotics with Cefazoin Doxycycline,and did have some iv hydrocortisone on 05/08 (2) Acute respiratory failure with hypoxia and hypercapnia: Plan: Secondary to presumed aspiration, S/p Bronchoscopy without defined culture source extubated given incomplete consider if C spine inital injury could be worsening issues with respiratory status (3) NSTEMI (non-ST elevated myocardial infarction): Plan: type 2 [place], secondary to demand ischemia from septic shock present on admission TTE - normal EF with no RWMA Has PPI (4) Colitis: Plan: Stool and c. diff PCR negative - deferred treatment pending results of this (5) Acidosis, metabolic, with respiratory acidosis: Plan: Normal anion gap Sodium bicarb given in ER. Repeat ABG POC ordered acetazolamide (6) Chronic incomplete quadriplegia: (7) Acute kidney failure: Plan: Unknown baseline - no known CKD ?obstructive uropathy with will placement noted on CT in prostate continue to monitor urine output (8) Pacemaker: Plan: Unclear reason for this. (9) Chronic anticoagulation: Plan: On Eliquis for DVT (10) Chronic indwelling Will catheter: Plan: Noted in prostate on ER CT, replaced ?obstructive uropathy (11) History of stroke: Plan: Noted on CT and confirmed by family/caregivers at bedside (12) Chronic prescription opiate use: Plan: On Suboxone as outpatient. Continue Fentanyl. Plan VTE prophylaxis - IV heparin Swallowing evaluation due to questions for safe swallowing, pt unable to take po, started on TF Moderate malnutrition Admission and Anticipated Discharge Date Admission Date: April 19, 2023 Results & Data Results & Data Vital Signs (Past 12 Hours) Vital Signs Temp Pulse Pulse Resp BP Pulse Ox O2 Del Method 04/28/23 15:00 79 18 101/48 L 93 04/28/23 14:45 78 20 104/47 L 93 04/28/23 14:15 79 20 98/46 L 92 04/28/23 14:00 78 20 104/48 L 93 04/28/23 13:45 78 20 104/48 L 90 04/28/23 13:15 77 23 117/58 L 92 04/28/23 13:00 74 22 98/48 L 92 04/28/23 12:58 74 22 98/47 L 91 04/28/23 12:54 74 26 H 95/43 L 91 04/28/23 12:30 75 26 H 105/49 L 94 04/28/23 12:00 99.2 F 04/28/23 12:00 74 26 H 99/48 L 93 04/28/23 11:45 74 20 100/49 L 94 04/28/23 11:30 76 17 97/51 L 94 04/28/23 11:15 74 23 100/50 L 93 04/28/23 11:00 75 17 102/52 L 92 04/28/23 10:53 78 16 93 04/28/23 10:45 74 24 104/53 L 93 04/28/23 10:36 BiPAP 04/28/23 10:30 74 20 101/56 L 93 BiPAP 04/28/23 10:15 75 22 101/49 L 92 04/28/23 10:00 80 22 102/50 L 92 04/28/23 09:30 86 23 103/51 L 93 04/28/23 09:00 89 26 H 101/49 L 90 04/28/23 08:33 89 22 111/54 L 91 04/28/23 08:30 90 24 94/44 L 90 04/28/23 08:00 82 04/28/23 08:00 90 24 104/47 L 90 04/28/23 08:00 97.2 F L 04/28/23 07:45 85 21 102/56 L 94 04/28/23 07:40 82 22 107/57 L 95 04/28/23 07:35 80 21 87/41 L 96 04/28/23 07:33 95/58 L 04/28/23 07:21 88 21 87 L 04/28/23 07:19 88 21 95 BiPAP 04/28/23 07:15 70 15 115/62 93 04/28/23 07:00 74 15 120/68 94 04/28/23 06:30 68 18 94 04/28/23 06:30 106/57 L 04/28/23 06:15 66 20 94 04/28/23 06:15 103/55 L 04/28/23 06:00 66 17 94 04/28/23 06:00 100/55 L 04/28/23 05:45 67 19 93 04/28/23 05:45 97/51 L 04/28/23 05:30 100/56 L 04/28/23 05:30 70 19 93 04/28/23 05:15 69 23 93 04/28/23 05:15 100/50 L 04/28/23 05:00 100/51 L 04/28/23 05:00 70 19 93 04/28/23 04:45 68 16 94 04/28/23 04:45 102/52 L 04/28/23 04:38 70 13 94 04/28/23 04:30 71 19 95 04/28/23 04:30 101/56 L 04/28/23 04:18 79/43 L 04/28/23 04:18 68 27 H 88 L 04/28/23 04:16 68 28 H 94 04/28/23 04:16 86/42 L 04/28/23 04:15 69 17 90 04/28/23 04:13 98.8 F 04/28/23 04:00 69 18 94 04/28/23 04:00 101/54 L 04/28/23 03:45 101/51 L 04/28/23 03:45 67 14 93 FiO2 04/28/23 15:00 04/28/23 14:45 04/28/23 14:15 04/28/23 14:00 04/28/23 13:45 04/28/23 13:15 04/28/23 13:00 04/28/23 12:58 04/28/23 12:54 04/28/23 12:30 04/28/23 12:00 04/28/23 12:00 04/28/23 11:45 04/28/23 11:30 04/28/23 11:15 04/28/23 11:00 04/28/23 10:53 40 04/28/23 10:45 04/28/23 10:36 04/28/23 10:30 04/28/23 10:15 04/28/23 10:00 04/28/23 09:30 04/28/23 09:00 04/28/23 08:33 04/28/23 08:30 04/28/23 08:00 04/28/23 08:00 04/28/23 08:00 04/28/23 07:45 04/28/23 07:40 04/28/23 07:35 04/28/23 07:33 04/28/23 07:21 04/28/23 07:19 04/28/23 07:15 04/28/23 07:00 04/28/23 06:30 04/28/23 06:30 04/28/23 06:15 04/28/23 06:15 04/28/23 06:00 04/28/23 06:00 04/28/23 05:45 04/28/23 05:45 04/28/23 05:30 04/28/23 05:30 04/28/23 05:15 04/28/23 05:15 04/28/23 05:00 04/28/23 05:00 04/28/23 04:45 04/28/23 04:45 04/28/23 04:38 40 04/28/23 04:30 04/28/23 04:30 04/28/23 04:18 04/28/23 04:18 04/28/23 04:16 04/28/23 04:16 04/28/23 04:15 04/28/23 04:13 04/28/23 04:00 04/28/23 04:00 04/28/23 03:45 04/28/23 03:45 PG Care Time/CCT Total # of Minutes Spent Total Time Spent with Patient: Total time spent is greater than 50% in coordination of care (as documented) at patient's floor/unit and/or counseling patient: Coding Level of Care Code 11209 SUB INP/OBS CARE 2/35MIN Diagnoses Septic shock A41.9; R65.21 Acute respiratory failure with hypoxia and hypercapnia J96.01; J96.02 NSTEMI (non-ST elevated myocardial infarction) I21.4 Colitis K52.9 Acidosis, metabolic, with respiratory acidosis E87.4 Chronic incomplete quadriplegia G82.50 Acute kidney failure N17.9 Pacemaker Z95.0 Chronic anticoagulation Z79.01 Chronic indwelling Will catheter Z97.8 History of stroke Z86.73 Chronic prescription opiate use Z79.891
[2023-04-28 16:09] LABS: Ehrlichia chaff DNA Bld Negative (Negative)
[2023-04-28] MEDS: MIDODRINE HCL 10 MG TAB PO SCH (16:34)
[2023-04-28] MEDS: HYDROCORTISONE SOD 50 MG in SYRINGE 0 ML IV SCH (16:35)
--- NOTE | 2023-04-28 18:47 | CT Scan Report ---
HEAD CT NONCONTRAST CT DOSE: 625.8 mGy.cm HISTORY: Altered mental status. TECHNIQUE: Multiaxial CT images of the head were performed without the use of intravenous contrast. A utomated exposure control was utilized for this study. A dose lowering technique was utilized adheri ng to the principles of ALARA. Comparison: Head CT 04/26/2023. Findings: Mild mucosal thickening within the ethmoid air cells and a small fluid level within the rig ht sphenoid sinus, unchanged. The mastoid air cells are clear. The calvarium and skull base are intac t. Focal area of encephalomalacia within the left frontal lobe, unchanged. This favors an old infarct . There is no mass, hematoma, midline shift, acute infarct. Impression: No significant change compared to the prior study. No acute intracranial abnormality. ACT 112: Negative or not required by law. Electronically signed by: Martinez Diggs M.D. 04/28/2023 6:44 PM
[2023-04-28 21:02] LABS: iSTAT Allen Test Pass; iSTAT Art Bld Gas pCO2 Correct 49 mmHg (35-46); iSTAT Art Bld Gas pH Corrected 7.339 (7.35-7.45); iSTAT Arterial Blood Gas HCO3 26 meg/L (19-24); iSTAT Arterial Blood Gas pCO2 48 mmHg (35-46); iSTAT Arterial Blood Gas pH 7.35 (7.35-7.45); iSTAT Arterial Blood Gas pO2 152 mmHg (80-95); iSTAT Arterial Blood Gas pO2 C 156; iSTAT Carbon Dioxide 28 mmol/L (24-31); iSTAT FiO2 40 %; iSTAT Hematocrit 32 % (42-52); iSTAT Hemoglobin 10.9 g/dl (14.0-18.0); iSTAT Potassium 4.1 mmol/L (3.3-5.0); iSTAT Site R Radial; iSTAT Sodium 139 mmol/L (135-144)
[2023-04-28 21:47] LABS: Babesia microti DNA Not Detected (Not Detected)
[2023-04-29 04:31] LABS: Basophils # (auto) 0.03 K/uL (0.00-0.20); Basophils % (auto) 0.3 %; Hematocrit (blood only) 34.4 % (42.0-52.0); Hemoglobin 10.7 g/dl (14.0-18.0); Immature Granulocytes # (auto) 0.18 K/uL (0.01-0.20); Immature Granulocytes % (auto) 1.6 %; Lymphocytes # (auto) 1.15 K/uL (1.20-3.40); Lymphocytes % (auto) 10.1 %; Mean Corpuscular Hemoglobin 27.6 pg (25.0-34.0); Mean Corpuscular Hgb Conc 31.1 g/dL (32.0-36.0); Mean Corpuscular Volume 88.7 fL (80.0-100.0); Mean Platelet Volume 9.4 fL (9.4-12.4); Monocytes # (auto) 1.33 K/uL (0.11-0.59); Monocytes % (auto) 11.6 %; Neutrophils # (auto) 8.75 K/uL (1.40-6.50); Neutrophils % (auto) 76.4 %; Platelet Count 487 K/uL (130-400); RDW Coefficient of Variation 15.9 % (11.5-14.5); RDW Standard Deviation 47.6 fL (36.4-46.3); Red Blood Count 3.88 M/uL (4.70-6.10); White Blood Count 11.44 K/ul (4.8-10.8)
[2023-04-29 04:52] LABS: Anion Gap 5 (3-11); BUN Creatinine Ratio 47.4 (10-20); Blood Urea Nitrogen 18 mg/dl (6-23); Carbon Dioxide 27 mmol/L (21-32); Chloride 107 mmol/L (98-107); Creatinine Clr Calc Pharmacy 281.3 ml/min; Est GFR (African American) > 150.0 ml/min; Est GFR (Non-African American) 139.5 ml/min; Glucose 118 mg/dl (70-99(Fasting)); Phosphorus 2.7 mg/dl (2.5-4.9); Potassium 3.7 mmol/L (3.5-5.1); Sodium 139 mmol/L (136-145)
[2023-04-29] MEDS: PROSOURCE NO CARB 30 ML/PKT NG SCH (08:06)
[2023-04-29] MEDS: POTASSIUM CHLORIDE 20 MEQ/15 ML UDC PO STA (08:23)
--- NOTE | 2023-04-29 09:32 | Critical Care Progress Note ---
Date of Service April 29, 2023 Assessment & Plan (1) Septic shock: (2) Acute respiratory failure with hypoxia and hypercapnia: (3) Aspiration pneumonia: (4) Chronic incomplete quadriplegia: (5) Acute kidney failure: (6) Thrombocytopenia: (7) Febrile: (8) Encephalopathy: Plan Reason for ICU admission: Mr. Cevallos is a 52 y/o male with PMHx of quadriplegia, prior tracheostomy, and pacemaker who was admitted to ICU due to septic shock secondary to aspiration pneumonia. NEURO: --Metabolic encephalopathy Sepsis possibly MRI brain unable to be obtained given pacemaker currently. EEG from 04/21/[address] diffuse [address] Multiple CT of the head done, latest one being 04/28/2023 which did not show any acute abnormality Lumbar puncture trial 04/24/2023 was unsuccessful --> repeat lumbar puncture 04/26/2023, negative bio fire negative. Mildly elevated protein with mildly elevated glucose. Opening pressure was 40 -Continue baclofen, gabapentin and Klonopin. Suboxone also added back to help prevent withdrawals. CARDIOVASCULAR: --Septic shock versus autonomic from paraplegia On Levophed * Wean as able with the goal to maintain MAPs > 65 mmHg. Random cortisol less than 5, started on hydrocortisone on 04/25/2023, started midodrine on 04/27/2023 - Cardiology evaluated: * troponin elevation likely related to demand ischemia rather than ACS * pacemaker functional * TTE showing hyperdynamic LV function with no wall motion abnormalities - Continue monitoring PULMONARY: -- S/p VDRF Likely secondary to metabolic encephalopathy with ventilatory failure Extubated 04/25/2023 -- Episodes of apnea Seem to be central apneas Gabapentin, baclofen as well as clonazepam has been discontinued as of 04/29/2023 GI: --Transaminitis --> Trending down Ammonia within normal limits 04/23/2023 Etiology could be ischemic Hepatitis panel pending CT abdomen and pelvis on admission with evidence of nonspecific colitis and a 1.5 cm polyp versus adherent stool to the rectal joint sigmoid colon. Hepatic steatosis was noted. HEMATOLOGY: --Monitor H&H --S/p thrombocytopenia Likely from sepsis -Improving. PF4 antibody negative. - Fibrinogen normal ID: --Aspiration pneumonia of the right lower lobe Continue with antibiotics -Blood cultures from 04/19 growing coag negative staph likely contaminant. Repeat blood cultures 04/23/2023 negative to date. - Abx: Meningitis doses of vancomycin, ampicillin, ceftriaxone and acyclovir started 04/23/2023 due to persistent fevers and concern for meningitis/encephalitis. Procalcitonin 54--> 13.5, trending down RENAL/ELECTROLYTES: -- Monitor BUNs/creatinine Avoid nephrotoxic medication ENDO: --ICU hyperglycemia protocol - Last TSH normal (3.365 on 04/16/23) CODE STATUS: DNR/DNI --Prophylaxis VTE: Lovenox GI: Pantoprazole Lines: Peripheral Diet: Tube feeds Plan: In/out: -1.1 L, urine output 1800 mL ABG 04/28/2023: 7.35/48/152 Continue with hydrocortisone 50 mg every 12 Midodrine 10 mg Q8 DC gabapentin, baclofen, clonazepam as well as Suboxone. Potassium being replaced Antibiotics as per ID Repeat sputum culture as well as blood cultures from 04/28/2023 negative to date Patient still needing Levophed on and off for couple of hours. Will try to wean it off to keep MAP greater than 65 Myranda Cevallos [phone] Please note the above document was generated using voice recognition software. It may contain grammatical, syntax or spelling errors.Any formal questions or concerns about the content, text or information contained within the body of this dictation should be directly addressed to the provider for clarification. Admission and Anticipated Discharge Date Admission Date: April 19, 2023 Subjective Patient seen and examined at bedside. No acute distress, no adverse events overnight He is more alert compared to yesterday Unfortunately not following commands. Not answering through his eyes. Review of Systems 2 Review of Systems: Unobtainable due to cognitive status Physical Exam 2 Physical Exam: Constitutional: No acute distress HEENT: EOMI, PERRLA Respiratory system: Decreased air entry bilaterally, no wheeze, positive rhonchi, more on the right side, mild crackles bilateral lower lobes CVS: S1-S2 positive, no murmurs or gallops Abdomen: Soft, nontender, nondistended, positive bowel sounds x4 Extremities: +1 pulses bilaterally radialis/ dorsalis pedis, no cyanosis, minimal pitting edema bilateral lower extremity, spastic fingers of the upper extremities bilaterally R>L Neuro: Awake, not answering any questions Psych: Flat mood and affect G/U: Positive Dial Skin: no rashes, warm and dry Lymphatic: no cervical or axillary lymphadenopathy Results & Data Results & Data Vital Signs (Past 12 Hours) Vital Signs Temp Pulse Pulse Resp BP Pulse Ox O2 Del Method 04/29/23 09:00 117/63 04/29/23 09:00 79 26 H 93 04/29/23 08:45 81 24 94 04/29/23 08:45 115/62 04/29/23 08:30 106/58 L 04/29/23 08:30 77 27 H 92 04/29/23 08:15 79 27 H 93 04/29/23 08:15 110/61 04/29/23 08:00 78 23 93 04/29/23 08:00 110/67 04/29/23 08:00 Aerosol Mask 04/29/23 07:45 105/61 04/29/23 07:45 74 24 95 04/29/23 07:37 105/65 04/29/23 07:37 73 23 97 04/29/23 07:32 37.5 C 04/29/23 07:30 71 23 92 04/29/23 07:17 90 18 96 Aerosol Mask 04/29/23 07:15 65 22 95 04/29/23 07:15 100/61 04/29/23 07:00 63 20 95 04/29/23 07:00 97/53 L 04/29/23 06:45 65 20 95 04/29/23 06:45 96/65 L 04/29/23 06:30 90/57 L 04/29/23 06:30 63 17 95 04/29/23 06:15 104/54 L 04/29/23 06:15 65 19 95 04/29/23 06:00 112/65 04/29/23 06:00 65 23 94 04/29/23 05:45 63 15 95 04/29/23 05:45 104/61 04/29/23 05:30 102/55 L 04/29/23 05:30 64 19 95 04/29/23 05:15 67 15 96 04/29/23 05:15 107/61 04/29/23 05:00 103/58 L 04/29/23 05:00 65 21 95 04/29/23 04:45 66 20 96 04/29/23 04:45 101/55 L 04/29/23 04:30 102/57 L 04/29/23 04:30 65 16 96 04/29/23 04:15 66 20 95 04/29/23 04:15 106/56 L 04/29/23 04:00 110/58 L 04/29/23 04:00 67 15 95 04/29/23 04:00 37.3 C 04/29/23 03:46 69 13 94 04/29/23 03:45 102/57 L 04/29/23 03:45 65 15 95 04/29/23 03:30 98/85 L 04/29/23 03:30 66 22 95 04/29/23 03:15 114/70 04/29/23 03:15 67 16 95 04/29/23 03:00 67 25 H 95 04/29/23 03:00 106/63 04/29/23 02:45 73 17 95 04/29/23 02:45 123/71 04/29/23 02:30 131/76 04/29/23 02:30 78 26 H 96 04/29/23 02:15 83 25 H 96 04/29/23 02:15 126/71 04/29/23 02:00 78 18 95 04/29/23 02:00 122/65 04/29/23 01:45 129/67 04/29/23 01:45 79 17 96 04/29/23 01:30 120/69 04/29/23 01:30 75 17 96 04/29/23 01:15 70 17 97 04/29/23 01:15 118/69 04/29/23 01:00 68 20 96 04/29/23 01:00 99/53 L 04/29/23 00:45 66 19 96 04/29/23 00:45 98/52 L 04/29/23 00:30 98/54 L 04/29/23 00:30 67 24 96 04/29/23 00:15 69 19 96 04/29/23 00:15 97/54 L 04/29/23 00:00 81 18 94 04/29/23 00:00 102/58 L 04/29/23 00:00 37.3 C 04/29/23 00:00 69 04/28/23 23:47 70 14 94 04/28/23 23:45 69 19 95 04/28/23 23:45 95/47 L 04/28/23 23:30 94/49 L 04/28/23 23:30 69 19 94 04/28/23 23:15 92/49 L 04/28/23 23:15 69 17 94 04/28/23 23:00 95/47 L 04/28/23 23:00 70 19 94 04/28/23 22:45 70 20 94 04/28/23 22:45 96/47 L 04/28/23 22:30 96/47 L 04/28/23 22:30 71 25 H 94 04/28/23 22:15 95/44 L 04/28/23 22:15 72 17 93 04/28/23 22:00 75 19 94 04/28/23 22:00 102/42 L 04/28/23 21:45 112/51 L 04/28/23 21:45 80 15 94 O2 Flow Rate FiO2 04/29/23 09:00 04/29/23 09:00 04/29/23 08:45 04/29/23 08:45 04/29/23 08:30 04/29/23 08:30 04/29/23 08:15 04/29/23 08:15 04/29/23 08:00 04/29/23 08:00 04/29/23 08:00 04/29/23 07:45 04/29/23 07:45 04/29/23 07:37 04/29/23 07:37 04/29/23 07:32 04/29/23 07:30 04/29/23 07:17 6 04/29/23 07:15 04/29/23 07:15 04/29/23 07:00 04/29/23 07:00 04/29/23 06:45 04/29/23 06:45 04/29/23 06:30 04/29/23 06:30 04/29/23 06:15 04/29/23 06:15 04/29/23 06:00 04/29/23 06:00 04/29/23 05:45 04/29/23 05:45 04/29/23 05:30 04/29/23 05:30 04/29/23 05:15 04/29/23 05:15 04/29/23 05:00 04/29/23 05:00 04/29/23 04:45 04/29/23 04:45 04/29/23 04:30 04/29/23 04:30 04/29/23 04:15 04/29/23 04:15 04/29/23 04:00 04/29/23 04:00 04/29/23 04:00 04/29/23 03:46 40 04/29/23 03:45 04/29/23 03:45 04/29/23 03:30 04/29/23 03:30 04/29/23 03:15 04/29/23 03:15 04/29/23 03:00 04/29/23 03:00 04/29/23 02:45 04/29/23 02:45 04/29/23 02:30 04/29/23 02:30 04/29/23 02:15 04/29/23 02:15 04/29/23 02:00 04/29/23 02:00 04/29/23 01:45 04/29/23 01:45 04/29/23 01:30 04/29/23 01:30 04/29/23 01:15 04/29/23 01:15 04/29/23 01:00 04/29/23 01:00 04/29/23 00:45 04/29/23 00:45 04/29/23 00:30 04/29/23 00:30 04/29/23 00:15 04/29/23 00:15 04/29/23 00:00 04/29/23 00:00 04/29/23 00:00 04/29/23 00:00 04/28/23 23:47 40 04/28/23 23:45 04/28/23 23:45 04/28/23 23:30 04/28/23 23:30 04/28/23 23:15 04/28/23 23:15 04/28/23 23:00 04/28/23 23:00 04/28/23 22:45 04/28/23 22:45 04/28/23 22:30 04/28/23 22:30 04/28/23 22:15 04/28/23 22:15 04/28/23 22:00 04/28/23 22:00 04/28/23 21:45 04/28/23 21:45 Laboratory Results 04/29/23 04:13 04/29/23 04:13 Coding Level of Care Code 98248 SUB INP/OBS CARE 3/50MIN Diagnoses Septic shock A41.9; R65.21 Acute respiratory failure with hypoxia and hypercapnia J96.01; J96.02 Aspiration pneumonia J69.0 Chronic incomplete quadriplegia G82.50 Acute kidney failure N17.9 Thrombocytopenia D69.6 Febrile R50.9 Encephalopathy G93.40
--- NOTE | 2023-04-29 13:23 | Hospitalist Progress Note ---
Date of Service April 29, 2023 Assessment & Plan (1) Encephalopathy: Plan: Biggest issue is progressive mental decline and periods of apnea that have recurred. Patient is had a fairly exhaustive infectious disease evaluation which did not not yet returned any defined infection. Imaging of brain is limited by pacemaker as we cannot do MRI. CT of head performed 04/19, 04/26 and 04/28 no acute changes are seen (2) Septic shock: Plan: Multiple possible sources on admission but initial concern for UTI give chronic indwelling will catheter, however cultures never confirmed Other possibilities - aspiration pneumonia. colitis, tich born illness, meningitis, encephalitis Patient remains encephalopathic-metabolic encephalopathy, at times with apena, requiring bipap with backup rate LP performed with final results not confirming infection Empiric antibiotics with Cefazoin Doxycycline,and did start iv hydrocortisone on 04/28 (3) Acute respiratory failure with hypoxia and hypercapnia: Plan: Secondary to presumed aspiration, S/p Bronchoscopy without defined culture source extubated given incomplete consider if C spine inital injury could be worsening issues with respiratory status at times apnea is with movement, will check Ct of C spine (4) NSTEMI (non-ST elevated myocardial infarction): Plan: type 2 [place], secondary to demand ischemia from septic shock present on admission TTE - normal EF with no RWMA Has PPI (5) Colitis: Plan: Stool and c. diff PCR negative - (6) Acidosis, metabolic, with respiratory acidosis: Plan: now anion gap is less bicarb is elevated stop acetazolamide (7) Chronic incomplete quadriplegia: (8) Acute kidney failure: Plan: resolved, renal function stable ?obstructive uropathy with will placement scar indicated previous suprapubic cath continue to monitor urine output (9) Pacemaker: Plan: Unclear reason for this. (10) Chronic anticoagulation: Plan: On Eliquis for DVT (11) Chronic indwelling Will catheter: Plan: Noted in prostate on ER CT, replaced ?obstructive uropathy (12) History of stroke: Plan: Noted on CT and confirmed by family/caregivers (13) Chronic prescription opiate use: Plan: On Suboxone as outpatient. all medications held Plan VTE prophylaxis - IV heparin Swallowing evaluation due to questions for safe swallowing, pt unable to take po, started on TF Moderate malnutrition Admission and Anticipated Discharge Date Admission Date: April 19, 2023 Subjective Patient has eyes open but does not respond to commands. Does not track. Does not have any guarding or blink reflex. Did have period of apnea which required BiPAP replacement. still no defined source for fever or respiratory decline Physical Exam Physical Exam: eyes open but no tracking or with blink reflex pupil small and reactive, eyes do more but not to command or to follow cardiac is regular lungs are coarse on BiPap abd is soft tolerating Tube feeds skin without lesions Results & Data Results & Data Vital Signs (Past 12 Hours) Vital Signs Temp Pulse Pulse Resp BP Pulse Ox O2 Del Method 04/29/23 12:46 75 24 96 04/29/23 09:45 79 25 H 95 04/29/23 09:45 117/59 L 04/29/23 09:30 78 26 H 94 04/29/23 09:30 121/59 L 04/29/23 09:15 78 23 94 04/29/23 09:15 119/71 04/29/23 09:00 117/63 04/29/23 09:00 79 26 H 93 04/29/23 08:45 81 24 94 04/29/23 08:45 115/62 04/29/23 08:30 106/58 L 04/29/23 08:30 77 27 H 92 04/29/23 08:15 79 27 H 93 04/29/23 08:15 110/61 04/29/23 08:00 78 23 93 04/29/23 08:00 110/67 04/29/23 08:00 Aerosol Mask 04/29/23 07:45 105/61 04/29/23 07:45 74 24 95 04/29/23 07:37 105/65 04/29/23 07:37 73 23 97 04/29/23 07:32 99.5 F 04/29/23 07:30 Oxymask 04/29/23 07:30 71 23 92 04/29/23 07:17 90 18 96 Aerosol Mask 04/29/23 07:15 65 22 95 04/29/23 07:15 100/61 04/29/23 07:00 63 20 95 04/29/23 07:00 97/53 L 04/29/23 06:51 64 04/29/23 06:45 65 20 95 04/29/23 06:45 96/65 L 04/29/23 06:30 90/57 L 04/29/23 06:30 63 17 95 04/29/23 06:15 104/54 L 04/29/23 06:15 65 19 95 04/29/23 06:00 112/65 04/29/23 06:00 65 23 94 04/29/23 05:45 63 15 95 04/29/23 05:45 104/61 04/29/23 05:30 102/55 L 04/29/23 05:30 64 19 95 04/29/23 05:15 67 15 96 04/29/23 05:15 107/61 04/29/23 05:00 103/58 L 04/29/23 05:00 65 21 95 04/29/23 04:45 66 20 96 04/29/23 04:45 101/55 L 04/29/23 04:30 102/57 L 04/29/23 04:30 65 16 96 04/29/23 04:15 66 20 95 04/29/23 04:15 106/56 L 04/29/23 04:00 110/58 L 04/29/23 04:00 67 15 95 04/29/23 04:00 99.1 F 04/29/23 03:46 69 13 94 04/29/23 03:45 102/57 L 04/29/23 03:45 65 15 95 04/29/23 03:30 98/85 L 04/29/23 03:30 66 22 95 04/29/23 03:15 114/70 04/29/23 03:15 67 16 95 04/29/23 03:00 67 25 H 95 04/29/23 03:00 106/63 04/29/23 02:45 73 17 95 04/29/23 02:45 123/71 04/29/23 02:30 131/76 04/29/23 02:30 78 26 H 96 04/29/23 02:15 83 25 H 96 04/29/23 02:15 126/71 04/29/23 02:00 78 18 95 04/29/23 02:00 122/65 04/29/23 01:45 129/67 04/29/23 01:45 79 17 96 04/29/23 01:30 120/69 04/29/23 01:30 75 17 96 O2 Flow Rate FiO2 04/29/23 12:46 60 04/29/23 09:45 04/29/23 09:45 04/29/23 09:30 04/29/23 09:30 04/29/23 09:15 04/29/23 09:15 04/29/23 09:00 04/29/23 09:00 04/29/23 08:45 04/29/23 08:45 04/29/23 08:30 04/29/23 08:30 04/29/23 08:15 04/29/23 08:15 04/29/23 08:00 04/29/23 08:00 04/29/23 08:00 04/29/23 07:45 04/29/23 07:45 04/29/23 07:37 04/29/23 07:37 04/29/23 07:32 04/29/23 07:30 2 04/29/23 07:30 04/29/23 07:17 6 04/29/23 07:15 04/29/23 07:15 04/29/23 07:00 04/29/23 07:00 04/29/23 06:51 04/29/23 06:45 04/29/23 06:45 04/29/23 06:30 04/29/23 06:30 04/29/23 06:15 04/29/23 06:15 04/29/23 06:00 04/29/23 06:00 04/29/23 05:45 04/29/23 05:45 04/29/23 05:30 04/29/23 05:30 04/29/23 05:15 04/29/23 05:15 04/29/23 05:00 04/29/23 05:00 04/29/23 04:45 04/29/23 04:45 04/29/23 04:30 04/29/23 04:30 04/29/23 04:15 04/29/23 04:15 04/29/23 04:00 04/29/23 04:00 04/29/23 04:00 04/29/23 03:46 40 04/29/23 03:45 04/29/23 03:45 04/29/23 03:30 04/29/23 03:30 04/29/23 03:15 04/29/23 03:15 04/29/23 03:00 04/29/23 03:00 04/29/23 02:45 04/29/23 02:45 04/29/23 02:30 04/29/23 02:30 04/29/23 02:15 04/29/23 02:15 04/29/23 02:00 04/29/23 02:00 04/29/23 01:45 04/29/23 01:45 04/29/23 01:30 04/29/23 01:30 Laboratory Results review cbc review chemistry PG Care Time/CCT Total # of Minutes Spent Total Time Spent with Patient: Total time spent is greater than 50% in coordination of care (as documented) at patient's floor/unit and/or counseling patient: Coding Level of Care Code 76583 SUB INP/OBS CARE 3/50MIN Diagnoses Encephalopathy G93.40 Septic shock A41.9; R65.21 Acute respiratory failure with hypoxia and hypercapnia J96.01; J96.02 NSTEMI (non-ST elevated myocardial infarction) I21.4 Colitis K52.9 Acidosis, metabolic, with respiratory acidosis E87.4 Chronic incomplete quadriplegia G82.50 Acute kidney failure N17.9 Pacemaker Z95.0 Chronic anticoagulation Z79.01 Chronic indwelling Will catheter Z97.8 History of stroke Z86.73 Chronic prescription opiate use Z79.891
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
--- NOTE | 2023-04-30 03:57 | Communication Note ---
Date of Service: April 30, 2023 0330- Called to bedside for acute hypoxic episode with SPO2 drop into the 80s. There was no other change in his HR or BP - Patient was NT suctioned by respiratory- there was scant amount of clear secretions returned - Patient is with bilateral ronchi without wheeze noted - RR 27-30 with abdominal breathing against the BiPAP - VT 320s-340s - has been receiving VTE prophylaxis in form of Lovenox - - increase BiPAP to target VT 450-550 with resulting increase in spo2, A/P CXR repeated without- pneumothorax, acute opacification, no plugging resulting in any lobar collapse, noted mild increase in pulmonary congestion, haziness of left diaphragm but patient rotated - At this time most consistent with hypoventilatory atelectasis resulting in hypoxia - - Will obtain ABG to eval Co2 and PaO2 - 7.34/60.5/32/55 - Nebulizer - wean FIo2 as able Patient is DNR/DNI at this time so will need to optimize NIVV Deshawn [facility] ([facility]
[2023-04-30] MEDS: ALBUT/IPRATROP 3MG/0.5MG NEB 3 ML VIAL NEB PRN (04:22)
[2023-04-30 05:25] LABS: iSTAT Allen Test Pass; iSTAT Art Bld Gas pCO2 Correct 53 mmHg (35-46); iSTAT Art Bld Gas pH Corrected 7.366 (7.35-7.45); iSTAT Arterial Blood Gas HCO3 31 meg/L (19-24); iSTAT Arterial Blood Gas pCO2 54 mmHg (35-46); iSTAT Arterial Blood Gas pH 7.36 (7.35-7.45); iSTAT Arterial Blood Gas pO2 70 mmHg (80-95); iSTAT Arterial Blood Gas pO2 C 69; iSTAT Carbon Dioxide 32 mmol/L (24-31); iSTAT FiO2 70 %; iSTAT Hematocrit 32 % (42-52); iSTAT Hemoglobin 10.9 g/dl (14.0-18.0); iSTAT Site R Radial; iSTAT Sodium 140 mmol/L (135-144)
[2023-04-30 05:25] LABS: iSTAT Allen Test Pass; iSTAT Art Bld Gas pCO2 Correct 60 mmHg (35-46); iSTAT Art Bld Gas pH Corrected 7.345 (7.35-7.45); iSTAT Arterial Blood Gas HCO3 33 meg/L (19-24); iSTAT Arterial Blood Gas pCO2 61 mmHg (35-46); iSTAT Arterial Blood Gas pH 7.34 (7.35-7.45); iSTAT Arterial Blood Gas pO2 55 mmHg (80-95); iSTAT Arterial Blood Gas pO2 C 54; iSTAT Carbon Dioxide 35 mmol/L (24-31); iSTAT FiO2 60 %; iSTAT Hematocrit 31 % (42-52); iSTAT Hemoglobin 10.5 g/dl (14.0-18.0); iSTAT Potassium 3.9 mmol/L (3.3-5.0); iSTAT Site R Radial; iSTAT Sodium 140 mmol/L (135-144)
[2023-04-30 05:26] LABS: Basophils # (auto) 0.04 K/uL (0.00-0.20); Basophils % (auto) 0.4 %; Eosinophils # (auto) 0.02 K/uL (0.00-0.50); Eosinophils % (auto) 0.2 %; Hematocrit (blood only) 33.9 % (42.0-52.0); Hemoglobin 10.8 g/dl (14.0-18.0); Immature Granulocytes # (auto) 0.15 K/uL (0.01-0.20); Immature Granulocytes % (auto) 1.3 %; Lymphocytes # (auto) 0.75 K/uL (1.20-3.40); Lymphocytes % (auto) 6.7 %; Mean Corpuscular Hemoglobin 28.7 pg (25.0-34.0); Mean Corpuscular Hgb Conc 31.9 g/dL (32.0-36.0); Mean Corpuscular Volume 90.2 fL (80.0-100.0); Mean Platelet Volume 9.4 fL (9.4-12.4); Monocytes # (auto) 0.84 K/uL (0.11-0.59); Monocytes % (auto) 7.6 %; Neutrophils # (auto) 9.32 K/uL (1.40-6.50); Neutrophils % (auto) 83.8 %; Platelet Count 447 K/uL (130-400); RDW Coefficient of Variation 15.7 % (11.5-14.5); RDW Standard Deviation 47.6 fL (36.4-46.3); Red Blood Count 3.76 M/uL (4.70-6.10); White Blood Count 11.12 K/ul (4.8-10.8)
[2023-04-30 05:47] LABS: Anion Gap 3 (3-11); BUN Creatinine Ratio 92.6 (10-20); Blood Urea Nitrogen 25 mg/dl (6-23); Carbon Dioxide 31 mmol/L (21-32); Chloride 105 mmol/L (98-107); Creatinine Clr Calc Pharmacy 394.1 ml/min; Est GFR (African American) > 150.0 ml/min; Est GFR (Non-African American) > 150.0 ml/min; Glucose 164 mg/dl (70-99(Fasting)); Magnesium 1.9 mg/dl (1.7-2.4); Phosphorus 2.3 mg/dl (2.5-4.9); Sodium 139 mmol/L (136-145)
[2023-04-30] MEDS: MAGNESIUM SULFATE / D5W 1 GM/100 ML BAG IV SCH (06:47)
[2023-04-30] MEDS ORDERED: SODIUM PHOSPHATE 3 MMOL/1 ML INFUSION IV STA (07:51)
--- NOTE | 2023-04-30 08:01 | Critical Care Progress Note ---
Date of Service April 30, 2023 Assessment & Plan (1) Septic shock: (2) Acute respiratory failure with hypoxia and hypercapnia: (3) Aspiration pneumonia: (4) Chronic incomplete quadriplegia: (5) Acute kidney failure: (6) Thrombocytopenia: (7) Febrile: (8) Encephalopathy: Plan Reason for ICU admission: Mr. Cevallos is a 52 y/o male with PMHx of quadriplegia, prior tracheostomy, and pacemaker who was admitted to ICU due to septic shock secondary to aspiration pneumonia. NEURO: --Metabolic encephalopathy Sepsis possibly MRI brain unable to be obtained given pacemaker currently. EEG from 04/21/[address] with diffuse slowing. Multiple CT of the head done, latest one being 04/28/2023 which did not show any acute abnormality Lumbar puncture trial 04/24/2023 was unsuccessful --> repeat lumbar puncture 04/26/2023, negative bio fire negative. Mildly elevated protein with mildly elevated glucose. Opening pressure was 40 -Continue baclofen, gabapentin and Klonopin. Suboxone also added back to help prevent withdrawals. CARDIOVASCULAR: -- S/p septic shock versus autonomic from paraplegia Random cortisol less than 5, started on hydrocortisone on 04/25/2023, started midodrine on 04/27/2023 - Cardiology evaluated: * troponin elevation likely related to demand ischemia rather than ACS * pacemaker functional * TTE showing hyperdynamic LV function with no wall motion abnormalities - Continue monitoring PULMONARY: -- S/p VDRF Likely secondary to metabolic encephalopathy with ventilatory failure Extubated 04/25/2023 -- Episodes of apnea Seem to be central apneas Gabapentin, baclofen as well as clonazepam has been discontinued as of 04/29/2023 GI: --Transaminitis --> Trending down Ammonia within normal limits 04/23/2023 Etiology could be ischemic Hepatitis panel pending CT abdomen and pelvis on admission with evidence of nonspecific colitis and a 1.5 cm polyp versus adherent stool to the rectal joint sigmoid colon. Hepatic steatosis was noted. HEMATOLOGY: --Monitor H&H --S/p thrombocytopenia Likely from sepsis -Improving. PF4 antibody negative. - Fibrinogen normal ID: --Aspiration pneumonia of the right lower lobe Continue with antibiotics -Blood cultures from 04/19 growing coag negative staph likely contaminant. Repeat blood cultures 04/23/2023 negative to date. - Abx: Meningitis doses of vancomycin, ampicillin, ceftriaxone and acyclovir started 04/23/2023 due to persistent fevers and concern for meningitis/encephalitis. --> DC'd after LP was negative Procalcitonin 54--> 13.5, trending down RENAL/ELECTROLYTES: -- Monitor BUNs/creatinine Avoid nephrotoxic medication ENDO: --ICU hyperglycemia protocol - Last TSH normal (3.365 on 04/16/23) CODE STATUS: DNR/DNI --Prophylaxis VTE: Lovenox GI: Pantoprazole Lines: Peripheral Diet: Tube feeds Plan: In/out: -35, urine output 1190 Overnight patient was a bit hypercapnic. Increase the EPAP to 10, increased backup respiratory rate to 20. Try to keep manage ventilation around 8-9 L/min. Patient has apneic episodes on and off, likely coming from central issues. By PAP nightly and when the patient is very lethargic would be beneficial Continue with hydrocortisone 50 mg every 12 Midodrine 10 mg Q8 Continue holding gabapentin, baclofen, clonazepam as well as Suboxone. Antibiotics as per ID Repeat blood cultures from 04/28/2023 negative to date Sputum culture is growing Yecenia which is mostly contaminant, would not recommend to treat Has been off Levophed for more than 24 hours. Patient is DNR/DNI with no escalation of care. Stable to be downgraded to medical floor. Myranda Cevallos [phone] Please note the above document was generated using voice recognition software. It may contain grammatical, syntax or spelling errors.Any formal questions or concerns about the content, text or information contained within the body of this dictation should be directly addressed to the provider for clarification. Admission and Anticipated Discharge Date Admission Date: April 19, 2023 Subjective Patient seen and examined at bedside. No acute distress. Overnight patient had an episode where he he went apneic. His BiPAP settings were changed. At the time of examination he was on BiPAP 14/10. Saturating 95% on 40% FiO2 He was awake and alert. Nodding no and yes all questions Review of Systems 2 Review of Systems: All systems reviewed & are unremarkable except as noted in Subjective Physical Exam 2 Physical Exam: Constitutional: No acute distress HEENT: EOMI, PERRLA Respiratory system: Decreased air entry bilaterally, no wheeze, positive rhonchi, more on the right side, mild crackles bilateral lower lobes CVS: S1-S2 positive, no murmurs or gallops Abdomen: Soft, nontender, nondistended, positive bowel sounds x4 Extremities: +1 pulses bilaterally radialis/ dorsalis pedis, no cyanosis, minimal pitting edema bilateral lower extremity, spastic fingers of the upper extremities bilaterally R>L Neuro: Awake, nodding yes or no to simple questions Psych: Flat mood and affect G/U: Positive Dial Skin: no rashes, warm and dry Lymphatic: no cervical or axillary lymphadenopathy Results & Data Results & Data Vital Signs (Past 12 Hours) Vital Signs Temp Pulse Pulse Resp BP Pulse Ox O2 Del Method 04/30/23 07:30 77 24 98 04/30/23 07:24 78 24 98 BiPAP 04/30/23 07:24 84 22 98 04/30/23 07:15 68 20 99 04/30/23 07:00 127/79 04/30/23 07:00 68 22 99 04/30/23 06:45 66 18 98 04/30/23 06:30 68 19 98 04/30/23 06:26 68 20 99 BiPAP 04/30/23 06:15 68 22 99 04/30/23 06:00 119/68 04/30/23 06:00 68 25 H 98 BiPAP 04/30/23 05:00 119/68 BiPAP 04/30/23 05:00 65 26 H 95 04/30/23 04:00 137/78 04/30/23 04:00 73 27 H 87 L 04/30/23 04:00 36.7 C 04/30/23 03:45 04/30/23 03:17 153/84 H 04/30/23 03:17 75 26 H 91 04/30/23 03:16 69 25 H 87 L 04/30/23 03:00 122/66 04/30/23 03:00 68 25 H 96 04/30/23 02:00 148/81 H 04/30/23 02:00 69 15 100 04/30/23 01:00 116/65 04/30/23 01:00 67 17 97 04/30/23 00:00 123/67 04/30/23 00:00 68 19 96 04/30/23 00:00 37.0 C 04/30/23 00:00 68 04/29/23 23:26 67 21 96 04/29/23 23:00 123/64 04/29/23 23:00 69 20 97 04/29/23 22:00 117/64 04/29/23 22:00 69 28 H 96 04/29/23 21:00 73 27 H 95 04/29/23 21:00 68 20 122/63 97 O2 Flow Rate FiO2 04/30/23 07:30 04/30/23 07:24 50 04/30/23 07:24 60 04/30/23 07:15 04/30/23 07:00 04/30/23 07:00 04/30/23 06:45 04/30/23 06:30 04/30/23 06:26 60 04/30/23 06:15 04/30/23 06:00 04/30/23 06:00 70 04/30/23 05:00 70 04/30/23 05:00 04/30/23 04:00 04/30/23 04:00 04/30/23 04:00 04/30/23 03:45 80 04/30/23 03:17 04/30/23 03:17 100 04/30/23 03:16 35 04/30/23 03:00 04/30/23 03:00 35 04/30/23 02:00 04/30/23 02:00 04/30/23 01:00 04/30/23 01:00 35 04/30/23 00:00 04/30/23 00:00 04/30/23 00:00 04/30/23 00:00 04/29/23 23:26 35 04/29/23 23:00 04/29/23 23:00 04/29/23 22:00 04/29/23 22:00 04/29/23 21:00 04/29/23 21:00 Laboratory Results 04/30/23 05:00 04/30/23 05:00 Coding Level of Care Code 58865 SUB INP/OBS CARE 3/50MIN Diagnoses Septic shock A41.9; R65.21 Acute respiratory failure with hypoxia and hypercapnia J96.01; J96.02 Aspiration pneumonia J69.0 Chronic incomplete quadriplegia G82.50 Acute kidney failure N17.9 Thrombocytopenia D69.6 Febrile R50.9 Encephalopathy G93.40
--- NOTE | 2023-04-30 08:04 | XRay Report ---
XR chest 1V portable CLINICAL HISTORY: hypoxia COMPARISON STUDY: Chest radiograph April 28, 2023. Chest CT February 17, 2024. FINDINGS: Tip of nasogastric tube is within the gastric fundus. There are postoperative findings with in the spine, a left subclavian pacer and stent graft within the thoracic aorta. Cardiomegaly is unch anged. Mild pulmonary edema has slightly improved. There are persistent bibasilar opacities. IMPRESSION: 1. Cardiomegaly. Slight improvement in pulmonary edema. 2. Persistent bibasilar opacities which could reflect pneumonia or atelectasis. ACT 112: Negative or not required by law. Electronically signed by: Sin Ying M.D. 04/30/2023 8:02 AM
[2023-04-30] MEDS: SODIUM PHOSPHATE 15 MMOL in SODIUM CHLORIDE 0.9% 250 ML IV ONE (08:36)
[2023-04-30] MEDS: LACTULOSE SYRUP 30 GM/45 ML UDP PO STA (09:02)
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
[2023-04-30] MEDS: LORazepam 1 MG in SYRINGE 0.5 ML IV STA (15:48)
[2023-05-01 04:42] LABS: Basophils # (auto) 0.06 K/uL (0.00-0.20); Basophils % (auto) 0.4 %; Eosinophils # (auto) 0.03 K/uL (0.00-0.50); Eosinophils % (auto) 0.2 %; Hematocrit (blood only) 35.6 % (42.0-52.0); Hemoglobin 11.4 g/dl (14.0-18.0); Immature Granulocytes # (auto) 0.25 K/uL (0.01-0.20); Immature Granulocytes % (auto) 1.8 %; Lymphocytes # (auto) 0.74 K/uL (1.20-3.40); Lymphocytes % (auto) 5.2 %; Mean Corpuscular Hemoglobin 28.3 pg (25.0-34.0); Mean Corpuscular Volume 88.3 fL (80.0-100.0); Mean Platelet Volume 9.4 fL (9.4-12.4); Monocytes # (auto) 0.98 K/uL (0.11-0.59); Monocytes % (auto) 6.9 %; Neutrophils % (auto) 85.5 %; Platelet Count 427 K/uL (130-400); RDW Standard Deviation 45.7 fL (36.4-46.3); Red Blood Count 4.03 M/uL (4.70-6.10); White Blood Count 14.26 K/ul (4.8-10.8)
[2023-05-01 05:17] LABS: Anion Gap 6 (3-11); BUN Creatinine Ratio 127.3 (10-20); Blood Urea Nitrogen 28 mg/dl (6-23); Calcium 9.1 mg/dl (8.6-10.3); Carbon Dioxide 30 mmol/L (21-32); Chloride 103 mmol/L (98-107); Creatinine Clr Calc Pharmacy 443.9 ml/min; Est GFR (African American) > 150.0 ml/min; Est GFR (Non-African American) > 150.0 ml/min; Glucose 152 mg/dl (70-99(Fasting)); Magnesium 1.9 mg/dl (1.7-2.4); Potassium 3.6 mmol/L (3.5-5.1); Sodium 139 mmol/L (136-145)
--- NOTE | 2023-05-01 10:35 | Palliative Family Discussion ---
Date of Service May 01, 2023 Patient Directed Conference Time of [id number] Participants: Bonnie Guerra DNP Patient participation: lacks capacity Patient Support System: daughter Myranda Other Healthcare Provider Participation: None Meeting Location:telephonic, Myranda is in [place] A family meeting was held for YUNG CRESPO. This meeting was necessary for determining the appropriate course of treatment. Topics of Discussion Topics of Discussion: 1. 52yo male with quadriplegia, prior tracheostomy, and pacemaker admitted to ICU due to septic shock secondary to aspiration pneumonia. MRI brain unable to be obtained given pacemaker currently. EEG from 04/21/2023 with diffuse slowing. Remains encephalopathic, resp failure/ he is s/p VDRF, increasing apneic episodes - cannot come off BiPAP --> acute hypoxic episode with SPO2 drops. Multiple CT of the head done, latest one being 04/28/2023 which did not show any acute abnormality. Lumbar puncture trial 04/24/2023 was unsuccessful --> repeat lumbar puncture 04/26/2023, negative bio fire negative. 2. Yung has had a fairly exhaustive infectious disease evaluation which did not not yet returned any defined infection and the imaging of brain is limited by pacemaker --> we cannot do MRI. CTs head 04/19, 04/26 and 04/28 no acute changes were found. ++ hypoventilatory atelectasis resulting in hypoxia. 3. Not responding, no tracking or blink. Extensive d/w family through the weekend with wide range of emotion, several adult children and patient's mother came to see him this weekend, dtr Myranda was here from [place] for a day as well. Conflicts between family re goals for patient though much of this was also noted to be their distress in learning how sick he was/they had not been in contact or seeking updates from medical teams. Other Content of Meetin. Opportunity given for participants to speak and ask questions. 2. Participants were assured of attention to patient comfort. 3. Extensive reassurance and psychosocial support provided. She is very tearful and crying through this discussion. She is very earnest in her request to assure he does not suffer anymore. 4. Support was provided for informed, good-ho decisions. 5. Emotions expressed by family were acknowledged and addressed. 6. Myranda shares she and her 3 siblings had more in depth discussions through weekend and this morning all agreed to make him comfort care, they understand he is not going to get better the way he would want to get better and they do not want to prolong suffering. Myranda and her sister plan to come visit [facility] but they all agree comfort care can begin now but keep him on BiPAP FOR NOW, NO ESCALATION OF CARE, NO MORE LABS/IMAGING/TESTING. IF HE DECLINES ASSURE COMFORT THROUGH THE DYING PROCESS. Time Involved in Meeting: telephonic 25min meeting I have updated primary team [facility] orders written Thank you for allowing us to participate in the ongoing care of this patient. Please don't hesitate to call or page with any additional concerns. Dr. Bonnie Guerra DNP Director, Palliative Care
[2023-05-01] MEDS ORDERED: GLYCOPYRROLATE 0.2 MG/ML VIAL IV PRN (10:36)
[2023-05-01] MEDS ORDERED: HYDROmorphone INJ 0.5 MG/0.5 ML SYR IV PRN (10:36)
[2023-05-01] MEDS ORDERED: LORazepam 1 MG in SYRINGE 0.25 ML IV PRN (10:36)
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
--- NOTE | 2023-05-01 21:33 | Death Pronouncement Note ---
Date of Service May 01, 2023 Pronouncement Note Admission Date Admission Date: April 19, 2023 Contributing Factors (1) Encephalopathy: (2) Septic shock: (3) Acute respiratory failure with hypoxia and hypercapnia: (4) NSTEMI (non-ST elevated myocardial infarction): (5) Colitis: (6) Acidosis, metabolic, with respiratory acidosis: (7) Chronic incomplete quadriplegia: (8) Acute kidney failure: (9) Pacemaker: (10) Chronic anticoagulation: (11) Chronic indwelling Dial catheter: (12) History of stroke: (13) Chronic prescription opiate use: Summary Additional details: I was called to pronounce the of Keyon Cevallos (: 1970) on 05/01/2023 Upon entering the room, patient was found to be in a terminal state. They were unresponsive to, and did not withdrawal from, verbal or tactile stimuli. They were unresponsive to corneal, pupillary, and oculocephalic reflexes. On cardiopulmonary exam, they were found to be without detectable carotid pulses, and without spontaneous heart tones or respirations. Time of was pronounced by me on 05/01/2023 at 2127 Attending physician was notified was notified. Next of kin was notified by phone. Signed: Dr. Thanh Bonilla Additional Data Attending physician: Herb Reese MD
[2023-05-02 03:02] LABS: Cryptococcal Antigen Not Detected (Not Detected); Source Serum
[2023-05-02 21:03] LABS: CSF, LDH 127 U/L (<=25); Cryptococcal Antigen Not Detected (Not Detected); EBV DNA Quant PCR Not Detected copies/mL; EBV DNA Quant Source CSF; Lyme DNA PCR CSF or Synovial Not Detected (Not Detected); Lyme DNA Source CSF; Lyme IgG Band Pattern CSF DNR; Lyme IgG CSF NO BANDS DETECTED; Lyme IgM Band Pattern CSF DNR; Lyme IgM CSF NO BANDS DETECTED; Source CSF; VDRL Qualitative CSF Nonreactive (Nonreactive)
[2023-05-02 23:01] LABS: Q Fever IgG, Phase I NEGATIVE; Q Fever Phase I IgM Antibody NEGATIVE; Q Fever Phase II IgG Antibody NEGATIVE; Q Fever Phase II IgM Antibody NEGATIVE; R. typhi IgG Ab NOT DETECTED; R. typhi IgM Ab NOT DETECTED; RMSF IgG Ab NOT DETECTED; RMSF IgM Ab NOT DETECTED
== END 2023-05-01 23:35 | disposition expired | DRG 870 ==
LOC: ED 09:57 → 1E 12:45 → SUATTDRO 12:45 → 1E 13:57 → 2S 05-01 18:45